=== PATIENT | male | born 1960 | race Caucasian/White ===

== ENCOUNTER 2016-11-15 21:52 | Outpatient (CLI) | payer SELFPAY | END 2016-11-15 21:53 | disposition critical access hospital (66) | LOC: EMS 21:52 | PROVIDERS: ATTEND Surgery | DX: R11.10 Vomiting, unspecified (principal); R23.9 Unspecified skin changes | CPT/HCPCS: A0425; A0429 ==

== ENCOUNTER 2016-11-15 22:16 | Emergency (ER) | payer SELFPAY ==
[2016-11-15] MEDS ORDERED: SODIUM CHLORIDE 0.9% 1,000 ML IV ONE (22:31)
[2016-11-15] MEDS ORDERED: ONDANSETRON 4 MG/2 ML VIAL IVP STA (22:31)
[2016-11-15] MEDS ORDERED: ONDANSETRON 4 MG/2 ML VIAL ONE (22:43)
[2016-11-15 22:52] LABS: BASOPHILS % (AUTO) 0.6 %; EOSINOPHILS % (AUTO) 0.5 %; HGB - HEMOGLOBIN 7.5 g/dL (14.0-18.0); INR 1.3 (0.8-1.2); LYMPHOCYTES % (AUTO) 52.7 %; MEAN CORPUSCULAR HEMOGLOBIN 33.4 pg (27.0-31.0); MEAN CORPUSCULAR VOLUME 98.2 fL (80.0-94.0); MEAN PLATELET VOLUME 7.1 fL (7.4-11.4); MONOCYTES % (AUTO) 26.6 %; NEUTROPHILS % (AUTO) 19.6 %; PT - PROTHROMBIN TIME 14.7 secs (9.9-12.6); RED BLOOD COUNT 2.24 10^6/uL (4.70-6.10); UNCORRECTED WHITE BLOOD COUNT 6.5 x10^3/uL; WHITE BLOOD COUNT 6.5 x10^3/uL (4.8-10.8)
[2016-11-15 22:59] LABS: BILIRUBIN,TOTAL 3.1 mg/dL (0.2-1.0); CALCIUM 8.9 mg/dL (8.5-10.3); CREATININE 0.9 mg/dL (0.6-1.2); PHOSPHORUS 3.6 mg/dL (2.5-4.6); POTASSIUM 3.7 mmol/L (3.5-5.0); TOTAL PROTEIN 6.3 g/dL (6.7-8.2)
[2016-11-15 23:00] LABS: PARTIAL THROMBOPLASTIN TIME 32.1 secs (24.9-33.3)
[2016-11-15 23:07] LABS: PLATELET ESTIMATE, MANUAL DECREASED (<130,000) (NORMAL); PLATELET MORPHOLOGY NORMAL APP (NORMAL)
[2016-11-15 23:15] LABS: BAND NEUTROPHILS % (MANUAL) 0 %
[2016-11-15 23:16] LABS: BASOPHILS % (MANUAL) 3 %; LYMPHOCYTES % (MANUAL) 71 %; NEUTROPHILS % (MANUAL) 15 %; NP AUTO DIFFERENTIAL? YES; NP MAN DIFFERENTIAL? NO; TOTAL CELLS COUNTED 100
[2016-11-16 00:55] VITALS: BP 134/75
--- NOTE | 2016-11-16 00:55 | ED Physician Documentation ---
PD HPI NVD - Stated complaint Stated Complaint: ABD PN/WD - Chief complaint Chief Complaint: General - History obtained from History obtained from: Patient - History of Present Illness Timing - onset: Chronic Timing - details: Gradual onset, Still present Associated symptoms: No: Chest pain, Hematemesis, Melena, Hematochezia, Near syncope / syncope, Loss of appetite, Weight loss Contributing factors: No: Sick contact, Bad food Similar symptoms before: Has not had sx before Recently seen: Not recently seen - Additonal information Additional information: Patient is a 56 year old male who is presenting to the emergency department for nausea and vomiting. Patient states that he quit drinking about three weeks ago. patient states that since that time he has not felt well. patient reports that over the last few days he has had diarrhea and vomiting. Patient states that he came in tonight since after he vomited he saw black nolan on his chest. Review of Systems Constitutional: denies: Fever, Chills Eyes: denies: Loss of vision, Photophobia Ears: denies: Ear pain, Drainage/discharge Nose: denies: Rhinorrhea / runny nose, Congestion Throat: denies: Sore throat Cardiac: denies: Chest pain / pressure, Palpitations Respiratory: denies: Cough, Wheezing GI: reports: Abdominal Pain, Nausea, Vomiting, Diarrhea. denies: Hematemesis, Bloody / black stool : denies: Dysuria, Frequency, Hematuria Skin: reports: Rash, Lesions Musculoskeletal: denies: Neck pain, Back pain, Extremity pain Neurologic: denies: Generalized weakness, Focal weakness, Numbness PD PAST MEDICAL HISTORY - Past Medical History Past Medical History: No - Past Surgical History Past Surgical History: No - Present Medications Home Medications: Ambulatory Orders Medication Instructions Recorded Confirmed Ondansetron Odt [Zofran] 4 mg TL Q6H PRN #14 tablet 11/16/16 - Allergies Allergies/Adverse Reactions: Allergies Allergy/AdvReac Type Severity Reaction Status Date / Time No Known Drug Allergies Allergy Verified 11/15/16 22:44 - Social History Does the pt smoke?: No Smoking Status: Never smoker Does the pt drink ETOH?: No Does the pt have substance abuse?: No - Immunizations Immunizations are current?: No - POLST Patient has POLST: No PD ED PE NORMAL - Vitals Vital signs reviewed: Yes - General General: Alert and oriented X 3 - HEENT HEENT: Atraumatic, PERRL, Ears normal - Neck Neck: Supple, no meningeal sign, No JVD - Cardiac Cardiac: RRR, No murmur - Respiratory Respiratory: No respiratory distress, Clear bilaterally - Abdomen Abdomen: Soft, Non distended - Extremities Extremities: No deformity, No tenderness to palpate, Normal ROM s pain, No edema , No calf tenderness / cord - Neuro Neuro: Alert and oriented X 3, No motor deficit, No sensory deficit, Normal speech - Psych Psych: Normal mood, Normal affect PD ED PE EXPANDED - General General: Alert - HEENT HEENT: Dry mucous membranes - Derm Derm: Purpura (purpura/ecchymosis on patient's chest) Results - Vitals Vitals: Vital Signs - 24 hr 11/15/16 11/15/16 11/16/16 22:15 22:54 00:50 Temperature 36.8 C 36.4 C L Heart Rate 93 80 75 Respiratory 17 18 16 Rate Blood Pressure 134/81 H 126/70 134/75 H O2 Saturation 97 95 96 Oxygen O2 Source Room air - Labs Labs: Laboratory Tests 11/15/16 11/15/16 11/15/16 22:40 22:40 22:40 WBC 6.5 RBC 2.24 L Hgb 7.5 L Hct 22.0 L MCV 98.2 H MCH 33.4 H MCHC 34.0 RDW 19.0 H Plt Count 31 L* MPV 7.1 L Neut # TIRE FABRICATOR Lymph # TIRE FABRICATOR [place] # TIRE FABRICATOR Eos # TIRE FABRICATOR Baso # TIRE FABRICATOR Absolute Nucleated RBC TIRE FABRICATOR Total Counted 100 Band Neuts % (Manual) 0 Myelocytes % 2 H Neutrophils # (Manual) 1.0 L Lymphocytes # (Manual) 4.6 H Monocytes # (Manual) 0.6 Basophils # (Manual) 0.2 H Nucleated RBCs TIRE FABRICATOR Differential Comment MANUAL DIFFERENTIAL Manual Slide Review Indicated Platelet Estimate DECREASED (<130,000) Platelet Morphology NORMAL BRINA RBC Morph Micro Appear 1+ POLYCHROMASIA ESR PT 14.7 H INR 1.3 H APTT 32.1 Sodium 138 Potassium 3.7 Chloride 107 Carbon Dioxide 22 Anion Gap 9.0 BUN 13 Creatinine 0.9 Estimated GFR (MDRD) 87 L Glucose 126 H Calcium 8.9 Phosphorus 3.6 Magnesium 2.0 Total Bilirubin 3.1 H AST 36 ALT 21 Alkaline Phosphatase 185 H C-Reactive Protein Total Protein 6.3 L Albumin 3.2 Globulin 3.1 Albumin/Globulin Ratio 1.0 Lipase 29 11/15/16 11/15/16 22:40 22:40 WBC RBC Hgb Hct MCV MCH MCHC RDW Plt Count MPV Neut # Lymph # [place] # Eos # Baso # Absolute Nucleated RBC Total Counted Band Neuts % (Manual) Myelocytes % Neutrophils # (Manual) Lymphocytes # (Manual) Monocytes # (Manual) Basophils # (Manual) Nucleated RBCs Differential Comment Manual Slide Review Platelet Estimate Platelet Morphology RBC Morph Micro Appear ESR 91 H PT INR APTT Sodium Potassium Chloride Carbon Dioxide Anion Gap BUN Creatinine Estimated GFR (MDRD) Glucose Calcium Phosphorus Magnesium Total Bilirubin AST ALT Alkaline Phosphatase C-Reactive Protein 1.7 H Total Protein Albumin Globulin Albumin/Globulin Ratio Lipase PD MEDICAL DECISION MAKING - ED course Complexity details: reviewed old records, reviewed results, re-evaluated patient , considered differential, d/w patient, d/w family, d/w programmer analyst consultant ED course: Patient was seen and examined at bedside. IV access was gained and labs were drawn. Patient was started on IV fluids and zofran. When patient's labs came back he was found to have a pancytopenia. A lengthy discussion was had with the patient, family and hospitalist. patient's symptoms were likely secondary to the chronic alcohol use which the patient had stopped. Patient did required further work up and care but all parties agreed it would be better in an outpatient setting. ample time was given to the patient and family to ask and answer questions. patient required no further work up and was stable for discharge with outpatient follow up. Departure - Departure Disposition: 01 Home, Self Care Clinical Impression: Pancytopenia Condition: Stable Instructions: ED Anemia Iron Deficiency, Supplements Folic Acid Folate Follow-Up: Vilma Ventura DO [Provider Admit Priv/Credential] - Within 1 week [facility] [Provider Group] Prescriptions: Ondansetron Odt [Zofran] 4 mg TL Q6H PRN #14 tablet PRN Reason: Nausea / Vomiting Comments: Your symptoms today are being caused by a pancytopenia. It is likely secondary to the chronic drinking. Now that you have stopped over time your symptoms should improve. You should start taking a pre-sana vitamin and increase the amount of green leafy vegetables and in the acute stage, red meat. You should return to the emergency department at any time for any type of active bleeding, syncope, dizziness, new worsening or uncontrollable symptoms. Discharge Date/Time: 11/16/16 01:18
== END 2016-11-16 01:18 | disposition home or self-care (01) ==
LOC: EDUNIT# → ED 22:16
DX: D61.818 Other pancytopenia (principal)
CPT/HCPCS: 36415; 80053; 83690; 83735; 84100; 85025; 85610; 85651; 85730; 86140; 96361; 96374; 99284

== ENCOUNTER 2016-11-25 17:08 | Outpatient (CLI) | payer MEDICAID | END 2016-11-25 17:09 | disposition critical access hospital (66) | LOC: EMS 17:08 | PROVIDERS: ATTEND Surgery | DX: R52 Pain, unspecified (principal); R53.1 Weakness | CPT/HCPCS: A0425; A0427 ==

== ENCOUNTER 2016-11-25 17:30 | Inpatient (IN) | payer MEDICAID ==
[2016-11-25] MEDS ORDERED: SODIUM CHLORIDE FLUSH 0.9% 10 ML SYRINGE IVP ONE (17:53)
[2016-11-25 18:13] LABS: BASOPHILS % (AUTO) 1.6 %; MEAN CORPUSCULAR HEMOGLOBIN 33.1 pg (27.0-31.0); MEAN CORPUSCULAR VOLUME 97.5 fL (80.0-94.0); MEAN PLATELET VOLUME 8.1 fL (7.4-11.4); MONOCYTES # (AUTO) 0.1 10^3/uL (0.0-1.0); MONOCYTES % (AUTO) 3.6 %; NEUTROPHILS % (AUTO) 34.8 %; NUCLEATED RED BLOOD CELLS AUTO 2.4 /100WBC; RED BLOOD COUNT 0.99 10^6/uL (4.70-6.10); RED CELL DISTRIBUTION WIDTH 19.1 % (12.0-15.0); UNCORRECTED WHITE BLOOD COUNT 1.8 x10^3/uL
[2016-11-25 18:18] LABS: HGB - HEMOGLOBIN 3.3 g/dL (14.0-18.0); WHITE BLOOD COUNT 1.8 x10^3/uL (4.8-10.8)
[2016-11-25 18:20] LABS: HCT - HEMATOCRIT 9.6 % (42.0-52.0); NEUTROPHILS # (AUTO) 0.6 10^3/uL (1.5-6.6)
[2016-11-25 18:33] LABS: ALBUMIN/GLOBULIN RATIO 0.9 (1.0-2.2); BILIRUBIN,TOTAL 9.5 mg/dL (0.2-1.0); CALCIUM 7.8 mg/dL (8.5-10.3); POTASSIUM 3.8 mmol/L (3.5-5.0); TOTAL PROTEIN 5.6 g/dL (6.7-8.2)
--- NOTE | 2016-11-25 18:34 | ED Physician Documentation ---
History of Present Illness - Stated complaint Stated Complaint: ABNORMAL LABS - Chief complaint Chief Complaint: General - History obtained from History obtained from: Patient, Family, EMS - History of Present Illness Pain level max: 7 Pain level now: 1 Improved by: nothing Worsened by: BM - Additonal information Additional information: 56 y/o M with a history of alcoholism, quit drinking about 5 weeks ago. Seen here 10 days ago for black nolan on his chest. Found to have pancytopenia. Followed up as outpatient. Sent in today for low H/H. Denies any dark or tarry stools. No emesis. B LQ abd pain. States has intermittent constipation. Feeling weak. Lost 50lbs over past few months. Review of Systems Ten Systems: 10 systems reviewed and negative Constitutional: denies: Fever, Chills Nose: denies: Rhinorrhea / runny nose, Congestion Cardiac: denies: Chest pain / pressure Respiratory: reports: Dyspnea (states extremely weak with any exertion). denies : Cough, Wheezing GI: reports: Abdominal Pain (crampy). denies: Constipation, Diarrhea, Hematemesis, Bloody / black stool Skin: denies: Rash Musculoskeletal: denies: Neck pain, Back pain Neurologic: denies: Focal weakness, Numbness, Headache PD PAST MEDICAL HISTORY - Past Medical History Past Medical History: No - Past Surgical History Past Surgical History: No - Present Medications Home Medications: Ambulatory Orders Medication Instructions Recorded Confirmed Ondansetron Odt [Zofran] 4 mg TL Q6H PRN #14 tablet 11/16/16 11/25/16 - Allergies Allergies/Adverse Reactions: Allergies Allergy/AdvReac Type Severity Reaction Status Date / Time No Known Drug Allergies Allergy Verified 11/25/16 18:00 - Living Situation Living Situation: reports: With family Living Arrangement: reports: At home - Social History Does the pt smoke?: No Smoking Status: Never smoker Does the pt drink ETOH?: No Does the pt have substance abuse?: No - Immunizations Immunizations are current?: No - POLST Patient has POLST: No PD ED PE NORMAL - Vitals Vital signs reviewed: Yes - General General: Alert and oriented X 3, No acute distress - HEENT HEENT: PERRL, Moist mucous membranes, Other (jaundiced) - Neck Neck: Supple, no meningeal sign - Cardiac Cardiac: RRR, No murmur - Respiratory Respiratory: No respiratory distress, Clear bilaterally - Abdomen Abdomen: Normal bowel sounds, Soft, Other (mild TTP LLQ. distention with ascites. Firm nodular liver palpable) - Rectal Rectal: Other (hemoccult weakly positive. QC passed. Normal rectal exam. ) - Back Back: No spinal TTP - Derm Derm: Warm and dry - Extremities Extremities: No calf tenderness / cord - Neuro Neuro: Alert and oriented X 3 - Psych Psych: Normal mood, Normal affect Results - Vitals Vitals: Vital Signs - 24 hr 11/25/16 11/25/16 11/25/16 17:30 18:42 19:37 Temperature 37.5 C Heart Rate 65 99 98 Respiratory 18 16 16 Rate Blood Pressure 113/50 L 115/63 105/45 L O2 Saturation 97 98 98 11/25/16 20:35 Temperature 36.8 C Heart Rate 93 Respiratory 15 Rate Blood Pressure 108/54 L O2 Saturation 98 Oxygen O2 Source Room air - Labs Labs: Laboratory Tests 11/25/16 11/25/16 11/25/16 17:55 17:55 18:00 WBC 1.8 L* RBC 0.99 L Hgb 3.3 L* Hct 9.6 L* MCV 97.5 H MCH 33.1 H MCHC 34.0 RDW 19.1 H Plt Count 33 L* MPV 8.1 Neut # 0.6 L Lymph # 1.0 L [place] # 0.1 Eos # 0.0 Baso # 0.0 Absolute Nucleated RBC 0.04 Nucleated RBCs 2.4 Manual Slide Review Indicated Platelet Estimate DECREASED (<130,000) RBC Morph Micro Appear 1+ MACROCYTOSIS PT INR APTT Sodium 136 Potassium 3.8 Chloride 107 Carbon Dioxide 21 Anion Gap 8.0 BUN 21 H Creatinine 1.0 Estimated GFR (MDRD) 77 L Glucose 137 H Calcium 7.8 L Total Bilirubin 9.5 H AST 32 ALT 23 Alkaline Phosphatase 176 H Lactate Dehydrogenase Total Protein 5.6 L Albumin 2.6 L Globulin 3.0 Albumin/Globulin Ratio 0.9 L Lipase 49 Ethyl Alcohol Blood Type Blood Type Recheck O POSITIVE Antibody Screen Crossmatch IS Only 11/25/16 11/25/16 11/25/16 18:00 18:00 18:00 WBC RBC Hgb Hct MCV MCH MCHC RDW Plt Count MPV Neut # Lymph # [place] # Eos # Baso # Absolute Nucleated RBC Nucleated RBCs Manual Slide Review Platelet Estimate RBC Morph Micro Appear PT 15.7 H INR 1.4 H APTT 28.2 Sodium Potassium Chloride Carbon Dioxide Anion Gap BUN Creatinine Estimated GFR (MDRD) Glucose Calcium Total Bilirubin AST ALT Alkaline Phosphatase Lactate Dehydrogenase 220 Total Protein Albumin Globulin Albumin/Globulin Ratio Lipase Ethyl Alcohol Blood Type O POSITIVE Blood Type Recheck Antibody Screen NEGATIVE Crossmatch IS Only 11/25/16 11/25/16 11/25/16 18:00 18:00 18:05 WBC RBC Hgb Hct MCV MCH MCHC RDW Plt Count MPV Neut # Lymph # [place] # Eos # Baso # Absolute Nucleated RBC Nucleated RBCs Manual Slide Review Platelet Estimate RBC Morph Micro Appear PT INR APTT Sodium Potassium Chloride Carbon Dioxide Anion Gap BUN Creatinine Estimated GFR (MDRD) Glucose Calcium Total Bilirubin AST ALT Alkaline Phosphatase Lactate Dehydrogenase Total Protein Albumin Globulin Albumin/Globulin Ratio Lipase Ethyl Alcohol < 5.0 Blood Type Cancelled Cancelled Blood Type Recheck Antibody Screen Cancelled Cancelled Crossmatch IS Only See Detail See Detail PD MEDICAL DECISION MAKING - ED course Complexity details: reviewed results, re-evaluated patient, considered differential, d/w patient, d/w family, d/w healthcare network pricing consultant ED course: 1924 - Dr. 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 Doesn't recommend transfer at this time. 1939 - Dr. Guzman hematology, states no special RBC prep needed. Patient is a 56-year-old male with pancytopenia. Possible alcoholic myelosuppression, possible hepatic cellular carcinoma, possible cirrhosis, possible other etiology of hematopoietic suppression. Discussed the case with Dr. Gallegos, hospitalist who accepts the patient. Will start with blood transfusion tonight and likely further testing tomorrow. Patient is jaundiced. Patient is also very anemic, has dropped from 7.5 down to 3.3 on his hemoglobin. This document was made in part using voice recognition software. While efforts are made to proofread this document, sound alike and grammatical errors may occur. Departure - Departure Disposition: 66 [facility] DC/Xfer Clinical Impression: Pancytopenia Anemia Qualifiers: Anemia type: unspecified type Qualified Code(s): D64.9 - Anemia, unspecified Condition: Stable Discharge Date/Time: 11/25/16 21:50
[2016-11-25 18:56] LABS: PLATELET ESTIMATE, MANUAL DECREASED (<130,000) (NORMAL)
[2016-11-25 19:18] LABS: INR 1.4 (0.8-1.2); PT - PROTHROMBIN TIME 15.7 secs (9.9-12.6)
[2016-11-25 19:25] LABS: PARTIAL THROMBOPLASTIN TIME 28.2 secs (24.9-33.3)
[2016-11-25] MEDS ORDERED: SODIUM CHLORIDE FLUSH 0.9% 10 ML SYRINGE IVP PRN ×2 (20:40→22:19)
[2016-11-25] MEDS ORDERED: oxyCODONE 5 MG TABLET PO PRN (20:40)
[2016-11-25] MEDS ORDERED: ACETAMINOPHEN 325 MG TABLET PO PRN ×2 (20:40→22:19)
[2016-11-25] MEDS ORDERED: SODIUM CHLORIDE FLUSH 0.9% 10 ML SYRINGE IVP SCH (22:00)
[2016-11-25] MEDS ORDERED: PHENAZOPYRIDINE 100 MG TABLET PO SCH (22:00)
[2016-11-25] MEDS ORDERED: ONDANSETRON 4 MG/2 ML VIAL IVP PRN (22:22)
[2016-11-25] MEDS ORDERED: ONDANSETRON ODT 4 MG TABLET TL PRN (22:22)
[2016-11-25] MEDS: SODIUM CHLORIDE FLUSH 0.9% 10 ML SYRINGE IVP SCH (23:10)
--- NOTE | 2016-11-25 23:14 | HISTORY & PHYSICAL EXAMINATION ---
DATE OF ADMISSION: 11/25/2016 PRIMARY CARE PROVIDER: David Rodriguez MD, and Vilma Ventura DO. ADMITTING PROVIDER: Any Gallegos MD. CHIEF COMPLAINT: Told to come to the emergency room by Dr. Rodriguez. HISTORY OF PRESENT ILLNESS: The patient is a 56-year-old male who has never seen a doctor, never had regular routine medical care. He drinks two 5 liter containers of wine a week. He drank very heavily in his 20s and stopped drinking after about 15 years when he got and had kids. He was sober for about 10 years and then went back to drinking when he . About 6 weeks ago, he was under heavy stress from job-related requirements. He goes into great detail and spends most of his history of present illness describing why his job is stressful, how hard he works at it, and that alcohol was a coping mechanism. When he realized how tired he felt and overwhelmed he felt and that the job stress was getting too much, he thought that turning over a new [place] with a better diet and stopped drinking cold turkey would help. He said that he had minimal shakes when he would hand-write something the first week he stopped drinking, but other than that, he has not had hallucinations or withdrawal. He has not had any melanotic stool. He has probably lost about 30- 37 pounds in the last month in relation to stopping drinking. Instead of feeling better as time went on, he says he just kept on feeling worse, more tired, more fatigued. He tried multiple vitamins, tried probiotics, tried anticonstipating agents, but he was not having bowel movements and he was afraid of eating. He also notes that when he drinks minimal amount of water, he would have an immediate urge to urinate, but there is nothing there. He tries to urinate and nothing comes out. He then has to drink a substantial amount of liquid before his bladder will finally fill up, and then he will start writhing with the discomfort of having to urinate and he finally can ago. There is no hematuria or flank pain with this. The suprapubic discomfort is almost constant. There is no rectal pain with this. No blood in his stool. There is no abdominal pain with this. He denies fevers or sweats. No nausea or vomiting. As time went on, he was also getting yellower and yellower, but nobody really said that he looked terrible with this jaundice. He finally came to our emergency room on November 15, 2016, with these complaints. What brought him to the emergency room was not so much his generalized decline, but the fact that he had coughed and he was having petechiae form on his chest wall. He was seen by Dr. Calhoun, and the pancytopenia was noted. At that time , hemoglobin was 7. He declined a rectal exam. If he had been having a GI bleed , we most likely would have admitted him and transfused him, but since he declined a rectal, did not describe any melena, was hemodynamically stable, it was felt that he was having side effects from liver disease and alcoholism, that he could be seen in the outpatient setting with a primary care provider and the workup started. The patient then was seen in followup. Blood work was done. It was acknowledged that he would need to be going to rehabilitation. The patient and his primary care provider (according to the patient's story) seemed to be focused on his need for alcohol rehabilitation and that once his blood work was done, treatment instituted for the abnormal blood work, then he could go into rehab. Blood work was done. The patient was called and told that he needed to call an ambulance and come to the emergency room because of the abnormal blood work. The patient said that he was definitely lightheaded today. Vision was blurred. He felt nauseated and dizzy as he got his blood work and then had to go back and sit in the car. In our emergency room, he was now evaluated by Dr. Delatorre. Dr. Delatorre found him to have a bilirubin that went from 3.1 to 9.5. Alkaline phosphatase was 185 and went to 176. White cell count was 6.5 and is now 1.8. Hemoglobin was 7.5 and is now 3.3. Hematocrit was 22 and now 9.6. Platelets are stable at 33,000. INR is 1.4. Ethyl alcohol is less than 5. I queried a little bit more carefully about any other toxins that could be doing this besides his alcohol but he does not do any other recreational substances. 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 He says he has not been on any hazardous waste sites. He does not do any HAZMAT work. No one else in the family has a history of leukemia or lymphoma. Dr. Delatorre spoke to Dr. Hammond, [facility] on-call, and he also spoke to Dr. Guzman who is on-call for [facility]. [facility] comes over to our [facility] clinic twice a week. Both of those specialties have reassured Dr. Delatorre that a critical access hospital is perfectly capable of taking care of this patient, but he did not need to be transferred to a higher level of care, that we can transfuse him, stabilize him, and then have him worked up in the outpatient setting. The [facility] group feels that it may be myelosuppression from alcohol, and Hematology is withholding their opinion but feels that he can be stabilized here and then worked up in the outpatient setting. As such, the patient is now admitted for further evaluation of his weight loss, pancytopenia, and transfusion. PAST MEDICAL HISTORY: None. He has never been hospitalized, never seen a doctor. To his knowledge, he does not have high blood pressure, diabetes, high cholesterol, etc. ALLERGIES: NO KNOWN DRUG ALLERGIES. MEDICATIONS: [id number] medications in the form of 1. Probiotics. 2. Multiple vitamins. 3. Laxatives. SOCIAL HISTORY: He smoked for 15 years, at most a pack per day, quit, and then started smoking again 10 or 11 years later after his first marriage ended in divorce and he was stressed out and hanging out at bars. He also went back to drinking. Right now, he has been drinking two 5 liter containers of wine a week until 6 weeks ago. Under much stress at work and working 12 hours a day. He has never gone through alcohol withdrawal. He says that he may have done a few recreational substances between the ages of 17 and 21 but never did IV drugs. He is living with his significant other/girlfriend. He has 2 children from his first marriage. He lives in his own home and has no disabilities. FAMILY HISTORY: Mom is 78 and had no medical issues. Dad at 75 of complications of atrial fibrillation and most likely amiodarone. He described a drug being given to him that affected his thyroid and his lungs. He has multiple half brothers and sisters. He says his father was an inveterate liar, and so he does not know half of the story. He was always finding out about new half siblings sporadically throughout his life. As far as he knows, his half siblings are okay. His 2 children are healthy. REVIEW OF SYSTEMS CONSTITUTIONAL: Denies constitutional sweats, fevers, cough, but does endorse a 30 to 37 pound weight loss in the last month. EARS, NOSE, AND THROAT: Blurred vision only today. Denies glaucoma, cataracts, deafness, problems swallowing. PULMONARY: Denies coughing, wheezing, shortness of breath, chest congestion, easy bronchitis. CARDIAC: Denies edema, orthopnea, valvular heart disease, angina. GASTROINTESTINAL: As above. GENITOURINARY: As above. JOINTS: Denies osteoarthritis, chronic pain. SKIN: New petechiae over the last 1 to 2 weeks. PSYCHIATRIC: No specific complaints. However, noted during the exam, the patient is a circumferential voluminous speaker, constantly angry. He constantly voices displeasure with "the system". Does not like the noise in this hospital. Does not like the fact that he had to go see an outpatient provider. Does not like the noise of the monitor. Does not like that his provider did "do anything" and just sent him here. Numerous, numerous statements of generalized unhappiness. A very loquacious speaker. He takes a very, very long time to answer a simple question. CENTRAL NERVOUS SYSTEM: Denies syncope, seizures, memory loss. PHYSICAL EXAMINATION GENERAL: On examination, he is seen in his room with the door closed, no lights on, and he is angry that the monitor sound keeps on going off. Initially, I think he is hallucinating because he keeps pointing at the computer monitor at the bedside that is at the foot of the bed and in the corner of the room. The computer monitor is not on, it is silent, but he insists that it is making noise and he wants me to turn it off immediately. We then figure out that it must be the monitor above and behind him in the bed that is echoing off the room , making him think it is at the foot at the bed. VITAL SIGNS: Temperature is 37.5, pulse 98, blood pressure 101/52, respirations 14, 97% on room air. He is a medium stature, middle-aged white male who is pale , alert, oriented, in no acute distress. HEAD AND NECK: Shows him to be disheveled, sweet and mustache, icteric. Very dry oral mucosa. Pale mucosa. Shotty adenopathy. LUNGS: Clear in a barrel chest. CARDIOVASCULAR: A regular rate and rhythm, no valvular heart disease. ABDOMEN: Belly is slightly distended but obese, soft, nontender. He has a enlarged, firm multinodular liver palpable 6 cm below the costal margin. I do not feel the spleen. Again, during his exam, even in the semi-darkness, his skin is remarkable for paleness. Suprapubic discomfort with palpation but no bladder mass. EXTREMITIES: Pale. He has ecchymosis in the web spaces of his toes, top of his feet, one on the right anterior maharaj, anterior chest wall. No true petechia. No clubbing, cyanosis. Mild edema. The edema appears to be generalized and almost like which you would see with hypothyroidism. NEUROLOGIC: Alert and oriented with no focal deficits. No tremors. No agitation. Emotion is mainly that of stated anger. DIAGNOSTIC DATA: Sodium 136, potassium 3.8, BUN 21, creatinine 1, glucose 137, calcium 7.8, total bilirubin 9.5, AST 32, ALT 23, alkaline phosphatase 176, LDH 220, protein 5.6. White cell count 1.8, hemoglobin 3.3, hematocrit 9.6, MCV 97, platelets 33. INR 1.4. Alcohol less than 5. ASSESSMENT/PLAN 1. Profound pancytopenia with painless obstructive jaundice. Differential diagnosis in this man that comes to mind is [facility]'s thought that he may have myelosuppression and cirrhosis from alcohol. Possible, but I think something else is going on. The next differential I want to consider is that of either a leukemic or lymphoid process or whitney neoplasm. I would like a peripheral blood smear review on a slide. I would also like a peripheral flow cytometry. Liver is enlarged and with nodules. Do CT abdomen and pelvis. He is complaining of difficulty urinating. Check PSA. Rectal is only trace positive. Could be colorectal neoplasm. Will check CEA. I have explained to the patient that my thought process is more in keeping with either the myelosuppression or a neoplasm. He keeps on returning to the fact that he needs to be going into rehab. I told him that while rehab is definitely going to be important in his life, right now , we need to find the disease that may be killing him. He cannot focus so much on the rehab, but focus on the next step with either [facility] or [facility]. The treatment for this pancytopenia during this stay is going to be transfusion of blood products to get him to a hemoglobin of 10. Consider transfusing platelets. 2. History of alcohol abuse. Give oral vitamin supplements. He is not in acute withdrawal and does not have to have acute hepatitis. Not in withdrawal so as such does not CIWA protocol. 3. Suprapubic pain. Flomax, Pyridium. Check urinalysis and again check PSA. 4. FULL CODE STATUS. 5. Deep venous thrombosis prophylaxis not to be done at this time because of the thrombocytopenia. At most will use MAYDA anthonye. 6. Possible personality disorder. JOB #: [id number] EXT JOB #:[id number] JERROD
[2016-11-26 00:21] LABS: BILIRUBIN,URINE MODERATE (NEGATIVE)
[2016-11-26 00:30] LABS: UR CULTURE IF IND INDICATED; WBC,URINE >25 /HPF (0-3)
[2016-11-26] MEDS: traMADol 50 MG TABLET PO PRN ×4 (00:40→20:25)
[2016-11-26] MEDS: PHENAZOPYRIDINE 100 MG TABLET PO SCH ×4 (00:40→21:38)
[2016-11-26] MEDS ORDERED: SODIUM CHLORIDE 0.9% 100ML 100 ML IV ONE ×2 (01:27→04:46)
[2016-11-26] MEDS ORDERED: SODIUM CHLORIDE 0.9% 0 ML IV ONE (04:43)
[2016-11-26] MEDS: SODIUM CHLORIDE FLUSH 0.9% 10 ML SYRINGE IVP SCH ×3 (06:15→21:38)
[2016-11-26] MEDS: PANTOPRAZOLE 40 MG TABLET PO SCH (06:41)
[2016-11-26] MEDS ORDERED: PANTOPRAZOLE 40 MG TABLET PO SCH (07:00)
[2016-11-26] MEDS ORDERED: CYANOCOBALAMIN 500 MCG TABLET PO SCH (09:00)
[2016-11-26] MEDS ORDERED: FOLIC ACID 1 MG TABLET PO SCH (09:00)
[2016-11-26] MEDS ORDERED: POLYETHYLENE GLYCOL 3350 17 GM PACKET PO SCH (09:00)
[2016-11-26] MEDS ORDERED: IOPAMIDOL-300 100 ML VIAL IVP ONE (09:19)
[2016-11-26] MEDS: FOLIC ACID 1 MG TABLET PO SCH (09:50)
[2016-11-26] MEDS: CYANOCOBALAMIN 500 MCG TABLET PO SCH (09:50)
[2016-11-26] MEDS: POLYETHYLENE GLYCOL 3350 17 GM PACKET PO SCH (09:51)
--- NOTE | 2016-11-26 10:04 | CT Preliminary Report ---
Exam: CT Abdomen/Pelvis W/ IMPRESSION: 1. There is hepatosplenomegaly. 2. There are peripheral areas of decreased attenuation in the spleen consistent with small splenic in farcts. 3. The gallbladder is distended and there is trace pericholecystic fluid which can be seen with baldo cystitis. The fluid could also be related to liver disease. 4. There is trace perisplenic ascites. 5. There are upper abdominal and paraesophageal varices. 6. There is periportal and retroperitoneal lymphadenopathy. 7. Tiny nonobstructing calculus in the lower pole of the left kidney. 8. Atherosclerotic vascular disease with ectasia of the distal abdominal aorta. [facility] SITE ID: [id number]
--- NOTE | 2016-11-26 10:07 | CT Report ---
EXAM: CT ABDOMEN AND PELVIS EXAM DATE: 11/26/2016 09:09 AM. CLINICAL HISTORY: 37 lb wt loss, nodular liver, hgb 7, plt 10. COMPARISONS: Ultrasound exam, same day (report not available). TECHNIQUE: Routine helical CT imaging was performed through the abdomen and pelvis. IV contrast: 100 mL Isovue-300. Enteric contrast: No. Reconstructions: Coronal and sagittal. In accordance with CT protocol optimization, one or more of the following dose reduction techniques w ere utilized for this exam: automated exposure control, adjustment of mA and/or KV based on patient s ize, or use of iterative reconstructive technique. FINDINGS: Lung Bases: Clear lung bases. Coronary artery calcifications are present. Liver: The liver is enlarged measuring up to approximately 27.6 cm greatest dimension. No focal abnor mality. Gallbladder/Bile Ducts: The gallbladder is distended and there is trace pericholecystic fluid. Spleen: The spleen is enlarged measuring up to approximately 20.3 cm. There is small peripheral areas of decreased attenuation for example series 3 image 42, likely representing small splenic infarcts. Pancreas: Normal. Adrenal Glands: Normal. Kidneys: There is a 0.2 cm nonobstructing calculus in the lower pole of the left kidney series 3 imag e 55. Negative for hydronephrosis. Peritoneal Cavity/Bowel: No free air. No bowel obstruction. There is trace perisplenic ascites. No ac kelly inflammatory changes. The appendix is well visualized and normal. Pelvic Organs: Normal. The bladder and visualized pelvic organs are within normal limits. Vasculature: There is atherosclerotic calcification in the aorta and iliac arteries. There is ectasia of the distal abdominal aorta measuring up to approximately 2.8 cm diameter. There are varices in th e upper abdomen and around the distal esophagus. Bones: No significant abnormality. Slight convex right lumbar scoliotic curvature. Other: There is periportal lymphadenopathy. For example, series 3 image 32 measuring 1.5 x 2.2 cm. Th ere is retroperitoneal lymphadenopathy. A retail service representative lymph node left of the aorta on series 3 cornelia ge 46 measures 1.1 x 1.5 cm. IMPRESSION: 1. There is hepatosplenomegaly. 2. There are peripheral areas of decreased attenuation in the spleen consistent with small splenic in farcts. 3. The gallbladder is distended and there is trace pericholecystic fluid which can be seen with baldo cystitis. The fluid could also be related to liver disease. 4. There is trace perisplenic ascites. 5. There are upper abdominal and paraesophageal varices. 6. There is periportal and retroperitoneal lymphadenopathy. 7. Tiny nonobstructing calculus in the lower pole of the left kidney. 8. Atherosclerotic vascular disease with ectasia of the distal abdominal aorta. [facility] Referring Provider Line: [phone] SITE ID: [id number]
[2016-11-26 10:08] LABS: BASOPHILS % (AUTO) 1.5 %; EOSINOPHILS % (AUTO) 0.9 %; LYMPHOCYTES # (AUTO) 0.8 10^3/uL (1.5-3.5); MEAN CORPUSCULAR HEMOGLOBIN 31.5 pg (27.0-31.0); MEAN CORPUSCULAR HGB CONC 34.9 g/dL (32.0-36.0); MEAN CORPUSCULAR VOLUME 90.2 fL (80.0-94.0); MONOCYTES # (AUTO) 0.1 10^3/uL (0.0-1.0); MONOCYTES % (AUTO) 4.1 %; NEUTROPHILS % (AUTO) 36.5 %; NUCLEATED RED BLOOD CELLS AUTO 9.1 /100WBC; RED BLOOD COUNT 1.89 10^6/uL (4.70-6.10); RED CELL DISTRIBUTION WIDTH 17.8 % (12.0-15.0); UNCORRECTED WHITE BLOOD COUNT 1.4 x10^3/uL
[2016-11-26 10:18] LABS: HCT - HEMATOCRIT 17.1 % (42.0-52.0); NEUTROPHILS # (AUTO) 0.5 10^3/uL (1.5-6.6); WHITE BLOOD COUNT 1.4 x10^3/uL (4.8-10.8)
[2016-11-26 10:30] LABS: PLATELET ESTIMATE, MANUAL DECREASED (<130,000) (NORMAL)
[2016-11-26 11:08] LABS: IRON 178 ug/dL (45-182); TOTAL IRON BINDING CAPACITY 207 ug/dL (250-450); TRANSFERRIN 148 mg/dL (180-329)
--- NOTE | 2016-11-26 11:22 | Ultrasound Preliminary Report ---
Exam: US Abdomen Complete IMPRESSION: 1. There is hepatosplenomegaly. Echogenic liver parenchyma. 2. The gallbladder wall is mildly thickened and there is trace pericholecystic fluid. No gallstones. This finding might be related to liver disease. [facility] SITE ID: [id number]
--- NOTE | 2016-11-26 11:25 | Ultrasound Report ---
EXAM: ABDOMEN ULTRASOUND EXAM DATE: 11/26/2016 09:51 AM. CLINICAL HISTORY: Pancytopenia, liver failure. COMPARISON: Abdomen/pelvis CT, same day. TECHNIQUE: Real-time scanning was performed with static images obtained. FINDINGS: Liver: Mildly echogenic liver. No focal masses are demonstrated. Overall size approximately 20.7 cm. Main portal vein flow: Hepatopetal. Gallbladder: No stones or sonographic Combs sign. Thickened gallbladder wall measuring 4 mm. Trace p ericholecystic fluid. Biliary System: Common bile duct measures 5 mm. No intrahepatic or extrahepatic ductal dilatation. Pancreas: Visualized portion is unremarkable. Kidneys: Right: 12.4 cm longitudinally. Normal. No contour-deforming mass, stones, or hydronephrosis. Left: 12.7 cm longitudinally. Normal. No contour-deforming mass, stones, or hydronephrosis. Spleen: Markedly enlarged with volume 901 mL. Aorta and Inferior Vena Cava: Limited evaluation, grossly normal. IMPRESSION: 1. There is hepatosplenomegaly. Echogenic liver parenchyma. 2. The gallbladder wall is mildly thickened and there is trace pericholecystic fluid. No gallstones. This finding might be related to liver disease. [facility] Referring Provider Line: [phone] SITE ID: [id number]
[2016-11-26 11:48] LABS: FOLATE 11.54 ng/mL (5.90 - >24.8)
--- NOTE | 2016-11-26 14:29 | PROVIDER PROGRESS NOTE ---
Assessment/Plan - Problem List (1) Anemia Qualifiers: Anemia type: unspecified type Qualified Code(s): D64.9 - Anemia, unspecified Assessment/Plan: The cause of the patients anemia is unclear at this point but the patient does have pancytopenia with hepatosplenomegaly which maybe secondary to bone marrow suppression from alcohol or virus such as [id number] vs myelodysplasia vs myelofibrosis vs lymphoma vs hemolysis Patient unlikely to have iron deficiency anemia, B12 def, folate def or a hemoglobinopathy such as sickle cell or thalasemia given that patient has pancytopenia Patient does not appear to have blood loss anemia even though he has a weakly positive stool guiaic and gastric and esophageal varices on CT scan he has not had any melena or blood in the stool. The patient has aplastic anemia which does not appear chemical or medication induced, it could be due to a virus such as [id number] or post hepatitis B or C, could be an immune disorder such as SLE although patient does not have any other symptoms or signs that would go with this, malignancy is very high on the differential given patients weight loss, hepatosplenomegaly and enlarged intraabdominal LNs on CT, this could also be alcohol induced bone marrow suppression as the patient does have an elevated MCV Currently this appears most likely to be alcohol induced BM suppression vs malignancy either way the patient will need a bone marrow biopsy to diagnose the cause We will get extensive tests to rule out as much of the above as we can Patients presenting Hb was 3.3 and that was a drop from 7.5 just 10 days earlier. The patient stopped drinking 6 weeks ago. The patient has had no melena or blood per rectum. Plan: Transfuse 6 units of PRBCs After 4 units patients hb has improved from 3.3 to 6.0 which is not as much of an improvement as we would expect We will check Hb after all 6 units are transfused and then monitor every 6 hours if patients hb continues to fall rapidly he will need transfer for further work up and further transfusion as we are a critical access hospital and do not have the resources to do mass transfusions of patients also at that point I believe the patient would need a more definitive diagnosis with a BM biopsy We will send off a peripheral smear folate, B12, iron and LDH are all normal We are awaiting the haptoglobin Patients Bili is elevated but this could be secondary to liver failure or hemolysis we need the haptoglobin to determine this We will order a Hepatitis panel, TSH, GENI, Anti Liver Kideny Microsome ab, anti smooth muscle ab Continue to monitor Hb (2) Pancytopenia Assessment/Plan: As above for anemia the pancytopenia is most likely secondary to BM suppression from alcohol vs BM malignancy vs lymphoma ANC is 500, Hb 3.3 and Plt count 27 Plan: Monitor CBC q 6 hours Transfuse PRBCs if hb less than 7 Transfuse Plts if Plt count less than 10 Neutropenic precautions as ANC is 500 Send peripheral blood smear Patient will need BM biopsy (3) Hepatosplenomegaly Assessment/Plan: Likely secondary to myeloproliferative neoplasm although could also be secondary to liver failure due to alcoholic liver failure or other form of liver failure. Will need to monitor for possible splenic rupture patient needs to avoid contact activities Could also be secondary to virus like viral hepatitis or [id number] which could cause bone marrow suppression and hepatosplenomegaly Patient needs biopsies to find a diagnosis Blood test have been ordered and will be followed up (4) Alcohol abuse Assessment/Plan: Patient quit drinking 6 weeks ago He has no interest in starting again He stopped drinking because he was feeling fatigued and weak He quit cold turkey and did not have any major withdrawal symptoms Possible cause of BM suppression and liver failure Patient drank 10 L of hard liquor a week (5) Hyperbilirubinemia Assessment/Plan: Most likely secondary to liver failure but could also be secondary to hemolysis especially in the setting of splenomegaly Other LFTs are normal and this does not appear to be secondary to biliary stone Although gallbladder is distended with pericholecystic fluid there is no gallstones and the changes appear to be secondary to liver disease rather than cholecystitis Plan: Monitor direct and indirect Bilirubin Check haptoglobin (6) UTI (urinary tract infection) Assessment/Plan: Patient not having urinary symptoms but has neutropenia and presented with pyuria and bacteruia in male which is very unusual will treat for UTI as PSA is normal will not treat for prostatitis Plan: Levaquin IV Urine cx pending (7) Liver failure Qualifiers: Liver failure chronicity: unspecified chronicity Assessment/Plan: MELD score is [address] shows hepatosplenomegaly with upper abdominal and paraesophageal varices but no focal abnormalities of the liver Likely alcohol related liver failure but the presentation is unusual with pancytopenia and splenomegaly this may be acute alcoholic hepatitis but then would expect it to be resolving 6 weeks after last drink rather patients pancytopenia is worsening and his bili is increasing Plan: Work up liver failure with work up for Wilsons disease, Viral Hepatitis, Autoimmune Hepatitis Monitor LFTs and Bili, CMP and CBC Patient will need EGD to access varices Start on propranolol for varices No ascites on exam or CT CT and US dont show hepatocellular cancer Monitor MELD score Patient will need hepatology follow up inpatient vs outpatient (8) Splenic infarction Assessment/Plan: The patient has small splenic infarctions seen on CT abd/pelvis in conjunction with the fact the patient has hepatosplenomegaly, pancytopenia and enlarged intra-abdominal lymph nodes the infarcts are most likely secondary to a myeloproliferative neoplasm or malignancy with hypercoagulation as a hemoglobinopathy like sickle cell is very unlikely and so is an embolic disease such as a fib or infective endocarditis Plan: Patient need a BM biopsy and likely a LN biopsy Hematology referral inpatient vs outpatient depending on patients stability - Current Meds Current Meds: Current Medications Generic Name Dose Route Start Last Admin Trade Name Freq PRN Reason Stop Dose Admin Cyanocobalamin 500 mcg 11/26/16 09:00 11/26/16 09:50 Vitamin B-12 PO 500 mcg DAILY HAYDEN Administration Folic Acid 1 mg 11/26/16 09:00 11/26/16 09:50 PO 1 mg DAILY HAYDEN Administration Levofloxacin 100 mls @ 100 mls/hr 11/26/16 08:00 11/26/16 07:57 Levaquin 500 Mg/100 Ml IV 100 mls/hr Q24H HAYDEN Administration Ondansetron HCl 4 mg 11/25/16 22:22 11/25/16 22:25 Zofran Odt TL 4 mg Q4HR PRN Administration Nausea / Vomiting Pantoprazole Sodium 40 mg 11/26/16 07:00 11/26/16 06:41 Protonix PO 40 mg QDAC HAYDEN Administration Phenazopyridine HCl 100 mg 11/25/16 22:00 11/26/16 06:41 Pyridium PO 100 mg TID HAYDEN Administration Polyethylene Glycol 17 gm 11/26/16 09:00 11/26/16 09:51 Miralax PO Not Given DAILY HAYDEN Sodium Chloride 10 ml 11/25/16 22:00 11/26/16 06:15 Normal Saline Flush 0.9% IVP Not Given Q8HR HAYDEN Tramadol HCl 50 mg 11/25/16 23:41 11/26/16 12:41 Ultram PO 50 mg Q4HR PRN Administration PAIN - Lab Result Lab results reviewed: Yes Fish Bone Diagrams: 11/26/16 09:58 11/25/16 18:00 - EKG Results EKG Interpreted Independently: Yes - Diagnostic Imaging Results Diagnostic Imaging Results: Final report reviewed - Additional Planning Condition/Complexity: Guarded My Orders: My Active Orders 11/26/16 08:00 levoFLOXacin 500 MG/100 ML [Levaquin 500 mg/100 ml] 100 ml IV Q24H 11/26/16 09:58 GENI SCREEN W REFLEX TITER [REFLAB] Routine CERULOPLASMIN [REFLAB] Routine LIVER KIDNEY MICROSOME AB [REFLAB] Routine PARVOVIRUS B19 IGG/IGM [REFLAB] Routine 11/26/16 16:30 BILIRUBIN, TOTAL AND DIRECT [CHEM] Timed CBC - COMP BLD CT W/AUTO DIFF [HEME] Timed CMP, RFLX TO IONIZED CA IF [CHEM] Routine 11/26/16 22:30 CBC - COMP BLD CT W/AUTO DIFF [HEME] Q6H 11/27/16 04:30 CBC - COMP BLD CT W/AUTO DIFF [HEME] Q6H 11/27/16 05:00 BILIRUBIN, TOTAL AND DIRECT [CHEM] DAILYLAB CBC - COMP BLD CT W/AUTO DIFF [HEME] DAILYLAB CMP, RFLX TO IONIZED CA IF [CHEM] DAILYLAB 11/27/16 10:30 CBC - COMP BLD CT W/AUTO DIFF [HEME] Q6H 11/27/16 16:30 CBC - COMP BLD CT W/AUTO DIFF [HEME] Q6H 11/28/16 05:00 BILIRUBIN, TOTAL AND DIRECT [CHEM] DAILYLAB CBC - COMP BLD CT W/AUTO DIFF [HEME] DAILYLAB CMP, RFLX TO IONIZED CA IF [CHEM] DAILYLAB 11/29/16 05:00 BILIRUBIN, TOTAL AND DIRECT [CHEM] DAILYLAB CBC - COMP BLD CT W/AUTO DIFF [HEME] DAILYLAB CMP, RFLX TO IONIZED CA IF [CHEM] DAILYLAB 11/30/16 05:00 CBC - COMP BLD CT W/AUTO DIFF [HEME] DAILYLAB CMP, RFLX TO IONIZED CA IF [CHEM] DAILYLAB Plan Discussed with:: Patient, Family Time Spent: 31-60 minutes Subjective - Subjective Patient Reports: Other (Patient states he still feels weak, fatigued and lightheaded. He denies any chest pain, abdominal pain, fevers or chills.) Nursing Reports: Other (Patient is difficult, gets easily annoyed) Objective Vital Signs: Vital Signs - 24 hr 11/25/16 11/25/16 11/25/16 21:00 21:36 22:00 Temperature 37.5 C Heart Rate 94 98 Heart Rate [ 96 Brachial] Respiratory 20 14 16 Rate Blood Pressure 101/58 L 101/52 L Blood Pressure [Left Brachial artery] Blood Pressure 120/56 L [Right Brachial artery] O2 Saturation 98 97 96 11/26/16 11/26/16 11/26/16 00:06 08:26 08:39 Temperature 37.7 C H 36.8 C Heart Rate Heart Rate [ 83 80 Brachial] Respiratory 18 22 Rate Blood Pressure Blood Pressure 104/61 [Left Brachial artery] Blood Pressure 110/56 L 108/60 [Right Brachial artery] O2 Saturation 98 98 11/26/16 11/26/16 11/26/16 10:00 10:15 12:30 Temperature 37.4 C 37 C 36.7 C Heart Rate Heart Rate [ 71 72 73 Brachial] Respiratory 16 18 16 Rate Blood Pressure Blood Pressure [Left Brachial artery] Blood Pressure 110/58 L 116/59 L 140/79 H [Right Brachial artery] O2 Saturation 96 97 97 11/26/16 11/26/16 12:45 14:00 Temperature 37 C Heart Rate Heart Rate [ 72 66 Brachial] Respiratory 20 16 Rate Blood Pressure Blood Pressure [Left Brachial artery] Blood Pressure 132/75 H [Right Brachial artery] O2 Saturation 96 Oxygen O2 Source Room air I&O (Last 24 Hrs): Intake and Output Totals x24h 11/24/16 11/25/16 11/26/16 23:59 23:59 23:59 Intake Total 1640 Output Total 1150 Balance 490 General: Alert, Oriented x3, Cooperative, Other (Jaundiced appearing) HEENT: Atraumatic, PERRLA, EOMI, Mucous membr. moist/pink, Other (Scleral icterus and conjuntival pallor) Neck: Supple, No JVD, No thyromegaly, +2 carotid pulse wo bruit, No LAD Lymphatic: other (No supraclavicular LNs, no cervical LNs) Neuro: Alert, Non Focal, CN 2-12 Grossly Intact, Oriented Times 3 Cardiovascular: Regular rate, Normal S1, Normal S2, No murmurs Respiratory: Chest non-tender, No respiratory distress, Breath sounds nml Abdomen: Normal bowel sounds, Soft, No tenderness, Other (Hepatosplenomegaly) Rectal: Stool - Heme POS Extremities: No clubbing, No cyanosis, No edema, Normal pulses, No tenderness/ swelling Comments/Notes: Bruises on shins and feet as well as one on the back - Results Results: Laboratory Results WBC 1.4 x10^3/uL (4.8-10.8) L* 11/26/16 09:58 RBC 1.89 10^6/uL (4.70-6.10) L 11/26/16 09:58 Hgb 6.0 g/dL (14.0-18.0) L* 11/26/16 09:58 Hct 17.1 % (42.0-52.0) L* 11/26/16 09:58 MCV 90.2 fL (80.0-94.0) 11/26/16 09:58 MCH 31.5 pg (27.0-31.0) H 11/26/16 09:58 MCHC 34.9 g/dL (32.0-36.0) 11/26/16 09:58 RDW 17.8 % (12.0-15.0) H 11/26/16 09:58 Plt Count 27 10^3/uL (130-450) L* 11/26/16 09:58 MPV 8.0 fL (7.4-11.4) 11/26/16 09:58 Neut # 0.5 10^3/uL (1.5-6.6) L* 11/26/16 09:58 Lymph # 0.8 10^3/uL (1.5-3.5) L 11/26/16 09:58 Mccreary # 0.1 10^3/uL (0.0-1.0) 11/26/16 09:58 Eos # 0.0 10^3/uL (0.0-0.7) 11/26/16 09:58 Baso # 0.0 10^3/uL (0.0-0.1) 11/26/16 09:58 Absolute Nucleated RBC 0.13 x10^3/uL 11/26/16 09:58 Nucleated RBCs 9.1 /100WBC 11/26/16 09:58 Manual Slide Review Indicated 11/26/16 09:58 Platelet Estimate DECREASED (<130,000) (NORMAL) 11/26/16 09:58 RBC Morph Micro Appear 2+ ANISOCYTOSIS (NORMAL) 1+ MACROCYTOSIS (NORMAL) 11/25/16 17:55 RBC Morph Micro Appear 2+ ANISOCYTOSIS (NORMAL) 11/26/16 09:58 PT 15.7 secs (9.9-12.6) H 11/25/16 18:00 INR 1.4 (0.8-1.2) H 11/25/16 18:00 APTT 28.2 secs (24.9-33.3) 11/25/16 18:00 Sodium 136 mmol/L (135-145) 11/25/16 18:00 Potassium 3.8 mmol/L (3.5-5.0) 11/25/16 18:00 Chloride 107 mmol/L (101-111) 11/25/16 18:00 Carbon Dioxide 21 mmol/L (21-32) 11/25/16 18:00 Anion Gap 8.0 (6-13) 11/25/16 18:00 BUN 21 mg/dL (6-20) H 11/25/16 18:00 Creatinine 1.0 mg/dL (0.6-1.2) 11/25/16 18:00 Estimated GFR (MDRD) 77 (>89) L 11/25/16 18:00 Glucose 137 mg/dL (70-100) H 11/25/16 18:00 Calcium 7.8 mg/dL (8.5-10.3) L 11/25/16 18:00 Iron 178 ug/dL (45-182) 11/26/16 09:58 TIBC 207 ug/dL (250-450) L 11/26/16 09:58 % Saturation 86 % (20-50) H 11/26/16 09:58 Transferrin 148 mg/dL (180-329) L 11/26/16 09:58 Total Bilirubin 9.5 mg/dL (0.2-1.0) H 11/25/16 18:00 AST 32 IU/L (10-42) 11/25/16 18:00 ALT 23 IU/L (10-60) 11/25/16 18:00 Alkaline Phosphatase 176 IU/L (42-121) H 11/25/16 18:00 Lactate Dehydrogenase 220 IU/L (91-225) 11/25/16 18:00 Total Protein 5.6 g/dL (6.7-8.2) L 11/25/16 18:00 Albumin 2.6 g/dL (3.2-5.5) L 11/25/16 18:00 Globulin 3.0 g/dL (2.1-4.2) 11/25/16 18:00 Albumin/Globulin Ratio 0.9 (1.0-2.2) L 11/25/16 18:00 Lipase 49 U/L (22-51) 11/25/16 18:00 PSA Screen 1.620 ng/mL (0.000-2.000) 11/26/16 09:58 Vitamin B12 1105 pg/mL (180-914) H 11/26/16 09:58 Folate 11.54 ng/mL (5.90 - >24.8) 11/26/16 09:58 Urine Color ORANGE 11/26/16 00:00 Urine Clarity HAZY (CLEAR) 11/26/16 00:00 Urine pH 6.0 PH (5.0-7.5) 11/26/16 00:00 Ur Specific [place] 1.020 (1.002-1.030) 11/26/16 00:00 Urine Protein TRACE mg/dL (NEGATIVE) 11/26/16 00:00 Urine Glucose (UA) NEGATIVE mg/dL (NEGATIVE) 11/26/16 00:00 Urine Ketones NEGATIVE mg/dL (NEGATIVE) 11/26/16 00:00 Urine Occult Blood SMALL (NEGATIVE) H 11/26/16 00:00 Urine Nitrite NEGATIVE (NEGATIVE) 11/26/16 00:00 Urine Bilirubin MODERATE (NEGATIVE) H 11/26/16 00:00 Urine Urobilinogen >=8.0 E.U./dL (NORMAL) H 11/26/16 00:00 Ur Leukocyte Esterase LARGE (NEGATIVE) H 11/26/16 00:00 Urine RBC 0-5 /HPF (0-5) 11/26/16 00:00 Urine WBC >25 /HPF (0-3) H 11/26/16 00:00 Urine WBC Clumps PRESENT 11/26/16 00:00 Ur Squamous Epith Cells NONE SEEN (<= Few) 11/26/16 00:00 Urine Bacteria Many /HPF (None Seen) H 11/26/16 00:00 Urine Culture Comments INDICATED 11/26/16 00:00 Ethyl Alcohol < 5.0 mg/dL 11/25/16 18:05 Blood Type O POSITIVE 11/25/16 18:00 Blood Type Recheck O POSITIVE 11/25/16 17:55 Antibody Screen NEGATIVE 11/25/16 18:00 Crossmatch IS Only See Detail 11/25/16 18:00
[2016-11-26 16:42] LABS: BASOPHILS % (AUTO) 1.4 %; EOSINOPHILS % (AUTO) 1.2 %; HCT - HEMATOCRIT 21.9 % (42.0-52.0); HGB - HEMOGLOBIN 7.6 g/dL (14.0-18.0); LYMPHOCYTES # (AUTO) 0.8 10^3/uL (1.5-3.5); MEAN CORPUSCULAR HEMOGLOBIN 30.8 pg (27.0-31.0); MEAN CORPUSCULAR HGB CONC 34.9 g/dL (32.0-36.0); MEAN CORPUSCULAR VOLUME 88.4 fL (80.0-94.0); MEAN PLATELET VOLUME 7.8 fL (7.4-11.4); MONOCYTES # (AUTO) 0.1 10^3/uL (0.0-1.0); MONOCYTES % (AUTO) 4.5 %; NEUTROPHILS % (AUTO) 37.9 %; NUCLEATED RED BLOOD CELLS AUTO 11.7 /100WBC; RED BLOOD COUNT 2.48 10^6/uL (4.70-6.10); RED CELL DISTRIBUTION WIDTH 18.1 % (12.0-15.0); UNCORRECTED WHITE BLOOD COUNT 1.4 x10^3/uL
[2016-11-26 16:52] LABS: WHITE BLOOD COUNT 1.4 x10^3/uL (4.8-10.8)
[2016-11-26 16:56] LABS: ALBUMIN/GLOBULIN RATIO 0.9 (1.0-2.2); BILIRUBIN,TOTAL 14.7 mg/dL (0.2-1.0); BUN - BLOOD UREA NITROGEN 19 mg/dL (6-20); CALCIUM 7.5 mg/dL (8.5-10.3); CARBON DIOXIDE - CO2 23 mmol/L (21-32); CHLORIDE 108 mmol/L (101-111); CREATININE 0.6 mg/dL (0.6-1.2); GFR - MDRD 139 (>89); GLUCOSE 137 mg/dL (70-100); POTASSIUM 3.8 mmol/L (3.5-5.0); SODIUM 135 mmol/L (135-145); TOTAL PROTEIN 5.3 g/dL (6.7-8.2)
[2016-11-26 16:57] LABS: BILIRUBIN,DIRECT 7.7 mg/dL (0.1-0.5); BILIRUBIN,INDIRECT 6.5 mg/dL; BILIRUBIN,TOTAL 14.2 mg/dL (0.2-1.0)
[2016-11-26 16:59] LABS: NEUTROPHILS # (AUTO) 0.5 10^3/uL (1.5-6.6)
[2016-11-26 17:03] LABS: PLATELET ESTIMATE, MANUAL DECREASED (<130,000) (NORMAL)
[2016-11-26 17:07] LABS: CALCIUM, IONIZED 1.05 mmol/L (1.15-1.33); VBG PH 7.364 (7.31-7.41)
[2016-11-26] MEDS ORDERED: CALCIUM GLUCONATE 1,000 MG in SODIUM CHLORIDE 0.9% 50 ML IV ONE (17:15)
[2016-11-26] MEDS: oxyCODONE 5 MG TABLET PO PRN (20:24)
[2016-11-26 22:58] LABS: BASOPHILS % (AUTO) 0.5 %; EOSINOPHILS % (AUTO) 1.1 %; HGB - HEMOGLOBIN 7.3 g/dL (14.0-18.0); LYMPHOCYTES # (AUTO) 0.8 10^3/uL (1.5-3.5); LYMPHOCYTES % (AUTO) 55.9 %; MEAN CORPUSCULAR HEMOGLOBIN 30.5 pg (27.0-31.0); MEAN CORPUSCULAR HGB CONC 34.8 g/dL (32.0-36.0); MEAN CORPUSCULAR VOLUME 87.5 fL (80.0-94.0); MEAN PLATELET VOLUME 9.3 fL (7.4-11.4); MONOCYTES # (AUTO) 0.1 10^3/uL (0.0-1.0); NEUTROPHILS % (AUTO) 36.5 %; UNCORRECTED WHITE BLOOD COUNT 1.3 x10^3/uL
[2016-11-26 23:13] LABS: NEUTROPHILS # (AUTO) 0.5 10^3/uL (1.5-6.6); WHITE BLOOD COUNT 1.3 x10^3/uL (4.8-10.8)
[2016-11-26 23:34] LABS: NP AUTO DIFFERENTIAL? NO; NP MAN DIFFERENTIAL? YES; PLATELET ESTIMATE, MANUAL DECREASED (<130,000) (NORMAL); PLATELET MORPHOLOGY NORMAL APPEARANCE (NORMAL)
[2016-11-27] MEDS: oxyCODONE 5 MG TABLET PO PRN ×2 (00:28→04:39)
[2016-11-27] MEDS: traMADol 50 MG TABLET PO PRN ×2 (00:28→04:39)
[2016-11-27] MEDS ORDERED: POTASSIUM CHLORIDE 10 MEQ CAPSULE PO SCH (01:53)
[2016-11-27 04:50] LABS: BASOPHILS % (AUTO) 0.9 %; EOSINOPHILS % (AUTO) 1.2 %; HCT - HEMATOCRIT 21.4 % (42.0-52.0); HGB - HEMOGLOBIN 7.4 g/dL (14.0-18.0); LYMPHOCYTES # (AUTO) 0.8 10^3/uL (1.5-3.5); LYMPHOCYTES % (AUTO) 61.5 %; MEAN CORPUSCULAR HEMOGLOBIN 30.2 pg (27.0-31.0); MEAN CORPUSCULAR HGB CONC 34.6 g/dL (32.0-36.0); MEAN CORPUSCULAR VOLUME 87.1 fL (80.0-94.0); MEAN PLATELET VOLUME 7.9 fL (7.4-11.4); MONOCYTES # (AUTO) 0.1 10^3/uL (0.0-1.0); MONOCYTES % (AUTO) 4.9 %; NEUTROPHILS % (AUTO) 31.5 %; NUCLEATED RED BLOOD CELLS AUTO 10.9 /100WBC; RED BLOOD COUNT 2.46 10^6/uL (4.70-6.10); RED CELL DISTRIBUTION WIDTH 18.1 % (12.0-15.0); UNCORRECTED WHITE BLOOD COUNT 1.2 x10^3/uL
[2016-11-27 04:58] LABS: INR 1.3 (0.8-1.2); PT - PROTHROMBIN TIME 14.8 secs (9.9-12.6)
[2016-11-27 05:08] LABS: ALBUMIN/GLOBULIN RATIO 0.8 (1.0-2.2); BILIRUBIN,DIRECT 6.6 mg/dL (0.1-0.5); BILIRUBIN,INDIRECT 5.4 mg/dL; BUN - BLOOD UREA NITROGEN 19 mg/dL (6-20); CARBON DIOXIDE - CO2 22 mmol/L (21-32); CHLORIDE 103 mmol/L (101-111); CREATININE 0.9 mg/dL (0.6-1.2); GFR - MDRD 87 (>89); GLUCOSE 140 mg/dL (70-100); SODIUM 133 mmol/L (135-145); TOTAL PROTEIN 5.5 g/dL (6.7-8.2)
[2016-11-27 05:22] LABS: VBG PH 7.451 (7.31-7.41)
[2016-11-27 05:23] LABS: CALCIUM, IONIZED 1.06 mmol/L (1.15-1.33)
[2016-11-27 05:32] LABS: NEUTROPHILS # (AUTO) 0.4 10^3/uL (1.5-6.6); WHITE BLOOD COUNT 1.2 x10^3/uL (4.8-10.8)
[2016-11-27 05:34] LABS: NP AUTO DIFFERENTIAL? NO; NP MAN DIFFERENTIAL? YES; PLATELET ESTIMATE, MANUAL DECREASED (<130,000) (NORMAL); PLATELET MORPHOLOGY NORMAL APPEARANCE (NORMAL)
[2016-11-27] MEDS: PHENAZOPYRIDINE 100 MG TABLET PO SCH ×2 (06:09→14:12)
[2016-11-27] MEDS: PANTOPRAZOLE 40 MG TABLET PO SCH (06:09)
[2016-11-27] MEDS: SODIUM CHLORIDE FLUSH 0.9% 10 ML SYRINGE IVP SCH ×2 (06:09→14:12)
[2016-11-27 08:26] VITALS: BP 128/75
[2016-11-27] MEDS: POLYETHYLENE GLYCOL 3350 17 GM PACKET PO SCH (08:35)
[2016-11-27] MEDS ORDERED: SODIUM CHLORIDE 0.9% 250 ML IV ONE (08:42)
[2016-11-27] MEDS: CYANOCOBALAMIN 500 MCG TABLET PO SCH (08:45)
[2016-11-27] MEDS: FOLIC ACID 1 MG TABLET PO SCH (08:45)
[2016-11-27 09:12] LABS: HGB - HEMOGLOBIN 7.6 g/dL (14.0-18.0); RED BLOOD COUNT 2.51 10^6/uL (4.70-6.10); UNCORRECTED WHITE BLOOD COUNT 1.1 x10^3/uL
[2016-11-27 09:21] LABS: BASOPHILS % (AUTO) 0.7 %; EOSINOPHILS % (AUTO) 1.8 %; HCT - HEMATOCRIT 21.8 % (42.0-52.0); LYMPHOCYTES % (AUTO) 63.7 %; MEAN CORPUSCULAR HEMOGLOBIN 30.4 pg (27.0-31.0); MEAN CORPUSCULAR VOLUME 86.8 fL (80.0-94.0); MEAN PLATELET VOLUME 7.7 fL (7.4-11.4); MONOCYTES % (AUTO) 4.1 %; NEUTROPHILS % (AUTO) 29.7 %; RED CELL DISTRIBUTION WIDTH 18.3 % (12.0-15.0)
[2016-11-27 10:10] LABS: WHITE BLOOD COUNT 1.1 x10^3/uL (4.8-10.8)
[2016-11-27 10:23] LABS: NEUTROPHILS % (MANUAL) 22 %; TOTAL CELLS COUNTED 50
[2016-11-27 10:24] LABS: BAND NEUTROPHILS % (MANUAL) 2 %; EOSINOPHILS % (MANUAL) 2 %; LYMPHOCYTES % (MANUAL) 64 %
[2016-11-27 10:29] LABS: PLATELET MORPHOLOGY 1+ LARGE PLATELETS (NORMAL)
[2016-11-27 10:30] LABS: NP AUTO DIFFERENTIAL? YES; NP MAN DIFFERENTIAL? NO; PLATELET ESTIMATE, MANUAL DECREASED (<130,000) (NORMAL)
[2016-11-27 10:32] LABS: PHOSPHORUS 4.1 mg/dL (2.5-4.6)
--- NOTE | 2016-11-27 13:26 | PROVIDER PROGRESS NOTE ---
Assessment/Plan - Problem List (1) Anemia Qualifiers: Anemia type: unspecified type Qualified Code(s): D64.9 - Anemia, unspecified Assessment/Plan: The cause of the patients anemia is unclear at this point but the patient does have pancytopenia with hepatosplenomegaly which maybe secondary to bone marrow suppression from alcohol or virus such as [id number] vs myelodysplasia vs myelofibrosis vs lymphoma vs hemolysis Patient unlikely to have iron deficiency anemia, B12 def, folate def or a hemoglobinopathy such as sickle cell or thalasemia given that patient has pancytopenia Patient does not appear to have blood loss anemia even though he has a weakly positive stool guiaic and gastric and esophageal varices on CT scan he has not had any melena or blood in the stool. The patient has aplastic anemia which does not appear chemical or medication induced, it could be due to a virus such as [id number] or post hepatitis B or C, could be an immune disorder such as SLE although patient does not have any other symptoms or signs that would go with this, malignancy is very high on the differential given patients weight loss, hepatosplenomegaly and enlarged intraabdominal LNs on CT, this could also be alcohol induced bone marrow suppression as the patient does have an elevated MCV Currently this appears most likely to be alcohol induced BM suppression vs malignancy either way the patient will need a bone marrow biopsy to diagnose the cause We will get extensive tests to rule out as much of the above as we can Patients presenting Hb was 3.3 and that was a drop from 7.5 just 10 days earlier. The patient stopped drinking 6 weeks ago. The patient has had no melena or blood per rectum. Plan: Transfused 6 units of PRBCs After 6 units patients Hb improved to 7.6 and has remained stable over the last 16 hours we are concerned given how quickly his hb dropped before that it may continue to drop over the next few days. If patients hb continues to fall rapidly he will need transfer for further work up and further transfusion as we are a critical access hospital and do not have the resources to do mass transfusions of patients also at that point I believe the patient would need a more definitive diagnosis with a BM biopsy. I spoke with Hematology at the [facility] today and they were very concerned given the severity of the patients pancytopenia with neutropenia. The truck rental service attendant was even worried about the possibility of HLH and felt the patient warranted an inpatient work up including a peripheral smear and a BM biopsy. She asked that we transfer the patient over to on the Medicine Service with a Hematology consult Spoke with Dr Garcia who accepted the patient in transfer we are just awaiting a bed and patient maybe transferred later today or tomorrow. folate, B12, iron and LDH are all normal TSH normal We are awaiting the haptoglobin Patients Bili is elevated but this could be secondary to liver failure or hemolysis we need the haptoglobin to determine this We have ordered a Hepatitis panel, TSH, GENI, Anti Liver Kideny Microsome ab, anti smooth muscle ab all are pending Continue to monitor Hb (2) Pancytopenia Assessment/Plan: As above for anemia the pancytopenia is most likely secondary to BM suppression from alcohol vs BM malignancy vs lymphoma ANC is 300, Hb 7.6 and Plt count 24 Plan: Monitor CBC q 6 hours Transfuse PRBCs if hb less than 7 Transfuse Plts if Plt count less than 10 Neutropenic precautions as ANC is 300 I spoke with Hematology at the [facility] today and they were very concerned given the severity of the patients pancytopenia with neutropenia. The truck rental service attendant was even worried about the possibility of HLH and felt the patient warranted an inpatient work up including a peripheral smear and a BM biopsy. She asked that we transfer the patient over to on the Medicine Service with a Hematology consult Spoke with Dr Garcia who accepted the patient in transfer we are just awaiting a bed and patient maybe transferred later today or tomorrow. (3) Hepatosplenomegaly Assessment/Plan: Likely secondary to myeloproliferative neoplasm although could also be secondary to liver failure due to alcoholic liver failure or other form of liver failure. Will need to monitor for possible splenic rupture patient needs to avoid contact activities Could also be secondary to virus like viral hepatitis or [id number] which could cause bone marrow suppression and hepatosplenomegaly I spoke with Hematology at the [facility] today and they were very concerned given the severity of the patients pancytopenia with neutropenia. The truck rental service attendant was even worried about the possibility of HLH and felt the patient warranted an inpatient work up including a peripheral smear and a BM biopsy. She asked that we transfer the patient over to on the Medicine Service with a Hematology consult Spoke with Dr Garcia who accepted the patient in transfer we are just awaiting a bed and patient maybe transferred later today or tomorrow. (4) Alcohol abuse Assessment/Plan: Patient quit drinking 6 weeks ago He has no interest in starting again He stopped drinking because he was feeling fatigued and weak He quit cold turkey and did not have any major withdrawal symptoms Possible cause of BM suppression and liver failure Patient drank 10 L of hard liquor a week (5) Hyperbilirubinemia Assessment/Plan: Most likely secondary to liver failure but could also be secondary to hemolysis especially in the setting of splenomegaly Other LFTs are normal and this does not appear to be secondary to biliary stone Although gallbladder is distended with pericholecystic fluid there is no gallstones and the changes appear to be secondary to liver disease rather than cholecystitis T Bili is 12.0 this morning down from 14.7, direct Bili is 6.6 with haptoglobin pedning (6) UTI (urinary tract infection) Assessment/Plan: Patient was having dysuria and placed on pyridium, also has neutropenia and had low grade fever of 37.7 with pyuria and bacteruia in male which is very unusual will treat for UTI as PSA is normal will not treat for prostatitis Plan: Levaquin IV Urine cx growing 2 organisms with identification pending (gram negative rods non lactose and lactose international nurse) (7) Liver failure Qualifiers: Liver failure chronicity: unspecified chronicity Assessment/Plan: MELD score is [address] shows hepatosplenomegaly with upper abdominal and paraesophageal varices but no focal abnormalities of the liver Likely alcohol related liver failure but the presentation is unusual with pancytopenia and splenomegaly this may be acute alcoholic hepatitis but then would expect it to be resolving 6 weeks after last drink rather patients pancytopenia is worsening and his bili is increasing Plan: Work up liver failure with work up for Wilsons disease, Viral Hepatitis, Autoimmune Hepatitis all still pending Monitor LFTs and Bili, CMP and CBC Patient will need EGD to access varices Start on propranolol for varices No ascites on exam or CT CT and US dont show hepatocellular cancer Monitor MELD score Patient will need hepatology follow up inpatient vs outpatient (8) Splenic infarction Assessment/Plan: The patient has small splenic infarctions seen on CT abd/pelvis in conjunction with the fact the patient has hepatosplenomegaly, pancytopenia and enlarged intra-abdominal lymph nodes the infarcts are most likely secondary to a myeloproliferative neoplasm or malignancy with hypercoagulation as a hemoglobinopathy like sickle cell is very unlikely and so is an embolic disease such as a fib or infective endocarditis Plan: Patient need a BM biopsy and likely a LN biopsy I spoke with Hematology at the [facility] today and they were very concerned given the severity of the patients pancytopenia with neutropenia. The truck rental service attendant was even worried about the possibility of HLH and felt the patient warranted an inpatient work up including a peripheral smear and a BM biopsy. She asked that we transfer the patient over to on the Medicine Service with a Hematology consult Spoke with Dr Garcia who accepted the patient in transfer we are just awaiting a bed and patient maybe transferred later today or tomorrow. - Current Meds Current Meds: Current Medications Generic Name Dose Route Start Last Admin Trade Name Freq PRN Reason Stop Dose Admin Cyanocobalamin 500 mcg 11/26/16 09:00 11/27/16 08:45 Vitamin B-12 PO 500 mcg DAILY HAYDEN Administration Folic Acid 1 mg 11/26/16 09:00 11/27/16 08:45 PO 1 mg DAILY HAYDEN Administration Levofloxacin 100 mls @ 100 mls/hr 11/26/16 08:00 11/27/16 08:44 Levaquin 500 Mg/100 Ml IV 100 mls/hr Q24H HAYDEN Administration Ondansetron HCl 4 mg 11/25/16 22:22 11/25/16 22:25 Zofran Odt TL 4 mg Q4HR PRN Administration Nausea / Vomiting Oxycodone HCl 5 mg 11/25/16 22:19 11/27/16 04:39 Roxicodone PO 5 mg Q4HR PRN Administration Pain 5 to 7 Pantoprazole Sodium 40 mg 11/26/16 07:00 11/27/16 06:09 Protonix PO 40 mg QDAC HAYDEN Administration Phenazopyridine HCl 100 mg 11/25/16 22:00 11/27/16 06:09 Pyridium PO 100 mg TID HAYDEN Administration Polyethylene Glycol 17 gm 11/26/16 09:00 11/27/16 08:35 Miralax PO Not Given DAILY HAYDEN Sodium Chloride 10 ml 11/25/16 22:19 11/27/16 08:45 Normal Saline Flush 0.9% IVP 10 ml PRN PRN Administration NEEDED PER PROVIDER ORDERS Sodium Chloride 10 ml 11/25/16 22:00 11/27/16 06:09 Normal Saline Flush 0.9% IVP 10 ml Q8HR HAYDEN Administration Tramadol HCl 50 mg 11/25/16 23:41 11/27/16 04:39 Ultram PO 50 mg Q4HR PRN Administration PAIN - Lab Result Lab results reviewed: Yes Fish Bone Diagrams: 11/27/16 08:52 11/27/16 04:40 - Diagnostic Imaging Results Diagnostic Imaging Results: Final report reviewed - Additional Planning Condition/Complexity: Guarded My Orders: My Active Orders 11/26/16 16:34 SMOOTH MUSCLE IGG AB [REFLAB] Routine 11/26/16 Dinner Regular Diet [DIET] 11/27/16 16:30 CBC - COMP BLD CT W/AUTO DIFF [HEME] Q6H 11/28/16 05:00 BILIRUBIN, TOTAL AND DIRECT [CHEM] DAILYLAB CBC - COMP BLD CT W/AUTO DIFF [HEME] DAILYLAB CMP, RFLX TO IONIZED CA IF [CHEM] DAILYLAB MAGNESIUM [CHEM] DAILYLAB PHOSPHORUS [CHEM] DAILYLAB PT WITH INR [COAG] DAILYLAB 11/29/16 05:00 BILIRUBIN, TOTAL AND DIRECT [CHEM] DAILYLAB CBC - COMP BLD CT W/AUTO DIFF [HEME] DAILYLAB CMP, RFLX TO IONIZED CA IF [CHEM] DAILYLAB MAGNESIUM [CHEM] DAILYLAB PHOSPHORUS [CHEM] DAILYLAB PT WITH INR [COAG] DAILYLAB 11/30/16 05:00 CBC - COMP BLD CT W/AUTO DIFF [HEME] DAILYLAB CMP, RFLX TO IONIZED CA IF [CHEM] DAILYLAB MAGNESIUM [CHEM] DAILYLAB PHOSPHORUS [CHEM] DAILYLAB 12/01/16 05:00 MAGNESIUM [CHEM] DAILYLAB PHOSPHORUS [CHEM] DAILYLAB Consult/Specialty: Hematology (@ ) Plan Discussed with:: Patient, Spouse Time Spent: Greater than 60 minutes Subjective - Subjective Patient Reports: Other (He states he feels worse than last night. He states that he feels badly overall cant describe more specifically. Does state that he feels very weak and fatigued. Was having some abdominal discomfort but took pain medication earlier in the morning for that. He denies any fevers. He denies any black or bloody stools.) Objective Vital Signs: Vital Signs - 24 hr 11/26/16 11/26/16 11/27/16 14:00 15:50 01:49 Temperature 36.6 C 37.2 C Heart Rate [ 66 70 75 Brachial] Respiratory 16 18 16 Rate Blood Pressure 143/56 H 115/62 [Right Brachial artery] O2 Saturation 98 97 11/27/16 08:22 Temperature 37.0 C Heart Rate [ 75 Brachial] Respiratory 18 Rate Blood Pressure 128/75 [Right Brachial artery] O2 Saturation 96 Oxygen O2 Source Room air I&O (Last 24 Hrs): Intake and Output Totals x24h 11/25/16 11/26/16 11/27/16 23:59 23:59 23:59 Intake Total 3120 1150 Output Total 1150 Balance 1970 1150 General: Alert, Oriented x3, Cooperative, No acute distress, Other (Jaundiced) HEENT: Atraumatic, PERRLA, EOMI, Mucous membr. moist/pink, Other (Scleral icterus, conjuntival pallor) Neck: Supple, No JVD, No thyromegaly, +2 carotid pulse wo bruit Lymphatic: no adenopathy Neuro: Alert, Non Focal, CN 2-12 Grossly Intact, Oriented Times 3 Cardiovascular: Regular rate, Normal S1, Normal S2, No murmurs Respiratory: Chest non-tender, No respiratory distress, Breath sounds nml Abdomen: Normal bowel sounds, Soft, Other (hepatosplenomegaly) Extremities: No clubbing, No cyanosis, No edema, Normal pulses Skin: No rashes, No breakdown Comments/Notes: Jaundice appearing skin with multiple bruises. - Results Results: Laboratory Results WBC 1.1 x10^3/uL (4.8-10.8) L* 11/27/16 08:52 RBC 2.51 10^6/uL (4.70-6.10) L 11/27/16 08:52 Hgb 7.6 g/dL (14.0-18.0) L 11/27/16 08:52 Hct 21.8 % (42.0-52.0) L 11/27/16 08:52 MCV 86.8 fL (80.0-94.0) 11/27/16 08:52 MCH 30.4 pg (27.0-31.0) 11/27/16 08:52 MCHC 35.0 g/dL (32.0-36.0) 11/27/16 08:52 RDW 18.3 % (12.0-15.0) H 11/27/16 08:52 Plt Count 24 10^3/uL (130-450) L* 11/27/16 08:52 MPV 7.7 fL (7.4-11.4) 11/27/16 08:52 Neut # Not Reportable 11/27/16 08:52 Lymph # Not Reportable 11/27/16 08:52 Mcpherson # Not Reportable 11/27/16 08:52 Eos # Not Reportable 11/27/16 08:52 Baso # Not Reportable 11/27/16 08:52 Absolute Nucleated RBC Not Reportable 11/27/16 08:52 Total Counted 50 11/27/16 08:52 Band Neuts % (Manual) 2 % (0-10) 11/27/16 08:52 Abnorm Lymph % (Manual) 4 % 11/27/16 08:52 Neutrophils # (Manual) 0.3 10^3/uL (1.5-6.6) L* 11/27/16 08:52 Lymphocytes # (Manual) 0.7 10^3/uL (1.5-3.5) L 11/27/16 08:52 Monocytes # (Manual) 0.1 10^3/uL (0.0-1.0) 11/27/16 08:52 Eosinophils # (Manual) 0.0 10^3/uL (0-0.7) 11/27/16 08:52 Nucleated RBCs 6 % 11/27/16 08:52 Differential Comment MANUAL DIFFERENTIAL 11/27/16 08:52 Manual Slide Review Indicated 11/26/16 16:34 Platelet Estimate DECREASED (<130,000) (NORMAL) 11/27/16 08:52 Platelet Morphology 1+ LARGE PLATELETS (NORMAL) 11/27/16 08:52 RBC Morph Micro Appear 1+ ANISOCYTOSIS (NORMAL) 11/26/16 22:35 RBC Morph Micro Appear 1+ ANISOCYTOSIS (NORMAL) 1+ POLYCHROMASIA (NORMAL) 1+ MACROCYTOSIS (NORMAL) 11/27/16 04:40 RBC Morph Micro Appear 1+ ANISOCYTOSIS (NORMAL) 1+ POLYCHROMASIA (NORMAL) 1+ MACROCYTOSIS (NORMAL) 11/27/16 04:40 RBC Morph Micro Appear 1+ ANISOCYTOSIS (NORMAL) 1+ POLYCHROMASIA (NORMAL) 1+ MACROCYTOSIS (NORMAL) 11/27/16 04:40 RBC Morph Micro Appear 2+ ANISOCYTOSIS (NORMAL) 2+ HYPOCHROMASIA (NORMAL) 2 + POLYCHROMASIA (NORMAL) 11/27/16 08:52 RBC Morph Micro Appear 2+ ANISOCYTOSIS (NORMAL) 2+ HYPOCHROMASIA (NORMAL) 2 + POLYCHROMASIA (NORMAL) 11/27/16 08:52 RBC Morph Micro Appear 2+ ANISOCYTOSIS (NORMAL) 2+ HYPOCHROMASIA (NORMAL) 2 + POLYCHROMASIA (NORMAL) 11/27/16 08:52 PT 14.8 secs (9.9-12.6) H 11/27/16 04:40 INR 1.3 (0.8-1.2) H 11/27/16 04:40 APTT 28.2 secs (24.9-33.3) 11/25/16 18:00 VBG pH 7.451 (7.31-7.41) H 11/27/16 04:40 Ionized Calcium 1.06 mmol/L (1.15-1.33) L 11/27/16 04:40 Sodium 133 mmol/L (135-145) L 11/27/16 04:40 Potassium 4.0 mmol/L (3.5-5.0) 11/27/16 04:40 Chloride 103 mmol/L (101-111) 11/27/16 04:40 Carbon Dioxide 22 mmol/L (21-32) 11/27/16 04:40 Anion Gap 8.0 (6-13) 11/27/16 04:40 BUN 19 mg/dL (6-20) 11/27/16 04:40 Creatinine 0.9 mg/dL (0.6-1.2) 11/27/16 04:40 Estimated GFR (MDRD) 87 (>89) L 11/27/16 04:40 Glucose 140 mg/dL (70-100) H 11/27/16 04:40 Calcium 8.0 mg/dL (8.5-10.3) L 11/27/16 04:40 Ionized Calcium YES 11/27/16 04:40 Phosphorus 4.1 mg/dL (2.5-4.6) 11/27/16 08:59 Magnesium 2.0 mg/dL (1.7-2.8) 11/27/16 08:59 Iron 178 ug/dL (45-182) 11/26/16 09:58 TIBC 207 ug/dL (250-450) L 11/26/16 09:58 % Saturation 86 % (20-50) H 11/26/16 09:58 Transferrin 148 mg/dL (180-329) L 11/26/16 09:58 Total Bilirubin 12.0 mg/dL (0.2-1.0) H 11/27/16 04:40 Direct Bilirubin 6.6 mg/dL (0.1-0.5) H 11/27/16 04:40 Indirect Bilirubin 5.4 mg/dL 11/27/16 04:40 AST 31 IU/L (10-42) 11/27/16 04:40 ALT 22 IU/L (10-60) 11/27/16 04:40 Alkaline Phosphatase 161 IU/L (42-121) H 11/27/16 04:40 Lactate Dehydrogenase 220 IU/L (91-225) 11/25/16 18:00 Total Protein 5.5 g/dL (6.7-8.2) L 11/27/16 04:40 Albumin 2.5 g/dL (3.2-5.5) L 11/27/16 04:40 Globulin 3.0 g/dL (2.1-4.2) 11/27/16 04:40 Albumin/Globulin Ratio 0.8 (1.0-2.2) L 11/27/16 04:40 Lipase 49 U/L (22-51) 11/25/16 18:00 Carcinoembryonic Ag 3.3 ng/mL 11/27/16 08:52 PSA Screen 1.620 ng/mL (0.000-2.000) 11/26/16 09:58 Vitamin B12 1105 pg/mL (180-914) H 11/26/16 09:58 Folate 11.54 ng/mL (5.90 - >24.8) 11/26/16 09:58 TSH 2.05 uIU/mL (0.34-5.60) 11/26/16 16:34 Urine Color ORANGE 11/26/16 00:00 Urine Clarity HAZY (CLEAR) 11/26/16 00:00 Urine pH 6.0 PH (5.0-7.5) 11/26/16 00:00 Ur Specific Pettigrew 1.020 (1.002-1.030) 11/26/16 00:00 Urine Protein TRACE mg/dL (NEGATIVE) 11/26/16 00:00 Urine Glucose (UA) NEGATIVE mg/dL (NEGATIVE) 11/26/16 00:00 Urine Ketones NEGATIVE mg/dL (NEGATIVE) 11/26/16 00:00 Urine Occult Blood SMALL (NEGATIVE) H 11/26/16 00:00 Urine Nitrite NEGATIVE (NEGATIVE) 11/26/16 00:00 Urine Bilirubin MODERATE (NEGATIVE) H 11/26/16 00:00 Urine Urobilinogen >=8.0 E.U./dL (NORMAL) H 11/26/16 00:00 Ur Leukocyte Esterase LARGE (NEGATIVE) H 11/26/16 00:00 Urine RBC 0-5 /HPF (0-5) 11/26/16 00:00 Urine WBC >25 /HPF (0-3) H 11/26/16 00:00 Urine WBC Clumps PRESENT 11/26/16 00:00 Ur Squamous Epith Cells NONE SEEN (<= Few) 11/26/16 00:00 Urine Bacteria Many /HPF (None Seen) H 11/26/16 00:00 Urine Culture Comments INDICATED 11/26/16 00:00 Ethyl Alcohol < 5.0 mg/dL 11/25/16 18:05 Blood Type O POSITIVE 11/25/16 18:00 Blood Type Recheck O POSITIVE 11/25/16 17:55 Antibody Screen NEGATIVE 11/25/16 18:00 Crossmatch IS Only See Detail 11/25/16 18:00
--- NOTE | 2016-11-27 16:18 | DISCHARGE SUMMARY ---
Discharge Summary Admit Date: 11/25/16 Discharge Date: 11/27/16 Discharging Provider: Osbaldo Rosales MD Primary Care Provider: David Rodriguez MD Code Status: Attempt Resuscitation Condition at Discharge: Fair Discharge Disposition: 02 Transfer Acute Care Hosp Discharge Facility Name: [facility] - DIAGNOSES Admission Diagnoses: 1. Profound pancytopenia 2. History of alcohol abuse 3. Suprapubic pain 4. DVT prophylaxis 5. Personality disorder Discharge Diagnoses with Status of Each Condition: 1. Anemia - Improved 2. Pancytopenia - Guarded 3. Hepatosplenomegaly - Guarded 4. Alcohol abuse -Stable 5. Hyperbilirubinemia - Guarded 6. Urinary tract infection - Improved 7. Liver failure - Stable 8. Splenic infarction - Guarded - HPI History of Present Illness: Patient is a 56-year-old gentleman with no significant past medical history except for alcohol abuse who presented to the emergency department with a chief complaint of profound weakness. The patient states that for the last several months he had been experiencing increasing weakness and fatigue. He states it had been affecting him at his job. About 6 weeks ago he states he decided to stop all things that could be causing his fatigue including drinking. He states that after stopping drinking he did not have any significant withdrawal symptoms. He states previously he was drinking about 10 L of hard liquor per week. The patient states that he had a very stressful job and this was his coping mechanism. The patient states that since he stopped drinking things have gone downhill fast. He states that he began feeling worse immediately after stopping he states that he began having increasing fatigue, generalized weakness and overall just not feeling well. The patient presented to the emergency room on 11/16/2016 complaining of profound generalized weakness and at that time the patient was found to have anemia and thrombocytopenia. The patient was discharged home from the emergency room as his hemoglobin was 7.5 and his platelet count was 31 however he was not having any bleeding. It was thought that this was likely bone marrow suppression secondary to his chronic alcoholism. He also had a total bilirubin of 3.1 and an alkaline phosphatase of 185 at that time. The patient was told to followup with his primary care physician and get an appointment for hepatology. The patient did followup with his primary care physician who recommended that the patient go to alcohol detox. The PCP also yuly labs on the patient and after receiving the lab results he immediately called patient and told him to go to the emergency department. On presentation to the emergency department on 11/25/2016 the patient had had a significant change in his lab work. The patient again continued to have profound weakness and stated it was worse since his last presentation to the emergency department. This time on presentation the patient had a profound pancytopenia with a WBC of 1.8, hemoglobin of 3.3, neutrophil count of 600 and a platelet count of 33,000. The patient also had a significant increase in his total bilirubin which was up to 9.5 with a slightly elevated alkaline phosphatase of 176. The remainder of the patient's electrolytes were within normal limits. Given these findings the patient was admitted to [facility] a critical access hospital on [facility] without any specialty services and little procedural capabilities. - HOSPITAL COURSE Hospital Course: During the hospital course the patient was transfused 6 units of packed RBCs with which the patient's hemoglobin did improve to 7.6. The patient's hemoglobin remained stable during the next 16 hours. The patient underwent a myriad of lab tests and had a CT of his abdomen and pelvis along with an ultrasound of his abdomen. The patient's CT scan showed that the patient had hepatosplenomegaly with for full areas of decreased attenuation in the spleen consistent with small splenic infarcts. He was found to have trace perisplenic ascites. Also there was findings of upper abdominal and paraesophageal varices. As well as periportal and retroperitoneal lymphadenopathy. Much of the patient' s lab work was still pending including a haptoglobin, acute hepatitis panel and autoimmune workup. The patient did have a low-grade fever of 37.6, with a peripelvic pain, dysuria and a urinalysis that had pyuria as well as bacteria therefore he was started on IV Levaquin. The patient did not have a significant improvement in his overall generalized weakness or fatigue. Given his severe pancytopenia with neutropenia and hepatosplenomegaly with lymphadenopathy we were very concerned for possibility of malignancy. Therefore I spoke with hematology [facility] and they were also very concerned given the severity of his pancytopenia and recommended that the patient be transferred to the [facility] under the medicine service with a hematology consult. They felt that this patient urgently needed a bone marrow biopsy and peripheral smear which could not be performed here at [facility]. We are very appreciative of the [facility] for taking this patient as we feel that it is the best for this patient. (1) Anemia Qualifiers: Anemia type: unspecified type Qualified Code(s): D64.9 - Anemia, unspecified Assessment/Plan: The cause of the patients anemia is unclear at this point but the patient does have pancytopenia with hepatosplenomegaly which maybe secondary to bone marrow suppression from alcohol or virus such as [id number] vs myelodysplasia vs myelofibrosis vs lymphoma vs hemolysis Patient unlikely to have iron deficiency anemia, B12 def, folate def or a hemoglobinopathy such as sickle cell or thalasemia given that patient has pancytopenia Patient does not appear to have blood loss anemia even though he has a weakly positive stool guiaic and gastric and esophageal varices on CT scan he has not had any melena or blood in the stool. The patient has aplastic anemia which does not appear chemical or medication induced, it could be due to a virus such as [id number] or post hepatitis B or C, could be an immune disorder such as SLE although patient does not have any other symptoms or signs that would go with this, malignancy is very high on the differential given patients weight loss, hepatosplenomegaly and enlarged intraabdominal LNs on CT, this could also be alcohol induced bone marrow suppression as the patient does have an elevated MCV Currently this appears most likely to be alcohol induced BM suppression vs malignancy either way the patient will need a bone marrow biopsy to diagnose the cause We will get extensive tests to rule out as much of the above as we can Patients presenting Hb was 3.3 and that was a drop from 7.5 just 10 days earlier. The patient stopped drinking 6 weeks ago. The patient has had no melena or blood per rectum. Plan: Transfused 6 units of PRBCs After 6 units patients Hb improved to 7.6 and has remained stable over the last 16 hours we are concerned given how quickly his hb dropped before that it may continue to drop over the next few days. If patients hb continues to fall rapidly he will need transfer for further work up and further transfusion as we are a critical access hospital and do not have the resources to do mass transfusions of patients also at that point I believe the patient would need a more definitive diagnosis with a BM biopsy. I spoke with Hematology at the [facility] today and they were very concerned given the severity of the patients pancytopenia with neutropenia. The street openings inspector was even worried about the possibility of HLH and felt the patient warranted an inpatient work up including a peripheral smear and a BM biopsy. She asked that we transfer the patient over to on the Medicine Service with a Hematology consult Spoke with Dr Garcia who accepted the patient in transfer we are just awaiting a bed and patient maybe transferred later today or tomorrow. folate, B12, iron and LDH are all normal TSH normal We are awaiting the haptoglobin Patients Bili is elevated but this could be secondary to liver failure or hemolysis we need the haptoglobin to determine this We have ordered a Hepatitis panel, TSH, GENI, Anti Liver Kideny Microsome ab, anti smooth muscle ab all are pending Continue to monitor Hb (2) Pancytopenia Assessment/Plan: As above for anemia the pancytopenia is most likely secondary to BM suppression from alcohol vs BM malignancy vs lymphoma ANC is 300, Hb 7.6 and Plt count 24 Plan: Monitor CBC q 6 hours Transfuse PRBCs if hb less than 7 Transfuse Plts if Plt count less than 10 Neutropenic precautions as ANC is 300 I spoke with Hematology at the [facility] today and they were very concerned given the severity of the patients pancytopenia with neutropenia. The street openings inspector was even worried about the possibility of HLH and felt the patient warranted an inpatient work up including a peripheral smear and a BM biopsy. She asked that we transfer the patient over to on the Medicine Service with a Hematology consult Spoke with Dr Garcia who accepted the patient in transfer (3) Hepatosplenomegaly Assessment/Plan: Likely secondary to myeloproliferative neoplasm although could also be secondary to liver failure due to alcoholic liver failure or other form of liver failure. Will need to monitor for possible splenic rupture patient needs to avoid contact activities Could also be secondary to virus like viral hepatitis or [id number] which could cause bone marrow suppression and hepatosplenomegaly I spoke with Hematology at the [facility] today and they were very concerned given the severity of the patients pancytopenia with neutropenia. The street openings inspector was even worried about the possibility of HLH and felt the patient warranted an inpatient work up including a peripheral smear and a BM biopsy. She asked that we transfer the patient over to on the Medicine Service with a Hematology consult Spoke with Dr Garcia who accepted the patient in transfer (4) Alcohol abuse Assessment/Plan: Patient quit drinking 6 weeks ago He has no interest in starting again He stopped drinking because he was feeling fatigued and weak He quit cold turkey and did not have any major withdrawal symptoms Possible cause of BM suppression and liver failure Patient drank 10 L of hard liquor a week (5) Hyperbilirubinemia Assessment/Plan: Most likely secondary to liver failure but could also be secondary to hemolysis especially in the setting of splenomegaly Other LFTs are normal and this does not appear to be secondary to biliary stone Although gallbladder is distended with pericholecystic fluid there is no gallstones and the changes appear to be secondary to liver disease rather than cholecystitis T Bili is 12.0 this morning down from 14.7, direct Bili is 6.6 with haptoglobin pedning (6) UTI (urinary tract infection) Assessment/Plan: Patient was having dysuria and placed on pyridium, also has neutropenia and had low grade fever of 37.7 with pyuria and bacteruia in male which is very unusual will treat for UTI as PSA is normal will not treat for prostatitis Plan: Levaquin IV Urine cx growing 2 organisms with identification pending (gram negative rods non lactose and lactose contour sander) (7) Liver failure Qualifiers: Liver failure chronicity: unspecified chronicity Assessment/Plan: MELD score is [address] shows hepatosplenomegaly with upper abdominal and paraesophageal varices but no focal abnormalities of the liver Likely alcohol related liver failure but the presentation is unusual with pancytopenia and splenomegaly this may be acute alcoholic hepatitis but then would expect it to be resolving 6 weeks after last drink rather patients pancytopenia is worsening and his bili is increasing Plan: Work up liver failure with work up for Wilsons disease, Viral Hepatitis, Autoimmune Hepatitis all still pending Monitor LFTs and Bili, CMP and CBC Patient will need EGD to access varices Start on propranolol for varices No ascites on exam or CT CT and US dont show hepatocellular cancer Monitor MELD score Patient will need hepatology follow up inpatient vs outpatient (8) Splenic infarction Assessment/Plan: The patient has small splenic infarctions seen on CT abd/pelvis in conjunction with the fact the patient has hepatosplenomegaly, pancytopenia and enlarged intra-abdominal lymph nodes the infarcts are most likely secondary to a myeloproliferative neoplasm or malignancy with hypercoagulation as a hemoglobinopathy like sickle cell is very unlikely and so is an embolic disease such as a fib or infective endocarditis Plan: Patient need a BM biopsy and likely a LN biopsy I spoke with Hematology at the [facility] today and they were very concerned given the severity of the patients pancytopenia with neutropenia. The street openings inspector was even worried about the possibility of HLH and felt the patient warranted an inpatient work up including a peripheral smear and a BM biopsy. She asked that we transfer the patient over to on the Medicine Service with a Hematology consult Spoke with Dr Garcia who accepted the patient in transfer - ALLERGIES Allergies/Adverse Reactions: Allergies Allergy/AdvReac Type Severity Reaction Status Date / Time No Known Drug Allergies Allergy Verified 11/25/16 18:00 - MEDICATIONS Home Medications: Ambulatory Orders Medication Instructions Recorded Confirmed Ondansetron Odt [Zofran] 4 mg TL Q6H PRN #14 tablet 11/16/16 11/25/16 - PHYSICAL EXAM AT DISCHARGE General Appearance: positive: Alert, Mild distress (Very weak and fatigued), Other (Jaundices, anxious) Eyes Bilateral: positive: Normal inspection, PERRL, EOMI, No lid inflammation, Other (Scleral icterus and conjunctival pallor) ENT: positive: ENT inspection nml, Pharynx nml, Dry mucous membranes. negative : Purulent nasal drainage, Pharyngeal erythema, Oral lesions Neck: positive: Nml inspection, Thyroid nml, No JVD, Trachea midline. negative : Thyromegaly, Carotid bruit, Tracheal deviation Respiratory: positive: Chest non-tender, No respiratory distress, Breath sounds nml. negative: Wheezes, Rales, Rhonchi Cardiovascular: positive: Regular rate & rhythm, No murmur, No gallop Peripheral Pulses: positive: 2+ Abdomen: positive: Nml bowel sounds, Tenderness (Mild lower abd), Hepatomegaly, Splenomegaly. negative: Guarding, Rebound Rectal: positive: Stool - heme POS Back: positive: Nml inspection. negative: CVA tenderness (R), CVA tenderness (L ) Skin: positive: No rash, Warm, Pallor, Other (Jaundiced) Extremities: positive: Non-tender, Full ROM, Nml appearance, No pedal edema Neurologic/Psychiatric: positive: Oriented x3, CN's nml (2-12), Motor nml, Sensation nml - LABS Result Diagrams: 11/27/16 08:52 11/27/16 04:40 Other Lab Results: Laboratory Tests 11/25/16 11/25/16 11/25/16 17:55 17:55 18:00 WBC 1.8 L* RBC 0.99 L Hgb 3.3 L* Hct 9.6 L* MCV 97.5 H MCH 33.1 H MCHC 34.0 RDW 19.1 H Plt Count 33 L* MPV 8.1 Neut # 0.6 L Lymph # 1.0 L [place] # 0.1 Eos # 0.0 Baso # 0.0 Absolute Nucleated RBC 0.04 Total Counted Band Neuts % (Manual) Abnorm Lymph % (Manual) Neutrophils # (Manual) Lymphocytes # (Manual) Monocytes # (Manual) Eosinophils # (Manual) Nucleated RBCs 2.4 Differential Comment Manual Slide Review Indicated Platelet Estimate DECREASED (<130,000) Platelet Morphology RBC Morph Micro Appear 1+ MACROCYTOSIS PT INR APTT VBG pH Ionized Calcium Sodium 136 Potassium 3.8 Chloride 107 Carbon Dioxide 21 Anion Gap 8.0 BUN 21 H Creatinine 1.0 Estimated GFR (MDRD) 77 L Glucose 137 H Calcium 7.8 L Phosphorus Magnesium Iron TIBC % Saturation Transferrin Total Bilirubin 9.5 H Direct Bilirubin Indirect Bilirubin AST 32 ALT 23 Alkaline Phosphatase 176 H Lactate Dehydrogenase Total Protein 5.6 L Albumin 2.6 L Globulin 3.0 Albumin/Globulin Ratio 0.9 L Lipase 49 Carcinoembryonic Ag PSA Screen Vitamin B12 Folate TSH Urine Color Urine Clarity Urine pH Ur Specific [place] Urine Protein Urine Glucose (UA) Urine Ketones Urine Occult Blood Urine Nitrite Urine Bilirubin Urine Urobilinogen Ur Leukocyte Esterase Urine RBC Urine WBC Urine WBC Clumps Ur Squamous Epith Cells Urine Bacteria Urine Culture Comments Ethyl Alcohol Blood Type Blood Type Recheck O POSITIVE Antibody Screen Crossmatch IS Only 11/25/16 11/25/16 11/25/16 18:00 18:00 18:00 WBC RBC Hgb Hct MCV MCH MCHC RDW Plt Count MPV Neut # Lymph # [place] # Eos # Baso # Absolute Nucleated RBC Total Counted Band Neuts % (Manual) Abnorm Lymph % (Manual) Neutrophils # (Manual) Lymphocytes # (Manual) Monocytes # (Manual) Eosinophils # (Manual) Nucleated RBCs Differential Comment Manual Slide Review Platelet Estimate Platelet Morphology RBC Morph Micro Appear PT 15.7 H INR 1.4 H APTT 28.2 VBG pH Ionized Calcium Sodium Potassium Chloride Carbon Dioxide Anion Gap BUN Creatinine Estimated GFR (MDRD) Glucose Calcium Phosphorus Magnesium Iron TIBC % Saturation Transferrin Total Bilirubin Direct Bilirubin Indirect Bilirubin AST ALT Alkaline Phosphatase Lactate Dehydrogenase 220 Total Protein Albumin Globulin Albumin/Globulin Ratio Lipase Carcinoembryonic Ag PSA Screen Vitamin B12 Folate TSH Urine Color Urine Clarity Urine pH Ur Specific [place] Urine Protein Urine Glucose (UA) Urine Ketones Urine Occult Blood Urine Nitrite Urine Bilirubin Urine Urobilinogen Ur Leukocyte Esterase Urine RBC Urine WBC Urine WBC Clumps Ur Squamous Epith Cells Urine Bacteria Urine Culture Comments Ethyl Alcohol Blood Type O POSITIVE Blood Type Recheck Antibody Screen NEGATIVE Crossmatch IS Only 11/25/16 11/25/16 11/25/16 18:00 18:00 18:05 WBC RBC Hgb Hct MCV MCH MCHC RDW Plt Count MPV Neut # Lymph # [place] # Eos # Baso # Absolute Nucleated RBC Total Counted Band Neuts % (Manual) Abnorm Lymph % (Manual) Neutrophils # (Manual) Lymphocytes # (Manual) Monocytes # (Manual) Eosinophils # (Manual) Nucleated RBCs Differential Comment Manual Slide Review Platelet Estimate Platelet Morphology RBC Morph Micro Appear PT INR APTT VBG pH Ionized Calcium Sodium Potassium Chloride Carbon Dioxide Anion Gap BUN Creatinine Estimated GFR (MDRD) Glucose Calcium Phosphorus Magnesium Iron TIBC % Saturation Transferrin Total Bilirubin Direct Bilirubin Indirect Bilirubin AST ALT Alkaline Phosphatase Lactate Dehydrogenase Total Protein Albumin Globulin Albumin/Globulin Ratio Lipase Carcinoembryonic Ag PSA Screen Vitamin B12 Folate TSH Urine Color Urine Clarity Urine pH Ur Specific [place] Urine Protein Urine Glucose (UA) Urine Ketones Urine Occult Blood Urine Nitrite Urine Bilirubin Urine Urobilinogen Ur Leukocyte Esterase Urine RBC Urine WBC Urine WBC Clumps Ur Squamous Epith Cells Urine Bacteria Urine Culture Comments Ethyl Alcohol < 5.0 Blood Type Cancelled Cancelled Blood Type Recheck Antibody Screen Cancelled Cancelled Crossmatch IS Only See Detail See Detail 11/26/16 11/26/16 11/26/16 00:00 09:58 09:58 WBC 1.4 L* RBC 1.89 L Hgb 6.0 L* Hct 17.1 L* MCV 90.2 MCH 31.5 H MCHC 34.9 RDW 17.8 H Plt Count 27 L* MPV 8.0 Neut # 0.5 L* Lymph # 0.8 L [place] # 0.1 Eos # 0.0 Baso # 0.0 Absolute Nucleated RBC 0.13 Total Counted Band Neuts % (Manual) Abnorm Lymph % (Manual) Neutrophils # (Manual) Lymphocytes # (Manual) Monocytes # (Manual) Eosinophils # (Manual) Nucleated RBCs 9.1 Differential Comment Manual Slide Review Indicated Platelet Estimate DECREASED (<130,000) Platelet Morphology RBC Morph Micro Appear 2+ ANISOCYTOSIS PT INR APTT VBG pH Ionized Calcium Sodium Potassium Chloride Carbon Dioxide Anion Gap BUN Creatinine Estimated GFR (MDRD) Glucose Calcium Phosphorus Magnesium Iron TIBC % Saturation Transferrin Total Bilirubin Direct Bilirubin Indirect Bilirubin AST ALT Alkaline Phosphatase Lactate Dehydrogenase Total Protein Albumin Globulin Albumin/Globulin Ratio Lipase Carcinoembryonic Ag PSA Screen 1.620 Vitamin B12 Folate TSH Urine Color ORANGE Urine Clarity HAZY Urine pH 6.0 Ur Specific [place] 1.020 Urine Protein TRACE Urine Glucose (UA) NEGATIVE Urine Ketones NEGATIVE Urine Occult Blood SMALL H Urine Nitrite NEGATIVE Urine Bilirubin MODERATE H Urine Urobilinogen >=8.0 H Ur Leukocyte Esterase LARGE H Urine RBC 0-5 Urine WBC >25 H Urine WBC Clumps PRESENT Ur Squamous Epith Cells NONE SEEN Urine Bacteria Many H Urine Culture Comments INDICATED Ethyl Alcohol Blood Type Blood Type Recheck Antibody Screen Crossmatch IS Only 11/26/16 11/26/16 11/26/16 09:58 09:58 16:34 WBC 1.4 L* RBC 2.48 L Hgb 7.6 L Hct 21.9 L MCV 88.4 MCH 30.8 MCHC 34.9 RDW 18.1 H Plt Count 26 L* MPV 7.8 Neut # 0.5 L* Lymph # 0.8 L [place] # 0.1 Eos # 0.0 Baso # 0.0 Absolute Nucleated RBC 0.16 Total Counted Band Neuts % (Manual) Abnorm Lymph % (Manual) Neutrophils # (Manual) Lymphocytes # (Manual) Monocytes # (Manual) Eosinophils # (Manual) Nucleated RBCs 11.7 Differential Comment Manual Slide Review Indicated Platelet Estimate DECREASED (<130,000) Platelet Morphology RBC Morph Micro Appear 2+ POLYCHROMASIA PT INR APTT VBG pH Ionized Calcium Sodium Potassium Chloride Carbon Dioxide Anion Gap BUN Creatinine Estimated GFR (MDRD) Glucose Calcium Phosphorus Magnesium Iron 178 TIBC 207 L % Saturation 86 H Transferrin 148 L Total Bilirubin Direct Bilirubin Indirect Bilirubin AST ALT Alkaline Phosphatase Lactate Dehydrogenase Total Protein Albumin Globulin Albumin/Globulin Ratio Lipase Carcinoembryonic Ag PSA Screen Vitamin B12 1105 H Folate 11.54 TSH Urine Color Urine Clarity Urine pH Ur Specific [place] Urine Protein Urine Glucose (UA) Urine Ketones Urine Occult Blood Urine Nitrite Urine Bilirubin Urine Urobilinogen Ur Leukocyte Esterase Urine RBC Urine WBC Urine WBC Clumps Ur Squamous Epith Cells Urine Bacteria Urine Culture Comments Ethyl Alcohol Blood Type Blood Type Recheck Antibody Screen Crossmatch IS Only 11/26/16 11/26/16 11/26/16 16:34 16:34 16:34 WBC RBC Hgb Hct MCV MCH MCHC RDW Plt Count MPV Neut # Lymph # [place] # Eos # Baso # Absolute Nucleated RBC Total Counted Band Neuts % (Manual) Abnorm Lymph % (Manual) Neutrophils # (Manual) Lymphocytes # (Manual) Monocytes # (Manual) Eosinophils # (Manual) Nucleated RBCs Differential Comment Manual Slide Review Platelet Estimate Platelet Morphology RBC Morph Micro Appear PT INR APTT VBG pH Ionized Calcium YES Sodium 135 Potassium 3.8 Chloride 108 Carbon Dioxide 23 Anion Gap 4.0 L BUN 19 Creatinine 0.6 Estimated GFR (MDRD) 139 Glucose 137 H Calcium 7.5 L Phosphorus Magnesium Iron TIBC % Saturation Transferrin Total Bilirubin 14.7 H 14.2 H Direct Bilirubin 7.7 H Indirect Bilirubin 6.5 AST 28 ALT 20 Alkaline Phosphatase 153 H Lactate Dehydrogenase Total Protein 5.3 L Albumin 2.5 L Globulin 2.8 Albumin/Globulin Ratio 0.9 L Lipase Carcinoembryonic Ag PSA Screen Vitamin B12 Folate TSH 2.05 Urine Color Urine Clarity Urine pH Ur Specific [place] Urine Protein Urine Glucose (UA) Urine Ketones Urine Occult Blood Urine Nitrite Urine Bilirubin Urine Urobilinogen Ur Leukocyte Esterase Urine RBC Urine WBC Urine WBC Clumps Ur Squamous Epith Cells Urine Bacteria Urine Culture Comments Ethyl Alcohol Blood Type Blood Type Recheck Antibody Screen Crossmatch IS Only 11/26/16 11/26/16 11/27/16 16:34 22:35 04:40 WBC 1.3 L* 1.2 L* RBC 2.40 L 2.46 L Hgb 7.3 L 7.4 L Hct 21.0 L 21.4 L MCV 87.5 87.1 MCH 30.5 30.2 MCHC 34.8 34.6 RDW 18.0 H 18.1 H Plt Count 25 L* 24 L* MPV 9.3 7.9 Neut # 0.5 L* 0.4 L* Lymph # 0.8 L 0.8 L [place] # 0.1 0.1 Eos # 0.0 0.0 Baso # 0.0 0.0 Absolute Nucleated RBC 0.17 0.13 Total Counted [employer] INS[employer] CLAIM ADJUSTER Band Neuts % (Manual) Not Reportable Not Reportable Abnorm Lymph % (Manual) Neutrophils # (Manual) [employer] INSURANCE CLAIM ADJUSTER [employer]UALTY INSURANCE CLAIM ADJUSTER Lymphocytes # (Manual) Monocytes # (Manual) Eosinophils # (Manual) Nucleated RBCs 13.0 10.9 Differential Comment MANUAL=AUTO DIFF MANUAL=AUTO DIFF Manual Slide Review Platelet Estimate DECREASED (<130,000) DECREASED (<130,000) Platelet Morphology NORMAL APPEARANCE NORMAL APPEARANCE RBC Morph Micro Appear 1+ ANISOCYTOSIS 1+ MACROCYTOSIS PT INR APTT VBG pH 7.364 Ionized Calcium 1.05 L Sodium Potassium Chloride Carbon Dioxide Anion Gap BUN Creatinine Estimated GFR (MDRD) Glucose Calcium Phosphorus Magnesium Iron TIBC % Saturation Transferrin Total Bilirubin Direct Bilirubin Indirect Bilirubin AST ALT Alkaline Phosphatase Lactate Dehydrogenase Total Protein Albumin Globulin Albumin/Globulin Ratio Lipase Carcinoembryonic Ag PSA Screen Vitamin B12 Folate TSH Urine Color Urine Clarity Urine pH Ur Specific [place] Urine Protein Urine Glucose (UA) Urine Ketones Urine Occult Blood Urine Nitrite Urine Bilirubin Urine Urobilinogen Ur Leukocyte Esterase Urine RBC Urine WBC Urine WBC Clumps Ur Squamous Epith Cells Urine Bacteria Urine Culture Comments Ethyl Alcohol Blood Type Blood Type Recheck Antibody Screen Crossmatch IS Only 11/27/16 11/27/16 11/27/16 04:40 04:40 04:40 WBC RBC Hgb Hct MCV MCH MCHC RDW Plt Count MPV Neut # Lymph # [place] # Eos # Baso # Absolute Nucleated RBC Total Counted Band Neuts % (Manual) Abnorm Lymph % (Manual) Neutrophils # (Manual) Lymphocytes # (Manual) Monocytes # (Manual) Eosinophils # (Manual) Nucleated RBCs Differential Comment Manual Slide Review Platelet Estimate Platelet Morphology RBC Morph Micro Appear PT 14.8 H INR 1.3 H APTT VBG pH 7.451 H Ionized Calcium YES 1.06 L Sodium 133 L Potassium 4.0 Chloride 103 Carbon Dioxide 22 Anion Gap 8.0 BUN 19 Creatinine 0.9 Estimated GFR (MDRD) 87 L Glucose 140 H Calcium 8.0 L Phosphorus Magnesium Iron TIBC % Saturation Transferrin Total Bilirubin 12.0 H Direct Bilirubin 6.6 H Indirect Bilirubin 5.4 AST 31 ALT 22 Alkaline Phosphatase 161 H Lactate Dehydrogenase Total Protein 5.5 L Albumin 2.5 L Globulin 3.0 Albumin/Globulin Ratio 0.8 L Lipase Carcinoembryonic Ag PSA Screen Vitamin B12 Folate TSH Urine Color Urine Clarity Urine pH Ur Specific [place] Urine Protein Urine Glucose (UA) Urine Ketones Urine Occult Blood Urine Nitrite Urine Bilirubin Urine Urobilinogen Ur Leukocyte Esterase Urine RBC Urine WBC Urine WBC Clumps Ur Squamous Epith Cells Urine Bacteria Urine Culture Comments Ethyl Alcohol Blood Type Blood Type Recheck Antibody Screen Crossmatch IS Only 11/27/16 11/27/16 11/27/16 08:52 08:52 08:59 WBC 1.1 L* RBC 2.51 L Hgb 7.6 L Hct 21.8 L MCV 86.8 MCH 30.4 MCHC 35.0 RDW 18.3 H Plt Count 24 L* MPV 7.7 Neut # Not Reportable Lymph # Not Reportable [place] # Not Reportable Eos # Not Reportable Baso # Not Reportable Absolute Nucleated RBC Not Reportable Total Counted 50 Band Neuts % (Manual) 2 Abnorm Lymph % (Manual) 4 Neutrophils # (Manual) 0.3 L* Lymphocytes # (Manual) 0.7 L Monocytes # (Manual) 0.1 Eosinophils # (Manual) 0.0 Nucleated RBCs 6 Differential Comment MANUAL DIFFERENTIAL Manual Slide Review Platelet Estimate DECREASED (<130,000) Platelet Morphology 1+ LARGE PLATELETS RBC Morph Micro Appear 2+ POLYCHROMASIA PT INR APTT VBG pH Ionized Calcium Sodium Potassium Chloride Carbon Dioxide Anion Gap BUN Creatinine Estimated GFR (MDRD) Glucose Calcium Phosphorus 4.1 Magnesium 2.0 Iron TIBC % Saturation Transferrin Total Bilirubin Direct Bilirubin Indirect Bilirubin AST ALT Alkaline Phosphatase Lactate Dehydrogenase Total Protein Albumin Globulin Albumin/Globulin Ratio Lipase Carcinoembryonic Ag 3.3 PSA Screen Vitamin B12 Folate TSH Urine Color Urine Clarity Urine pH Ur Specific [place] Urine Protein Urine Glucose (UA) Urine Ketones Urine Occult Blood Urine Nitrite Urine Bilirubin Urine Urobilinogen Ur Leukocyte Esterase Urine RBC Urine WBC Urine WBC Clumps Ur Squamous Epith Cells Urine Bacteria Urine Culture Comments Ethyl Alcohol Blood Type Blood Type Recheck Antibody Screen Crossmatch IS Only - DIAGNOSTIC IMAGING Diagnostic Imaging Results: Final report reviewed Diagnostic Imaging Results Comments: CT abdomen/pelvis: 1. There is hepatosplenomegaly. 2. There are peripheral areas of decreased attenuation in the spleen consistent with small splenic infarcts. 3. The gallbladder is distended and there is trace pericholecystic fluid which can be seen with cholecystitis. The fluid could also be related to liver disease. 4. There is trace perisplenic ascites. 5. There are upper abdominal and paraesophageal varices. 6. There is periportal and retroperitoneal lymphadenopathy. 7. Tiny nonobstructing calculus in the lower pole of the left kidney. 8. Atherosclerotic vascular disease with ectasia of the distal abdominal aorta. Normal ultrasound: 1 there is hepatosplenomegaly. Echogenic liver parenchyma. 2. The gallbladder wall is mildly thickened and there is trace pericholecystic fluid. No gallstones. This finding may be related to liver disease. - FOLLOW UP Follow Up: Patient has been transferred to [facility] where he will be admitted on the medicine service and hematology consult will be performed. Patient will likely need peripheral smear and bone marrow biopsy to further diagnose his condition. - TIME SPENT Time Spent in Discharge (Minutes): 65
[2016-11-27] MEDS ORDERED: HYDROmorphone 1 MG/ML SYRINGE ONE (17:40)
[2016-11-27] MEDS ORDERED: MAG HYDROX/AL HYDROX/SIMETH 30 ML UDC ONE (17:40)
[2016-11-27] MEDS ORDERED: PROPRANOLOL 10 MG TABLET PO SCH (21:00)
[2016-11-29 14:24] LABS: ANA SCREEN NEGATIVE (NEGATIVE)
[2016-11-29 18:06] LABS: PARVOVIRUS B19 ANTIBODY IGG 0.5 (()); PARVOVIRUS B19 ANTIBODY IGM 0.1 (())
== END 2016-11-27 15:40 | disposition short-term general hospital (02) | DRG 809 ==
LOC: EDUNIT# → ED 17:30 → MS2 20:40 → ED 21:50
PROVIDERS: ADMIT Specialist; ATTEND Internal Medicine
PROC: 30233N1 Transfusion of Nonautologous Red Blood Cells into Peripheral Vein, Percutaneous Approach (ICD-10-PCS; principal; 2016-11-25)
DX: D61.818 Other pancytopenia (principal); N39.0 Urinary tract infection, site not specified; I85.00 Esophageal varices without bleeding; R18.8 Other ascites; R16.2 Hepatomegaly with splenomegaly, not elsewhere classified; F10.10 Alcohol abuse, uncomplicated; E80.6 Other disorders of bilirubin metabolism; K72.90 Hepatic failure, unspecified without coma; D73.5 Infarction of spleen; F60.9 Personality disorder, unspecified; R59.0 Localized enlarged lymph nodes; I86.4 Gastric varices; R63.4 Abnormal weight loss; E66.9 Obesity, unspecified; Y90.0 Blood alcohol level of less than 20 mg/100 ml; Z56.3 Stressful work schedule; Z87.891 Personal history of nicotine dependence; Z68.32 Body mass index [BMI] 32.0-32.9, adult
CPT/HCPCS: 36415; 36430; 74177; 76700; 80053; 80074; 80320; 81001; 82105; 82247; 82248; 82330; 82378; 82390; 82607; 82746; 83010; 83516; 83540; 83615; 83690; 83735; 84100; 84153; 84443; 84466; 85025; 85610; 85730; 86038; 86376; 86747; 86850; 86900; 86901; 86920; 87077; 87086; 99284; 99285

== ENCOUNTER 2017-07-05 08:00 | Outpatient (CLI) | payer MEDICAID ==
[2017-07-05 19:01] LABS: BASOPHILS % (AUTO) 0.5 %; EOSINOPHILS % (AUTO) 0.7 %; HGB - HEMOGLOBIN 9.8 g/dL (14.0-18.0); LYMPHOCYTES # (AUTO) 0.3 10^3/uL (1.5-3.5); LYMPHOCYTES % (AUTO) 11.2 %; MEAN CORPUSCULAR HEMOGLOBIN 32.1 pg (27.0-31.0); MEAN CORPUSCULAR HGB CONC 33.6 g/dL (32.0-36.0); MEAN CORPUSCULAR VOLUME 95.5 fL (80.0-94.0); MEAN PLATELET VOLUME 8.2 fL (7.4-11.4); MONOCYTES # (AUTO) 0.6 10^3/uL (0.0-1.0); MONOCYTES % (AUTO) 20.2 %; NEUTROPHILS % (AUTO) 67.4 %; PLT - PLATELET COUNT 43 10^3/uL (130-450); RED BLOOD COUNT 3.04 10^6/uL (4.70-6.10)
[2017-07-05 19:19] LABS: PLATELET ESTIMATE, MANUAL DECREASED (<130,000) (NORMAL); PLATELET MORPHOLOGY NORMAL APPEARANCE (NORMAL)
== END 2017-07-05 08:01 | disposition home or self-care (01) ==
LOC: LAB.N 08:00
PROVIDERS: ATTEND Physician Assistant Medical
DX: C86.4 Blastic NK-cell lymphoma (principal)
CPT/HCPCS: 36415; 85025

== ENCOUNTER 2017-07-09 10:00 | Outpatient (CLI) | payer MEDICAID ==
[2017-07-09 12:45] LABS: BASOPHILS % (AUTO) 0.9 %; HGB - HEMOGLOBIN 9.1 g/dL (14.0-18.0); LYMPHOCYTES # (AUTO) 0.3 10^3/uL (1.5-3.5); LYMPHOCYTES % (AUTO) 16.6 %; MEAN CORPUSCULAR HEMOGLOBIN 33.1 pg (27.0-31.0); MEAN CORPUSCULAR HGB CONC 34.4 g/dL (32.0-36.0); MEAN CORPUSCULAR VOLUME 96.1 fL (80.0-94.0); MEAN PLATELET VOLUME 8.4 fL (7.4-11.4); MONOCYTES # (AUTO) 0.5 10^3/uL (0.0-1.0); MONOCYTES % (AUTO) 29.3 %; NEUTROPHILS # (AUTO) 0.9 10^3/uL (1.5-6.6); NEUTROPHILS % (AUTO) 52.2 %; PLT - PLATELET COUNT 37 10^3/uL (130-450); RED BLOOD COUNT 2.75 10^6/uL (4.70-6.10); RED CELL DISTRIBUTION WIDTH 26.4 % (12.0-15.0)
[2017-07-09 13:07] LABS: WHITE BLOOD COUNT 1.7 x10^3/uL (4.8-10.8)
[2017-07-09 13:08] LABS: RBC MORPHOLOGY (MULTIPLE) 3+ ANISOCYTOSIS (NORMAL)
== END 2017-07-09 10:01 | disposition home or self-care (01) ==
LOC: LAB.N 10:00
PROVIDERS: ATTEND Internal Medicine Hematology
DX: C86.4 Blastic NK-cell lymphoma (principal)
CPT/HCPCS: 36415; 85025

== ENCOUNTER 2017-07-12 08:00 | Outpatient (CLI) | payer MEDICAID ==
[2017-07-12 12:44] LABS: BASOPHILS % (AUTO) 0.7 %; EOSINOPHILS % (AUTO) 1.1 %; HGB - HEMOGLOBIN 8.9 g/dL (14.0-18.0); LYMPHOCYTES # (AUTO) 0.2 10^3/uL (1.5-3.5); MEAN CORPUSCULAR HEMOGLOBIN 33.4 pg (27.0-31.0); MEAN CORPUSCULAR HGB CONC 34.5 g/dL (32.0-36.0); MEAN CORPUSCULAR VOLUME 96.8 fL (80.0-94.0); MONOCYTES # (AUTO) 0.4 10^3/uL (0.0-1.0); MONOCYTES % (AUTO) 27.9 %; NEUTROPHILS # (AUTO) 0.8 10^3/uL (1.5-6.6); NEUTROPHILS % (AUTO) 54.3 %; RED BLOOD COUNT 2.67 10^6/uL (4.70-6.10); RED CELL DISTRIBUTION WIDTH 26.1 % (12.0-15.0)
[2017-07-12 12:54] LABS: PLT - PLATELET COUNT 29 10^3/uL (130-450); WHITE BLOOD COUNT 1.4 x10^3/uL (4.8-10.8)
[2017-07-12 12:58] LABS: RBC MORPHOLOGY (MULTIPLE) 3+ ANISOCYTOSIS (NORMAL)
== END 2017-07-12 08:01 | disposition home or self-care (01) ==
LOC: LAB.N 08:00
PROVIDERS: ATTEND Internal Medicine Hematology
DX: C86.4 Blastic NK-cell lymphoma (principal)
CPT/HCPCS: 36415; 85025

== ENCOUNTER 2017-07-16 23:18 | Outpatient (CLI) | payer MEDICAID ==
[2017-07-16 12:35] LABS: BASOPHILS % (AUTO) 0.6 %; EOSINOPHILS % (AUTO) 1.6 %; HGB - HEMOGLOBIN 9.5 g/dL (14.0-18.0); LYMPHOCYTES % (AUTO) 31.7 %; MEAN CORPUSCULAR HEMOGLOBIN 33.8 pg (27.0-31.0); MEAN CORPUSCULAR HGB CONC 34.6 g/dL (32.0-36.0); MEAN CORPUSCULAR VOLUME 97.6 fL (80.0-94.0); MEAN PLATELET VOLUME 7.9 fL (7.4-11.4); MONOCYTES % (AUTO) 17.9 %; NEUTROPHILS % (AUTO) 48.2 %; RED CELL DISTRIBUTION WIDTH 26.6 % (12.0-15.0); WHITE BLOOD COUNT 2.1 x10^3/uL (4.8-10.8)
[2017-07-16 13:47] LABS: PLT - PLATELET COUNT 32 10^3/uL (130-450)
[2017-07-16 13:50] LABS: ABNORMAL LYMPHS % (MANUAL) 3 %; BAND NEUTROPHILS % (MANUAL) 4 %; BASOPHILS % (MANUAL) 1 %; LYMPHOCYTES # (MANUAL) 0.6 10^3/uL (1.5-3.5); LYMPHOCYTES % (MANUAL) 26 %; METAMYELOCYTES % (MANUAL) 2 %; MONOCYTES # (MANUAL) 0.4 10^3/uL (0.0-1.0); NEUTROPHILS % (MANUAL) 42 %
[2017-07-16 13:51] LABS: DIFFERENTIAL COMMENT MANUAL DIFFERENTIAL
== END 2017-07-16 23:19 | disposition home or self-care (01) ==
LOC: LAB.N 23:18
PROVIDERS: ATTEND Internal Medicine Hematology
DX: C86.4 Blastic NK-cell lymphoma (principal)
CPT/HCPCS: 36415; 85025

== ENCOUNTER 2017-07-23 10:19 | Outpatient (CLI) | payer MEDICAID ==
[2017-07-23 13:20] LABS: BASOPHILS % (AUTO) 0.3 %; HGB - HEMOGLOBIN 9.2 g/dL (14.0-18.0); LYMPHOCYTES # (AUTO) 0.3 10^3/uL (1.5-3.5); LYMPHOCYTES % (AUTO) 7.9 %; MEAN CORPUSCULAR HEMOGLOBIN 34.5 pg (27.0-31.0); MEAN CORPUSCULAR HGB CONC 35.1 g/dL (32.0-36.0); MEAN CORPUSCULAR VOLUME 98.4 fL (80.0-94.0); MEAN PLATELET VOLUME 8.7 fL (7.4-11.4); MONOCYTES # (AUTO) 0.4 10^3/uL (0.0-1.0); MONOCYTES % (AUTO) 13.8 %; NEUTROPHILS # (AUTO) 2.5 10^3/uL (1.5-6.6); PLT - PLATELET COUNT 36 10^3/uL (130-450); RED BLOOD COUNT 2.66 10^6/uL (4.70-6.10); RED CELL DISTRIBUTION WIDTH 25.8 % (12.0-15.0); WHITE BLOOD COUNT 3.2 x10^3/uL (4.8-10.8)
== END 2017-07-23 10:20 | disposition home or self-care (01) ==
LOC: LAB.N 10:19
PROVIDERS: ATTEND Internal Medicine Hematology
DX: C86.4 Blastic NK-cell lymphoma (principal)
CPT/HCPCS: 36415; 85025

== ENCOUNTER 2017-07-26 09:13 | Outpatient (CLI) | payer MEDICAID ==
[2017-07-26 12:53] LABS: BASOPHILS % (AUTO) 0.3 %; EOSINOPHILS % (AUTO) 0.2 %; HGB - HEMOGLOBIN 9.3 g/dL (14.0-18.0); LYMPHOCYTES % (AUTO) 8.6 %; MEAN CORPUSCULAR HEMOGLOBIN 34.7 pg (27.0-31.0); MEAN CORPUSCULAR HGB CONC 35.6 g/dL (32.0-36.0); MEAN CORPUSCULAR VOLUME 97.6 fL (80.0-94.0); MEAN PLATELET VOLUME 8.7 fL (7.4-11.4); MONOCYTES % (AUTO) 13.8 %; NEUTROPHILS % (AUTO) 77.1 %; PLT - PLATELET COUNT 44 10^3/uL (130-450); RED BLOOD COUNT 2.67 10^6/uL (4.70-6.10); RED CELL DISTRIBUTION WIDTH 24.7 % (12.0-15.0); WHITE BLOOD COUNT 5.6 x10^3/uL (4.8-10.8)
[2017-07-26 13:26] LABS: ABNORMAL LYMPHS % (MANUAL) 0 %
[2017-07-26 13:31] LABS: BAND NEUTROPHILS % (MANUAL) 14 %; DIFFERENTIAL COMMENT MANUAL DIFFERENTIAL; LYMPHOCYTES # (MANUAL) 1.1 10^3/uL (1.5-3.5); LYMPHOCYTES % (MANUAL) 9 %; METAMYELOCYTES % (MANUAL) 1 %; MONOCYTES # (MANUAL) 0.4 10^3/uL (0.0-1.0); MYELOCYTES % (MANUAL) 4 %; NEUTROPHILS # (MANUAL) 3.8 10^3/uL (1.5-6.6); NEUTROPHILS % (MANUAL) 53 %; RBC MORPHOLOGY (MULTIPLE) 3+ ANISOCYTOSIS (NORMAL)
== END 2017-07-26 09:14 | disposition home or self-care (01) ==
LOC: LAB.N 09:13
PROVIDERS: ATTEND Internal Medicine Hematology
DX: C86.4 Blastic NK-cell lymphoma (principal)
CPT/HCPCS: 36415; 85025

== ENCOUNTER 2017-07-30 13:05 | Outpatient (CLI) | payer MEDICAID ==
[2017-07-30 13:48] LABS: BASOPHILS % (AUTO) 0.2 %; EOSINOPHILS % (AUTO) 0.6 %; HGB - HEMOGLOBIN 9.4 g/dL (14.0-18.0); LYMPHOCYTES % (AUTO) 9.7 %; MEAN CORPUSCULAR HEMOGLOBIN 34.2 pg (27.0-31.0); MEAN CORPUSCULAR HGB CONC 34.1 g/dL (32.0-36.0); MEAN CORPUSCULAR VOLUME 100.4 fL (80.0-94.0); MEAN PLATELET VOLUME 8.6 fL (7.4-11.4); MONOCYTES % (AUTO) 13.8 %; NEUTROPHILS % (AUTO) 75.7 %; PLT - PLATELET COUNT 36 10^3/uL (130-450); RED BLOOD COUNT 2.76 10^6/uL (4.70-6.10); RED CELL DISTRIBUTION WIDTH 25.8 % (12.0-15.0); WHITE BLOOD COUNT 4.8 x10^3/uL (4.8-10.8)
[2017-07-30 14:24] LABS: ABNORMAL LYMPHS % (MANUAL) 0 %
[2017-07-30 14:25] LABS: BAND NEUTROPHILS % (MANUAL) 5 %; LYMPHOCYTES # (MANUAL) 0.5 10^3/uL (1.5-3.5); LYMPHOCYTES % (MANUAL) 11 %; METAMYELOCYTES % (MANUAL) 3 %; MONOCYTES # (MANUAL) 0.5 10^3/uL (0.0-1.0); MYELOCYTES % (MANUAL) 2 %; NEUTROPHILS # (MANUAL) 3.5 10^3/uL (1.5-6.6); NEUTROPHILS % (MANUAL) 67 %
[2017-07-30 14:27] LABS: DIFFERENTIAL COMMENT MANUAL DIFFERENTIAL; PLATELET ESTIMATE, MANUAL DECREASED (<130,000) (NORMAL); PLATELET MORPHOLOGY NORMAL APPEARANCE (NORMAL)
== END 2017-07-30 13:06 | disposition home or self-care (01) ==
LOC: LAB 13:05
PROVIDERS: ATTEND Internal Medicine Hematology
DX: C86.4 Blastic NK-cell lymphoma (principal)
CPT/HCPCS: 36415; 85025

== ENCOUNTER 2017-08-03 08:00 | Outpatient (CLI) | payer MEDICAID ==
[2017-08-03 13:04] LABS: BASOPHILS % (AUTO) 0.8 %; EOSINOPHILS % (AUTO) 0.5 %; HGB - HEMOGLOBIN 8.3 g/dL (14.0-18.0); LYMPHOCYTES % (AUTO) 9.1 %; MEAN CORPUSCULAR HEMOGLOBIN 34.2 pg (27.0-31.0); MEAN CORPUSCULAR HGB CONC 33.8 g/dL (32.0-36.0); MEAN PLATELET VOLUME 8.3 fL (7.4-11.4); MONOCYTES % (AUTO) 19.6 %; RED BLOOD COUNT 2.43 10^6/uL (4.70-6.10); RED CELL DISTRIBUTION WIDTH 25.2 % (12.0-15.0)
[2017-08-03 14:04] LABS: PLATELET ESTIMATE, MANUAL DECREASED (<130,000) (NORMAL); PLATELET MORPHOLOGY NORMAL APPEARANCE (NORMAL)
[2017-08-03 14:47] LABS: PLT - PLATELET COUNT 35 10^3/uL (130-450); WHITE BLOOD COUNT 1.9 x10^3/uL (4.8-10.8)
[2017-08-03 14:48] LABS: ABNORMAL LYMPHS % (MANUAL) 0 %
[2017-08-03 14:49] LABS: BAND NEUTROPHILS % (MANUAL) 3 %; BASOPHILS % (MANUAL) 1 %; LYMPHOCYTES # (MANUAL) 0.2 10^3/uL (1.5-3.5); LYMPHOCYTES % (MANUAL) 11 %; MONOCYTES # (MANUAL) 0.4 10^3/uL (0.0-1.0); NEUTROPHILS # (MANUAL) 1.3 10^3/uL (1.5-6.6); NEUTROPHILS % (MANUAL) 66 %
[2017-08-03 14:50] LABS: DIFFERENTIAL COMMENT MANUAL DIFFERENTIAL
== END 2017-08-03 08:01 | disposition home or self-care (01) ==
LOC: LAB.N 08:00
PROVIDERS: ATTEND Internal Medicine Hematology
DX: C86.4 Blastic NK-cell lymphoma (principal)
CPT/HCPCS: 36415; 85025

== ENCOUNTER 2017-08-09 12:44 | Outpatient (CLI) | payer MEDICAID ==
[2017-08-09 13:05] LABS: BASOPHILS % (AUTO) 0.4 %; EOSINOPHILS % (AUTO) 0.4 %; HGB - HEMOGLOBIN 7.3 g/dL (14.0-18.0); LYMPHOCYTES % (AUTO) 13.7 %; MEAN CORPUSCULAR HEMOGLOBIN 35.1 pg (27.0-31.0); MEAN CORPUSCULAR HGB CONC 33.9 g/dL (32.0-36.0); MEAN CORPUSCULAR VOLUME 103.3 fL (80.0-94.0); MEAN PLATELET VOLUME 7.6 fL (7.4-11.4); MONOCYTES % (AUTO) 18.9 %; NEUTROPHILS % (AUTO) 66.6 %; RED BLOOD COUNT 2.07 10^6/uL (4.70-6.10); RED CELL DISTRIBUTION WIDTH 25.6 % (12.0-15.0); WHITE BLOOD COUNT 2.3 x10^3/uL (4.8-10.8)
[2017-08-09 13:38] LABS: ABNORMAL LYMPHS % (MANUAL) 0 %
[2017-08-09 13:47] LABS: BAND NEUTROPHILS % (MANUAL) 5 %; LYMPHOCYTES # (MANUAL) 0.3 10^3/uL (1.5-3.5); LYMPHOCYTES % (MANUAL) 4 %; METAMYELOCYTES % (MANUAL) 2 %; MONOCYTES # (MANUAL) 0.5 10^3/uL (0.0-1.0); MYELOCYTES % (MANUAL) 3 %; NEUTROPHILS # (MANUAL) 1.4 10^3/uL (1.5-6.6); NEUTROPHILS % (MANUAL) 57 %
[2017-08-09 13:48] LABS: DIFFERENTIAL COMMENT MANUAL DIFFERENTIAL
[2017-08-09 15:40] LABS: PLT - PLATELET COUNT 28 10^3/uL (130-450)
== END 2017-08-09 12:45 | disposition home or self-care (01) ==
LOC: LAB 12:44
PROVIDERS: ATTEND Internal Medicine Hematology
DX: C86.4 Blastic NK-cell lymphoma (principal)
CPT/HCPCS: 36415; 85025

== ENCOUNTER 2017-08-14 14:52 | Outpatient (CLI) | payer MEDICAID ==
[2017-08-14 19:36] LABS: BASOPHILS % (AUTO) 0.4 %; EOSINOPHILS % (AUTO) 0.1 %; LYMPHOCYTES % (AUTO) 8.7 %; MEAN CORPUSCULAR HEMOGLOBIN 33.9 pg (27.0-31.0); MEAN CORPUSCULAR HGB CONC 33.6 g/dL (32.0-36.0); MEAN CORPUSCULAR VOLUME 100.9 fL (80.0-94.0); MEAN PLATELET VOLUME 8.4 fL (7.4-11.4); MONOCYTES % (AUTO) 5.7 %; NEUTROPHILS % (AUTO) 85.1 %; RED BLOOD COUNT 2.36 10^6/uL (4.70-6.10); RED CELL DISTRIBUTION WIDTH 23.3 % (12.0-15.0)
[2017-08-14 19:50] LABS: PLT - PLATELET COUNT 28 10^3/uL (130-450)
[2017-08-14 19:51] LABS: ABNORMAL LYMPHS % (MANUAL) 0 %
[2017-08-14 20:07] LABS: BAND NEUTROPHILS % (MANUAL) 5 %; LYMPHOCYTES # (MANUAL) 0.1 10^3/uL (1.5-3.5); LYMPHOCYTES % (MANUAL) 5 %; MONOCYTES # (MANUAL) 0.1 10^3/uL (0.0-1.0); MYELOCYTES % (MANUAL) 2 %; NEUTROPHILS # (MANUAL) 1.8 10^3/uL (1.5-6.6); NEUTROPHILS % (MANUAL) 83 %; PROMYELOCYTES % (MANUAL) 1 %
[2017-08-14 20:09] LABS: PLATELET ESTIMATE, MANUAL DECREASED (<130,000) (NORMAL); PLATELET MORPHOLOGY 1+ LARGE PLATELETS (NORMAL)
== END 2017-08-14 14:53 | disposition home or self-care (01) ==
LOC: LAB.N 14:52
PROVIDERS: ATTEND Internal Medicine Hematology
DX: C86.4 Blastic NK-cell lymphoma (principal)
CPT/HCPCS: 36415; 85025

== ENCOUNTER 2017-09-01 19:30 | Outpatient (CLI) | payer MEDICAID ==
[2017-09-01 19:46] LABS: BASOPHILS % (AUTO) 0.6 %; EOSINOPHILS % (AUTO) 0.4 %; HGB - HEMOGLOBIN 9.1 g/dL (14.0-18.0); MEAN CORPUSCULAR HEMOGLOBIN 34.3 pg (27.0-31.0); MEAN CORPUSCULAR HGB CONC 32.9 g/dL (32.0-36.0); MEAN CORPUSCULAR VOLUME 104.5 fL (80.0-94.0); MONOCYTES % (AUTO) 17.8 %; NEUTROPHILS % (AUTO) 69.2 %; RED BLOOD COUNT 2.65 10^6/uL (4.70-6.10); RED CELL DISTRIBUTION WIDTH 24.2 % (12.0-15.0)
[2017-09-01 21:52] LABS: ABNORMAL LYMPHS % (MANUAL) 0 %; BAND NEUTROPHILS % (MANUAL) 0 %
[2017-09-01 21:53] LABS: LYMPHOCYTES # (MANUAL) 0.3 10^3/uL (1.5-3.5); LYMPHOCYTES % (MANUAL) 13 %; MONOCYTES # (MANUAL) 0.3 10^3/uL (0.0-1.0); NEUTROPHILS # (MANUAL) 1.5 10^3/uL (1.5-6.6); NEUTROPHILS % (MANUAL) 73 %
[2017-09-01 21:55] LABS: DIFFERENTIAL COMMENT MANUAL DIFFERENTIAL; PLATELET ESTIMATE, MANUAL DECREASED (<130,000) (NORMAL); PLATELET MORPHOLOGY NORMAL APP (NORMAL)
[2017-09-03 09:54] LABS: PLT - PLATELET COUNT 28 10^3/uL (130-450)
== END 2017-09-01 19:31 | disposition home or self-care (01) ==
LOC: LAB 19:30
PROVIDERS: ATTEND Internal Medicine Hematology
DX: C86.4 Blastic NK-cell lymphoma (principal)
CPT/HCPCS: 85025

== ENCOUNTER 2017-09-13 13:44 | Outpatient (CLI) | payer MEDICAID ==
[2017-09-13 19:21] LABS: BASOPHILS % (AUTO) 0.8 %; EOSINOPHILS % (AUTO) 0.2 %; HGB - HEMOGLOBIN 7.8 g/dL (14.0-18.0); LYMPHOCYTES % (AUTO) 2.7 %; MEAN CORPUSCULAR HEMOGLOBIN 33.9 pg (27.0-31.0); MEAN CORPUSCULAR HGB CONC 33.1 g/dL (32.0-36.0); MEAN CORPUSCULAR VOLUME 102.4 fL (80.0-94.0); MEAN PLATELET VOLUME 8.9 fL (7.4-11.4); MONOCYTES % (AUTO) 10.4 %; NEUTROPHILS % (AUTO) 85.9 %; RED BLOOD COUNT 2.31 10^6/uL (4.70-6.10); RED CELL DISTRIBUTION WIDTH 21.6 % (12.0-15.0); WHITE BLOOD COUNT 6.9 x10^3/uL (4.8-10.8)
[2017-09-13 20:16] LABS: ABNORMAL LYMPHS % (MANUAL) 0 %
[2017-09-13 20:43] LABS: BAND NEUTROPHILS % (MANUAL) 15 %; LYMPHOCYTES # (MANUAL) 0.1 10^3/uL (1.5-3.5); LYMPHOCYTES % (MANUAL) 2 %; METAMYELOCYTES % (MANUAL) 3 %; MONOCYTES # (MANUAL) 0.8 10^3/uL (0.0-1.0); NEUTROPHILS # (MANUAL) 5.8 10^3/uL (1.5-6.6); NEUTROPHILS % (MANUAL) 69 %
[2017-09-13 20:47] LABS: DIFFERENTIAL COMMENT MANUAL DIFFERENTIAL; PLATELET ESTIMATE, MANUAL DECREASED (<130,000) (NORMAL); PLATELET MORPHOLOGY RARE GIANT PLATELETS (NORMAL)
[2017-09-13 20:52] LABS: PLT - PLATELET COUNT 27 10^3/uL (130-450)
== END 2017-09-13 13:45 ==
LOC: LAB.N 13:44
PROVIDERS: ATTEND Internal Medicine Hematology
DX: C86.4 Blastic NK-cell lymphoma (principal)
CPT/HCPCS: 36415; 85025

== ENCOUNTER 2017-09-23 18:09 | Outpatient (CLI) | payer MEDICAID ==
[2017-09-23 19:14] LABS: BASOPHILS % (AUTO) 1.5 %; EOSINOPHILS % (AUTO) 0.1 %; HGB - HEMOGLOBIN 7.7 g/dL (14.0-18.0); LYMPHOCYTES # (AUTO) 0.2 10^3/uL (1.5-3.5); LYMPHOCYTES % (AUTO) 9.9 %; MEAN CORPUSCULAR HEMOGLOBIN 32.8 pg (27.0-31.0); MEAN CORPUSCULAR HGB CONC 32.8 g/dL (32.0-36.0); MEAN PLATELET VOLUME 7.8 fL (7.4-11.4); MONOCYTES # (AUTO) 0.3 10^3/uL (0.0-1.0); MONOCYTES % (AUTO) 14.1 %; NEUTROPHILS # (AUTO) 1.8 10^3/uL (1.5-6.6); NEUTROPHILS % (AUTO) 74.4 %; RED BLOOD COUNT 2.36 10^6/uL (4.70-6.10); RED CELL DISTRIBUTION WIDTH 20.2 % (12.0-15.0); WHITE BLOOD COUNT 2.4 x10^3/uL (4.8-10.8)
[2017-09-23 19:17] LABS: PLATELET ESTIMATE, MANUAL DECREASED (<130,000) (NORMAL); PLATELET MORPHOLOGY NORMAL APPEARANCE (NORMAL)
[2017-09-24 08:19] LABS: PLT - PLATELET COUNT 28 10^3/uL (130-450)
== END 2017-09-23 18:10 | disposition home or self-care (01) ==
LOC: LAB 18:09
PROVIDERS: ATTEND Internal Medicine Hematology
DX: C86.4 Blastic NK-cell lymphoma (principal)
CPT/HCPCS: 36415; 85025

== ENCOUNTER 2017-09-27 08:00 | Outpatient (CLI) | payer MEDICAID ==
[2017-09-27 16:15] LABS: BASOPHILS % (AUTO) 0.8 %; EOSINOPHILS % (AUTO) 0.1 %; HGB - HEMOGLOBIN 9.4 g/dL (14.0-18.0); LYMPHOCYTES # (AUTO) 0.2 10^3/uL (1.5-3.5); LYMPHOCYTES % (AUTO) 9.7 %; MEAN CORPUSCULAR HEMOGLOBIN 31.8 pg (27.0-31.0); MEAN CORPUSCULAR HGB CONC 33.3 g/dL (32.0-36.0); MEAN CORPUSCULAR VOLUME 95.5 fL (80.0-94.0); MEAN PLATELET VOLUME 8.8 fL (7.4-11.4); MONOCYTES # (AUTO) 0.4 10^3/uL (0.0-1.0); MONOCYTES % (AUTO) 17.7 %; NEUTROPHILS # (AUTO) 1.7 10^3/uL (1.5-6.6); NEUTROPHILS % (AUTO) 71.7 %; RED BLOOD COUNT 2.97 10^6/uL (4.70-6.10); RED CELL DISTRIBUTION WIDTH 18.7 % (12.0-15.0); WHITE BLOOD COUNT 2.4 x10^3/uL (4.8-10.8)
[2017-09-27 16:48] LABS: PLATELET ESTIMATE, MANUAL DECREASED (<130,000) (NORMAL); PLATELET MORPHOLOGY NORMAL APPEARANCE (NORMAL); RBC MORPHOLOGY (MULTIPLE) 1+ ANISOCYTOSIS (NORMAL)
[2017-09-28 08:12] LABS: PLT - PLATELET COUNT 24 10^3/uL (130-450)
== END 2017-09-27 23:59 | disposition home or self-care (01) ==
LOC: LAB.R 08:00
PROVIDERS: ATTEND Internal Medicine Hematology
DX: C86.4 Blastic NK-cell lymphoma (principal)
CPT/HCPCS: 85025

== ENCOUNTER 2017-10-11 08:00 | Outpatient (CLI) | payer MEDICAID ==
[2017-10-11 16:52] LABS: BASOPHILS % (AUTO) 0.3 %; EOSINOPHILS % (AUTO) 0.2 %; HGB - HEMOGLOBIN 8.2 g/dL (14.0-18.0); LYMPHOCYTES # (AUTO) 0.4 10^3/uL (1.5-3.5); LYMPHOCYTES % (AUTO) 9.8 %; MEAN CORPUSCULAR HEMOGLOBIN 30.5 pg (27.0-31.0); MEAN CORPUSCULAR HGB CONC 32.2 g/dL (32.0-36.0); MEAN CORPUSCULAR VOLUME 94.8 fL (80.0-94.0); MEAN PLATELET VOLUME 8.8 fL (7.4-11.4); MONOCYTES # (AUTO) 0.2 10^3/uL (0.0-1.0); MONOCYTES % (AUTO) 4.5 %; NEUTROPHILS # (AUTO) 3.1 10^3/uL (1.5-6.6); NEUTROPHILS % (AUTO) 85.2 %; RED BLOOD COUNT 2.68 10^6/uL (4.70-6.10); WHITE BLOOD COUNT 3.7 x10^3/uL (4.8-10.8)
[2017-10-11 17:10] LABS: PLATELET ESTIMATE, MANUAL DECREASED (<130,000) (NORMAL); PLATELET MORPHOLOGY NORMAL APPEARANCE (NORMAL)
[2017-10-12 09:29] LABS: PLT - PLATELET COUNT 31 10^3/uL (130-450)
== END 2017-10-11 08:01 | disposition home or self-care (01) ==
LOC: LAB.R 08:00
PROVIDERS: ATTEND Internal Medicine Hematology
DX: C86.4 Blastic NK-cell lymphoma (principal)
CPT/HCPCS: 85025

== ENCOUNTER 2017-10-18 22:17 | Outpatient (CLI) | payer OTHER | END 2017-10-18 22:18 | disposition critical access hospital (66) | LOC: EMS 22:17 | PROVIDERS: ATTEND Surgery | DX: R10.9 Unspecified abdominal pain (principal); R50.9 Fever, unspecified; R25.2 Cramp and spasm | CPT/HCPCS: A0425; A0427 ==

== ENCOUNTER 2017-10-18 22:38 | Emergency (ER) | payer OTHER ==
[2017-10-18] MEDS ORDERED: fentaNYL 100 MCG/2 ML VIAL IVP STA ×2 (22:47→23:12)
[2017-10-18 23:11] LABS: BASOPHILS % (AUTO) 0.5 %; LYMPHOCYTES # (AUTO) 0.2 10^3/uL (1.5-3.5); LYMPHOCYTES % (AUTO) 3.9 %; MEAN CORPUSCULAR HGB CONC 33.1 g/dL (32.0-36.0); MEAN CORPUSCULAR VOLUME 90.7 fL (80.0-94.0); MEAN PLATELET VOLUME 8.1 fL (7.4-11.4); MONOCYTES # (AUTO) 0.5 10^3/uL (0.0-1.0); NEUTROPHILS % (AUTO) 87.6 %; RED BLOOD COUNT 2.98 10^6/uL (4.70-6.10); RED CELL DISTRIBUTION WIDTH 19.2 % (12.0-15.0); WHITE BLOOD COUNT 5.7 x10^3/uL (4.8-10.8)
[2017-10-18] MEDS ORDERED: SODIUM CHLORIDE 0.9% 500 ML IV STA ×2 (23:12→23:47)
[2017-10-18 23:13] LABS: INR 1.7 (0.8-1.2); PLT - PLATELET COUNT 23 10^3/uL (130-450); PT - PROTHROMBIN TIME 18.6 secs (9.9-12.6)
--- NOTE | 2017-10-18 23:16 | ED Physician Documentation ---
PD HPI ABD PAIN - Stated complaint Stated Complaint: ABD PAIN - Chief complaint Chief Complaint: Abd Pain - History obtained from History obtained from: Patient, Family, EMS - History of Present Illness Timing - onset: How many weeks ago (2-3 weeks ago) Timing - duration: Weeks Timing - details: Gradual onset, Constant, Waxing and waning, Still present in ED Pain level max: 10 Pain level now: 10 Quality: Pain Location: All over / everywhere Radiation: Other (does not radiate) Improved by: Other (no ameliorating factors) Worsened by: Moving, Position, Palpation Associated symptoms: Fever (febrile in ED, although patient was not aware of fever at home), Nausea. 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 He presents via ambulance due to gradual onset and progressive, generalized abdominal pain over past 2-3 weeks. Tonight the pain became unbearable and not controlled by his usual prescribed pain medication. Review of Systems Constitutional: reports: Fever, Sweats (periodic diaphoresis, which patient says is not a new symptom). denies: Chills Eyes: reports: Reviewed and negative Ears: reports: Reviewed and negative Nose: reports: Reviewed and negative Throat: reports: Reviewed and negative Cardiac: reports: Reviewed and negative Respiratory: reports: Reviewed and negative GI: reports: Abdominal Pain, Nausea. denies: Abdominal Swelling, Vomiting, Constipation, Diarrhea, Hematemesis, Bloody / black stool : denies: Dysuria, Frequency Skin: reports: Rash (spouse noted LUE rash earlier today) Musculoskeletal: reports: Reviewed and negative Neurologic: reports: Generalized weakness. denies: Focal weakness, Numbness, Confused, Altered mental status, Headache Immunocompromised: reports: Chemotherapy (vincristine) PD PAST MEDICAL HISTORY - Past Medical History Past Medical History: Yes Endocrine/Autoimmune: Other - Past Surgical History Past Surgical History: No - Present Medications Home Medications: Ambulatory Orders Medication Instructions Recorded Confirmed Ondansetron Odt [Zofran] 4 mg TL Q6H PRN #14 tablet 11/16/16 07/12/17 Acyclovir 800 mg PO BID 10/18/17 10/18/17 Eltrombopag Olamine [Promacta] 50 mg PO DAILY 10/18/17 10/18/17 Folic Acid 0.8 mg PO DAILY 10/18/17 10/18/17 Magnesium 250 mg PO DAILY 10/18/17 10/18/17 Morphine ER [Ms Contin] 15 mg PO Q12H 10/18/17 10/18/17 Prednisone 5 mg PO DAILY 10/18/17 10/18/17 Senna [Senokot] 8.6 mg PO DAILY 10/18/17 10/18/17 Ursodiol [Juju 250] 250 mg PO TID 10/18/17 10/18/17 oxyCODONE [Roxicodone] 5 mg PO PRN PRN 10/18/17 10/18/17 - Allergies Allergies/Adverse Reactions: Allergies Allergy/AdvReac Type Severity Reaction Status Date / Time No Known Drug Allergies Allergy Verified 10/18/17 22:47 - Social History Does the pt smoke?: No Smoking Status: Never smoker Does the pt drink ETOH?: No Does the pt have substance abuse?: No - Immunizations Immunizations are current?: No - POLST Patient has POLST: No PD ED PE NORMAL - Vitals Vital signs reviewed: Yes - General General: Alert and oriented X 3, Well developed/nourished, Other (appears to be in severe painful distress) - HEENT HEENT: PERRL, EOMI, Other (mild bilateral icterus) - Neck Neck: Supple, no meningeal sign - Cardiac Cardiac: RRR, No murmur, No gallop, No rub - Respiratory Respiratory: No respiratory distress, Clear bilaterally - Abdomen Abdomen: Soft, Non distended, Other (diffuse tenderness without rebound) - Back Back: No CVA TTP - Derm Derm: Normal color, Warm and dry - Extremities Extremities: No edema - Neuro Neuro: Alert and oriented X 3 Eye Opening: Spontaneous Motor: Obeys Commands Verbal: Oriented GCS Score: 15 Results - Vitals Vitals: Vital Signs - 24 hr 10/18/17 10/18/17 10/19/17 22:40 23:54 00:30 Temperature 37.9 C H 39.6 C H Heart Rate 105 H 115 H 115 H Respiratory 109 H 18 20 Rate Blood Pressure 100/59 L 96/64 81/54 L O2 Saturation 95 92 92 10/19/17 10/19/17 10/19/17 00:53 01:30 02:00 Temperature 38.8 C H Heart Rate 114 H 110 H 104 H Respiratory 18 20 16 Rate Blood Pressure 78/53 L 85/51 L 83/56 L O2 Saturation 93 92 98 10/19/17 10/19/17 10/19/17 02:30 03:01 03:30 Temperature 38.8 C H Heart Rate 104 H 106 H 108 H Respiratory 16 24 26 H Rate Blood Pressure 83/56 L 94/60 98/69 O2 Saturation 98 92 92 10/19/17 04:00 Temperature Heart Rate 111 H Respiratory 23 Rate Blood Pressure 96/59 L O2 Saturation 90 L Oxygen O2 Source Room air - Labs Labs: Laboratory Tests 10/18/17 10/18/17 10/18/17 22:56 22:56 22:56 WBC 5.7 RBC 2.98 L Hgb 9.0 L Hct 27.1 L MCV 90.7 MCH 30.0 MCHC 33.1 RDW 19.2 H Plt Count 23 L* MPV 8.1 Neut # (Auto) 5.0 Lymph # (Auto) 0.2 L [place] # (Auto) 0.5 Eos # (Auto) 0.0 Baso # (Auto) 0.0 Absolute Nucleated RBC 0.01 Nucleated RBC % 0.2 PT 18.6 H INR 1.7 H APTT 27.8 Sodium 129 L Potassium 3.9 Chloride 97 L Carbon Dioxide 23 Anion Gap 9.0 BUN 17 Creatinine 1.3 H Estimated GFR (MDRD) 57 L Glucose 211 H Lactic Acid Calcium 8.2 L Magnesium 1.1 L Total Bilirubin 3.6 H AST 25 ALT 23 Alkaline Phosphatase 112 Ammonia Total Protein 6.0 L Albumin 2.7 L Globulin 3.3 Albumin/Globulin Ratio 0.8 L Lipase 23 Urine Color Urine Clarity Urine pH Ur Specific [place] Urine Protein Urine Glucose (UA) Urine Ketones Urine Occult Blood Urine Nitrite Urine Bilirubin Urine Urobilinogen Ur Leukocyte Esterase Urine RBC Urine WBC Ur Squamous Epith Cells Urine Bacteria Ur Microscopic Review Urine Culture Comments Ethyl Alcohol < 5.0 10/18/17 10/18/17 10/19/17 22:56 23:19 02:44 WBC RBC Hgb Hct MCV MCH MCHC RDW Plt Count MPV Neut # (Auto) Lymph # (Auto) [place] # (Auto) Eos # (Auto) Baso # (Auto) Absolute Nucleated RBC Nucleated RBC % PT INR APTT Sodium Potassium Chloride Carbon Dioxide Anion Gap BUN Creatinine Estimated GFR (MDRD) Glucose Lactic Acid 1.9 Calcium Magnesium Total Bilirubin AST ALT Alkaline Phosphatase Ammonia 15.6 Total Protein Albumin Globulin Albumin/Globulin Ratio Lipase Urine Color DARK YELLOW Urine Clarity CLEAR Urine pH 5.5 Ur Specific [place] <=1.005 Urine Protein TRACE Urine Glucose (UA) 100 H Urine Ketones NEGATIVE Urine Occult Blood TRACE-INTA Urine Nitrite POSITIVE H Urine Bilirubin MODERATE H Urine Urobilinogen 1 (NORMAL) Ur Leukocyte Esterase NEGATIVE Urine RBC 0-5 Urine WBC 6-10 H Ur Squamous Epith Cells NONE SEEN Urine Bacteria Moderate H Ur Microscopic Review INDICATED Urine Culture Comments INDICATED Ethyl Alcohol - Rads (name of study) CT A/P Radiology: Prelim report reviewed, See rad report PD MEDICAL DECISION MAKING - ED course Complexity details: reviewed old records, reviewed results, re-evaluated patient , considered differential, d/w patient, d/w family ED course: patient reported minimal relief with 50 micrograms IV Fentanyl, given repeat dose and patient reported modest, transient relief. Dilaudid 1mg IV given and patient reported significant relief. His SBP was 90s on arrival, and no significant change with fentanyl. Unfortunately, he had hypotension subsequent to the dilaudid (which also appeared to correlate with the relief of his pain) to 70s SBP and this gradually improved with IV fluids to 80s (this was achieved only after over 3 liters NS). As his pain gradually returned, the SBP was noted to further increase to 90s and lower 100s, but he was then again reporting 10/ 10 pain and appeared to be in significant pain. Given 0.5mg IV dilaudid with repeat dose. No findings on blood tests, UA, and CT that would strongly suggest etiology of his signs and symptoms (UA suggests UTI, although only 6-10 WBC/hpf). Case D/W Dr. Luna (leukemia specialist at [facility]), who recommends that I discuss case with . commercial pest control representative. I then d/w Dr. Pearson ([facility] commercial pest control representative) , who accepts patient for transfer, recommends Vancomycin and Zosyn IV. - Sepsis Event Vital Signs: Vital Signs - 24 hr 10/18/17 10/18/17 10/19/17 22:40 23:54 00:30 Temperature 37.9 C H 39.6 C H Heart Rate 105 H 115 H 115 H Respiratory 109 H 18 20 Rate Blood Pressure 100/59 L 96/64 81/54 L O2 Saturation 95 92 92 10/19/17 10/19/17 10/19/17 00:53 01:30 02:00 Temperature 38.8 C H Heart Rate 114 H 110 H 104 H Respiratory 18 20 16 Rate Blood Pressure 78/53 L 85/51 L 83/56 L O2 Saturation 93 92 98 10/19/17 10/19/17 10/19/17 02:30 03:01 03:30 Temperature 38.8 C H Heart Rate 104 H 106 H 108 H Respiratory 16 24 26 H Rate Blood Pressure 83/56 L 94/60 98/69 O2 Saturation 98 92 92 10/19/17 04:00 Temperature Heart Rate 111 H Respiratory 23 Rate Blood Pressure 96/59 L O2 Saturation 90 L Oxygen O2 Source Room air Departure - Departure Disposition: 02 Transfer Acute Care Hosp Clinical Impression: Hypotension Qualifiers: Hypotension type: unspecified hypotension type Qualified Code(s): I95.9 - Hypotension, unspecified Fever Qualifiers: Fever type: unspecified Qualified Code(s): R50.9 - Fever, unspecified Abdominal pain Qualifiers: Abdominal location: generalized Qualified Code(s): R10.84 - Generalized abdominal pain Condition: Fair Discharge Date/Time: 10/19/17 04:22
[2017-10-18 23:17] LABS: ALBUMIN 2.7 g/dL (3.2-5.5); ALBUMIN/GLOBULIN RATIO 0.8 (1.0-2.2); ALKALINE PHOSPHATASE 112 IU/L (42-121); ALT ALANINE AMINOTRANSFERASE 23 IU/L (10-60); AST ASPARTATE AMINOTRANSFERASE 25 IU/L (10-42); BILIRUBIN,TOTAL 3.6 mg/dL (0.2-1.0); BUN - BLOOD UREA NITROGEN 17 mg/dL (6-20); CALCIUM 8.2 mg/dL (8.5-10.3); CARBON DIOXIDE - CO2 23 mmol/L (21-32); CHLORIDE 97 mmol/L (101-111); CREATININE 1.3 mg/dL (0.6-1.2); GFR - MDRD 57 (>89); GLUCOSE 211 mg/dL (70-100); LIPASE 23 U/L (22-51); MAGNESIUM 1.1 mg/dL (1.7-2.8); SODIUM 129 mmol/L (135-145)
[2017-10-18] MEDS ORDERED: HYDROmorphone 1 MG/ML CARPUJECT IVP STA (23:40)
[2017-10-18] MEDS ORDERED: ACETAMINOPHEN 1,000 MG/100 ML 100 ML IV STA (23:59)
[2017-10-19] MEDS ORDERED: HYDROmorphone 1 MG/ML CARPUJECT IVP STA ×3 (00:09→04:00)
[2017-10-19] MEDS ORDERED: IOPAMIDOL-300 100 ML VIAL ONE (00:33)
[2017-10-19] MEDS ORDERED: IOPAMIDOL-300 100 ML VIAL IVP ONE (00:48)
[2017-10-19] MEDS ORDERED: SODIUM CHLORIDE 0.9% 1,000 ML IV STA (00:58)
--- NOTE | 2017-10-19 01:33 | CT Report ---
Procedure Date: 10/19/2017 Accession Number: [id number] / [id number] Procedure: CT - Abdomen/Pelvis W/ CPT Code: FULL RESULT: EXAM: CT ABDOMEN AND PELVIS EXAM DATE: 10/19/2017 12:49 AM. CLINICAL HISTORY: Abd. pain, fever, diffuse abd. tenderness. COMPARISONS: ABDOMEN/PELVIS W/ 11/26/2016. TECHNIQUE: Routine helical CT imaging was performed through the abdomen and pelvis. IV contrast: ISOVUE 300 100mL. Enteric contrast: No. Reconstructions: Coronal and sagittal. In accordance with CT protocol optimization, one or more of the following dose reduction techniques were utilized for this exam: automated exposure control, adjustment of mA and/or KV based on patient size, or use of iterative reconstructive technique. FINDINGS: ABDOMEN: Lung Bases: Incompletely included lower lungs are grossly clear. Heart size is within normal limits. Coronary artery and aortic valvular calcifications are present. No basilar effusions. Liver: Lobular contour is present. Spleen: Stable splenomegaly. Pancreas: Unremarkable. Gallbladder/Bile Ducts: Gallbladder is unremarkable. Biliary tree is normal caliber. Adrenal Glands: Unremarkable. Kidneys: 3 mm left inferior renal calculus. No hydronephrosis. Right kidney is unremarkable. Peritoneum/Mesentery/Bowel: No free fluid, free air, or collection. No intestinal obstruction or inflammation. The appendix is within normal limits. Lymph nodes: No mesenteric, periportal, or retroperitoneal lymphadenopathy. Resolution of previously seen periportal and retroperitoneal lymphadenopathy. Vasculature: Small upper abdominal varices are present. Abdominal aorta is nonaneurysmal. Portal vein is patent. Hepatic veins are patent. PELVIS: Mildly thick-walled bladder. Bladder is underdistended. Prostate is present. No pelvic lymphadenopathy. Bones: L1 hemangioma is present. IMPRESSION: Cirrhosis and portal hypertension with small upper abdominal varices and splenomegaly. Mildly thick-walled bladder, correlate as to the presence of cystitis. RADIA
[2017-10-19 03:06] LABS: GLUCOSE, URINE (UA) 100 mg/dL (NEGATIVE); KETONES,URINE (UA) NEGATIVE (NEGATIVE); LEUKOCYTE ESTERASE, URINE NEGATIVE (NEGATIVE); NITRITE,URINE POSITIVE (NEGATIVE); OCCULT BLOOD,URINE TRACE-INTA (NEGATIVE); PH,URINE 5.5 PH (5.0-7.5); PROTEIN,URINE TRACE mg/dL (NEGATIVE); UROBILINOGEN,URINE 1 (NORMAL) E.U./dL (NORMAL)
[2017-10-19 03:11] LABS: BILIRUBIN,URINE MODERATE (NEGATIVE); CLARITY,URINE CLEAR (CLEAR); ICTOTEST,URINE POSITIVE; RBC,URINE 0-5 /HPF (0-5)
[2017-10-19 03:12] LABS: BACTERIA,URINE Moderate /HPF (None Seen); SQUAMOUS EPITHELIAL CELL,UR NONE SEEN (<= Few)
[2017-10-19] MEDS ORDERED: PIPERACILLIN/TAZOBACTAM 3.375 GM in SODIUM CHLORIDE 0.9% MINIBAG 100 ML IV STA (03:35)
[2017-10-19] MEDS ORDERED: VANCOMYCIN INJ 1 GM in SODIUM CHLORIDE 0.9% 500 ML IV STA (03:35)
[2017-10-19 04:22] VITALS: BP 96/59
== END 2017-10-19 04:22 | disposition short-term general hospital (02) ==
LOC: EDUNIT# → ED 22:38
DX: I95.9 Hypotension, unspecified (principal); R10.9 Unspecified abdominal pain; C95.90 Leukemia, unspecified not having achieved remission; K74.60 Unspecified cirrhosis of liver; K76.6 Portal hypertension
CPT/HCPCS: 36415; 74177; 80053; 80320; 81001; 82140; 83605; 83690; 83735; 85025; 85610; 85730; 87040; 87086; 87181; 96374; 96375; 96376; 99284; J0131; J1170; J3370; Q9967; 81003; 81599; 99285

== ENCOUNTER 2017-12-04 20:02 | Inpatient (IN) | payer OTHER ==
[2017-12-04] MEDS ORDERED: SODIUM CHLORIDE 0.9% 1,000 ML IV ONE (20:28)
[2017-12-04 20:38] LABS: GLUCOSE, URINE (UA) NEGATIVE (NEGATIVE); KETONES,URINE (UA) NEGATIVE (NEGATIVE); LEUKOCYTE ESTERASE, URINE NEGATIVE (NEGATIVE); NITRITE,URINE NEGATIVE (NEGATIVE); OCCULT BLOOD,URINE TRACE-LYSE (NEGATIVE); PROTEIN,URINE 30 mg/dL (NEGATIVE); UROBILINOGEN,URINE 0.2 (NORMAL) E.U./dL (NORMAL)
[2017-12-04 20:43] LABS: BASOPHILS % (AUTO) 0.2 %; EOSINOPHILS % (AUTO) 0.1 %; HGB - HEMOGLOBIN 9.2 g/dL (14.0-18.0); LYMPHOCYTES # (AUTO) 0.4 10^3/uL (1.5-3.5); LYMPHOCYTES % (AUTO) 6.7 %; MEAN CORPUSCULAR HEMOGLOBIN 32.3 pg (27.0-31.0); MEAN CORPUSCULAR VOLUME 94.9 fL (80.0-94.0); MEAN PLATELET VOLUME 8.1 fL (7.4-11.4); MONOCYTES # (AUTO) 0.7 10^3/uL (0.0-1.0); MONOCYTES % (AUTO) 12.6 %; NEUTROPHILS # (AUTO) 4.5 10^3/uL (1.5-6.6); NEUTROPHILS % (AUTO) 80.4 %; PLT - PLATELET COUNT 43 10^3/uL (130-450); RED BLOOD COUNT 2.86 10^6/uL (4.70-6.10); RED CELL DISTRIBUTION WIDTH 24.5 % (12.0-15.0); WHITE BLOOD COUNT 5.6 x10^3/uL (4.8-10.8)
[2017-12-04 20:43] LABS: BILIRUBIN,URINE MODERATE (NEGATIVE); CLARITY,URINE HAZY (CLEAR); ICTOTEST,URINE POSITIVE
[2017-12-04] MEDS ORDERED: PIPERACILLIN/TAZOBACTAM 4.5 GM in SODIUM CHLORIDE 0.9% MINIBAG 100 ML IV STA (20:43)
[2017-12-04] MEDS ORDERED: VANCOMYCIN INJ 1.5 GM in SODIUM CHLORIDE 0.9% 500 ML IV STA (20:44)
--- NOTE | 2017-12-04 20:45 | ED Physician Documentation ---
History of Present Illness - Stated complaint Stated Complaint: FEVER - Chief complaint Chief Complaint: Fever - History obtained from History obtained from: Patient, Family - History of Present Illness Timing: Today - Additonal information Additional information: Patient is a 57 year old male with a history of and blastic dendritic cell neoplasm and recent sepsis with indwelling picc line in his left arm. Patient was at his oncologist's office today and was found to have a fever and an elevated white count. Patient was told to keep an eye on it and follow up if symptoms worsened. Patient came back because symptoms persisted and was told before that he needed antibiotics if he had a fever again. Patient is worried because he lost vision in his eye secondary to an infection. Aside from the fever patient denies any other complaints. Review of Systems Constitutional: reports: Fever, Chills Eyes: reports: Reviewed and negative Ears: denies: Ear pain, Drainage/discharge Nose: denies: Congestion Cardiac: denies: Chest pain / pressure, Palpitations Respiratory: denies: Dyspnea, Cough, Wheezing GI: reports: Abdominal Pain. denies: Nausea, Vomiting, Constipation, Diarrhea : denies: Dysuria, Frequency Musculoskeletal: reports: Back pain. denies: Neck pain, Extremity pain Neurologic: reports: Generalized weakness. denies: Focal weakness, Numbness, Headache, Head injury Psychiatric: denies: Depressed Immunocompromised: denies: Immunocompromised PD PAST MEDICAL HISTORY - Past Medical History Past Medical History: Yes Endocrine/Autoimmune: Other Other Past Medical History: leukemia - Past Surgical History Past Surgical History: No - Present Medications Home Medications: Ambulatory Orders Medication Instructions Recorded Confirmed Ondansetron Odt [Zofran] 4 mg TL Q6H PRN #14 tablet 11/16/16 12/04/17 Acyclovir 800 mg PO BID 10/18/17 12/04/17 Eltrombopag Olamine [Promacta] 50 mg PO DAILY 10/18/17 12/04/17 Folic Acid 0.8 mg PO DAILY 10/18/17 12/04/17 Magnesium 250 mg PO DAILY 10/18/17 12/04/17 Morphine ER [Ms Contin] 15 mg PO Q12H 10/18/17 12/04/17 Prednisone 10 mg PO DAILY 10/18/17 12/04/17 Senna [Senokot] 8.6 mg PO DAILY 10/18/17 12/04/17 Ursodiol [Juju 250] 500 mg PO TID 10/18/17 12/04/17 oxyCODONE [Roxicodone] 5 mg PO PRN PRN 10/18/17 12/04/17 - Allergies Allergies/Adverse Reactions: Allergies Allergy/AdvReac Type Severity Reaction Status Date / Time No Known Drug Allergies Allergy Verified 12/04/17 20:09 - Social History Does the pt smoke?: No Smoking Status: Never smoker Does the pt drink ETOH?: No Does the pt have substance abuse?: No - Immunizations Immunizations are current?: No - POLST Patient has POLST: No PD ED PE NORMAL - Vitals Vital signs reviewed: Yes - General General: Alert and oriented X 3 - HEENT HEENT: Atraumatic - Respiratory Respiratory: No respiratory distress, Clear bilaterally - Abdomen Abdomen: Soft, Non distended - Neuro Neuro: Alert and oriented X 3, No motor deficit, Normal speech Eye Opening: Spontaneous PD ED PE EXPANDED - HEENT HEENT: Dry mucous membranes - Eyes Eyes: Scleral icterus - Cardiac Cardiac: Tachy - Extremities Extremities: Pedal edema bilateral Results - Vitals Vitals: Vital Signs - 24 hr 12/04/17 20:08 Temperature 38.9 C H Heart Rate 110 H Respiratory 20 Rate Blood Pressure 149/78 H O2 Saturation 98 Oxygen O2 Source Room air - Labs Labs: Laboratory Tests 12/04/17 12/04/17 12/04/17 20:33 20:33 20:33 WBC 5.6 RBC 2.86 L Hgb 9.2 L Hct 27.1 L MCV 94.9 H MCH 32.3 H MCHC 34.0 RDW 24.5 H Plt Count 43 L MPV 8.1 Neut # (Auto) 4.5 Lymph # (Auto) 0.4 L [place] # (Auto) 0.7 Eos # (Auto) 0.0 Baso # (Auto) 0.0 Absolute Nucleated RBC 0.00 Nucleated RBC % 0.0 Manual Slide Review Indicated Platelet Estimate DECREASED (<130,000) Platelet Morphology NORMAL APPEARANCE RBC Morph Micro Appear 1+ POLYCHROMASIA Sodium 130 L Potassium 4.2 Chloride 97 L Carbon Dioxide 25 Anion Gap 8.0 BUN 12 Creatinine 0.9 Estimated GFR (MDRD) 87 L Glucose 134 H Calcium 9.1 Total Bilirubin 3.3 H AST 23 ALT 23 Alkaline Phosphatase 96 Troponin I < 0.04 Total Protein 7.3 Albumin 3.5 Globulin 3.8 Albumin/Globulin Ratio 0.9 L Lipase 22 Urine Color Urine Clarity Urine pH Ur Specific [place] Urine Protein Urine Glucose (UA) Urine Ketones Urine Occult Blood Urine Nitrite Urine Bilirubin Urine Urobilinogen Ur Leukocyte Esterase Urine RBC Urine WBC Ur Squamous Epith Cells Urine Bacteria Ur Microscopic Review Urine Culture Comments 12/04/17 20:35 WBC RBC Hgb Hct MCV MCH MCHC RDW Plt Count MPV Neut # (Auto) Lymph # (Auto) [place] # (Auto) Eos # (Auto) Baso # (Auto) Absolute Nucleated RBC Nucleated RBC % Manual Slide Review Platelet Estimate Platelet Morphology RBC Morph Micro Appear Sodium Potassium Chloride Carbon Dioxide Anion Gap BUN Creatinine Estimated GFR (MDRD) Glucose Calcium Total Bilirubin AST ALT Alkaline Phosphatase Troponin I Total Protein Albumin Globulin Albumin/Globulin Ratio Lipase Urine Color ORANGE Urine Clarity HAZY Urine pH 6.0 Ur Specific [place] 1.015 Urine Protein 30 H Urine Glucose (UA) NEGATIVE Urine Ketones NEGATIVE Urine Occult Blood TRACE-LYSE Urine Nitrite NEGATIVE Urine Bilirubin MODERATE H Urine Urobilinogen 0.2 (NORMAL) Ur Leukocyte Esterase NEGATIVE Urine RBC 0-5 Urine WBC 0-3 Ur Squamous Epith Cells NONE SEEN Urine Bacteria None Seen Ur Microscopic Review INDICATED Urine Culture Comments NOT INDICATED - Rads (name of study) chest x-ray Radiology: Final report received (negative) PD MEDICAL DECISION MAKING - ED course Complexity details: reviewed old records, reviewed results, re-evaluated patient , considered differential, d/w patient, d/w family, d/w medical economics consultant ED course: Patient was seen and examined at bedside. IV access was gained, labs were drawn including cultures. patient was started on a fluid bolus and treated with tylenol. chest x-ray was ordered and showed no acute abnormalities. Patient urine was collected and broad spectrum antibiotics were ordered. patient's oncologist was paged but no return call was received. Case was discussed with the hospitalist and patient was admitted for further evaluation and care. - Sepsis Event Vital Signs: Vital Signs - 24 hr 12/04/17 20:08 Temperature 38.9 C H Heart Rate 110 H Respiratory 20 Rate Blood Pressure 149/78 H O2 Saturation 98 Oxygen O2 Source Room air Departure - Departure Disposition: [facility] DC/Xfer Clinical Impression: Fever Condition: Stable
[2017-12-04 20:52] LABS: BACTERIA,URINE None Seen /HPF (None Seen); RBC,URINE 0-5 /HPF (0-5); SQUAMOUS EPITHELIAL CELL,UR NONE SEEN (<= Few)
[2017-12-04 20:52] LABS: ALBUMIN 3.5 g/dL (3.2-5.5); ALBUMIN/GLOBULIN RATIO 0.9 (1.0-2.2); BILIRUBIN,TOTAL 3.3 mg/dL (0.2-1.0); CALCIUM 9.1 mg/dL (8.5-10.3); CREATININE 0.9 mg/dL (0.6-1.2); TOTAL PROTEIN 7.3 g/dL (6.7-8.2)
[2017-12-04] MEDS ORDERED: ACETAMINOPHEN 500 MG TABLET PO STA (20:54)
[2017-12-04 21:00] LABS: PLATELET ESTIMATE, MANUAL DECREASED (<130,000) (NORMAL); PLATELET MORPHOLOGY NORMAL APPEARANCE (NORMAL)
--- NOTE | 2017-12-04 21:05 | XRAY Report ---
Procedure Date: 12/04/2017 Accession Number: [id number] / [id number] Procedure: XR - Chest 1 View X-Ray CPT Code: 73590 FULL RESULT: EXAM: CHEST RADIOGRAPHY EXAM DATE: 12/04/2017 08:34 PM. CLINICAL HISTORY: Fever, history of cancer. Sepsis. COMPARISON: None. TECHNIQUE: 1 view. FINDINGS: Lungs/Pleura: No focal opacities evident. No pleural effusion. No pneumothorax. Mediastinum: Within exam limitations, the cardiomediastinal contour is normal. Other: Left PICC line in place with the tip mid third SVC. IMPRESSION: Normal single view chest. RADIA
[2017-12-04] MEDS ORDERED: SODIUM CHLORIDE FLUSH 0.9% 10 ML SYRINGE IVP PRN (21:11)
[2017-12-04] MEDS ORDERED: ACETAMINOPHEN 325 MG TABLET PO PRN (21:11)
[2017-12-04] MEDS ORDERED: CEFEPIME 2 GM in SODIUM CHLORIDE 0.9% MINIBAG 100 ML IV STA (21:13)
[2017-12-04] MEDS ORDERED: oxyCODONE 5 MG TABLET PO PRN (21:17)
[2017-12-04] MEDS ORDERED: MORPHINE ER 15 MG TABLET PO SCH (22:00)
[2017-12-04] MEDS: URSODIOL 250 MG TABLET PO SCH (22:44)
[2017-12-04] MEDS ORDERED: CEFEPIME 1 GM in SODIUM CHLORIDE 0.9% MINIBAG 100 ML IV SCH (23:00)
[2017-12-05] MEDS: SODIUM CHLORIDE FLUSH 0.9% 10 ML SYRINGE IVP SCH ×2 (00:25→08:21)
--- NOTE | 2017-12-05 01:01 | HISTORY & PHYSICAL EXAMINATION ---
DATE OF SERVICE: 12/04/2017 Physician: Any Gallegos MD PRIMARY CARE PROVIDER: LUISA Aguilera ONCOLOGIST: Bettye Huffman MD [facility] ADMITTING PROVIDER: Any Gallegos MD CHIEF COMPLAINT: Fever. 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 He was followed by [facility] starting in November of 2016 until this summer. [facility] treatment is well delineated by Dr. Huffman on her note. Because he is now on disability, he has had to change his insurance. With that, there was a resultant change in providers, and he has now been seen by [facility], Oncology, because he is now [employer]. His last treatment for his neoplasm was 06/2017 with Vincristine. Records reviewed were from [facility] and from [facility] notes per Dr. Huffman. The patient, his and Dr. Calhoun also provided the current history. On 10/18/2017, he presented to our hospital with generalized abdominal pain. He was transferred to [facility] for further management. I have requested that those records be sent, and I have not been able to receive them to then review them. CAT scan in our emergency room on October 18 showed cirrhosis and gallbladder hydrops and a foci of gas in the aortic wall and bilateral iliac arteries. He was found to have Clostridium septicum on blood culture. Diagnosed with septic shock and endocarditis. 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 He was discharged from [facility] approximately November 10 with a PICC line in place to continue his penicillin. Penicillin was recently completed November 30. He has seen Dr. Huffman now November 13, November 20, and today. His last treatment was with vincristine and dexamethasone of a DOMP maintenance program in June 2017. Again, he has received therapy with [facility] in 2016 which is well delineated by Dr. Huffman. He received G-CLAM, mitoxantrone, intrathecal methotrexate, hyper- CVAD. Most recently, vincristine and dexamethasone as of June 2017. With Dr. Huffman's note from November 20 reviewed, today's note is not available yet, she was going to hold further chemotherapy. "We will watch him for disease recurrence, mostly by clinical exam and CBC to watch for worsening pancytopenia. " The patient states he has been doing well. He went crabbing last week. Really enjoyed that. The only new thing that he notes is new lumbosacral back pain. There is no leg weakness, foot drop with the back pain. He denies sore throat, ear pain. Denies runny nose, chest congestion, coughing, chest pain. There is no shortness of breath. He denies abdominal pain, change in bowel habits. No blood in his stool, no blood in his urine. Denied urgency, frequency, dysuria, flank pain. He has no new skin lesions or rashes. He was seen today by the oncologist. A temperature was noted per his recollection. Dr. Huffman said to just monitor it at home. As they were monitoring it at home, it continued to stay elevated. When it stayed at 102 would not go down, his decided to bring him to the emergency room because they could not get ahold of the on-call oncologist for Dr. Huffman. In our emergency room, his temperature was 38 and peaked at 38.9. Pulse was tachycardic at 110. Blood pressure of 117/70. Respirations 20. 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 He does have his PICC line. He has been treated empirically as infection in the ER. Since the only source of infection at this preliminary point is a PICC line, we were considering MRSA. PAST MEDICAL HISTORY 1. Alcoholic liver disease with cirrhosis and esophageal varices. He was drinking quite a bit of wine with his first admission in November 2016 when he was first diagnosed with the leukemia and anemia. A liver biopsy 01/25/2017 shows the cirrhosis, and he is not felt to be an allo stem cell transplant candidate because of that. While he has had profound pancytopenia requiring multiple blood transfusions in the past, he is not felt to have esophageal variceal bleeding. 2. Chronic undifferentiated joint pain since March 2017. 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 He is on morphine extended release because of it. 3. 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 4. Gallbladder necrosis with above infection noted. ALLERGIES: NO KNOWN DRUG ALLERGIES. MEDICATIONS 1. Acyclovir 800 mg p.o. b.i.d. 2. Promacta 50 mg daily. 3. Folic acid 0.8 mg daily. 4. Magnesium 250 mg daily. 5. MS Contin 15 mg p.o. b.i.d. 6. Oxycodone 5 mg p.o. q.6 hours p.r.n. pain. 7. Prednisone 10 mg daily. 8. Senna 8.6 mg daily. 9. Ursodiol 500 mg t.i.d. SOCIAL HISTORY: He was drinking two 5 L containers of wine a week until October 2016. He smoked for 15 years, 1 pack per day, quit. Then started smoking again 10 or 11 years after his first marriage ended in divorce. He may have done a few recreational substances between the ages of 17 to 21 but never did IV drugs. He was once before and had 2 children with that . He has gradually come in contact with them as his diagnosis has been quite grim. He had his girlfriend that he has been living with for 14 years, and they got last fall once his diagnosis was confirmed. FAMILY HISTORY: Mom is 78 and has no medical issues. Dad at 75 of complications of atrial fibrillation and a drug that affected his thyroid and his lungs. He has multiple half brothers and sisters. He says his father was an inveterate liar, and he does not know half of the story. He was always finding out about new half siblings sporadically throughout his life. As far as he knows, his half siblings are healthy. His 2 children are healthy. REVIEW OF SYSTEMS CONSTITUTIONAL: He denies sweats, unexpected weight changes in the last year. Last year, he has lost anywhere from 30 to 35 pounds. This is prior to his diagnosis of leukemia in November 2016. 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 Has occasional headaches that are not severe. Denies any ear pain, sore throat, thrush. Occasional dysgeusia. PULMONARY: Denies coughing, wheezing, chest congestion, chest pain, chest tightness. CARDIAC: Denies chest pain, palpitations, has chronic mild leg edema, anginal symptoms. He says that he had "a growth on his valve" identified at [facility] with his recent episode and hospitalization. He is supposed to get a new echo in the next couple of weeks. I asked if he was to get an echo that is transthoracic or transesophageal. They have opted to do only transthoracic because of his "platelets being too low, causing increased risk of bleeding for the transesophageal." ABDOMEN: Distended constantly. Problems with constipation but no new distention, no new abdominal pain. JOINTS: New back pain, but he has the same chronic joint pain in his wrist that he has always had. SKIN: No new rashes, no new bruising. When he first presented with his leukemia in 2017, he had severe petechial changes that are not present now. PSYCHIATRIC: More than anything he is just angry. He is quite forthright in stating his displeasure with the medical system, insurance industry, etc. He denies suicidal ideation. He denies severe depression. His states that he is a very particular gentleman. Almost obsessive-compulsive in that things must be done a certain way in a stepwise manner. She has never shared this with him, but she sometimes wonders if he is autistic because his thought process is always a little bit different than everybody else's. NEUROLOGIC: Other than the back pain, there is no new associated neurologic complaint. There is no foot drop, no leg weakness. No headaches, syncope, seizures. Visual changes in the blind eye. PHYSICAL EXAMINATION VITAL SIGNS: Temperature is 38.9 when I see him in the emergency room. Pulse is 110, blood pressure 149/78, respirations 20, 98% on room air. GENERAL: He is an alert, oriented, middle-aged white male who is jaundiced, pale and alert, in no acute distress. ENT: Deviated left eye, pupil not reactive. Sclera is jaundiced, both eyes. No facial asymmetry. Oral mucosa slightly pale, but there is no thrush. No evidence of pharyngitis on exam. TMs are normal. NECK: Supple with shotty adenopathy. No goiter or bruit. LUNGS: Diminished breath sounds at the bases, but there are no crackles, rhonchi, or wheezing, and he does not have any increased respiratory effort. There is no coughing, no congestion during his exam. CARDIOVASCULAR: PMI normally placed with a tachycardic, regular rate and rhythm. I do not hear a murmur, rub or gallop. ABDOMEN: Diffusely softly distended. No fluid wave. Liver edge is palpable. So is spleen edge. No bruising or petechiae on exam. EXTREMITIES: Mild, diffuse nonpitting edema of his legs. No clubbing, no cyanosis. No petechiae, no rashes on arms or legs other than bruising from his blood draws. PICC line appears to be in place without any fluctuance at the insertion site or redness or heat. NEUROLOGIC: He is alert and oriented to person, place and time. Blind in that one eye. He is not deaf. Speech is normal, and speech patterns are intact. He appears to be a lucid historian. The only time I am concerned is when he talks about being admitted 3 times last summer and thus took 3 admissions to finally get the diagnosis. I think what he is saying is, he was seen in the emergency room twice and admitted once, and only with the final admission did he get transferred to . No focal deficits. No tremors. LABORATORY DATA: White cell count is 5.6, hemoglobin 9.2, hematocrit 27.1, platelets 43,000. On December 04, he was 4.9, 9.0, and 26.2, respectively, with platelets 37,000. Sodium is 130. He was 129 on October 18. Potassium 4.2. BUN 12, creatinine 0.9, random glucose 134. Total bilirubin is 3.3. The rest of his liver enzymes are normal. Troponin less than 0.04. Lactic acid was not done in the emergency room. Chest x-ray shows a left PICC line in place with the tip mid third SVC, but otherwise no focal opacities in the lungs, no pleural effusions, no pneumothorax. Urinalysis tonight has some proteinuria and moderate bilirubin but negative leukocyte esterase, 0-5 red cells, 0-3 white cells, no bacteria seen. ASSESSMENT/PLAN: 1. Fever in an immunocompromised gentleman who is immunocompromised from alcoholic liver disease, myelodysplastic syndrome, and his blastic plasmacytoid dendritic cell neoplasm. No recent chemotherapy, from what I can gather in the chart, since June 2017. Nevertheless, this gentleman presented with a hydrops gallbladder and probable clostridial infection in October of this year. He has no abdominal pain at this time, a negative chest x-ray, and a negative UA. I explained to him that I am still thinking that he possibly has a new focus of infection. Without any review of systems that are positive, I must consider his peripherally inserted central catheter line as a source of infection or that his endocarditis has not completely resolved. Plan: a. Acute inpatient status. I anticipate the patient being here greater than 2 midnights. b. Attestation: The patient will be reassessed at 96 hours for him not to remain greater than 96 hours. c. Empiric antibiotic therapy with cefepime and vancomycin. d. Adjust antibiotics on the basis of blood cultures. Again, if his blood cultures grow out staphylococcus or a skin contaminant, must suspect the peripherally inserted central catheter line as source of infection. e. He shares with me that he had vegetations on one of his valves and seems to be describing endocarditis. Check Echocardiogram here. f. I will get records from [facility] and see what that echocardiogram report said or what their discharge summary said. g. Check lactic acid at midnight. Sepsis protocol was not done in the emergency room, but will do 6-hour protocol when on the floor. 2. Blastic plasmacytoid dendritic cell neoplasm and myelodysplastic syndrome with subsequent anemia/pancytopenia. He is currently stable with his cell counts in reviewing his record. No current chemotherapy regimen. He is being monitored and will be treated again if his CBC changes. Advance care plan discussion documented under separate note. 3. Alcoholic liver disease with cirrhosis and esophageal varices by history. At this time, no signs of gastrointestinal bleeding. There is no melanotic stool. He does not appear to be encephalopathic on physical exam. He does have jaundice. Continue ursodiol. 4. Low back pain. He insists it is from his crabbing this week. He went out on a boat, and the boat was a little bit rough. He does not feel that his back pain is from anything else other than the boat ride. Nevertheless, with his current history of fever, new back pain, and previous possible endocarditis, I will check lumbosacral spine films. He has no focal neurological deficits at this time. 5. Deep venous thrombosis prophylaxis is none at this time. With his thrombocytopenia, he would be a bleeding risk. 6. FULL CODE STATUS. TD: 12/04/2017 23:00 [facility] SYSTEM[facility]
--- NOTE | 2017-12-05 01:07 | ADVANCE CARE PLANNING NOTE ---
Advance Care Planning - Date/Time Date: 12/04/17 Time: 22:00 - Purpose of encounter Text: given his poor prognosis, to establish his goals for end of life care - Parties in attendance Parties in attendance: , patient, Hospitalist - Decisional capacity Decisional capacity of: patient is normal. Alert, oriented. 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 - Subjective/Patient's story Subjective/Patient's story: The patient states that he felt like he was a "healthy chato" up until 2017. He never saw any physicians, and did not have a regular PCP. He was drinking liters of wine because of job stress. Was feeling horrible with weight loss, severe fatigue. So he decided to stop drinking in an effort to get healthy. In spite of that he lost over 30-37 pounds, and presented to our emergency room over the course of a couple of weeks for 2 visits in October 2016 he was found to be profoundly anemic but hemodynamically stable. He was to be worked up in the outpatient setting but presented a third time with severe fatigue, severe pancytopenia. The differential diagnosis was that of either alcoholic myelosuppression or a new leukemia. He is very angry about the 2 visits in the emergency room. He feels that time to treatment was delayed. It was only with the third visit that he finally got a preliminary diagnosis and transfer to [facility]. He his girlfriend of 12-14 years. her in the fall 2016. They have spent most of 2017 into 2018 (10 months overall) living in [place] because he needed care at [facility]. She describes it as a difficult time, not only because of his illness and his poor prognosis, but because his personality can be difficult. She sometimes wonders if he has some form of autism. 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 He did receive chemotherapy at [facility]. But he became disabled, and with disability came a new insurance. He had to leave [facility] and is now followed by [facility]. He is very angry about that as well. He says that it is incredibly unfair that because of lack of money he cannot see the cancer doctor he wants to see. He was initially told that he had 2 months to live. It is now a year later. He does not trust the opinion of anyone at this point in time. He also feels that this conversation is not appropriate. He does not want to discuss end-of- life care because, as far as he is concerned, everyone got it wrong and he is still alive. Why should he discuss this now? He describes a good quality of life. Mentally he is still sharp enough to work at the computer. 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 Physically he is tired, and has poor endurance. But is still able to do his activities of daily living, and take care of himself with the help of his . He also describes still having Kaya and his activities. For instance he went crabbing this last week and it was wonderful. - Objective/Medical story Objective/Medical Story: Middle-aged white male with severe alcohol abuse issues as well as possible depressive disorder or adjustment disorder in 2017, that was diagnosed with blastic plasmacytoid leukemia as well as myelodysplastic syndrome in 2016. He has received chemotherapy, and is not felt to be a stem cell transplant candidate because of his alcoholic liver disease confirmed on liver biopsy. His past workup does show esophageal varices but he has not had progression of his disease with ascites or GI bleed. He is not encephalopathic. His disease has responded to the chemotherapy and his most recent chemotherapy was June 2017. While he still has pancytopenia, his cell counts are being monitored. His last visit with today with his oncologist. He was febrile with his visit. In addition, he was hospitalized from October 18 - November 10, 2017 with endocarditis, endophthalmitis, and sepsis. He just finished penicillin treatment on November 30 via a PICC line. He has been told that his disease is "terminal". But he has managed to survive 10 months beyond the expected . He feels that he could keep ongoing. He feels he has a good quality of life with regard to his marriage, activities such as bloating and crabbing, and working on the computer. - Goals of Care Goals of care determinations: He is not ready to discuss end-of-life care. He states that he does not want to discuss any scenarios that would allow me to explore what he is feeling or thinking. He feels that this conversation is inappropriate because he wants all treatment to continue no matter what. He does state that he does not want his to take care of him if he becomes bedbound. At that point in time he would like us to transfer him to a custodial facility. As his disease progresses and he becomes more disabled, more confused, or just sicker, he may be willing to describe or discuss his wishes. He just does not want to discuss it now. - Plan Plan: Continue all and any treatment that would keep him alive. He specifically says he wants to consider surgery, blood transfusions, tube feeds, antibiotics, custodial facility placement, more chemotherapy, etc. as long as it could buy him more hours, days, or months. Although he has been told that he has a terminal illness he refuses to accept that, does not trust that opinion since he is alive 10 months beyond the 2 month expected . - Code Status Code Status: Attempt Resuscitation - Time Spent on Advance Care Planning Time spent on advance care plannin minutes
[2017-12-05] MEDS: SODIUM CHLORIDE 0.9% 1,000 ML IV SCH ×2 (03:37→14:38)
[2017-12-05] MEDS: URSODIOL 250 MG TABLET PO SCH ×2 (05:34→13:49)
[2017-12-05 05:44] LABS: BASOPHILS % (AUTO) 0.2 %; EOSINOPHILS % (AUTO) 0.4 %; LYMPHOCYTES % (AUTO) 9.9 %; MEAN CORPUSCULAR HEMOGLOBIN 32.2 pg (27.0-31.0); MEAN CORPUSCULAR HGB CONC 33.5 g/dL (32.0-36.0); MEAN CORPUSCULAR VOLUME 95.9 fL (80.0-94.0); MONOCYTES % (AUTO) 16.5 %; RED CELL DISTRIBUTION WIDTH 24.2 % (12.0-15.0); WHITE BLOOD COUNT 2.7 x10^3/uL (4.8-10.8)
[2017-12-05 05:49] LABS: HGB - HEMOGLOBIN 6.8 g/dL (14.0-18.0)
[2017-12-05 05:50] LABS: PLT - PLATELET COUNT 28 10^3/uL (130-450)
[2017-12-05 05:51] LABS: ABNORMAL LYMPHS % (MANUAL) 0 %
[2017-12-05 05:57] LABS: ALBUMIN 2.6 g/dL (3.2-5.5); ALBUMIN/GLOBULIN RATIO 0.8 (1.0-2.2); BILIRUBIN,TOTAL 1.5 mg/dL (0.2-1.0); CALCIUM 8.5 mg/dL (8.5-10.3); CREATININE 0.8 mg/dL (0.6-1.2); TOTAL PROTEIN 5.7 g/dL (6.7-8.2)
[2017-12-05 06:11] LABS: BAND NEUTROPHILS % (MANUAL) 5 %; LYMPHOCYTES # (MANUAL) 0.5 10^3/uL (1.5-3.5); LYMPHOCYTES % (MANUAL) 17 %; METAMYELOCYTES % (MANUAL) 1 %; MYELOCYTES % (MANUAL) 1 %; NEUTROPHILS # (MANUAL) 2.2 10^3/uL (1.5-6.6); NEUTROPHILS % (MANUAL) 75 %
[2017-12-05 06:13] LABS: DIFFERENTIAL COMMENT MANUAL DIFFERENTIAL; PLATELET ESTIMATE, MANUAL DECREASED (<130,000) (NORMAL)
[2017-12-05] MEDS ORDERED: MORPHINE ER 15 MG TABLET PO SCH (07:46)
[2017-12-05] MEDS: oxyCODONE 5 MG TABLET PO PRN ×2 (08:18→13:00)
[2017-12-05] MEDS ORDERED: SENNA 8.6 MG TABLET PO SCH (09:00)
[2017-12-05] MEDS ORDERED: POLYETHYLENE GLYCOL 3350 17 GM PACKET PO SCH (09:00)
[2017-12-05] MEDS ORDERED: ACYCLOVIR 800 MG PO SCH (09:00)
[2017-12-05] MEDS ORDERED: predniSONE 5 MG TABLET PO SCH (09:00)
[2017-12-05] MEDS ORDERED: ACYCLOVIR 200 MG CAPSULE PO SCH (09:00)
[2017-12-05] MEDS ORDERED: Eltrombopag Olamine [Promacta] 50 MG PO SCH ×2 (09:00→12:45)
--- NOTE | 2017-12-05 09:07 | XRAY Report ---
Procedure Date: 12/05/2017 Accession Number: [id number] / [id number] Procedure: XR - Lumbar Spine Complete CPT Code: FULL RESULT: EXAM: LUMBOSACRAL SPINE RADIOGRAPHY 5 VIEWS EXAM DATE: 12/05/2017. CLINICAL HISTORY: New onset of back pain. History of endocarditis. COMPARISONS: Abdomen and pelvis CT done 10/19/2017. TECHNIQUE: AP, both oblique, lateral and coned lateral of the lumbosacral junction views. FINDINGS: Alignment: Normal. No spondylolisthesis or scoliosis. Bones: Five [id number] lumbar vertebral bodies are present. No fracture or other acute abnormality. Benign hemangioma of the L1 vertebral body, unchanged. Disks: Moderate disk narrowing and small osteophytes at L5-S1. Mild disk narrowing and small osteophytes at L4-L5, and small osteophytes at L3-L4. Facets: No degenerative changes visible. Sacroiliac Joints: Normal. Soft Tissues: Atherosclerosis of the aorta and the iliac arteries, no aneurysm. IMPRESSION: Multilevel degenerative disk disease and spondylosis, most pronounced at L5-S1. Benign hemangioma of the L1 vertebral body. Atherosclerosis of the aorta and iliac arteries. No acute abnormality. No change from 10/19/2017. RAD[facility]
[2017-12-05] MEDS ORDERED: VANCOMYCIN INJ 1.5 GM in SODIUM CHLORIDE 0.9% 500 ML IV SCH ×4 (11:00)
[2017-12-05] MEDS ORDERED: CEFEPIME 2 GM in SODIUM CHLORIDE 0.9% MINIBAG 100 ML IV SCH (11:00)
[2017-12-05] MEDS ORDERED: MULTIVITAMIN W/MINERALS TABLET PO SCH (13:00)
--- NOTE | 2017-12-05 13:08 | Discharge Plan ---
Discharge Plan Disposition: 02 Transfer Acute Care Hosp Condition: Poor Diet: Regular Activity Restrictions: Activity as Tolerated Shower Restrictions: No Driving Restrictions: No Additional Instructions or Follow Up instructions: Transfer to [facility] for further care. No Smoking: If you smoke, Please STOP! Call for help. Follow-up with: Bettye Huffman MD [Primary Care Provider] -
--- NOTE | 2017-12-05 13:10 | DISCHARGE SUMMARY ---
Discharge Summary Admit Date: 12/04/17 Discharge Date: 12/05/17 Discharging Provider: Osbaldo Rosales MD Primary Care Provider: David Rodriguez MD Code Status: Attempt Resuscitation Condition at Discharge: Poor Discharge Disposition: 02 Transfer Acute Care Hosp Discharge Facility Name: [facility] - Accepting Provider : Ale Skinner - DIAGNOSES Admission Diagnoses: 1. Fever 2. Blastic plasmacytoid dendritic cell neoplasm 3. Myelodysplastic syndrome 4. Alcoholic liver disease with cirrhosis and esophageal varices 5. Low back pain 6. DVT prophylaxis Discharge Diagnoses with Status of Each Condition: 1. Sepsis: Guarded 2. Pancytopenia: Guarded 3. Blastic plasmacytoid dendritic cell neoplasm: Stable 4. Myelodysplastic syndrome: Stable 5. Alcoholic liver disease with cirrhosis: Stable 6. Chronic low back pain: Stable 7. DVT prophylaxis: Stable - HPI History of Present Illness: Patient is a 57-year-old gentleman with a past medical history significant for blastic plasmacytoid dendritic cell neoplasm and myelodysplastic syndrome. He presented in November 2016 with fatigue, possible skin lesions, pancytopenia. He was transferred to [facility] from [facility]. He was also noted to have hyperbilirubinemia. His white blood cell count was 1.1, hemoglobin 7.6, hematocrit 21.8, platelets were 24,000. He had a neutrophil count of 0.3, lymphocyte count of 0.7. CT scan of the abdomen showed hepatosplenomegaly with splenic infarcts. There was retroperitoneal lymphadenopathy. He was diagnosed with blastic plasmacytoid dendritic cell neoplasm at the [facility]. He started with GCLAM chemotherapy on 12/01/2016. Mitoxantrone dose was 9 mg/m due to his hyperbilirubinemia. He received IT methotrexate on 12/14/2016. His CSF was negative. On 01/05/2017, recovery bone marrow showed MRD negative CR. Liver biopsy on 01/25/2017 showed cirrhosis, so he was felt not to be an aloe stem cell transplant candidate. He started hyper CVAD on , is consolidation cycle #1. He received intrathecal methotrexate on . Bone marrow biopsy performed on 03/02/2017 was negative for residual disease. He received consolidation cycle #2 with G-CLAM on 03/05/2017 and the consolidation cycle #3 with hyper CVAD A cycle on 05/10/2017. On 06/08/2017 his bone marrow showed pancytopenia with evidence of leukemia. 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 According to the clinic note dated 06/22/2017, he was only getting vincristine and dexamethasone of the DMOT maintenance program because of his persistent cytopenia. They would consider adding 6MP, methotrexate for future cycles depending on his blood counts recovery. Chromosome of 14 abnormality was possibly suggesting underlying MDS. This might explain his delayed blood count recovery. It was felt that his transfusion needs were decreasing at that time. He was continued on ursodiol for his liver cirrhosis. The patient received all his treatment at [facility] however he is now on disability and had to change his insurance to [employer] and since 11/13/2017 he has been seeing Dr. Paulina Huffman oncology at [facility] for his cancer care. On 10/18/2017 the patient presented to [facility] with generalized abdominal pain. He was transferred to [facility] for further evaluation. On presentation to the [facility] the patient was found to be in septic shock. For septic shock he was admitted to the ICU and treated with vancomycin and Zosyn and placed on norepinephrine. A full infectious workup was initiated and pre-admit cultures from [facility] were monitored and ultimately found positive for clostridium septicum. Following consultation with infectious disease team an echocardiogram was obtained which showed vegetation. The patient was found to have a very small mobile echogenic structure seen on the atrial side of the anterior mitral valve leaflet representing a vegetation. This finding was discussed with cardiology who felt that endocarditis was present. No abscess was noted. He was not deemed to be a surgical candidate and a JUMA was not recommended. He was transitioned off Zosyn on 10/30/1999 18 and started on Unasyn and then ultimately put on penicillin G on 11/02/2017 with a plan for a total of 6 weeks of antibiotics till 11/30/2017. The patient was also found to have loss of vision in his left eye during the admission. He was seen by ophthalmology who performed a vitreous tap with culture which was positive for turicella otitidis. The patient received intraocular antibiotic therapy with vancomycin, ceftazidime, voriconazole and foscarnet as well as high-dose systemic Valacyclovir. Valacyclovir was ultimately discontinued at infectious disease recommendation and no evidence of viral infection was found. Patient was to follow-up with ophthalmology as an outpatient. Patient was counseled that loss of vision in the left eye may be permanent at this time. He was continued on ocular lubricant, atropine drip and prednisolone drip for the time being with titration and management by outpatient ophthalmology. For his pain management the patient was placed on a variety of narcotics including a CATHODE MAKER while he was hospitalized. Ultimately he was discharged home on morphine extended release 45 mg twice daily and oxycodone 10 mg every 4 hours which seemed to control his pain. In response to the patient's abdominal pain as well as the blood culture positive for clostridium species a right upper quadrant ultrasound and a CT colonography was performed which showed a suspicious 2-3 cm sigmoid lesion. 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 A complete resection was not performed. He was started on ursodiol as an inpatient. The patient does have pancytopenia secondary to myelodysplastic syndrome and required platelet transfusion at [facility] and they suspected that the patient had sequestering of his platelets due to splenomegaly. The patient also received blood transfusion for anemia and was discharged on Eltrombopag. The patient was also found to have steroid insufficiency and received stress dose of steroids in the intensive care unit and was discharged home on oral prednisone 10 mg daily. Patient was found to have atrial flutter which occurred spontaneously on 2017. No anticoagulation or rhythm control was initiated. The patient's chads 2-vasc is 0. The patient was stable when discharged from [facility]. The patient saw his oncologist on 12/04/2017 and during the visit was found to have a fever. The patient was told to monitor the fever at home as his counts were improving. As they were monitoring it at home and continue to stay elevated. The patient checked his temperature and it was up to 102 and at that point they decided to come to the emergency department after they tried calling their oncologist and were unable to get a hold of him. In the emergency room the patient was found to have a temperature of 38.9, was tachycardic with a heart rate of 110 and blood pressure was normal. The patient was found to have a WBC of 5.6. Patient underwent chest x-ray and x-ray of the lumbar spine which were negative for any signs of acute infection. The patient also had a urinalysis which was negative. The patient does have a PICC line in place and blood cultures were obtained in the emergency department. The patient was admitted for fever of unknown etiology and started on vancomycin and cefepime IV and admitted to the [facility]. - HOSPITAL COURSE Hospital Course: After admission to the [facility] the patient's repeat CBC showed a WBC of 2.7 , hemoglobin had dropped to 6.8 and platelet count was down to 28. Overnight the patient continued to have low-grade fever of 37.8, was tachycardic and blood pressure dropped down to 94/68. Patient's lactic acid was 0.8. The patient appeared to be getting septic and was given bolus of IV fluid with which his blood pressure did improve and heart rate also improved. The patient' s fever resolved. Given the complexity of the patient in addition to him being septic it was felt that the patient was too complicated for a [facility] as he did need further consultation from infectious disease as well as oncology. The patient did undergo an echocardiogram while hospitalized here which did not show any vegetation. The patient's blood cultures are still pending. We called over to [place] and the patient was transferred to [facility] for higher level of care. The accepting physician was Dr. Ale Skinner hospitalist at [facility]. The patient was in guarded condition at the time of discharge. The patient was not transfused here at [facility] because we did not have irradiated blood and it would not be available till the evening. Given that the patient's hemoglobin is below 7 it would be recommended that he does get transfusion once he arrives at [facility]. The patient was continued on IV vancomycin and cefepime. - ALLERGIES Allergies/Adverse Reactions: Allergies Allergy/AdvReac Type Severity Reaction Status Date / Time No Known Drug Allergies Allergy Verified 12/04/17 20:09 - MEDICATIONS Home Medications: Ambulatory Orders Medication Instructions Recorded Confirmed Ondansetron Odt [Zofran Odt] 4 mg TL Q6H PRN #14 tablet 11/16/16 12/04/17 Acyclovir 800 mg PO BID 10/18/17 12/04/17 Eltrombopag Olamine [Promacta] 50 mg PO DAILY 10/18/17 12/04/17 Folic Acid 0.8 mg PO DAILY 10/18/17 12/04/17 Magnesium 250 mg PO DAILY 10/18/17 12/04/17 Morphine ER 15 mg PO Q12H 10/18/17 12/04/17 Prednisone 10 mg PO DAILY 10/18/17 12/04/17 Senna [Senokot] 8.6 mg PO DAILY 10/18/17 12/04/17 Ursodiol [Juju 250] 500 mg PO TID 10/18/17 12/04/17 oxyCODONE [Roxicodone] 5 mg PO PRN PRN 10/18/17 12/04/17 - PHYSICAL EXAM AT DISCHARGE General Appearance: positive: No acute distress, Alert Eyes Bilateral: positive: Normal inspection, PERRL, EOMI, No lid inflammation, Conjunctivae nml, No scleral icterus ENT: positive: ENT inspection nml, Pharynx nml, Dry mucous membranes. negative : Purulent nasal drainage, Pharyngeal erythema, Oral lesions Neck: positive: Nml inspection, Thyroid nml, No JVD, Trachea midline. negative : Thyromegaly, Lymphadenopathy (R), Lymphadenopathy (L), Stiff neck, Carotid bruit, Tracheal deviation Respiratory: positive: Chest non-tender, No respiratory distress, Breath sounds nml. negative: Wheezes, Rales, Rhonchi Cardiovascular: positive: Regular rate & rhythm, No murmur, No gallop Peripheral Pulses: positive: 2+ Abdomen: positive: Non-tender, No organomegaly, Nml bowel sounds, No distention. negative: Guarding, Rebound, Hepatomegaly Back: positive: Nml inspection. negative: CVA tenderness (R), CVA tenderness (L ) Skin: positive: Warm, Dry, Other (Jaundiced). negative: Diaphoresis, Pallor Extremities: positive: Non-tender, Full ROM, Nml appearance, No pedal edema Neurologic/Psychiatric: positive: Oriented x3, CN's nml (2-12), Motor nml, Sensation nml - LABS Result Diagrams: 12/05/17 05:32 12/05/17 05:32 Other Lab Results: Laboratory Results WBC 2.7 x10^3/uL (4.8-10.8) L 12/05/17 05:32 RBC 2.10 10^6/uL (4.70-6.10) L 12/05/17 05:32 Hgb 6.8 g/dL (14.0-18.0) L* 12/05/17 05:32 Hct 20.1 % (42.0-52.0) L 12/05/17 05:32 MCV 95.9 fL (80.0-94.0) H 12/05/17 05:32 MCH 32.2 pg (27.0-31.0) H 12/05/17 05:32 MCHC 33.5 g/dL (32.0-36.0) 12/05/17 05:32 RDW 24.2 % (12.0-15.0) H 12/05/17 05:32 Plt Count 28 10^3/uL (130-450) L* 12/05/17 05:32 MPV 8.0 fL (7.4-11.4) 12/05/17 05:32 Neut # (Auto) Not Reportable 12/05/17 05:32 Lymph # (Auto) Not Reportable 12/05/17 05:32 Whiteside # (Auto) Not Reportable 12/05/17 05:32 Eos # (Auto) Not Reportable 12/05/17 05:32 Baso # (Auto) Not Reportable 12/05/17 05:32 Absolute Nucleated RBC Not Reportable 12/05/17 05:32 Total Counted 100 12/05/17 05:32 Band Neuts % (Manual) 5 % (0-10) 12/05/17 05:32 Abnorm Lymph % (Manual) 0 % 12/05/17 05:32 Metamyelocytes % 1 % (-0) H 12/05/17 05:32 Myelocytes % 1 % (-0) H 12/05/17 05:32 Nucleated RBC % Not Reportable 12/05/17 05:32 Neutrophils # (Manual) 2.2 10^3/uL (1.5-6.6) 12/05/17 05:32 Lymphocytes # (Manual) 0.5 10^3/uL (1.5-3.5) L 12/05/17 05:32 Monocytes # (Manual) 0.0 10^3/uL (0.0-1.0) 12/05/17 05:32 Eosinophils # (Manual) 0.0 10^3/uL (0-0.7) 12/05/17 05:32 Basophils # (Manual) 0.0 10^3/uL (0-0.1) 12/05/17 05:32 Differential Comment MANUAL DIFFERENTIAL 12/05/17 05:32 Manual Slide Review Indicated 12/04/17 20:33 Platelet Estimate DECREASED (<130,000) (NORMAL) 12/05/17 05:32 Platelet Morphology NORMAL APPEARANCE (NORMAL) 12/04/17 20:33 RBC Morph Micro Appear 2+ ANISOCYTOSIS (NORMAL) 2+ HYPOCHROMASIA (NORMAL) 2 + POIKILOCYTOSIS (NORMAL) 1+ POLYCHROMASIA (NORMAL) 12/04/17 20:33 RBC Morph Micro Appear 2+ ANISOCYTOSIS (NORMAL) 2+ HYPOCHROMASIA (NORMAL) 2 + POIKILOCYTOSIS (NORMAL) 1+ POLYCHROMASIA (NORMAL) 12/04/17 20:33 RBC Morph Micro Appear 2+ ANISOCYTOSIS (NORMAL) 2+ HYPOCHROMASIA (NORMAL) 2 + POIKILOCYTOSIS (NORMAL) 1+ POLYCHROMASIA (NORMAL) 12/04/17 20:33 RBC Morph Micro Appear 2+ ANISOCYTOSIS (NORMAL) 2+ HYPOCHROMASIA (NORMAL) 1 + OVALOCYTES (NORMAL) 1+ POLYCHROMASIA (NORMAL) 12/05/17 05:32 RBC Morph Micro Appear 2+ ANISOCYTOSIS (NORMAL) 2+ HYPOCHROMASIA (NORMAL) 1 + OVALOCYTES (NORMAL) 1+ POLYCHROMASIA (NORMAL) 12/05/17 05:32 RBC Morph Micro Appear 2+ ANISOCYTOSIS (NORMAL) 2+ HYPOCHROMASIA (NORMAL) 1 + OVALOCYTES (NORMAL) 1+ POLYCHROMASIA (NORMAL) 12/05/17 05:32 RBC Morph Micro Appear 2+ ANISOCYTOSIS (NORMAL) 2+ HYPOCHROMASIA (NORMAL) 1 + OVALOCYTES (NORMAL) 1+ POLYCHROMASIA (NORMAL) 12/05/17 05:32 Sodium 136 mmol/L (135-145) 12/05/17 05:32 Potassium 3.6 mmol/L (3.5-5.0) 12/05/17 05:32 Chloride 103 mmol/L (101-111) 12/05/17 05:32 Carbon Dioxide 26 mmol/L (21-32) 12/05/17 05:32 Anion Gap 7.0 (6-13) 12/05/17 05:32 BUN 13 mg/dL (6-20) 12/05/17 05:32 Creatinine 0.8 mg/dL (0.6-1.2) 12/05/17 05:32 Estimated GFR (MDRD) 99 (>89) 12/05/17 05:32 Glucose 143 mg/dL (70-100) H 12/05/17 05:32 Lactic Acid 0.9 mmol/L (0.5-2.2) 12/05/17 11:50 Calcium 8.5 mg/dL (8.5-10.3) 12/05/17 05:32 Total Bilirubin 1.5 mg/dL (0.2-1.0) H 12/05/17 05:32 AST 22 IU/L (10-42) 12/05/17 05:32 ALT 20 IU/L (10-60) 12/05/17 05:32 Alkaline Phosphatase 72 IU/L (42-121) 12/05/17 05:32 Troponin I < 0.04 ng/mL (<0.49) 12/04/17 20:33 Total Protein 5.7 g/dL (6.7-8.2) L 12/05/17 05:32 Albumin 2.6 g/dL (3.2-5.5) L 12/05/17 05:32 Globulin 3.1 g/dL (2.1-4.2) 12/05/17 05:32 Albumin/Globulin Ratio 0.8 (1.0-2.2) L 12/05/17 05:32 Lipase 22 U/L (22-51) 12/04/17 20:33 Urine Color ORANGE 12/04/17 20:35 Urine Clarity HAZY (CLEAR) 12/04/17 20:35 Urine pH 6.0 PH (5.0-7.5) 12/04/17 20:35 Ur Specific [place] 1.015 (1.002-1.030) 12/04/17 20:35 Urine Protein 30 mg/dL (NEGATIVE) H 12/04/17 20:35 Urine Glucose (UA) NEGATIVE mg/dL (NEGATIVE) 12/04/17 20:35 Urine Ketones NEGATIVE mg/dL (NEGATIVE) 12/04/17 20:35 Urine Occult Blood TRACE-LYSE (NEGATIVE) 12/04/17 20:35 Urine Nitrite NEGATIVE (NEGATIVE) 12/04/17 20:35 Urine Bilirubin MODERATE (NEGATIVE) H 12/04/17 20:35 Urine Urobilinogen 0.2 (NORMAL) E.U./dL (NORMAL) 12/04/17 20:35 Ur Leukocyte Esterase NEGATIVE (NEGATIVE) 12/04/17 20:35 Urine RBC 0-5 /HPF (0-5) 12/04/17 20:35 Urine WBC 0-3 /HPF (0-3) 12/04/17 20:35 Ur Squamous Epith Cells NONE SEEN (<= Few) 12/04/17 20:35 Urine Bacteria None Seen /HPF (None Seen) 12/04/17 20:35 Ur Microscopic Review INDICATED 12/04/17 20:35 Urine Culture Comments NOT INDICATED 12/04/17 20:35 Blood Type O POSITIVE 12/05/17 11:50 Antibody Screen NEGATIVE 12/05/17 11:50 - DIAGNOSTIC IMAGING Diagnostic Imaging Results: Final report reviewed Diagnostic Imaging Results Comments: EXAM: [id number] XR/CXR1VW ([id number]) Procedure Date: 12/04/2017 Accession Number: [id number] / [id number] Procedure: XR - Chest 1 View X-Ray CPT Code: 43036 FULL RESULT: EXAM: CHEST RADIOGRAPHY EXAM DATE: 12/04/2017 08:34 PM. CLINICAL HISTORY: Fever, history of cancer. Sepsis. COMPARISON: None. TECHNIQUE: 1 view. FINDINGS: Lungs/Pleura: No focal opacities evident. No pleural effusion. No pneumothorax. Mediastinum: Within exam limitations, the cardiomediastinal contour is normal. Other: Left PICC line in place with the tip mid third SVC. IMPRESSION: Normal single view chest. EXAM: [id number] XR/LSP ([id number]) Procedure Date: 12/05/2017 Accession Number: [id number] / [id number] Procedure: XR - Lumbar Spine Complete CPT Code: FULL RESULT: EXAM: LUMBOSACRAL SPINE RADIOGRAPHY 5 VIEWS EXAM DATE: 12/05/2017. CLINICAL HISTORY: New onset of back pain. History of endocarditis. COMPARISONS: Abdomen and pelvis CT done 10/19/2017. TECHNIQUE: AP, both oblique, lateral and coned lateral of the lumbosacral junction views. FINDINGS: Alignment: Normal. No spondylolisthesis or scoliosis. Bones: Five [id number] lumbar vertebral bodies are present. No fracture or other acute abnormality. Benign hemangioma of the L1 vertebral body, unchanged. Disks: Moderate disk narrowing and small osteophytes at L5-S1. Mild disk narrowing and small osteophytes at L4-L5, and small osteophytes at L3-L4. Facets: No degenerative changes visible. Sacroiliac Joints: Normal. Soft Tissues: Atherosclerosis of the aorta and the iliac arteries, no aneurysm. IMPRESSION: Multilevel degenerative disk disease and spondylosis, most pronounced at L5-S1. Benign hemangioma of the L1 vertebral body. Atherosclerosis of the aorta and iliac arteries. No acute abnormality. No change from 10/19/2017. - FOLLOW UP Follow Up: Patient being transferred to [facility] in the care of Dr. Ale Skinner hospitalist for higher level of care. Patient was admitted with sepsis after recent hospitalization with bacteremia and endocarditis. He just stopped antibiotics 3 days ago and now has fever and sepsis. - TIME SPENT Time Spent in Discharge (Minutes): 65
[2017-12-05 14:41] VITALS: BP 102/60
[2017-12-05] MEDS ORDERED: VANCOMYCIN PER PHARMACY 0.001 GM in SODIUM CHLORIDE 0.9% 250 ML IV PRN (20:00)
== END 2017-12-05 15:00 | disposition short-term general hospital (02) | DRG 871 ==
LOC: ED 20:02 → MS2 21:11
PROVIDERS: ADMIT Specialist; ATTEND Internal Medicine
DX: A41.9 Sepsis, unspecified organism (principal); D61.810 Antineoplastic chemotherapy induced pancytopenia; C86.4 Blastic NK-cell lymphoma; I85.10 Secondary esophageal varices without bleeding; D61.818 Other pancytopenia; D46.9 Myelodysplastic syndrome, unspecified; Z87.891 Personal history of nicotine dependence; K70.30 Alcoholic cirrhosis of liver without ascites; M54.5 Low back pain; G89.29 Other chronic pain; Z79.891 Long term (current) use of opiate analgesic; Z79.899 Other long term (current) drug therapy; Z45.2 Encounter for adjustment and management of vascular access device; T45.1X5D Adverse effect of antineoplastic and immunosuppressive drugs, subsequent encounter
CPT/HCPCS: 36415; 36592; 71045; 72110; 80053; 81001; 81003; 83605; 83690; 84484; 85025; 86850; 86900; 86901; 86920; 87040; 87086; 93306; 99215; 99283; 99284

== ENCOUNTER 2018-10-02 15:29 | Outpatient (CLI) | payer OTHER ==
[2018-10-02] MEDS ORDERED: IOVERSOL 320 100 ML VIAL IVP ONE ×2 (15:40→18:49)
--- NOTE | 2018-10-03 10:34 | CT Report ---
Reason: INFECTIVE AORTITIS Procedure Date: 10/02/2018 Accession Number: [id number] / [id number] Procedure: CT - ANGIO ABDOMEN/PELVIS W CPT Code: FULL RESULT: EXAM: CT ANGIOGRAM ABDOMEN AND PELVIS WITH CONTRAST EXAM DATE: 10/02/2018 04:22 PM. CLINICAL HISTORY: Infective aortitis. The patient is reportedly status post palliative endovascular stent grafting of the aorta. COMPARISONS: ABDOMEN/PELVIS W/ 10/19/2017 12:35 AM. TECHNIQUE: Routine helical CT angiogram imaging was performed through the abdomen and pelvis in the arterial phase. IV contrast: 100 mL of Optiray 320. Enteric contrast: No. Reconstructions: Coronal, sagittal, and 3D MIP reconstructions. In accordance with CT protocol optimization, one or more of the following dose reduction techniques were utilized for this exam: automated exposure control, adjustment of mA and/or KV based on patient size, or use of iterative reconstructive technique. FINDINGS: Vasculature: Interval placement of aortobiiliac stent graft with previously seen gas in the aortic wall resolved. No enhancement of the excluded aortic lumen is seen to suggest endoleak. The endovascular graft is patent. There has been change in size and shape of the excluded portion of the aorta. The largest section axially and measures 3.8 x 3.4 cm where the posterior portion of the aorta demonstrates increasing draping against the vertebral body at site of prior posterior wall soft tissue gas of the aorta, L3-L4 vertebral body, previous dimensions are maximally 3.2 cm. (Compare current study image 106 series 10 image 129 series 6 to previous study image 55 series 3 and image 37 series 6 for an impression). The celiac axis and its branch vessels are patent with conventional anatomy. The SMA is patent. A single right renal artery is patent. A left renal artery with atherosclerotic disease at its origin is patent but with delayed enhancement of the left kidney which demonstrates interval atrophy. The inferior mesenteric artery is perfused. Visualized common, internal, external celiac arteries are patent bilaterally with patency of the visualized common femoral, deep femoral and proximal SFA on both sides. Lung Bases: Dependent changes. Abdominal Solid Organs: Stable hepatosplenomegaly. Normal right kidney with atrophic left kidney. The bilateral adrenal glands and pancreas as well as gallbladder are unremarkable. Peritoneal Cavity: No free fluid, free air or bowel obstruction. No overt lymphadenopathy. Pelvic Organs: Apparent bladder thickening in the setting of underdistended bladder. No overt pelvic mass. Bones: Stable heterogeneous appearance of the L1 vertebral body, presumed hemangioma. Other: None. IMPRESSION: Interval evolution of previously gas-containing segment of the excluded aorta without evidence of perfusion of the excluded aorta as described in detail above. Note is made of opacification of the inferior mesenteric artery without contrast extending into the excluded aorta. Interval atrophy of the left kidney with evidence of malperfusion in the form of asymmetric nephrogram with note of ostial atherosclerosis at the origin of the left renal artery which remains opacified by contrast. RADIA
== END 2018-10-02 15:30 | disposition home or self-care (01) ==
LOC: DI 15:29
DX: I77.6 Arteritis, unspecified (principal); N26.1 Atrophy of kidney (terminal)
CPT/HCPCS: 74174; Q9967

== ENCOUNTER 2018-10-07 08:00 | Outpatient (CLI) | payer OTHER ==
[2018-10-07 14:01] LABS: LYMPHOCYTES % (AUTO) 15.5 %; MEAN CORPUSCULAR HEMOGLOBIN 32.6 pg (27.0-31.0); MEAN CORPUSCULAR HGB CONC 30.8 g/dL (32.0-36.0); MEAN CORPUSCULAR VOLUME 105.9 fL (80.0-94.0); MEAN PLATELET VOLUME 11.4 fL (7.4-11.4); MONOCYTES % (AUTO) 14.7 %; NEUTROPHILS % (AUTO) 64.1 %; PLT - PLATELET COUNT 53 10^3/uL (130-450); RED BLOOD COUNT 3.37 10^6/uL (4.70-6.10); RED CELL DISTRIBUTION WIDTH 15.9 % (12.0-15.0); WHITE BLOOD COUNT 2.7 x10^3/uL (4.8-10.8)
[2018-10-07 14:06] LABS: ABNORMAL LYMPHS % (MANUAL) 0 %; CALCIUM 9.1 mg/dL (8.5-10.3); CREATININE 1.4 mg/dL (0.6-1.2)
[2018-10-07 14:39] LABS: BAND NEUTROPHILS % (MANUAL) 2 %; LYMPHOCYTES # (MANUAL) 0.6 10^3/uL (1.5-3.5); LYMPHOCYTES % (MANUAL) 22 %; METAMYELOCYTES % (MANUAL) 1 %; MONOCYTES # (MANUAL) 0.2 10^3/uL (0.0-1.0); NEUTROPHILS # (MANUAL) 1.9 10^3/uL (1.5-6.6); NEUTROPHILS % (MANUAL) 69 %
[2018-10-07 14:40] LABS: PLATELET ESTIMATE, MANUAL DECREASED (<130,000) (NORMAL); PLATELET MORPHOLOGY NORMAL APPEARANCE (NORMAL)
[2018-10-07 14:47] LABS: DIFFERENTIAL COMMENT MANUAL DIFFERENTIAL
== END 2018-10-07 23:59 | disposition home or self-care (01) ==
LOC: LAB 08:00
PROVIDERS: ATTEND Internal Medicine Nephrology
DX: N05.9 Unspecified nephritic syndrome with unspecified morphologic changes (principal); D70.9 Neutropenia, unspecified
CPT/HCPCS: 36415; 80048; 85025

== ENCOUNTER 2019-03-09 17:11 | Outpatient (CLI) | payer OTHER | END 2019-03-09 17:12 | disposition short-term general hospital (02) | LOC: EMS 17:11 | PROVIDERS: ATTEND Surgery | DX: R56.9 Unspecified convulsions (principal) | CPT/HCPCS: A0425; A0427 ==

== ENCOUNTER 2019-04-11 13:21 | Outpatient (CLI) | payer OTHER ==
[2019-04-11] MEDS ORDERED: IOVERSOL 320 50 ML VIAL ONE (13:26)
[2019-04-11] MEDS ORDERED: IOVERSOL 320 100 ML VIAL IVP ONE ×2 (13:26→14:35)
[2019-04-11] MEDS ORDERED: IOVERSOL 320 50 ML VIAL PO ONE (14:35)
--- NOTE | 2019-04-11 15:50 | CT Report ---
Reason: LEUKEMIA Procedure Date: 04/11/2019 Accession Number: [id number] / [id number] Procedure: CT - Abdomen/Pelvis W CPT Code: Final Report FULL RESULT: EXAM: CT ABDOMEN AND PELVIS EXAM DATE: 04/11/2019 02:34 PM. CLINICAL HISTORY: LEUKEMIA. COMPARISONS: ABDOMEN/PELVIS W/ 10/19/2017 12:35 AM. TECHNIQUE: Routine helical CT imaging was performed through the abdomen and pelvis. IV contrast: OPTI 320 90ML. Enteric contrast: No. Reconstructions: Coronal and sagittal. In accordance with CT protocol optimization, one or more of the following dose reduction techniques were utilized for this exam: automated exposure control, adjustment of mA and/or KV based on patient size, or use of iterative reconstructive technique. FINDINGS: Lung Bases: Likely dependent atelectasis of the pulmonary bases. No nodules are evident. No other consolidation. No pleural effusions. Liver: No focal liver lesion is seen. Hepatic contour nodularity could reflect underlying early cirrhosis. Gallbladder/Bile Ducts: Unremarkable. Spleen: Mildly decreased splenomegaly, the spleen now measuring up to 17 cm in maximum dimension, compared to 18 cm on prior study. No new focal splenic lesions. Pancreas: Normal. Adrenal Glands: Normal. Kidneys: Neocortical atrophy of the left kidney is noted. No solid renal masses or hydronephrosis bilaterally. Unremarkable appearance of the right kidney. Peritoneal Cavity/Bowel: Unremarkable stomach. Normal caliber small bowel loops without signs of wall thickening or hyperemia. Normal appendix. No enlarged intraperitoneal or retroperitoneal lymph nodes. No intra-abdominal fluid collections or masses. Few scattered colonic diverticula without evidence of inflammation. Pelvic Organs: Unremarkable urinary bladder for degree of distention. Prostate and seminal vesicles are normal. No enlarged pelvic or inguinal lymph nodes. Vasculature: Interval placement of endograft within the abdominal aorta and bilateral common iliac arteries in expected position. Stable caliber of the abdominal aorta to a maximum of 3 cm. No evidence for rupture. Unremarkable IVC. Bones: Stable likely vertebral hemangiomas in T8, L1, and L3. Other: None. IMPRESSION: 1. Mildly decreased splenomegaly compared to prior. No splenic masses. 2. No intra-abdominal or pelvic lymphadenopathy. 3. No acute abnormality is seen. 4. Interval moderate left renal atrophy compared to prior. 5. Hepatic contour nodularity is again noted suggesting probable underlying cirrhosis. RADIA
== END 2019-04-11 13:22 | disposition home or self-care (01) ==
LOC: DI 13:21
PROVIDERS: ATTEND Internal Medicine Hematology & Oncology
DX: C86.4 Blastic NK-cell lymphoma (principal); R16.1 Splenomegaly, not elsewhere classified; N26.1 Atrophy of kidney (terminal)
CPT/HCPCS: 74177; Q9967

== ENCOUNTER 2019-07-31 20:24 | Outpatient (CLI) | payer MEDICARE | END 2019-07-31 23:59 | disposition critical access hospital (66) | LOC: EMS 20:24 | PROVIDERS: ATTEND Surgery | DX: R56.9 Unspecified convulsions (principal) | CPT/HCPCS: A0425; A0429 ==

== ENCOUNTER 2019-07-31 20:50 | Emergency (ER) | payer MEDICARE ==
[2019-07-31] MEDS ORDERED: ONDANSETRON 4 MG/2 ML VIAL IVP STA (20:57)
[2019-07-31] MEDS ORDERED: LORazepam 2 MG/ML VIAL IVP STA (21:01)
[2019-07-31] MEDS ORDERED: LORazepam 2 MG/ML VIAL ONE (21:05)
--- NOTE | 2019-07-31 21:07 | ED Physician Documentation ---
History of Present Illness - Stated complaint Stated Complaint: SEIZURE X2 - History obtained from History obtained from: Patient, EMS - Additonal information Additional information: Patient is brought to the emergency department by EMS after experiencing 2 seizures today. Patient has a history of leukemia and has chronic seizure disorder for which she takes Lamictal. He generally has 1 seizure most days, but since he had 2 today, his primary care physician advised that he come to the emergency department. The patient complains of nausea. He also states that he feels as though he needs to urinate. Medics report that he is still postictal from his most recent seizure, and that the was the 1 who had a conversation with her care physician. Patient states he has a headache. He denies head injury. No recent illnesses. No fevers. Patient has a PICC line and is currently receiving chemotherapy. He has recently had his Lamictal dose increased. Patient denies chest pain or shortness of breath. He states he has mild abdominal discomfort, but is mainly concerned about the nausea. No other complaints at this time. Review of Systems Ten Systems: 10 systems reviewed and negative Constitutional: reports: Reviewed and negative Eyes: reports: Reviewed and negative Ears: reports: Reviewed and negative Nose: reports: Reviewed and negative Throat: reports: Reviewed and negative Cardiac: reports: Reviewed and negative Respiratory: reports: Reviewed and negative GI: reports: Reviewed and negative : reports: Reviewed and negative Skin: reports: Reviewed and negative Musculoskeletal: reports: Reviewed and negative Neurologic: reports: Seizure Psychiatric: reports: Reviewed and negative Endocrine: reports: Reviewed and negative Immunocompromised: reports: Reviewed and negative PD PAST MEDICAL HISTORY - Past Medical History Neuro: Other Endocrine/Autoimmune: Other - Past Surgical History Past Surgical History: No - Present Medications Home Medications: Ambulatory Orders Medication Instructions Recorded Confirmed Ondansetron Odt [Zofran Odt] 4 mg TL Q6H PRN #14 tablet 11/16/16 07/31/19 Acyclovir 800 mg PO BID 10/18/17 07/31/19 Eltrombopag Olamine [Promacta] 50 mg PO DAILY 10/18/17 07/31/19 Morphine ER 15 mg PO Q12H 10/18/17 07/31/19 oxyCODONE [Roxicodone] 5 mg PO PRN PRN 10/18/17 07/31/19 ursodioL [Juju 250] 500 mg PO TID 10/18/17 07/31/19 Carvedilol [Coreg] 6.25 mg PO BID 06/18/18 07/31/19 Eltrombopag Olamine [Promacta] 50 mg PO DAILY 11/06/18 07/31/19 Ertapenem [INVanz] 1 gm IV Q24H 02/25/19 07/31/19 Prednisone 10 mg PO DAILY 04/29/19 07/31/19 Prochlorperazine [Compazine] 10 mg PO RTQ6H PRN 07/31/19 07/31/19 amLODIPine [Norvasc] 10 mg PO DAILY 07/31/19 07/31/19 - Allergies Allergies/Adverse Reactions: Allergies Allergy/AdvReac Type Severity Reaction Status Date / Time No Known Drug Allergies Allergy Verified 07/31/19 21:16 - Social History Does the pt smoke?: No Smoking Status: Former smoker Does the pt drink ETOH?: No Does the pt have substance abuse?: No - Immunizations Immunizations are current?: No - POLST Patient has POLST: No PD ED PE NORMAL - Vitals Vital signs reviewed: Yes - General General: Well developed/nourished, Other (Patient is alert and conversant. He is moderately anxious and agitated, but otherwise in no apparent distress.) - HEENT HEENT: Atraumatic, PERRL, EOMI, Moist mucous membranes - Neck Neck: Supple, no meningeal sign - Cardiac Cardiac: RRR, No murmur, Strong equal pulses - Respiratory Respiratory: No respiratory distress, Clear bilaterally - Abdomen Abdomen: Soft, Non tender, Non distended - Derm Derm: Normal color, Warm and dry, No rash - Extremities Extremities: No deformity - Neuro Neuro: Alert and oriented X 3 - Psych Psych: Normal mood, Normal affect Results - Vitals Vitals: Vital Signs - 24 hr 07/31/19 07/31/19 07/31/19 21:00 21:33 21:36 Temperature 37.6 C H Heart Rate 78 88 87 Respiratory 13 15 20 Rate Blood Pressure 170/114 H 177/125 H O2 Saturation 96 97 07/31/19 07/31/19 07/31/19 22:06 22:58 23:00 Temperature Heart Rate 78 76 73 Respiratory 17 16 17 Rate Blood Pressure 203/94 H 193/85 H 181/83 H O2 Saturation 92 93 94 07/31/19 07/31/19 07/31/19 23:33 23:48 23:53 Temperature 37.9 C H Heart Rate 94 83 Respiratory 18 18 Rate Blood Pressure 127/101 H 158/89 H O2 Saturation 95 96 08/01/19 08/01/19 08/01/19 00:00 00:30 01:00 Temperature Heart Rate 80 77 76 Respiratory 16 17 16 Rate Blood Pressure 158/89 H 172/99 H 183/103 H O2 Saturation 96 96 97 08/01/19 08/01/19 08/01/19 01:30 01:59 02:06 Temperature 37.5 C Heart Rate 77 78 Respiratory 17 16 14 Rate Blood Pressure 174/93 H 188/98 H O2 Saturation 97 98 08/01/19 08/01/19 08/01/19 02:30 03:00 04:00 Temperature Heart Rate 73 82 76 Respiratory 17 17 17 Rate Blood Pressure 192/86 H 164/88 H 187/86 H O2 Saturation 97 94 96 08/01/19 05:00 Temperature Heart Rate 74 Respiratory 20 Rate Blood Pressure 171/85 H O2 Saturation 94 Oxygen O2 Source Nasal cannula - Labs Labs: Laboratory Tests 07/31/19 07/31/19 08/01/19 21:08 21:08 03:15 WBC 4.2 L 4.1 L RBC 4.47 L 4.24 L Hgb 14.3 13.9 L Hct 43.1 40.6 L MCV 96.4 H 95.8 H MCH 32.0 H 32.8 H MCHC 33.2 34.2 RDW 14.6 14.7 Plt Count 57 L 48 L MPV 12.0 H 10.0 Neut # (Auto) 2.2 2.2 Lymph # (Auto) 0.6 L 0.5 L [place] # (Auto) 1.1 H 1.3 H Eos # (Auto) 0.1 0.1 Baso # (Auto) 0.0 0.0 Absolute Nucleated RBC 0.00 0.00 Nucleated RBC % 0.0 0.0 Sodium 134 L Potassium 3.2 L Chloride 97 L Carbon Dioxide 27 Anion Gap 10.0 BUN 14 Creatinine 1.1 Estimated GFR (MDRD) 68 L Glucose 105 H Calcium 8.2 L Total Bilirubin 1.3 H AST 39 ALT 30 Alkaline Phosphatase 103 Total Protein 7.2 Albumin 4.5 Globulin 2.7 Albumin/Globulin Ratio 1.7 Lipase 42 - Rads (name of study) CT head Radiology: Final report received, EMP read indepedently, See rad report (Final radiologist impression: No acute intracranial abnormality.) PD MEDICAL DECISION MAKING - ED course Complexity details: reviewed old records, reviewed results, re-evaluated patient, considered differential, d/w patient ED course: Patient was worked up with labs and CT scan of the head. He was given Zofran and Ativan to help with his symptoms. The patient did ultimately vomit in the emergency department and then fell asleep. He slept through most of the night in the emergency department, as Although the patient's work-up was unremarkable, including normal white blood cell count and unremarkable CT of the head, the patient's stated she did not yet feel comfortable taking him home because he normally does not vomit and she was concerned about the seizure. Patient had a very slightly elevated temperature which was not in fever range. The patient was observed in the emergency department for several more hours. A repeat CBC showed no change in the patient's white blood cell count. The patient awakened around 5:30 in the morning and stated he did not remember anything from the previous evening and did not realize he had been brought to the emergency department. He reported feeling well and having no nausea. He did complain of some of his chronic body pain and was given a dose of oxycodone for this. Patient's was able to be reached again and she stated she would come and get the patient. Departure - Departure Disposition: 01 Home, Self Care Clinical Impression: Seizure, Post-ictal confusion Altered mental status Qualifiers: Altered mental status type: somnolence Qualified Code(s): R40.0 - Somnolence Condition: Stable Instructions: ED Seizure Recurrent Comments: You have been worked up today in the emergency department with labs, including a repeat complete blood count, and CT scan of the head. There is no evidence of a tumor, stroke or other new brain lesion at this time. White blood cell count has remained normal and no significant abnormalities have been found on the labs. Please get plenty of rest and if you continue to have an increased frequency of seizures, you will need to follow-up with your doctor to determine whether your current antiepileptic regimen is in need of adjustment.
[2019-07-31 21:19] LABS: BASOPHILS % (AUTO) 0.2 %; EOSINOPHILS # (AUTO) 0.1 10^3/uL (0.0-0.7); EOSINOPHILS % (AUTO) 2.6 %; HGB - HEMOGLOBIN 14.3 g/dL (14.0-18.0); LYMPHOCYTES # (AUTO) 0.6 10^3/uL (1.5-3.5); LYMPHOCYTES % (AUTO) 13.4 %; MEAN CORPUSCULAR HGB CONC 33.2 g/dL (32.0-36.0); MEAN CORPUSCULAR VOLUME 96.4 fL (80.0-94.0); MONOCYTES # (AUTO) 1.1 10^3/uL (0.0-1.0); MONOCYTES % (AUTO) 26.3 %; NEUTROPHILS # (AUTO) 2.2 10^3/uL (1.5-6.6); PLT - PLATELET COUNT 57 10^3/uL (130-450); RED BLOOD COUNT 4.47 10^6/uL (4.70-6.10); RED CELL DISTRIBUTION WIDTH 14.6 % (12.0-15.0); WHITE BLOOD COUNT 4.2 x10^3/uL (4.8-10.8)
[2019-07-31 21:29] LABS: ALBUMIN 4.5 g/dL (3.2-5.5); ALBUMIN/GLOBULIN RATIO 1.7 (1.0-2.2); BILIRUBIN,TOTAL 1.3 mg/dL (0.2-1.0); CALCIUM 8.2 mg/dL (8.5-10.3); CREATININE 1.1 mg/dL (0.6-1.2); TOTAL PROTEIN 7.2 g/dL (6.7-8.2)
--- NOTE | 2019-07-31 21:34 | CT Report ---
Reason: cancer, increased seizure frequency Procedure Date: 07/31/2019 Accession Number: [id number] / [id number] Procedure: CT - HEAD WO CPT Code: Final Report FULL RESULT: EXAM: CT HEAD EXAM DATE: 07/31/2019 09:25 PM. CLINICAL HISTORY: Cancer, increased seizure frequency. COMPARISON: None. TECHNIQUE: Multiaxial CT images were obtained from the foramen magnum to the vertex. Reformats: Sagittal and coronal. IV contrast: None. In accordance with CT protocol optimization, one or more of the following dose reduction techniques were utilized for this exam: automated exposure control, adjustment of mA and/or KV based on patient size, or use of iterative reconstructive technique. FINDINGS: Parenchyma: No intraparenchymal hemorrhage. No evidence of mass, midline shift, or CT findings of infarction. Erickson-white differentiation is distinct. Extraaxial Spaces: Normal for age. No subdural or epidural collections identified. Ventricles: Normal in size and position. Sinuses and Orbits: Imaged paranasal sinuses, orbits, and mastoids show no significant abnormality. Bones: No evidence of fracture or calvarial defect. Other: None. IMPRESSION: No acute intracranial abnormality. RADIA
[2019-07-31] MEDS ORDERED: KETOROLAC 30 MG/ML VIAL IVP STA (23:24)
[2019-07-31] MEDS ORDERED: PROCHLORPERAZINE 10 MG/2 ML VIAL IVP STA (23:26)
[2019-07-31] MEDS ORDERED: MORPHINE 10 MG/ML VIAL IVP STA (23:26)
[2019-08-01 03:26] LABS: BASOPHILS % (AUTO) 0.2 %; EOSINOPHILS # (AUTO) 0.1 10^3/uL (0.0-0.7); EOSINOPHILS % (AUTO) 1.7 %; HGB - HEMOGLOBIN 13.9 g/dL (14.0-18.0); LYMPHOCYTES # (AUTO) 0.5 10^3/uL (1.5-3.5); LYMPHOCYTES % (AUTO) 12.6 %; MEAN CORPUSCULAR HEMOGLOBIN 32.8 pg (27.0-31.0); MEAN CORPUSCULAR HGB CONC 34.2 g/dL (32.0-36.0); MEAN CORPUSCULAR VOLUME 95.8 fL (80.0-94.0); MONOCYTES # (AUTO) 1.3 10^3/uL (0.0-1.0); MONOCYTES % (AUTO) 30.2 %; NEUTROPHILS # (AUTO) 2.2 10^3/uL (1.5-6.6); NEUTROPHILS % (AUTO) 51.9 %; PLT - PLATELET COUNT 48 10^3/uL (130-450); RED BLOOD COUNT 4.24 10^6/uL (4.70-6.10); RED CELL DISTRIBUTION WIDTH 14.7 % (12.0-15.0); WHITE BLOOD COUNT 4.1 x10^3/uL (4.8-10.8)
[2019-08-01] MEDS ORDERED: oxyCODONE 5 MG TABLET PO STA (05:42)
[2019-08-01 06:02] VITALS: BP 149/90
== END 2019-08-01 07:05 | disposition home or self-care (01) ==
LOC: EDUNIT# → ED 20:50
DX: G40.909 Epilepsy, unspecified, not intractable, without status epilepticus (principal); R40.0 Somnolence; F05 Delirium due to known physiological condition; G89.29 Other chronic pain; C95.90 Leukemia, unspecified not having achieved remission; Z79.891 Long term (current) use of opiate analgesic; Z87.891 Personal history of nicotine dependence
CPT/HCPCS: 36415; 70450; 80053; 83690; 85025; 96374; 96375; 99285; A9270; J2060

== ENCOUNTER 2019-11-18 15:28 | Outpatient (CLI) | payer MEDICARE ==
[2019-11-18] MEDS ORDERED: IOVERSOL 320 50 ML VIAL ONE (15:41)
[2019-11-18] MEDS ORDERED: IOVERSOL 320 100 ML VIAL IVP ONE ×2 (15:41→16:54)
[2019-11-18] MEDS ORDERED: IOVERSOL 320 50 ML VIAL PO ONE (16:55)
--- NOTE | 2019-11-18 17:56 | CT Report ---
PROCEDURE: Abdomen/Pelvis W INDICATIONS: BLASTIC NK - CELL LYMPHOMA CONTRAST: IV CONTRAST: Optiray 320 ml: 100 PO CONTRAST: Optiray 320 ml50 TECHNIQUE: After the administration of oral and intravenous contrast, 5 mm thick sections acquired from the diap hragms to the symphysis. 5 mm thick coronal and sagittal reformats were acquired. For radiation dos e reduction, the following was used: automated exposure control, adjustment of mA and/or kV accordin g to patient size. COMPARISON: CT 04/11/2019. FINDINGS: Image quality: Excellent. ABDOMEN: Lung bases: Lung bases are clear. Heart size is normal. Solid organs: Liver and spleen are unchanged in size and enhancement from the comparison abdomen/pel vis CT in March of last year. Note is made of splenomegaly that has not improved or worsened but n o varices or ascites has developed.. Gallbladder appears normal Biliary system is non dilated. Webb creas enhances normally. No adrenal nodules. Kidneys demonstrate again asymmetric size, now small o n the left, and mildly asymmetric renal cortical enhancement, without hydronephrosis. This likely is secondary to some degree of arterial insufficiency on the left Peritoneum and bowel: Bowel loops demonstrate normal wall thickness and caliber. No free fluid or a ir. Nodes and vessels: No retroperitoneal or mesenteric adenopathy by size criteria. Aorta and inferior vena cava are normal in size. 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 Miscellaneous: No ventral hernias. PELVIS: Genitourinary: Bladder wall thickness is normal. Miscellaneous: No inguinal hernias or adenopathy. Bones: No suspicious bony lesions. No vertebral body compression fractures. IMPRESSION: Persistent splenomegaly, liver size is at the upper limits of normal. No evidence of por francine hypertension at this time. 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 No adenopathy is found, no sign of marrow space or solid organ tumor infiltration by current CT crite christal. Reviewed by: Giorgio Russ MD on 11/18/2019 5:55 PM PDT Approved by: Giorgio Russ MD on 11/18/2019 5:55 PM PDT Station ID: [id number]
--- NOTE | 2019-11-18 19:05 | CT Report ---
PROCEDURE: CHEST W INDICATIONS: BLASTIC NK - CELL LYMPHOMA CONTRAST: IV CONTRAST: Optiray 320 ml: 100 PO CONTRAST: Optiray 320 ml50 TECHNIQUE: After the administration of intravenous contrast, 5 mm thick sections acquired from the pulmonary api jesu to the posterior costophrenic angles. 7 mm thick coronal MIP reformats were acquired. For radia tion dose reduction, the following was used: automated exposure control, adjustment of mA and/or kV according to patient size. COMPARISON: None. FINDINGS: Image quality: Excellent. Lungs and pleura: Minor linear wispy fibrotic changes posterior medially in the right lower lobe in a subpleural location. No dense consolidations. No suspicious nodules or masses No acute air space op acities. No pleural effusions or pneumothorax. Central and peripheral airways are patent and normal in caliber. Mediastinum: Heart size is normal. Aortic valvular calcification. Moderate patchy coronary artery di sease. No pericardial effusion. No mediastinal or hilar adenopathy by size criteria. Thoracic aort a and central pulmonary arteries are normal in size. Esophagus is normal in caliber. No hiatal lisandro ia. Bones and chest wall: No suspicious bony lesions. Bridging osteophytosis in the mid to lower thoraci c spine and probable bone hemangioma in the upper lumbar vertebral body. No vertebral body compressio n fractures. No axillary or supraclavicular adenopathy by size criteria. Thyroid gland contains coa rse calcification in the right lobe and is otherwise normal in size. Abdomen: Visualized upper abdomen demonstrates left renal atrophy and mild hepatosplenomegaly, parti ally imaged. There is a partially imaged abdominal aortic stent grafts. IMPRESSION: 1. No suspicious adenopathy in the chest. 2. Partially imaged hepatosplenomegaly. 3. Abdominal aortic stent graft. 4. Minor fibrotic change in the subpleural right posterior medial lower lobe may be related to radiat ion. Correlate clinically. Reviewed by: Tamiko Perea MD on 11/18/2019 6:03 PM MARYANN Approved by: Tamiko Perea MD on 11/18/2019 6:03 PM [facility] Station ID: [id number]
== END 2019-11-18 15:29 | disposition home or self-care (01) ==
LOC: DI 15:28
PROVIDERS: ATTEND Internal Medicine Hematology & Oncology
DX: C86.4 Blastic NK-cell lymphoma (principal); R93.422 Abnormal radiologic findings on diagnostic imaging of left kidney; R16.2 Hepatomegaly with splenomegaly, not elsewhere classified; R91.8 Other nonspecific abnormal finding of lung field; Z95.828 Presence of other vascular implants and grafts
CPT/HCPCS: 71260; 74177; Q9967

== ENCOUNTER 2020-02-10 13:29 | Day surgery (SDC) | payer MEDICARE ==
[2020-02-10 14:16] VITALS: BP 161/95
--- NOTE | 2020-02-10 15:00 | CONSULTATION NOTE ---
Consultation Report: Consulted to replace PICC line. Patient states he has had PICC in place for 2.5 years. PICC attempted to be removed from left arm, met significant resistance without catheter being removed. Contacted Dr. Huffman and Dr. Power(office) about need to have consult to have PICC removed, possible vascular surgery. I did not feel comfortable pulling any harder and did not want to place a new one in right arm until left sided PICC removed. Pt agreeable.
[2020-02-10] MEDS ORDERED: SODIUM CHLORIDE FLUSH 0.9% 10 ML SYRINGE ONE (15:13)
== END 2020-02-10 13:30 | disposition home or self-care (01) ==
LOC: SDS 13:29
PROVIDERS: ATTEND Registered Nurse
DX: Z45.2 Encounter for adjustment and management of vascular access device (principal); I77.6 Arteritis, unspecified

== ENCOUNTER 2020-04-24 16:53 | Outpatient (CLI) | payer MEDICARE ==
--- NOTE | 2020-04-24 20:00 | Ultrasound Report ---
PROCEDURE: Ext Limited Non Vascular INDICATIONS: LEUKEMIA TECHNIQUE: Real-time scanning was performed of the right anterior medial thigh and right posterior t high and left leg anteromedial and posteromedial thigh, with image documentation. COMPARISON: None. FINDINGS: Targeted ultrasound of the area of clinical concern. Anterior lateral right calf subcutaneous tissue has a cobblestone appearance. Deep to the subcutaneou s tissues is a hypoechoic area of measuring approximately 7.5 x 1.8 x 0.9 cm. Posterior right thigh superficial cobblestoned appearance with deeper edema. This spans a large area of approximately 22.5 cm. Cobblestone appearance of the subcutaneous tissues in the left anterior medial thigh and left posteri or thigh is less on and compared to the right. IMPRESSION: 1. Suspect small deep hematoma in the right calf anterior lateral. If the abnormality increases in size consider cross-sectional imaging (preferably MRI with IV contras t) for further evaluation. 2. Cobblestone appearance of the subcutaneous tissues in the right thigh which is more prominent comp ared to the left. Edema is suspected. Cellulitis could have a similar appearance. Recommend continued clinical surveillance. Reviewed by: Armando Schwartz MD on 04/24/2020 6:58 PM NEAL Approved by: Armando Schwartz MD on 04/24/2020 6:58 PM [facility] Station ID: [id number]
--- OUTSIDE RECORDS SUMMARY | 2020-04-28 01:53 | EXTERNAL MEDICAL SUMMARY RPT | Continuity of Care Document ---
: Demographics Phone Unavailable Preferred Language Bengali Marital Status Unknown Adventist Affiliation Unknown Race Unknown Ethnic Group Unknown Author Organization [place] Address [address] [phone] Phone Care Team Providers Name Role Phone Adair ESPARZA, Pauline Unavailable Adair Glover Unavailable Unavailable Problems date description facility 2019-11-18 15:28 BLASTIC NK-CELL LYMPHOMA Located within [facility] 2019-11-18 15:28 HEPATOMEGALY WITH SPLENOMEGALY, [facility] NOT ELSEWHERE CLASSIFIED 2019-11-18 15:28 OTHER NONSPECIFIC ABNORMAL FINDING [facility] 2019-11-18 15:28 ABNORMAL RADIOLOGIC FINDINGS ON DX Located within [facility] IMAGING OF LEFT KIDNEY 2019-11-18 15:28 PRESENCE OF OTHER VASCULAR [facility] IMPLANTS AND GRAFTS 2020-01-06 15:30 BLASTIC NK-CELL LYMPHOMA Located within [facility] 2020-01-06 15:30 ANTINEOPLASTIC CHEMOTHERAPY [facility] INDUCED PANCYTOPENIA 2020-01-06 15:30 OTHER PANCYTOPENIA [facility] Medic [facility] 2020-01-06 15:30 OTHER CHRONIC PAIN [facility] 2020-01-06 15:30 [facility], [facility]IED [facility] [place] 2020-01-06 15:30 UNSPECIFIED CIRRHOSIS OF LIVER [facility] 2020-01-06 15:30 CHRONIC KIDNEY DISEASE, STAGE 3 [facility] (MODERATE) 2020-01-06 15:30 CHRONIC KIDNEY DISEASE, Located within [facility] UNSPECIFIED 2020-01-06 15:30 ATROPHY OF KIDNEY (TERMINAL) [facility] 2020-01-06 15:30 HEPATOMEGALY WITH SPLENOMEGALY, [facility] NOT ELSEWHERE CLASSIFIED 2020-01-06 15:30 UNSPECIFIED CONVULSIONS Located within [facility] 2020-01-06 15:30 OTHER NONSPECIFIC ABNORMAL FINDING [facility] 2020-01-06 15:30 ABNORMAL RADIOLOGIC FINDINGS ON DX Located within [facility] IMAGING OF LEFT KIDNEY 2020-01-06 15:30 ADVERSE EFFECT OF ANTINEOPL AND [facility] IMMUNOSUP DRUGS, SEQUELA 2020-01-06 15:30 [facility]/IMPLNT/GRFT, INIT 2020-01-06 15:30 [facility] (CURRENT) USE OF [facility] ANTIBIOTICS 2020-01-06 15:30 [facility] (CURRENT) USE OF [facility] SYSTEMIC STEROIDS 2020-01-06 15:30 STEEL FIXER (CURRENT) USE OF OPIATE Merged with [facility] ANALGESIC 2020-01-06 15:30 OTHER [facility] (CURRENT) DRUG [facility] THERAPY 2020-01-06 15:30 PERSONAL HISTORY OF DIS OF THE [facility] NERVOUS SYS AND SENSE ORGANS 2020-01-06 15:30 PERSONAL HISTORY OF OTHER DISEASES Located within [facility] OF THE CIRCULATORY SYSTEM 2020-01-06 15:30 PERSONAL HISTORY OF OTHER DISEASES Located within [facility] OF THE DIGESTIVE SYSTEM 2020-01-06 15:30 PRESENCE OF OTHER VASCULAR [facility] IMPLANTS AND GRAFTS 2020-01-27 15:30 BLASTIC NK-CELL LYMPHOMA Located within [facility] 2020-01-27 15:30 OTHER PANCYTOPENIA [facility] Medic [facility] 2020-01-27 15:30 OTHER CHRONIC PAIN [facility] 2020-01-27 15:30 ARTERITIS, UNSPECIFIED [facility] M edical Center 2020-01-27 15:30 UNSPECIFIED CIRRHOSIS OF LIVER [facility] 2020-01-27 15:30 CHRONIC KIDNEY DISEASE, STAGE 3 [facility] UNSPECIFIED 2020-01-27 15:30 ATROPHY OF KIDNEY (TERMINAL) [facility] 2020-01-27 15:30 UNSPECIFIED CONVULSIONS Located within [facility] 2020-01-27 15:30 [facility]VASC DEV/IMPLNT/GRFT, INIT 2020-01-27 15:30 STEEL FIXER (CURRENT) USE OF [facility] ANTIBIOTICS 2020-01-27 15:30 [facility] (CURRENT) USE OF [facility] SYSTEMIC STEROIDS 2020-01-27 15:30 STEEL FIXER (CURRENT) USE OF OPIATE Merged with [facility] ANALGESIC 2020-01-27 15:30 OTHER STEEL FIXER (CURRENT) DRUG [facility] THERAPY 2020-01-27 15:30 PERSONAL HISTORY OF OTHER DISEASES Located within [facility] OF THE CIRCULATORY SYSTEM 2020-01-27 15:30 PERSONAL HISTORY OF OTHER DISEASES Located within [facility] OF THE DIGESTIVE SYSTEM 2020-01-27 15:30 PRESENCE OF OTHER VASCULAR [facility] IMPLANTS AND GRAFTS 2020-02-03 15:15 BLASTIC NK-CELL LYMPHOMA Located within [facility] 2020-02-03 15:15 OTHER PANCYTOPENIA [facility] 2020-02-03 15:15 OTHER CHRONIC PAIN [facility] 2020-02-03 15:15 ARTERITIS, UNSPECIFIED [facility] edical [place] 2020-02-03 15:15 UNSPECIFIED CIRRHOSIS OF LIVER [facility] 2020-02-03 15:15 CHRONIC KIDNEY DISEASE, STAGE 3 [facility] UNSPECIFIED 2020-02-03 15:15 ATROPHY OF KIDNEY (TERMINAL) [facility] 2020-02-03 15:15 UNSPECIFIED CONVULSIONS Located within [facility] 2020-02-03 15:15 INFECT/INFLM REACT D/T OTH [facility] CARDI/VASC DEV/IMPLNT/GRFT, INIT 2020-02-03 15:15 [facility] (CURRENT) USE OF [facility] ANTIBIOTICS 2020-02-03 15:15 STEEL FIXER (CURRENT) USE OF [facility] SYSTEMIC STEROIDS 2020-02-03 15:15 STEEL FIXER (CURRENT) USE OF OPIATE [facility]erged with [facility] ANALGESIC 2020-02-03 15:15 OTHER STEEL FIXER (CURRENT) DRUG [facility] THERAPY 2020-02-03 15:15 PERSONAL HISTORY OF OTHER DISEASES Located within [facility] OF THE CIRCULATORY SYSTEM 2020-02-03 15:15 PERSONAL HISTORY OF OTHER DISEASES Located within [facility] OF THE DIGESTIVE SYSTEM 2020-02-03 15:15 PRESENCE OF OTHER VASCULAR [facility] IMPLANTS AND GRAFTS 2020-02-10 15:30 BLASTIC NK-CELL LYMPHOMA Located within [facility] 2020-02-10 15:30 OTHER PANCYTOPENIA [facility] 2020-02-10 15:30 OTHER CHRONIC PAIN [facility] 2020-02-10 15:30 ARTERITIS, UNSPECIFIED [facility] 2020-02-10 15:30 UNSPECIFIED CIRRHOSIS OF LIVER [facility] 2020-02-10 15:30 CHRONIC KIDNEY DISEASE, STAGE 3 [facility] UNSPECIFIED 2020-02-10 15:30 ATROPHY OF KIDNEY (TERMINAL) [facility] 2020-02-10 15:30 UNSPECIFIED CONVULSIONS Located within [facility] 2020-02-10 15:30 INFECT/INFLM REACT D/T OTH [facility] CARDI/VASC DEV/IMPLNT/GRFT, INIT 2020-02-10 15:30 STEEL FIXER (CURRENT) USE OF [facility] ANTIBIOTICS 2020-02-10 15:30 STEEL FIXER (CURRENT) USE OF [facility] SYSTEMIC STEROIDS 2020-02-10 15:30 STEEL FIXER (CURRENT) USE OF OPIATE Merged with [facility] ANALGESIC 2020-02-10 15:30 OTHER STEEL FIXER (CURRENT) DRUG [facility] THERAPY 2020-02-10 15:30 PERSONAL HISTORY OF OTHER DISEASES Located within [facility] OF THE CIRCULATORY SYSTEM 2020-02-10 15:30 PERSONAL HISTORY OF OTHER DISEASES Located within [facility] OF THE DIGESTIVE SYSTEM 2020-02-10 15:30 PERSONAL HISTORY OF OTHER [facility] SPECIFIED CONDITIONS 2020-02-10 15:30 PRESENCE OF OTHER VASCULAR [facility] IMPLANTS AND GRAFTS 2020-02-17 15:30 BLASTIC NK-CELL LYMPHOMA Located within [facility] 2020-02-17 15:30 OTHER PANCYTOPENIA [facility] 2020-02-17 15:30 OTHER CHRONIC PAIN [facility] 2020-02-17 15:30 ARTERITIS, UNSPECIFIED [facility] 2020-02-17 15:30 UNSPECIFIED CIRRHOSIS OF LIVER [facility] 2020-02-17 15:30 CHRONIC KIDNEY DISEASE, STAGE 3 [facility] UNSPECIFIED 2020-02-17 15:30 ATROPHY OF KIDNEY (TERMINAL) [facility] 2020-02-17 15:30 UNSPECIFIED CONVULSIONS Located within [facility] 2020-02-17 15:30 INFECT/INFLM REACT D/T OTH [facility] CARDI/VASC DEV/IMPLNT/GRFT, INIT 2020-02-17 15:30 STEEL FIXER (CURRENT) USE OF [facility] ANTIBIOTICS 2020-02-17 15:30 [facility] (CURRENT) USE OF [facility] SYSTEMIC STEROIDS 2020-02-17 15:30 STEEL FIXER (CURRENT) USE OF OPIATE Merged with [facility] ANALGESIC 2020-02-17 15:30 OTHER [facility] (CURRENT) DRUG [facility] THERAPY 2020-02-17 15:30 PERSONAL HISTORY OF OTHER DISEASES Located within [facility] OF THE CIRCULATORY SYSTEM 2020-02-17 15:30 PERSONAL HISTORY OF OTHER DISEASES Located within [facility] OF THE DIGESTIVE SYSTEM 2020-02-17 15:30 PERSONAL HISTORY OF OTHER [facility] SPECIFIED CONDITIONS 2020-02-17 15:30 PRESENCE OF OTHER VASCULAR [facility] IMPLANTS AND GRAFTS 2020-02-24 15:30 BLASTIC NK-CELL LYMPHOMA Located within [facility] 2020-02-24 15:30 OTHER PANCYTOPENIA [facility] [place] 2020-02-24 15:30 OTHER CHRONIC PAIN [facility] [place] 2020-02-24 15:30 ARTERITIS, UNSPECIFIED [facility] edical [place] 2020-02-24 15:30 UNSPECIFIED CIRRHOSIS OF LIVER [facility] 2020-02-24 15:30 CHRONIC KIDNEY DISEASE, STAGE 3 [facility] UNSPECIFIED 2020-02-24 15:30 ATROPHY OF KIDNEY (TERMINAL) [facility] 2020-02-24 15:30 UNSPECIFIED CONVULSIONS Located within [facility] 2020-02-24 15:30 INFECT[facility] CARDI/VASC DEV/IMPLNT/GRFT, INIT 2020-02-24 15:30 [facility] (CURRENT) USE OF [facility] ANTIBIOTICS 2020-02-24 15:30 STEEL FIXER (CURRENT) USE OF [facility] SYSTEMIC STEROIDS 2020-02-24 15:30 [facility] (CURRENT) USE OF OPIATE [facility]erged with [facility] ANALGESIC 2020-02-24 15:30 OTHER [facility] (CURRENT) DRUG [facility] THERAPY 2020-02-24 15:30 PERSONAL HISTORY OF OTHER DISEASES Located within [facility] OF THE CIRCULATORY SYSTEM 2020-02-24 15:30 PERSONAL HISTORY OF OTHER DISEASES Located within [facility] OF THE DIGESTIVE SYSTEM 2020-02-24 15:30 PERSONAL HISTORY OF OTHER [facility] SPECIFIED CONDITIONS 2020-02-24 15:30 PRESENCE OF OTHER VASCULAR [facility] IMPLANTS AND GRAFTS 2020-03-02 15:30 BLASTIC NK-CELL LYMPHOMA Located within [facility] 2020-03-02 15:30 OTHER PANCYTOPENIA [facility] 2020-03-02 15:30 OTHER CHRONIC PAIN [facility] 2020-03-02 15:30 ARTERITIS, UNSPECIFIED [facility] edical [place] 2020-03-02 15:30 UNSPECIFIED CIRRHOSIS OF LIVER [facility] 2020-03-02 15:30 CHRONIC KIDNEY DISEASE, STAGE 3 [facility] UNSPECIFIED 2020-03-02 15:30 ATROPHY OF KIDNEY (TERMINAL) [facility] 2020-03-02 15:30 UNSPECIFIED CONVULSIONS Located within [facility] 2020-03-02 15:30 INFECT/INFLM REACT D/T OTH [facility] CARDI/VASC DEV/IMPLNT/GRFT, INIT 2020-03-02 15:30 STEEL FIXER (CURRENT) USE OF [facility] ANTIBIOTICS 2020-03-02 15:30 [facility] (CURRENT) USE OF [facility] SYSTEMIC STEROIDS 2020-03-02 15:30 [facility] (CURRENT) USE OF O[facility]ATE [facility]erged [facility] ANALGESIC 2020-03-02 15:30 OTHER STEEL FIXER (CURRENT) DRUG [facility] THERAPY 2020-03-02 15:30 PERSONAL HISTORY OF OTHER DISEASES Located within [facility] OF THE CIRCULATORY SYSTEM 2020-03-02 15:30 PERSONAL HISTORY OF OTHER DISEASES Located within [facility] OF THE DIGESTIVE SYSTEM 2020-03-02 15:30 PERSONAL HISTORY OF OTHER [facility] SPECIFIED CONDITIONS 2020-03-02 15:30 PRESENCE OF OTHER VASCULAR [facility] IMPLANTS AND GRAFTS 2020-03-09 15:30 BLASTIC NK-CELL LYMPHOMA Located within [facility] 2020-03-09 15:30 OTHER PANCYTOPENIA [facility] 2020-03-09 15:30 OTHER CHRONIC PAIN [facility] 2020-03-09 15:30 ARTERITIS, UNSPECIFIED [facility] edical [place] 2020-03-09 15:30 UNSPECIFIED CIRRHOSIS OF LIVER [facility] 2020-03-09 15:30 CHRONIC KIDNEY DISEASE, STAGE 3 [facility] UNSPECIFIED 2020-03-09 15:30 ATROPHY OF KIDNEY (TERMINAL) [facility] 2020-03-09 15:30 UNSPECIFIED CONVULSIONS Located within [facility] 2020-03-09 15:30 INFECT/INFLM REACT D/T OTH [facility] CARDI/VASC DEV/IMPLNT/GRFT, INIT 2020-03-09 15:30 STEEL FIXER (CURRENT) USE OF [facility] ANTIBIOTICS 2020-03-09 15:30 [facility] (CURRENT) USE OF [facility] SYSTEMIC STEROIDS 2020-03-09 15:30 [facility] (CURRENT) USE OF OPIATE [facility]erged with [facility] ANALGESIC 2020-03-09 15:30 OTHER STEEL FIXER (CURRENT) DRUG [facility] THERAPY 2020-03-09 15:30 PERSONAL HISTORY OF OTHER DISEASES Located within [facility] OF THE CIRCULATORY SYSTEM 2020-03-09 15:30 PERSONAL HISTORY OF OTHER DISEASES Located within [facility] OF THE DIGESTIVE SYSTEM 2020-03-09 15:30 PERSONAL HISTORY OF OTHER [facility] SPECIFIED CONDITIONS 2020-03-09 15:30 PRESENCE OF OTHER VASCULAR [facility] IMPLANTS AND GRAFTS 2020-03-16 15:30 BLASTIC NK-CELL LYMPHOMA Located within [facility] 2020-03-16 15:30 OTHER PANCYTOPENIA [facility] 2020-03-16 15:30 OTHER CHRONIC PAIN [facility] 2020-03-16 15:30 ARTERITIS, UNSPECIFIED [facility]-16 15:30 UNSPECIFIED CIRRHOSIS OF LIVER [facility] 2020-03-16 15:30 CHRONIC KIDNEY DISEASE, STAGE 3 [facility] UNSPECIFIED 2020-03-16 15:30 ATROPHY OF KIDNEY (TERMINAL) [facility] 2020-03-16 15:30 UNSPECIFIED CONVULSIONS Located within [facility] 2020-03-16 15:30 INFECT/INFLM REACT D/T OTH [facility] CARDI/VASC DEV/IMPLNT/GRFT, INIT 2020-03-16 15:30 M[facility] (CURRENT) USE OF [facility] ANTIBIOTICS 2020-03-16 15:30 M[facility] (CURRENT) USE OF [facility] SYSTEMIC STEROIDS 2020-03-16 15:30 [facility] (CURRENT) USE OF OPIATE [facility]erged with [facility] ANALGESIC 2020-03-16 15:30 OTHER STEEL FIXER (CURRENT) DRUG [facility] THERAPY 2020-03-16 15:30 PERSONAL HISTORY OF OTHER DISEASES Located within [facility] OF THE CIRCULATORY SYSTEM 2020-03-16 15:30 PERSONAL HISTORY OF OTHER DISEASES Located within [facility] OF THE DIGESTIVE SYSTEM 2020-03-16 15:30 PERSONAL HISTORY OF OTHER [facility] SPECIFIED CONDITIONS 2020-03-16 15:30 PRESENCE OF OTHER VASCULAR [facility] IMPLANTS AND GRAFTS 2020-03-23 15:30 BLASTIC NK-CELL LYMPHOMA Located within [facility] 2020-03-23 15:30 OTHER PANCYTOPENIA [facility] 2020-03-23 15:30 OTHER CHRONIC PAIN [facility] 2020-03-23 15:30 ARTERITIS, UNSPECIFIED [facility] 2020-03-23 15:30 UNSPECIFIED CIRRHOSIS OF LIVER [facility] 2020-03-23 15:30 CHRONIC KIDNEY DISEASE, STAGE 3 [facility] UNSPECIFIED 2020-03-23 15:30 ATROPHY OF KIDNEY (TERMINAL) [facility] 2020-03-23 15:30 UNSPECIFIED CONVULSIONS Located within [facility] 2020-03-23 15:30 [facility] CARDI/VASC DEV/IMPLNT/GRFT, INIT 2020-03-23 15:30 STEEL FIXER (CURRENT) USE OF [facility] ANTIBIOTICS 2020-03-23 15:30 STEEL FIXER (CURRENT) USE OF [facility] SYSTEMIC STEROIDS 2020-03-23 15:30 [facility] (CURRENT) USE OF OPIATE [facility]erged with [facility] ANALGESIC 2020-03-23 15:30 OTHER STEEL FIXER (CURRENT) DRUG [facility] THERAPY 2020-03-23 15:30 PERSONAL HISTORY OF OTHER DISEASES Located within [facility] OF THE CIRCULATORY SYSTEM 2020-03-23 15:30 PERSONAL HISTORY OF OTHER DISEASES Located within [facility] OF THE DIGESTIVE SYSTEM 2020-03-23 15:30 PERSONAL HISTORY OF OTHER [facility] SPECIFIED CONDITIONS 2020-03-23 15:30 PRESENCE OF OTHER VASCULAR [facility] IMPLANTS AND GRAFTS 2020-03-30 15:30 BLASTIC NK-CELL LYMPHOMA Located within [facility] 2020-03-30 15:30 OTHER PANCYTOPENIA [facility] 2020-03-30 15:30 OTHER CHRONIC PAIN [facility] 2020-03-30 15:30 ARTERITIS, UNSPECIFIED [facility] [place] 2020-03-30 15:30 UNSPECIFIED CIRRHOSIS OF LIVER [facility] 2020-03-30 15:30 CHRONIC KIDNEY DISEASE, STAGE 3 [facility] UNSPECIFIED 2020-03-30 15:30 ATROPHY OF KIDNEY (TERMINAL) [facility] 2020-03-30 15:30 UNSPECIFIED CONVULSIONS Located within [facility] 2020-03-30 15:30 INF[facility] CARDI/VASC DEV/IMPLNT/GRFT, INIT 2020-03-30 15:30 M[facility] (CURRENT) USE OF [facility] ANTIBIOTICS 2020-03-30 15:30 M[facility] (CURRENT) USE OF [facility] SYSTEMIC STEROIDS 2020-03-30 15:30 STEEL FIXER (CURRENT) USE OF OPIATE Merged with [facility] ANALGESIC 2020-03-30 15:30 OTHER STEEL FIXER (CURRENT) DRUG [facility] THERAPY 2020-03-30 15:30 PERSONAL HISTORY OF OTHER DISEASES Located within [facility] OF THE CIRCULATORY SYSTEM 2020-03-30 15:30 PERSONAL HISTORY OF OTHER DISEASES Located within [facility] OF THE DIGESTIVE SYSTEM 2020-03-30 15:30 PERSONAL HISTORY OF OTHER [facility] SPECIFIED CONDITIONS 2020-03-30 15:30 PRESENCE OF OTHER VASCULAR [facility] IMPLANTS AND GRAFTS 2020-04-06 14:15 BLASTIC NK-CELL LYMPHOMA Located within [facility] 2020-04-06 14:15 OTHER PANCYTOPENIA [facility] [place] 2020-04-06 14:15 OTHER CHRONIC PAIN [facility] 2020-04-06 14:15 ARTERITIS, UNSPECIFIED [facility] edical [place] 2020-04-06 14:15 UNSPECIFIED CIRRHOSIS OF LIVER [facility] 2020-04-06 14:15 CHRONIC KIDNEY DISEASE, STAGE 3 [facility] UNSPECIFIED 2020-04-06 14:15 ATROPHY OF KIDNEY (TERMINAL) [facility] 2020-04-06 14:15 UNSPECIFIED CONVULSIONS Located within [facility] 2020-04-06 14:15 INFECT/INFLM REACT D/T OTH [facility] CARDI/VASC DEV/IMPLNT/GRFT, INIT 2020-04-06 14:15 STEEL FIXER (CURRENT) USE OF [facility] ANTIBIOTICS 2020-04-06 14:15 [facility] (CURRENT) USE OF [facility] SYSTEMIC STEROIDS 2020-04-06 14:15 [facility] (CURRENT) USE OF OPIATE [facility]erged with [facility] ANALGESIC 2020-04-06 14:15 OTHER STEEL FIXER (CURRENT) DRUG [facility] THERAPY 2020-04-06 14:15 PERSONAL HISTORY OF OTHER DISEASES Located within [facility] OF THE CIRCULATORY SYSTEM 2020-04-06 14:15 PERSONAL HISTORY OF OTHER DISEASES Located within [facility] OF THE DIGESTIVE SYSTEM 2020-04-06 14:15 PERSONAL HISTORY OF OTHER [facility] SPECIFIED CONDITIONS 2020-04-06 14:15 PRESENCE OF OTHER VASCULAR [facility] IMPLANTS AND GRAFTS 2020-04-13 16:00 BLASTIC NK-CELL LYMPHOMA Located within [facility] 2020-04-13 16:00 OTHER SPECIFIED LEUKEMIAS, IN [facility] REMISSION 2020-04-13 16:00 ANTINEOPLASTIC CHEMOTHERAPY [facility] INDUCED PANCYTOPENIA 2020-04-13 16:00 OTHER PANCYTOPENIA [facility] Medic [facility] Center 2020-04-13 16:00 OTHER CHRONIC PAIN [facility] 2020-04-13 16:00 ARTERITIS, UNSPECIFIED [facility] edical [place] 2020-04-13 16:00 UNSPECIFIED CIRRHOSIS OF LIVER [facility] 2020-04-13 16:00 CHRONIC KIDNEY DISEASE, STAGE 3 [facility] UNSPECIFIED 2020-04-13 16:00 ATROPHY OF KIDNEY (TERMINAL) [facility] 2020-04-13 16:00 UNSPECIFIED CONVULSIONS Located within [facility] 2020-04-13 16:00 ADVERSE EFFECT OF ANTINEOPL AND [facility] IMMUNOSUP DRUGS, SEQUELA 2020-04-13 16:00 INFECT/INFLM REACT D/T OTH [facility] CARDI/VASC DEV/IMPLNT/GRFT, INIT 2020-04-13 16:00 [facility] (CURRENT) USE OF [facility] ANTIBIOTICS 2020-04-13 16:00 [facility] (CURRENT) USE OF [facility] SYSTEMIC STEROIDS 2020-04-13 16:00 STEEL FIXER (CURRENT) USE OF OPIATE Merged with [facility] ANALGESIC 2020-04-13 16:00 OTHER STEEL FIXER (CURRENT) DRUG [facility] THERAPY 2020-04-13 16:00 PERSONAL HISTORY OF OTHER DISEASES Located within [facility] OF THE CIRCULATORY SYSTEM 2020-04-13 16:00 PERSONAL HISTORY OF OTHER DISEASES Located within [facility] OF THE DIGESTIVE SYSTEM 2020-04-13 16:00 PERSONAL HISTORY OF OTHER [facility] SPECIFIED CONDITIONS 2020-04-13 16:00 PRESENCE OF OTHER VASCULAR [facility] IMPLANTS AND GRAFTS 2020-04-15 11:15 BLASTIC NK-CELL LYMPHOMA Located within [facility] 2020-04-15 11:15 OTHER SPECIFIED LEUKEMIAS, IN [facility] REMISSION 2020-04-15 11:15 ANTINEOPLASTIC CHEMOTHERAPY [facility] INDUCED PANCYTOPENIA 2020-04-15 11:15 OTHER PANCYTOPENIA [facility] 2020-04-15 11:15 OTHER CHRONIC PAIN [facility] 2020-04-15 11:15 ARTERITIS, UNSPECIFIED [facility] edical [place] 2020-04-15 11:15 UNSPECIFIED CIRRHOSIS OF LIVER [facility] 2020-04-15 11:15 CHRONIC KIDNEY DISEASE, STAGE 3 [facility] UNSPECIFIED 2020-04-15 11:15 ATROPHY OF KIDNEY (TERMINAL) [facility] 2020-04-15 11:15 UNSPECIFIED CONVULSIONS Located within [facility] 2020-04-15 11:15 ADVERSE EFFECT OF ANTINEOPL AND [facility] IMMUNOSUP DRUGS, SEQUELA 2020-04-15 11:15 INFECT/INFLM REACT D/T OTH [facility] CARDI/VASC DEV/IMPLNT/GRFT, INIT 2020-04-15 11:15 [facility] (CURRENT) USE OF [facility] ANTIBIOTICS 2020-04-15 11:15 [facility] (CURRENT) USE OF [facility] SYSTEMIC STEROIDS 2020-04-15 11:15 [facility] (CURRENT) USE OF OPIATE Merged with [facility] ANALGESIC 2020-04-15 11:15 OTHER STEEL FIXER (CURRENT) DRUG [facility] THERAPY 2020-04-15 11:15 PERSONAL HISTORY OF OTHER DISEASES Located within [facility] OF THE CIRCULATORY SYSTEM 2020-04-15 11:15 PERSONAL HISTORY OF OTHER DISEASES Located within [facility] OF THE DIGESTIVE SYSTEM 2020-04-15 11:15 PERSONAL HISTORY OF OTHER [facility] SPECIFIED CONDITIONS 2020-04-15 11:15 PRESENCE OF OTHER VASCULAR [facility] IMPLANTS AND GRAFTS 2020-04-19 10:58 BLASTIC NK-CELL LYMPHOMA Located within [facility] 2020-04-19 10:58 OTHER SPECIFIED LEUKEMIAS, IN [facility] REMISSION 2020-04-19 10:58 ANTINEOPLASTIC CHEMOTHERAPY [facility] INDUCED PANCYTOPENIA 2020-04-19 10:58 OTHER PANCYTOPENIA [facility] [place] 2020-04-19 10:58 OTHER CHRONIC PAIN [facility] [place] 2020-04-19 10:58 ARTERITIS, UNSPECIFIED [facility] edical [place] 2020-04-19 10:58 UNSPECIFIED CIRRHOSIS OF LIVER [facility] 2020-04-19 10:58 CHRONIC KIDNEY DISEASE, STAGE 3 [facility] UNSPECIFIED 2020-04-19 10:58 ATROPHY OF KIDNEY (TERMINAL) [facility] 2020-04-19 10:58 UNSPECIFIED CONVULSIONS Located within [facility] 2020-04-19 10:58 ADVERSE EFFECT OF ANTINEOPL AND [facility] IMMUNOSUP DRUGS, SEQUELA 2020-04-19 10:58 INFECT/INFLM REACT D/T OTH [facility] CARDI/VASC DEV/IMPLNT/GRFT, INIT 2020-04-19 10:58 [facility] (CURRENT) USE OF [facility] ANTIBIOTICS 2020-04-19 10:58 STEEL FIXER (CURRENT) USE OF [facility] SYSTEMIC STEROIDS 2020-04-19 10:58 MCC (CURRENT) USE OF OPIATE Merged with [facility] ANALGESIC 2020-04-19 10:58 OTHER STEEL FIXER (CURRENT) DRUG [facility] THERAPY 2020-04-19 10:58 PERSONAL HISTORY OF OTHER DISEASES Located within [facility] OF THE CIRCULATORY SYSTEM 2020-04-19 10:58 PERSONAL HISTORY OF OTHER DISEASES Located within [facility] OF THE DIGESTIVE SYSTEM 2020-04-19 10:58 PERSONAL HISTORY OF OTHER [facility] SPECIFIED CONDITIONS 2020-04-19 10:58 PRESENCE OF OTHER VASCULAR [facility] IMPLANTS AND GRAFTS 2020-04-20 08:00 BLASTIC NK-CELL LYMPHOMA Located within [facility] 2020-04-20 08:00 OTHER SPECIFIED LEUKEMIAS, IN [facility] REMISSION 2020-04-20 08:00 ANTINEOPLASTIC CHEMOTHERAPY [facility] INDUCED PANCYTOPENIA 2020-04-20 08:00 OTHER PANCYTOPENIA [facility] [place] 2020-04-20 08:00 OTHER CHRONIC PAIN [facility] [place] 2020-04-20 08:00 ARTERITIS, UNSPECIFIED [facility] edical Center 2020-04-20 08:00 UNSPECIFIED CIRRHOSIS OF LIVER [facility] 2020-04-20 08:00 CHRONIC KIDNEY DISEASE, STAGE 3 [facility] UNSPECIFIED 2020-04-20 08:00 ATROPHY OF KIDNEY (TERMINAL) [facility] 2020-04-20 08:00 UNSPECIFIED CONVULSIONS Located within [facility] 2020-04-20 08:00 ADVERSE EFFECT OF ANTINEOPL AND [facility] IMMUNOSUP DRUGS, SEQUELA 2020-04-20 08:00 INFECT/INFLM REACT D/T OTH [facility] CARDI/VASC DEV/IMPLNT/GRFT, INIT 2020-04-20 08:00 MCC (CURRENT) USE OF [facility] ANTIBIOTICS 2020-04-20 08:00 STEEL FIXER (CURRENT) USE OF [facility] SYSTEMIC STEROIDS 2020-04-20 08:00 STEEL FIXER (CURRENT) USE OF OPIATE Merged with [facility] ANALGESIC 2020-04-20 08:00 OTHER STEEL FIXER (CURRENT) DRUG [facility] THERAPY 2020-04-20 08:00 PERSONAL HISTORY OF OTHER DISEASES Located within [facility] OF THE CIRCULATORY SYSTEM 2020-04-20 08:00 PERSONAL HISTORY OF OTHER DISEASES Located within [facility] OF THE DIGESTIVE SYSTEM 2020-04-20 08:00 PERSONAL HISTORY OF OTHER [facility] SPECIFIED CONDITIONS 2020-04-20 08:00 PRESENCE OF OTHER VASCULAR [facility] IMPLANTS AND GRAFTS 2020-04-20 14:40 BLASTIC NK-CELL LYMPHOMA Located within [facility] 2020-04-20 14:40 OTHER SPECIFIED LEUKEMIAS, IN [facility] REMISSION 2020-04-20 14:40 ANTINEOPLASTIC CHEMOTHERAPY [facility] INDUCED PANCYTOPENIA 2020-04-20 14:40 OTHER PANCYTOPENIA [facility] Medic [facility] Center 2020-04-20 14:40 OTHER CHRONIC PAIN [facility] Medic [facility] 2020-04-20 14:40 ARTERITIS, UNSPECIFIED [facility] edical Center 2020-04-20 14:40 UNSPECIFIED CIRRHOSIS OF LIVER [facility] 2020-04-20 14:40 CHRONIC KIDNEY DISEASE, STAGE 3 [facility] UNSPECIFIED 2020-04-20 14:40 ATROPHY OF KIDNEY (TERMINAL) [facility] 2020-04-20 14:40 UNSPECIFIED CONVULSIONS Located within [facility] 2020-04-20 14:40 ADVERSE EFFECT OF ANTINEOPL AND [facility] IMMUNOSUP DRUGS, SEQUELA 2020-04-20 14:40 INFECT/INFLM REACT D/T OTH [facility] CARDI/VASC DEV/IMPLNT/GRFT, INIT 2020-04-20 14:40 STEEL FIXER (CURRENT) USE OF [facility] ANTIBIOTICS 2020-04-20 14:40 MCC (CURRENT) USE OF [facility] SYSTEMIC STEROIDS 2020-04-20 14:40 MCC (CURRENT) USE OF OPIATE Merged with [facility] ANALGESIC 2020-04-20 14:40 OTHER STEEL FIXER (CURRENT) DRUG [facility] THERAPY 2020-04-20 14:40 PERSONAL HISTORY OF OTHER DISEASES Located within [facility] OF THE CIRCULATORY SYSTEM 2020-04-20 14:40 PERSONAL HISTORY OF OTHER DISEASES Located within [facility] OF THE DIGESTIVE SYSTEM 2020-04-20 14:40 PERSONAL HISTORY OF OTHER [facility] SPECIFIED CONDITIONS 2020-04-20 14:40 PRESENCE OF OTHER VASCULAR [facility] IMPLANTS AND GRAFTS 2020-04-21 09:00 BLASTIC NK-CELL LYMPHOMA Located within [facility] 2020-04-21 09:00 OTHER SPECIFIED LEUKEMIAS, IN [facility] REMISSION 2020-04-21 09:00 ANTINEOPLASTIC CHEMOTHERAPY [facility] INDUCED PANCYTOPENIA 2020-04-21 09:00 OTHER PANCYTOPENIA [facility] 2020-04-21 09:00 OTHER CHRONIC PAIN [facility] 2020-04-21 09:00 ARTERITIS, UNSPECIFIED [facility] edical Center 2020-04-21 09:00 UNSPECIFIED CIRRHOSIS OF LIVER [facility] 2020-04-21 09:00 CHRONIC KIDNEY DISEASE, STAGE 3 [facility] UNSPECIFIED 2020-04-21 09:00 ATROPHY OF KIDNEY (TERMINAL) [facility] 2020-04-21 09:00 UNSPECIFIED CONVULSIONS Located within [facility] 2020-04-21 09:00 ADVERSE EFFECT OF ANTINEOPL AND [facility] IMMUNOSUP DRUGS, SEQUELA 2020-04-21 09:00 INFECT/INFLM REACT D/T OTH [facility] CARDI/VASC DEV/IMPLNT/GRFT, INIT 2020-04-21 09:00 MCC (CURRENT) USE OF [facility] ANTIBIOTICS 2020-04-21 09:00 MCC (CURRENT) USE OF 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 IMPLANTS AND GRAFTS 2020-04-23 08:45 BLASTIC NK-CELL LYMPHOMA Located within [facility] 2020-04-23 08:45 ANTINEOPLASTIC CHEMOTHERAPY [facility] INDUCED PANCYTOPENIA 2020-04-23 08:45 OTHER CHRONIC PAIN [facility] 2020-04-23 08:45 ARTERITIS, UNSPECIFIED [facility] 2020-04-23 08:45 CHRONIC KIDNEY DISEASE, STAGE 3 [facility] UNSPECIFIED 2020-04-23 08:45 ATROPHY OF KIDNEY (TERMINAL) [facility] 2020-04-23 08:45 ADVERSE EFFECT OF ANTINEOPL AND [facility] IMMUNOSUP DRUGS, SEQUELA 2020-04-23 08:45 INFECT/INFLM REACT D/T OTH [facility] CARDI/VASC DEV/IMPLNT/GRFT, INIT 2020-04-23 08:45 MCC (CURRENT) USE OF [facility] ANTIBIOTICS 2020-04-23 08:45 STEEL FIXER (CURRENT) USE OF 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 IMPLANTS AND GRAFTS 2020-04-27 15:30 BLASTIC NK-CELL LYMPHOMA Located within [facility] 2020-04-27 15:30 ANTINEOPLASTIC CHEMOTHERAPY [facility] INDUCED PANCYTOPENIA 2020-04-27 15:30 OTHER CHRONIC PAIN [facility] 2020-04-27 15:30 ARTERITIS, UNSPECIFIED [facility] 2020-04-27 15:30 CHRONIC KIDNEY DISEASE, STAGE 3 [facility] UNSPECIFIED 2020-04-27 15:30 ATROPHY OF KIDNEY (TERMINAL) [facility] 2020-04-27 15:30 ADVERSE EFFECT OF ANTINEOPL AND [facility] IMMUNOSUP DRUGS, SEQUELA 2020-04-27 15:30 INFECT/INFLM REACT D/T OTH [facility] CARDI/VASC DEV/IMPLNT/GRFT, INIT 2020-04-27 15:30 M[facility] (CURRENT) USE OF [facility] ANTIBIOTICS 2020-04-27 15:30 STEEL FIXER (CURRENT) USE OF 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 IMPLANTS AND GRAFTS Allergies date description facility NO [facility]ERG[facility] AC[facility]AMINOPHEN [facility] ADHESIVE \T\ TAPE [facility] AMOXICILLIN [facility] ASPIRIN [facility] CETIRIZINE [facility]CL [facility] CODEINE [facility]OS[facility] CODEINE [facility] ENOXAPARIN [facility] ETODOLAC [facility] FLUOROURACIL [facility] HYDROCODONE [facility] IBUPROFEN [facility] LAMOTRIGINE [facility] MORPHINE [facility] OXYCODONE [facility] PAROXETINE [facility] PEGFILGRASTIM [facility] PROCHLORPERAZINE [facility] PSEUDOEPHEDRINE [facility] RIVAROXABAN [facility] TOLTEROD[facility] WASP VENOM PROTE[facility] PSEUDOEPHEDRINE HCL ER [facility] M edical Center PSEUDOEPHEDRINE-CODEINE Located within [facility] T[facility]AMYCIN [facility] ZOSTER VAC RECOMB ADJUVANTED [facility] BELLADONNA ALKALOIDS [facility] [place] MORPHINE AND RELATED [facility] NO KNOWN ENVIRONMENTAL ALLERGIES [facility] PENICILLINS [facility] Center SULFA ANTIBIOTICS [facility] OTHER [facility] ALBUTEROL [facility] AMITRIPTYLINE [facility] BEE VENOM PROTEIN (HONEY BEE) [facility] LATEX [facility] OXYCODONE [facility] Center SULFA (SULFONAMIDE ANTIBIOTICS) [facility] NO KNOWN ALLERGIES [facility] MILK [facility] PORK/PORCINE CONTAINING PRODUCTS [facility] NO ALLERGY INFORMATION AVAILABLE [facility] ALLOPURINOL ANALOGUES [facility] NSAIDS (NON-STEROIDAL ANTI-INFLAMMATORY DRUG) Located within [facility] PENICILLINS [facility] Center SULFA (SULFONAMIDE ANTIBIOTICS) [facility] NO KNOWN ALLERGIES [facility] PORK/PORCINE CONTAINING PRODUCTS [facility] CASHEW [facility] LACTOSE [facility] LATEX [facility] PEANUTS [facility] WHEAT [facility] ALLOPURINOL [facility] MORPHINE [facility] CODEINE [facility] DULAGLUTIDE [facility] MOLD [facility] IBUPROFEN [facility] CEPHALEXIN [facility] CLONIDINE [facility] METFORMIN [facility] HYDROXYCHLOROQUINE [facility] Center LISINOPRIL [facility] Center SODIUM CHLORIDE [facility] Center LEVETIRACETAM [facility] LATEX [facility] ERYTHROMYCIN [facility] Penicillins [facility] No Known Drug Allergies Located within [facility] Results Social History date description facility [id number]
== END 2020-04-24 16:54 | disposition home or self-care (01) ==
LOC: DI 16:53
PROVIDERS: ATTEND Internal Medicine
DX: C94.81 Other specified leukemias, in remission (principal); I77.6 Arteritis, unspecified; N18.30 Chronic kidney disease, stage 3 unspecified

== ENCOUNTER 2020-06-12 21:36 | Outpatient (CLI) | payer MEDICARE | END 2020-06-12 21:37 | disposition critical access hospital (66) | LOC: EMS 21:36 | PROVIDERS: ATTEND Emergency Medicine | DX: H05.211 Displacement (lateral) of globe, right eye (principal); R11.10 Vomiting, unspecified | CPT/HCPCS: A0425; A0427 ==

== ENCOUNTER 2020-06-12 22:02 | Emergency (ER) | payer MEDICARE ==
--- NOTE | 2020-06-12 22:10 | ED Physician Documentation ---
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 After approximately 30 minutes of episodic vomiting, he developed sudden onset right eye pain that has progressively worsened and became severe. His noticed his right eye appeared to be "bulging" (per medic report), which is a new finding for this patient. Patient has leukemia and thrombocytopenia. 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 Patient given fentanyl and zofran en route by medics Review of Systems Constitutional: reports: Reviewed and negative Eyes: reports: Decreased vision (blurry vision right eye), Photophobia. denies: Loss of vision Ears: reports: Reviewed and negative Nose: reports: Reviewed and negative Throat: reports: Reviewed and negative Cardiac: reports: Reviewed and negative Respiratory: reports: Reviewed and negative GI: reports: Nausea, Vomiting. denies: Abdominal Pain, Abdominal Swelling : reports: Reviewed and negative Skin: reports: Reviewed and negative Musculoskeletal: reports: Reviewed and negative Neurologic: reports: Headache (right retro-orbital THOMPSON). 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, h/o alcoholic liver cirrhosis with hyperbilirubinemia, aortic aneurysm with stent infection, CKD stage III, h/o seizure (this PMHx is from Hem/Onc note dated 05/25/20) - Past Surgical History Past Surgical History: No - Present Medications Home Medications: Ambulatory Orders Medication Instructions Recorded Confirmed oxyCODONE [Roxicodone] 5 mg PO PRN PRN 10/18/17 05/25/20 ursodioL [Juju 250] 500 mg PO TID 10/18/17 05/25/20 Carvedilol [Coreg] 6.25 mg PO BID 06/18/18 05/25/20 Ertapenem [INVanz] 1 gm IV Q24H 02/25/19 05/25/20 amLODIPine [Norvasc] 10 mg PO DAILY 07/31/19 05/25/20 Cholecalciferol (Vitamin D3) 25 mcg PO 06/12/20 [Vitamin D] Magnesium Oxide [Magnesium] 400 mg PO 06/12/20 Morphine Sulfate ER [Ms Contin] 30 mg PO BID 06/12/20 06/12/20 Omeprazole Magnesium 20 mg PO 06/12/20 Ondansetron Odt [Zofran Odt] 4 - 8 mg TL Q6H PRN 06/12/20 Phytonadione (Vit K1) [Vitamin K] 120 mcg PO DAILY 06/12/20 06/12/20 lamoTRIgine [Subvenite] 100 mg PO BID 06/12/20 06/12/20 methocarbamoL [Methocarbamol] 500 mg PO TID PRN 06/12/20 06/12/20 - Allergies Allergies/Adverse Reactions: Allergies Allergy/AdvReac Type Severity Reaction Status Date / Time No Known Drug Allergies Allergy Verified 06/12/20 22:15 - Social History Does the pt smoke?: No Smoking Status: Former smoker Does the pt drink ETOH?: No Does the pt have substance abuse?: No - Immunizations Immunizations are current?: No - POLST Patient has POLST: No PD ED PE NORMAL - Vitals Vital signs reviewed: Yes - General General: Alert and oriented X 3, Well developed/nourished, Other (obvious painful distress; keeps eyes closed and covering left eye with his hand) - HEENT HEENT: Other (left pupil nonreactive. right eye 4mm, constricts with light to 3mm) - Neck Neck: Supple, no meningeal sign - Cardiac Cardiac: RRR, No murmur - Respiratory Respiratory: No respiratory distress, Clear bilaterally - Abdomen Abdomen: Soft, Non tender - Derm Derm: Normal color, Warm and dry - Extremities Extremities: No edema - Neuro Neuro: Alert and oriented X 3, Normal speech PD ED PE EXPANDED - Eyes Eyes: Other (right eye is proptotic) Results - Vitals Vitals: Vital Signs - 24 hr 06/12/20 06/12/20 06/12/20 22:02 22:53 23:00 Temperature 36.7 C Heart Rate 58 L 62 68 Respiratory 10 L 12 24 Rate Blood Pressure 185/86 H 171/99 H 198/92 H O2 Saturation 98 98 98 06/12/20 06/13/20 23:30 00:00 Temperature 36.4 C L Heart Rate 61 61 Respiratory 10 L 10 L Rate Blood Pressure 158/91 H 200/64 H O2 Saturation 95 95 Oxygen O2 Source Nasal cannula Oxygen Flow Rate 2 - Labs Labs: Laboratory Tests 06/12/20 06/12/20 06/12/20 22:15 22:15 22:56 WBC 1.9 L* RBC 4.70 Hgb 13.7 L Hct 42.1 MCV 89.6 MCH 29.1 MCHC 32.5 RDW 12.8 Plt Count 54 L MPV 11.4 Neut # (Auto) 0.5 L* Lymph # (Auto) 0.5 L [place] # (Auto) 0.8 Eos # (Auto) 0.0 Baso # (Auto) 0.0 Absolute Nucleated RBC 0.00 Nucleated RBC % 0.0 Manual Slide Review Indicated WBC Morphology 2+ REACTIVE LYMPHS Platelet Estimate DECREASED (<130,000) Platelet Morphology NORMAL APPEARANCE RBC Morph Micro Appear NORMAL APPEARANCE PT 12.6 INR 1.1 APTT 35.9 H Sodium 139 Potassium 3.8 Chloride 100 L Carbon Dioxide 27 Anion Gap 12.0 BUN 15 Creatinine 1.0 Estimated GFR (MDRD) 76 L Glucose 122 H Calcium 9.0 Total Bilirubin 1.1 H AST 20 ALT 18 Alkaline Phosphatase 96 Total Protein 6.3 L Albumin 4.2 Globulin 2.1 Albumin/Globulin Ratio 2.0 Lipase 36 Nasal Adenovirus (PCR) Nasal B. parapertussis DNA (PCR) Nasal Coronavir 229E PCR Nasal Coronavir HKU1 PCR Nasal Coronavir NL63 PCR Nasal Coronavir OC43 PCR Nasal Enterovir/Rhinovir PCR Nasal Influenza B PCR Nasal Influenza A PCR Nasal Parainfluen 1 PCR Nasal Parainfluen 2 PCR Nasal Parainfluen 3 PCR Nasal Parainfluen 4 PCR Nasal RSV (PCR) Nasal B.pertussis DNA PCR Nasal C.pneumoniae (PCR) Juan Jose Human Metapneumo PCR Nasal M.pneumoniae (PCR) Nasal SARS-CoV-2 (PCR) 06/12/20 23:33 WBC RBC Hgb Hct MCV MCH MCHC RDW Plt Count MPV Neut # (Auto) Lymph # (Auto) Bosque # (Auto) Eos # (Auto) Baso # (Auto) Absolute Nucleated RBC Nucleated RBC % Manual Slide Review WBC Morphology Platelet Estimate Platelet Morphology RBC Morph Micro Appear PT INR APTT Sodium Potassium Chloride Carbon Dioxide Anion Gap BUN Creatinine Estimated GFR (MDRD) Glucose Calcium Total Bilirubin AST ALT Alkaline Phosphatase Total Protein Albumin Globulin Albumin/Globulin Ratio Lipase Nasal Adenovirus (PCR) NOT DETECTED Nasal B. parapertussis DNA (PCR) NOT DETECTED Nasal Coronavir 229E PCR NOT DETECTED Nasal Coronavir HKU1 PCR NOT DETECTED Nasal Coronavir NL63 PCR NOT DETECTED Nasal Coronavir OC43 PCR NOT DETECTED Nasal Enterovir/Rhinovir PCR NOT DETECTED Nasal Influenza B PCR NOT DETECTED Nasal Influenza A PCR NOT DETECTED Nasal Parainfluen 1 PCR NOT DETECTED Nasal Parainfluen 2 PCR NOT DETECTED Nasal Parainfluen 3 PCR NOT DETECTED Nasal Parainfluen 4 PCR NOT DETECTED Nasal RSV (PCR) NOT DETECTED Nasal B.pertussis DNA PCR NOT DETECTED Nasal C.pneumoniae (PCR) NOT DETECTED Juan [place] Human Metapneumo PCR NOT DETECTED Nasal M.pneumoniae (PCR) NOT DETECTED Nasal SARS-CoV-2 (PCR) NOT DETECTED - Rads (name of study) CT orbits with IV contrast Radiology: Prelim report reviewed, See rad report PD MEDICAL DECISION MAKING - ED course Complexity details: reviewed old records, reviewed results, re-evaluated patient, considered differential, d/w patient ED course: IOP on average of 6 readings = 23. D/W Dr. Mclain at [facility]; he will contact ophthalmology at [facility]. I had already paged to [facility] and Dr. Mclain agrees we can both continue to work on transfer to either facility based on which facility is comfortable with accepting patient and whichever is fastest to get patient transferred to, as this is a potentially vision-threatening problem. I subsequently heard from Dr. Whiteside (ophthalmology at [facility]), accepts patient for transfer. We discussed TXA, she does not recommend TXA at this time. I subsequently heard back from Dr. Mclain, who had spoken with opthalmology boner meat at [facility], and it is agreed that patient will be transferred to [facility]. Prior to transfer, IOP remeasured, average 6 readings = 29 Departure - Departure Disposition: 02 Transfer Acute Care Hosp Clinical Impression: Retrobulbar hematoma Condition: Stable Discharge Date/Time: 06/13/20 00:20
[2020-06-12] MEDS ORDERED: HYDROmorphone 1 MG/ML CARPUJECT IVP STA ×3 (22:11→23:06)
[2020-06-12] MEDS ORDERED: ONDANSETRON 4 MG/2 ML VIAL IVP STA (22:11)
[2020-06-12 22:26] LABS: HCT - HEMATOCRIT 42.1 % (42.0-52.0); HGB - HEMOGLOBIN 13.7 g/dL (14.0-18.0); LYMPHOCYTES # (AUTO) 0.5 10^3/uL (1.5-3.5); LYMPHOCYTES % (AUTO) 28.1 %; MEAN CORPUSCULAR HEMOGLOBIN 29.1 pg (27.0-31.0); MEAN CORPUSCULAR HGB CONC 32.5 g/dL (32.0-36.0); MEAN CORPUSCULAR VOLUME 89.6 fL (80.0-94.0); MEAN PLATELET VOLUME 11.4 fL (7.4-11.4); MONOCYTES # (AUTO) 0.8 10^3/uL (0.0-1.0); MONOCYTES % (AUTO) 43.2 %; NEUTROPHILS % (AUTO) 26.7 %; PLT - PLATELET COUNT 54 10^3/uL (130-450); RED CELL DISTRIBUTION WIDTH 12.8 % (12.0-15.0)
[2020-06-12 22:31] LABS: NEUTROPHILS # (AUTO) 0.5 10^3/uL (1.5-6.6); SLIDE REVIEW? Indicated; WHITE BLOOD COUNT 1.9 x10^3/uL (4.8-10.8)
[2020-06-12] MEDS ORDERED: IOVERSOL 320 100 ML VIAL IVP ONE ×2 (22:31→22:48)
[2020-06-12 22:41] LABS: ALBUMIN 4.2 g/dL (3.2-5.5); BILIRUBIN,TOTAL 1.1 mg/dL (0.2-1.0); POTASSIUM 3.8 mmol/L (3.5-5.0); TOTAL PROTEIN 6.3 g/dL (6.7-8.2)
[2020-06-12 22:56] LABS: PLATELET MORPHOLOGY NORMAL APPEARANCE (NORMAL); RBC MORPHOLOGY (MULTIPLE) NORMAL APPEARANCE (NORMAL)
[2020-06-12 22:57] LABS: PLATELET ESTIMATE, MANUAL DECREASED (<130,000) (NORMAL); WBC MORPHOLOGY (MULTIPLE) 2+ REACTIVE LYMPHS (NORMAL)
[2020-06-12 23:06] LABS: INR 1.1 (0.8-1.2); PT - PROTHROMBIN TIME 12.6 secs (9.9-12.6)
[2020-06-12 23:13] LABS: PARTIAL THROMBOPLASTIN TIME 35.9 secs (24.9-33.3)
[2020-06-13] MEDS ORDERED: HYDROmorphone 1 MG/ML CARPUJECT IVP STA (00:10)
[2020-06-13] MEDS ORDERED: ONDANSETRON 4 MG/2 ML VIAL IVP STA (00:10)
[2020-06-13 00:28] LABS: B. PARAPERTUSSIS- RESP PCR PAN NOT DETECTED; B. PERTUSSIS- RESP PCR PANEL NOT DETECTED; C. PNEUMONIAE- RESP PCR PANEL NOT DETECTED; CORONAVIRUS 229E-RESP PCR NOT DETECTED; CORONAVIRUS HKU1-RESP PCR NOT DETECTED; CORONAVIRUS NL63-RESP PCR NOT DETECTED; CORONAVIRUS OC43-RESP PCR NOT DETECTED; HUMAN METAPNEUMOVIRUS NOT DETECTED; INFLUENZA A- RESP PCR PANEL NOT DETECTED; INFLUENZA B - RESP PCR PANEL NOT DETECTED; M. PNEUMONIAE- RESP PCR PANEL NOT DETECTED; PARAINFLUENZA VIRUS 1 NOT DETECTED; PARAINFLUENZA VIRUS 2 NOT DETECTED; PARAINFLUENZA VIRUS 3 NOT DETECTED; PARAINFLUENZA VIRUS 4 NOT DETECTED; RHINOVIRUS/ENTEROVIRUS NOT DETECTED; RSV- RESP PCR PANEL NOT DETECTED; SARS-CoV-2 -RESP PCR PANEL NOT DETECTED
[2020-06-13 00:39] VITALS: BP 200/64
--- NOTE | 2020-06-13 08:24 | CT Report ---
PROCEDURE: ORBITS W INDICATIONS: right eye pain, swelling CONTRAST: IV CONTRAST: Optiray 320 ml: 100 PO CONTRAST: *NO PO CONTRAST TECHNIQUE: After the administration of intravenous contrast, 3.0 mm axial images acquired through the orbits, wi th coronal reformatting. COMPARISON: 07/31/[address] FINDINGS: Image quality: Excellent. Orbits: Prosthetic left globe is present, as before. There is a new extraconal mass within the supero medial aspect of the right orbit, measuring roughly 33 mm anteroposterior by 20 mm transverse by 11 m m craniocaudal, which causes inferolateral displacement of the right superior rectus muscle. There ar e a few small foci of enhancement within the mass. Optic chiasm is normal. Periorbital soft tissues are normal. Intracranial: The pituitary gland is normal, without sellar or suprasellar masses. Visualized cereb ral hemispheres, brainstem, and spinal cord appear normal. Bones and sinuses: Visualized calvarium and facial bones appear intact. Visualized sinuses and mast oids are clear. IMPRESSION: 1. Right extraconal mass, as described above, demonstrating mass effect upon the right superior rectu s muscle.. Differential considerations include hematoma, lacrimal gland tumor, lymphoma, lymphatic ma lformation, and vascular malformation.Concordant with preliminary interpretation. Reviewed by: Roge Monteiro MD on 06/13/2020 7:23 AM [facility] Approved by: Roge Monteiro MD on 06/13/2020 7:23 AM [facility] Station ID: [id number]
== END 2020-06-13 00:20 | disposition short-term general hospital (02) ==
LOC: EDUNIT# → ED 22:02 → SUPCPDRO 22:02 → ED 06-13 00:20
DX: H05.239 Hemorrhage of unspecified orbit (principal); Z20.822 Contact with and (suspected) exposure to COVID-19
CPT/HCPCS: 36415; 70481; 80053; 83690; 85025; 85610; 85730; 87631; 96374; 96375; 96376; 99284; 99285; J1170; Q9967; 0202U

== ENCOUNTER 2020-07-05 15:20 | Outpatient (CLI) | payer MEDICARE | END 2020-07-05 15:21 | disposition home or self-care (01) | LOC: LAB 15:20 | PROVIDERS: ATTEND Family Medicine | DX: I77.6 Arteritis, unspecified (principal); I79.1 Aortitis in diseases classified elsewhere | CPT/HCPCS: 36415; 85651; 86140 ==

== ENCOUNTER 2020-07-12 15:16 | Outpatient (CLI) | payer MEDICARE | END 2020-07-12 15:17 | disposition home or self-care (01) | LOC: LAB 15:16 | PROVIDERS: ATTEND Internal Medicine | DX: I77.6 Arteritis, unspecified (principal) | CPT/HCPCS: 36415; 86140 ==

== ENCOUNTER 2020-07-19 10:21 | Outpatient (CLI) | payer MEDICARE | END 2020-07-19 10:22 | disposition home or self-care (01) | LOC: LAB 10:21 | PROVIDERS: ATTEND Internal Medicine | DX: I77.6 Arteritis, unspecified (principal) | CPT/HCPCS: 36415; 86140 ==

== ENCOUNTER 2020-08-02 15:19 | Outpatient (CLI) | payer MEDICARE | END 2020-08-02 15:20 | disposition home or self-care (01) | LOC: LAB 15:19 | PROVIDERS: ATTEND Internal Medicine | DX: I77.6 Arteritis, unspecified (principal) | CPT/HCPCS: 36415; 86140 ==

== ENCOUNTER 2020-11-10 11:22 | Outpatient (CLI) | payer MEDICARE | END 2020-11-10 11:23 | disposition home or self-care (01) | LOC: LAB 11:22 | PROVIDERS: ATTEND Internal Medicine | DX: I77.6 Arteritis, unspecified (principal) | CPT/HCPCS: 36415; 86140 ==

== ENCOUNTER 2021-01-22 14:12 | Outpatient (CLI) | payer MEDICARE | END 2021-01-22 14:13 | disposition home or self-care (01) | LOC: LAB 14:12 | PROVIDERS: ATTEND Internal Medicine | DX: I77.6 Arteritis, unspecified (principal) | CPT/HCPCS: 36415; 86140 ==

== ENCOUNTER 2021-08-30 09:10 | Outpatient (CLI) | payer MEDICARE | END 2021-08-30 09:11 | disposition home or self-care (01) | LOC: LAB 09:10 | PROVIDERS: ATTEND Internal Medicine | DX: I77.6 Arteritis, unspecified (principal) | CPT/HCPCS: 36415; 86140 ==

== ENCOUNTER 2022-01-12 12:06 | Outpatient (CLI) | payer MEDICARE ==
[2022-01-12 12:21] LABS: BASOPHILS % (AUTO) 0.5 %; EOSINOPHILS % (AUTO) 1.1 %; HCT - HEMATOCRIT 46.8 % (42.0-52.0); LYMPHOCYTES # (AUTO) 0.6 10^3/uL (1.5-3.5); LYMPHOCYTES % (AUTO) 17.3 %; MEAN CORPUSCULAR HEMOGLOBIN 31.3 pg (27.0-31.0); MEAN CORPUSCULAR HGB CONC 34.2 g/dL (32.0-36.0); MEAN CORPUSCULAR VOLUME 91.4 fL (80.0-94.0); MEAN PLATELET VOLUME 12.2 fL (7.4-11.4); MONOCYTES # (AUTO) 1.1 10^3/uL (0.0-1.0); MONOCYTES % (AUTO) 28.8 %; NEUTROPHILS # (AUTO) 1.9 10^3/uL (1.5-6.6); NEUTROPHILS % (AUTO) 51.8 %; PLT - PLATELET COUNT 41 10^3/uL (130-450); RED BLOOD COUNT 5.12 10^6/uL (4.70-6.10); WHITE BLOOD COUNT 3.6 x10^3/uL (4.8-10.8)
[2022-01-12 12:47] LABS: ALBUMIN 4.8 g/dL (3.2-5.5); ALBUMIN/GLOBULIN RATIO 2.3 (1.0-2.2); BILIRUBIN,TOTAL 0.7 mg/dL (0.2-1.0); CALCIUM 9.3 mg/dL (8.5-10.3); CREATININE 1.1 mg/dL (0.6-1.2); POTASSIUM 4.2 mmol/L (3.5-5.0); TOTAL PROTEIN 6.9 g/dL (6.7-8.2)
== END 2022-01-12 12:07 | disposition home or self-care (01) ==
LOC: LAB 12:06
PROVIDERS: ATTEND Nurse Practitioner Family
DX: I10 Essential (primary) hypertension (principal); R42 Dizziness and giddiness; R56.9 Unspecified convulsions
CPT/HCPCS: 36415; 80053; 80175; 84443; 85025

== ENCOUNTER 2022-01-25 12:57 | Outpatient (CLI) | payer MEDICARE ==
--- NOTE | 2022-01-25 17:28 | CT Report ---
PROCEDURE: CT brain without contrast INDICATIONS: DIZZINESS TECHNIQUE: Noncontrast 4.5 mm thick angled axial sections acquired from the foramen magnum to the vertex. For r adiation dose reduction, the following was used: automated exposure control, adjustment of mA and/or kV according to patient size. COMPARISON: 07/31/2019 FINDINGS: Image quality: Excellent. CSF spaces: Basal cisterns are patent. No extra-axial fluid collections. Ventricles are normal in size and shape. Brain: No midline shift. No intracranial masses or hemorrhage. Erickson-white matter interface is norm al. Mild atrophy and multifocal white matter chronic ischemic change noted. Atherosclerotic vascular calcification noted in the cavernous segments of both internal carotid arteries as well as the intrad ural vertebral arteries. Skull and face: Calvarium and visualized facial bones are intact, without suspicious lesions. Sinuses: Visualized sinuses and mastoids are clear. IMPRESSION: Atrophy and chronic ischemic change without intracranial hemorrhage or mass effect Reviewed by: Jose Armando Seo MD on 01/25/2022 4:27 PM AKDT Approved by: Jose Armando Seo MD on 01/25/2022 4:27 PM AKDT Station ID: [id number]
--- NOTE | 2022-01-25 17:46 | Ultrasound Report ---
PROCEDURE: Carotid Doppler Complete INDICATIONS: DIZZINESS TECHNIQUE: Color and pulse Doppler interrogation was performed of both carotid systems, with image documentation and velocity measurements. COMPARISON: None. FINDINGS: Right side: Brachial blood pressure: 155 mm Hg. Common carotid artery peak systolic velocity: 61 cm/sec. Internal carotid artery peak systolic velocity: 73 cm/sec. Internal carotid artery end diastolic velocity: 22 cm/sec. External carotid artery peak systolic velocity: 78 cm/sec. ICA/CCA peak systolic ratio: 1.3 . Erickson scale imaging description: Plaque in the bulb Percent internal carotid artery stenosis: Less than 50% . Vertebral artery: Flow direction is antegrade. Left side: Brachial blood pressure: 159 mm Hg. Common carotid artery peak systolic velocity: 72 cm/sec. Internal carotid artery peak systolic velocity: 92 cm/sec. Internal carotid artery end diastolic velocity: 30 cm/sec. External carotid artery peak systolic velocity: 78 cm/sec. ICA/CCA peak systolic ratio: 1.3 . Erickson scale imaging description: Mild plaque in the bulb Percent internal carotid artery stenosis: Less than 50% . Vertebral artery: Flow direction is antegrade. IMPRESSION: Mild plaque in the bulb. No significant stenosis. The estimate of stenosis included in the report of the imaging study was calculated using the NASCET method Reviewed by: Eric Camarena on 01/25/2022 5:45 PM PDT Approved by: Eric Camarena on 01/25/2022 5:45 PM PDT Station ID: [id number]
== END 2022-01-25 12:58 | disposition home or self-care (01) ==
LOC: DI 12:57
PROVIDERS: ATTEND Nurse Practitioner Family
DX: I65.23 Occlusion and stenosis of bilateral carotid arteries (principal); I67.82 Cerebral ischemia; G31.9 Degenerative disease of nervous system, unspecified; R41.0 Disorientation, unspecified; I10 Essential (primary) hypertension; C86.4 Blastic NK-cell lymphoma; R42 Dizziness and giddiness
CPT/HCPCS: 93880

== ENCOUNTER 2022-05-22 16:09 | Outpatient (CLI) | payer MEDICARE ==
[2022-05-22 16:28] LABS: BASOPHILS % (AUTO) 0.4 %; EOSINOPHILS % (AUTO) 1.2 %; HCT - HEMATOCRIT 44.2 % (42.0-52.0); HGB - HEMOGLOBIN 14.5 g/dL (14.0-18.0); LYMPHOCYTES # (AUTO) 0.6 10^3/uL (1.5-3.5); LYMPHOCYTES % (AUTO) 22.5 %; MEAN CORPUSCULAR HEMOGLOBIN 30.1 pg (27.0-31.0); MEAN CORPUSCULAR HGB CONC 32.8 g/dL (32.0-36.0); MEAN CORPUSCULAR VOLUME 91.7 fL (80.0-94.0); MEAN PLATELET VOLUME 11.6 fL (7.4-11.4); MONOCYTES # (AUTO) 0.6 10^3/uL (0.0-1.0); MONOCYTES % (AUTO) 22.1 %; NEUTROPHILS # (AUTO) 1.3 10^3/uL (1.5-6.6); NEUTROPHILS % (AUTO) 52.6 %; PLT - PLATELET COUNT 57 10^3/uL (130-450); RED BLOOD COUNT 4.82 10^6/uL (4.70-6.10); RED CELL DISTRIBUTION WIDTH 12.8 % (12.0-15.0); WHITE BLOOD COUNT 2.5 x10^3/uL (4.8-10.8)
[2022-05-22 16:33] LABS: SLIDE REVIEW? Indicated
[2022-05-22 17:22] LABS: DIFFERENTIAL COMMENT MANUAL=AUTO DIFF; PLATELET ESTIMATE, MANUAL NORMAL (130-450,000) (NORMAL); PLATELET MORPHOLOGY NORMAL APPEARANCE (NORMAL); RBC MORPHOLOGY (MULTIPLE) NORMAL APPEARANCE (NORMAL)
[2022-05-23 17:43] LABS: CALCIUM 9.3 mg/dL (8.5-10.3); CREATININE 1.2 mg/dL (0.6-1.2); POTASSIUM 3.9 mmol/L (3.5-5.0)
== END 2022-05-22 16:10 | disposition home or self-care (01) ==
LOC: LAB 16:09
PROVIDERS: ATTEND Internal Medicine
DX: I77.6 Arteritis, unspecified (principal)
CPT/HCPCS: 36415; 80048; 85025

== ENCOUNTER 2022-07-14 19:41 | Outpatient (CLI) | payer MEDICARE | END 2022-07-14 23:59 | disposition critical access hospital (66) | LOC: EMS 19:41 | DX: R50.9 Fever, unspecified (principal); R53.81 Other malaise | CPT/HCPCS: A0425; A0429 ==

== ENCOUNTER 2022-07-14 20:13 | Inpatient (IN) | payer MEDICARE ==
--- NOTE | 2022-07-14 20:36 | ED Physician Documentation ---
History of Present Illness - Stated complaint Stated Complaint: WEAKNESS,FEVER - Additonal information Additional information: Patient is brought in by ambulance. HPI from patient. Patient says he has been having fevers for the past 4 to 5 days, only intermittently checking his temperature at home. He says his highest measured fever over the past 4 to 5 days was earlier today when it was 104.6. He says he has had malaise and generalized weakness over the past several days. He notes urinary frequency, but he says he has kidney problems and that frequent urination is not unusual for him. He denies shortness of breath, denies cough. Patient says he has required transfusions for low platelets many times in the past and he feels that his symptoms are similar to when he has had low platelets. Patient has history of leukemia, although he is in remission for approximately 5 years now. He says it has been a few years since last chemotherapy. Review of Systems Constitutional: reports: Fever Throat: denies: Sore throat Cardiac: denies: Chest pain / pressure, Palpitations Respiratory: denies: Dyspnea, Cough GI: reports: Abdominal Pain. denies: Nausea, Vomiting, Hematemesis, Bloody / black stool : reports: Frequency Endocrine: reports: Easy bruising / bleeding PD PAST MEDICAL HISTORY - Past Medical History Past Medical History: Yes Neuro: Other Endocrine/Autoimmune: Other HEENT: Chronic vision loss Other Past Medical History: blastic plasmacytoid dendritic cell leukemia, diagnosed November 2016 - Past Surgical History Past Surgical History: No - Present Medications Home Medications: Ambulatory Orders Medication Instructions Recorded Confirmed oxyCODONE [Roxicodone] 5 mg PO PRN PRN 10/18/17 07/20/20 ursodioL [Juju 250] 500 mg PO TID 10/18/17 07/20/20 Carvedilol [Coreg] 6.25 mg PO BID 06/18/18 03/07/22 amLODIPine [Norvasc] 10 mg PO DAILY 07/31/19 03/07/22 Cholecalciferol (Vitamin D3) 25 mcg PO 06/12/20 [Vitamin D] Magnesium Oxide [Magnesium] 400 mg PO 06/12/20 Morphine Sulfate ER [Ms Contin] 30 mg PO BID 06/12/20 03/07/22 Omeprazole Magnesium 20 mg PO DAILY 06/12/20 03/07/22 Ondansetron Odt [Zofran Odt] 4 - 8 mg TL Q6H PRN 06/12/20 03/07/22 Phytonadione (Vit K1) [Vitamin K] 120 mcg PO DAILY 06/12/20 03/07/22 lamoTRIgine [Subvenite] 100 mg PO BID 06/12/20 07/20/20 methocarbamoL [Methocarbamol] 500 mg PO TID PRN 06/12/20 07/20/20 - Allergies Allergies/Adverse Reactions: Allergies Allergy/AdvReac Type Severity Reaction Status Date / Time No Known Drug Allergies Allergy Verified 03/07/22 13:13 - Social History Does the pt smoke?: No Smoking Status: Former smoker Does the pt drink ETOH?: No Does the pt have substance abuse?: No - Immunizations Immunizations are current?: No - POLST Patient has POLST: No PD ED PE NORMAL - Vitals Vital signs reviewed: Yes - General General: Alert and oriented X 3, No acute distress - HEENT HEENT: Moist mucous membranes - Neck Neck: Supple, no meningeal sign - Cardiac Cardiac: RRR - Respiratory Respiratory: No respiratory distress, Clear bilaterally - Abdomen Abdomen: Soft, Non distended, Other (mild, diffuse TTP without rebound or guarding. there are two abdominal wall ecchymoses which appear subacute (green/brown/blue discoloration) and nontender) - Derm Derm: Warm and dry, No rash - Extremities Extremities: No edema - Neuro Neuro: Alert and oriented X 3, No motor deficit, No sensory deficit, Normal speech Eye Opening: Spontaneous Motor: Obeys Commands Verbal: Oriented GCS Score: 15 PD ED PE EXPANDED - Cardiac Cardiac: Murmur Present (2/6 HORACIO across precordium) Results - Vitals Vitals: Vital Signs - 24 hr 07/14/22 07/14/22 20:29 20:55 Temperature 38.0 C H Heart Rate 92 87 Respiratory 12 16 Rate Blood Pressure 123/75 120/69 O2 Saturation 98 99 Oxygen O2 Source Room air - Labs Labs: Laboratory Tests 07/14/22 07/14/22 07/14/22 20:45 20:45 21:00 WBC 0.7 L* RBC 3.40 L Hgb 10.5 L Hct 31.9 L MCV 93.8 MCH 30.9 MCHC 32.9 RDW 15.1 H Plt Count 11 L* MPV 12.8 H Neut # (Auto) Not Reportable Lymph # (Auto) Not Reportable Ogle # (Auto) Not Reportable Eos # (Auto) Not Reportable Baso # (Auto) Not Reportable Absolute Nucleated RBC Not Reportable Total Counted 100 Band Neuts % (Manual) 3 Reactive Lymphs % (Man) 30 Abnorm Lymph % (Manual) 0 Metamyelocytes % 1 H Nucleated RBC % Not Reportable Neutrophils # (Manual) 0.1 L* Lymphocytes # (Manual) 0.3 L Monocytes # (Manual) 0.3 Eosinophils # (Manual) 0.0 Basophils # (Manual) 0.0 Nucleated RBCs 2 Differential Comment MANUAL DIFFERENTIAL Platelet Estimate DECREASED (<130,000) Platelet Morphology NORMAL APPEARANCE RBC Morph Micro Appear 1+ POLYCHROMASIA Sodium Potassium Chloride Carbon Dioxide Anion Gap BUN Creatinine Estimated GFR (MDRD) Glucose Lactic Acid Calcium Total Bilirubin AST ALT Alkaline Phosphatase Total Protein Albumin Globulin Albumin/Globulin Ratio Lipase Urine Color YELLOW Urine Clarity HAZY Urine pH 6.0 Ur Specific [place] 1.015 Urine Protein 30 H Urine Glucose (UA) NEGATIVE Urine Ketones NEGATIVE Urine Occult Blood TRACE-INTA Urine Nitrite NEGATIVE Urine Bilirubin NEGATIVE Urine Urobilinogen 0.2 (NORMAL) Ur Leukocyte Esterase NEGATIVE Urine RBC 0-5 Urine WBC 0-3 Ur Squamous Epith Cells NONE SEEN Amorphous Sediment Few Urine Bacteria Rare Ur Microscopic Review INDICATED Urine Culture Comments NOT INDICATED Nasal Adenovirus (PCR) NOT DETECTED Nasal B. parapertussis DNA (PCR) NOT DETECTED Nasal Coronavir 229E PCR NOT DETECTED Nasal Coronavir HKU1 PCR NOT DETECTED Nasal Coronavir NL63 PCR NOT DETECTED Nasal Coronavir OC43 PCR NOT DETECTED Nasal Enterovir/Rhinovir PCR NOT DETECTED Nasal Influenza B PCR NOT DETECTED Nasal Influenza A PCR NOT DETECTED Nasal Parainfluen 1 PCR NOT DETECTED Nasal Parainfluen 2 PCR NOT DETECTED Nasal Parainfluen 3 PCR NOT DETECTED Nasal Parainfluen 4 PCR NOT DETECTED Nasal RSV (PCR) NOT DETECTED Nasal B.pertussis DNA PCR NOT DETECTED Nasal C.pneumoniae (PCR) NOT DETECTED Juan Jose Human Metapneumo PCR NOT DETECTED Nasal M.pneumoniae (PCR) NOT DETECTED Nasal SARS-CoV-2 (PCR) NOT DETECTED Blood Type 07/14/22 07/14/22 07/14/22 21:00 21:00 22:30 WBC RBC Hgb Hct MCV MCH MCHC RDW Plt Count MPV Neut # (Auto) Lymph # (Auto) Ogle # (Auto) Eos # (Auto) Baso # (Auto) Absolute Nucleated RBC Total Counted Band Neuts % (Manual) Reactive Lymphs % (Man) Abnorm Lymph % (Manual) Metamyelocytes % Nucleated RBC % Neutrophils # (Manual) Lymphocytes # (Manual) Monocytes # (Manual) Eosinophils # (Manual) Basophils # (Manual) Nucleated RBCs Differential Comment Platelet Estimate Platelet Morphology RBC Morph Micro Appear Sodium 130 L Potassium 4.2 Chloride 97 L Carbon Dioxide 23 Anion Gap 10.0 BUN 24 H Creatinine 1.5 H Estimated GFR (MDRD) 47 L Glucose 171 H Lactic Acid 1.4 Calcium 8.3 L Total Bilirubin 1.3 H AST 34 ALT 37 Alkaline Phosphatase 125 H Total Protein 5.6 L Albumin 3.4 Globulin 2.2 Albumin/Globulin Ratio 1.5 Lipase 27 Urine Color Urine Clarity Urine pH Ur Specific [place] Urine Protein Urine Glucose (UA) Urine Ketones Urine Occult Blood Urine Nitrite Urine Bilirubin Urine Urobilinogen Ur Leukocyte Esterase Urine RBC Urine WBC Ur Squamous Epith Cells Amorphous Sediment Urine Bacteria Ur Microscopic Review Urine Culture Comments Nasal Adenovirus (PCR) Nasal B. parapertussis DNA (PCR) Nasal Coronavir 229E PCR Nasal Coronavir HKU1 PCR Nasal Coronavir NL63 PCR Nasal Coronavir OC43 PCR Nasal Enterovir/Rhinovir PCR Nasal Influenza B PCR Nasal Influenza A PCR Nasal Parainfluen 1 PCR Nasal Parainfluen 2 PCR Nasal Parainfluen 3 PCR Nasal Parainfluen 4 PCR Nasal RSV (PCR) Nasal B.pertussis DNA PCR Nasal C.pneumoniae (PCR) Juan Jose Human Metapneumo PCR Nasal M.pneumoniae (PCR) Nasal SARS-CoV-2 (PCR) Blood Type O POSITIVE - Rads (name of study) CT A/P Relevant Findings:: Prelim report reviewed, See rad report PD Medical Decision Making - ED course Complexity details: reviewed old records (hem/onc note dated 04/18/22 (Dr. 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 He is found to be pancytopenic with WBC 0.7, ANC 0.1, and platelets 11k. Patient is well-appearing despite these results and he maintains normal blood pressure, heart rate, and room-air pulse ox during ED stay. I discussed this case with Dr. Waldron (hem/onc textile conservator for patient's group (Dr. Huffman)), he recommends admit for IV abx after blood cultures obtained (treat as neutropenic fever unless a source of infection is evident), transfuse for below 10K platelets, but reasonable to transfuse now if patient has had different threshold at other treating facility. Patient says [facility], where he has had much of his treatment, had been using 15k or lower platelets as threshold for transfusion and thus I did order platelets for transfusion. DR. WALDRON SAYS PLATELET TRANSFUSIONS MUST BE LEUKOREDUCED AND IRRADIATED. Departure - Departure Disposition: 66 [facility] DC/Xfer Clinical Impression: Neutropenic fever, Pancytopenia Condition: Stable
[2022-07-14 21:05] LABS: HCT - HEMATOCRIT 31.9 % (42.0-52.0); HGB - HEMOGLOBIN 10.5 g/dL (14.0-18.0); LYMPHOCYTES % (AUTO) 43.1 %; MEAN CORPUSCULAR HEMOGLOBIN 30.9 pg (27.0-31.0); MEAN CORPUSCULAR HGB CONC 32.9 g/dL (32.0-36.0); MEAN CORPUSCULAR VOLUME 93.8 fL (80.0-94.0); MEAN PLATELET VOLUME 12.8 fL (7.4-11.4); MONOCYTES % (AUTO) 29.2 %; NEUTROPHILS % (AUTO) 22.1 %; RED CELL DISTRIBUTION WIDTH 15.1 % (12.0-15.0)
[2022-07-14 21:05] LABS: BILIRUBIN,URINE NEGATIVE (NEGATIVE); GLUCOSE, URINE (UA) NEGATIVE (NEGATIVE); KETONES,URINE (UA) NEGATIVE (NEGATIVE); LEUKOCYTE ESTERASE, URINE NEGATIVE (NEGATIVE); NITRITE,URINE NEGATIVE (NEGATIVE); OCCULT BLOOD,URINE TRACE-INTA (NEGATIVE); PROTEIN,URINE 30 mg/dL (NEGATIVE); UROBILINOGEN,URINE 0.2 (NORMAL) E.U./dL (NORMAL)
[2022-07-14 21:08] LABS: PLT - PLATELET COUNT 11 10^3/uL (130-450); WHITE BLOOD COUNT 0.7 x10^3/uL (4.8-10.8)
[2022-07-14 21:09] LABS: ABNORMAL LYMPHS % (MANUAL) 0 %
[2022-07-14 21:10] LABS: CLARITY,URINE HAZY (CLEAR)
[2022-07-14 21:19] LABS: AMORPHOUS SEDIMENT,UR Few /LPF; BACTERIA,URINE Rare /HPF (None Seen); RBC,URINE 0-5 /HPF (0-5); SQUAMOUS EPITHELIAL CELL,UR NONE SEEN (<= Few); WBC,URINE 0-3 /HPF (0-3)
[2022-07-14 21:24] LABS: ALBUMIN 3.4 g/dL (3.2-5.5); ALBUMIN/GLOBULIN RATIO 1.5 (1.0-2.2); BILIRUBIN,TOTAL 1.3 mg/dL (0.2-1.0); CALCIUM 8.3 mg/dL (8.5-10.3); CREATININE 1.5 mg/dL (0.6-1.2); POTASSIUM 4.2 mmol/L (3.5-5.0); TOTAL PROTEIN 5.6 g/dL (6.7-8.2)
[2022-07-14 21:50] LABS: BAND NEUTROPHILS % (MANUAL) 3 %; LYMPHOCYTES # (MANUAL) 0.3 10^3/uL (1.5-3.5); LYMPHOCYTES % (MANUAL) 12 %; METAMYELOCYTES % (MANUAL) 1 %; MONOCYTES # (MANUAL) 0.3 10^3/uL (0.0-1.0); NEUTROPHILS # (MANUAL) 0.1 10^3/uL (1.5-6.6); REACTIVE LYMPHS % (MANUAL) 30 %
[2022-07-14 21:51] LABS: DIFFERENTIAL COMMENT MANUAL DIFFERENTIAL; PLATELET ESTIMATE, MANUAL DECREASED (<130,000) (NORMAL); PLATELET MORPHOLOGY NORMAL APPEARANCE (NORMAL)
[2022-07-14 21:55] LABS: NUCLEATED RBC (MANUAL) 2 %
[2022-07-14 22:03] LABS: B. PARAPERTUSSIS- RESP PCR PAN NOT DETECTED; B. PERTUSSIS- RESP PCR PANEL NOT DETECTED; C. PNEUMONIAE- RESP PCR PANEL NOT DETECTED; CORONAVIRUS 229E-RESP PCR NOT DETECTED; CORONAVIRUS HKU1-RESP PCR NOT DETECTED; CORONAVIRUS NL63-RESP PCR NOT DETECTED; CORONAVIRUS OC43-RESP PCR NOT DETECTED; HUMAN METAPNEUMOVIRUS NOT DETECTED; INFLUENZA A- RESP PCR PANEL NOT DETECTED; INFLUENZA B - RESP PCR PANEL NOT DETECTED; M. PNEUMONIAE- RESP PCR PANEL NOT DETECTED; PARAINFLUENZA VIRUS 1 NOT DETECTED; PARAINFLUENZA VIRUS 2 NOT DETECTED; PARAINFLUENZA VIRUS 3 NOT DETECTED; PARAINFLUENZA VIRUS 4 NOT DETECTED; RHINOVIRUS/ENTEROVIRUS NOT DETECTED; RSV- RESP PCR PANEL NOT DETECTED; SARS-CoV-2 -RESP PCR PANEL NOT DETECTED
[2022-07-14] MEDS ORDERED: SODIUM CHLORIDE 0.9% 1,000 ML IV STA (22:05)
[2022-07-14] MEDS ORDERED: PIPERACILLIN/TAZOBACTAM 4.5 GM in SODIUM CHLORIDE 0.9% MINIBAG 100 ML IV STA (22:09)
--- NOTE | 2022-07-14 22:25 | HISTORY & PHYSICAL EXAMINATION ---
Chief Complaint - Chief Complaint Chief Complaint: Fever History of Present Illness - Admitted From Admitted From:: ER - History Obtained From Records Reviewed: Yes History obtained from: Patient, chart, staff Exam Limitations: H&P was conducted via video remotely, using Access Cart. - History of Present Illness HPI Comment/Other: 62 yo M with PMH of blastic plasmacytoid dendritic cell leukemia, diagnosed in November 2016 in remission x 5 years, Pancytopenia, alcoholic liver cirrhosis with hyperbilirubinemia, Chronic arthralgia of undifferentiated pain, Aortic aneurysm s/p repair with stent infection, CKD stage III, Seizure D/O, BPH, HTN, and GERD presented to the ER via EMS for c/o 5 day h/o Fever. Pt has been working on his boat. He bruises easily, but has noticed increased bruising. He has been picking up heavy items on his boat and has had subsequent abdo muscle pain, no N/V/BM change. He started to have fevers about 5 days ago, with Tm 104.6F. He also c/o weakness, malaise. Pt has BPH and has frequent urination, including nocturia q 45 min. He has tried several meds for this and has a long-awaited Urology appt on 07/18/22. No SOB/CP/Cough. Pt has required platelet transfusions for low platelets many times in the past and he feels that his symptoms are similar to when he has had low platelets. Pt is Disabled. Pt says that he no longer drinks ETOH. EMS reported T 103.1F. In the ER, WBC 0.7, ANC 0.1, Plt 11, Hgb 10.5, CR 1.5, Glc 171, BC pending. CT Abdo: ordered/pending. ER Provider D/W pt's Physics Teacher who recommends admit, A/Bs, irradiated leukoreduced platelet transfusion. Pt was given IVF, Zosyn in the ER. Irradiated leukoreduced platelet transfusion ordered; pending. History - Past Medical History Neuro: reports: Other Endocrine/Autoimmune: reports: Other : reports: Renal insuffiency, Frequency HEENT: reports: Chronic vision loss MRSA Hx?: No Other Past Medical History: blastic plasmacytoid dendritic cell leukemia, diagnosed November 2016 - POLST Patient has POLST: No Meds/Allgy - Home Medications Home Medications: Ambulatory Orders Medication Instructions Recorded Confirmed oxyCODONE [Roxicodone] 5 mg PO PRN PRN 10/18/17 07/20/20 ursodioL [Juju 250] 500 mg PO TID 10/18/17 07/20/20 Carvedilol [Coreg] 6.25 mg PO BID 06/18/18 03/07/22 amLODIPine [Norvasc] 10 mg PO DAILY 07/31/19 03/07/22 Cholecalciferol (Vitamin D3) 25 mcg PO 06/12/20 [Vitamin D] Magnesium Oxide [Magnesium] 400 mg PO 06/12/20 Morphine Sulfate ER [Ms Contin] 30 mg PO BID 06/12/20 03/07/22 Omeprazole Magnesium 20 mg PO DAILY 06/12/20 03/07/22 Ondansetron Odt [Zofran Odt] 4 - 8 mg TL Q6H PRN 06/12/20 03/07/22 Phytonadione (Vit K1) [Vitamin K] 120 mcg PO DAILY 06/12/20 03/07/22 lamoTRIgine [Subvenite] 100 mg PO BID 06/12/20 07/20/20 methocarbamoL [Methocarbamol] 500 mg PO TID PRN 06/12/20 07/20/20 - Allergies Allergies/Adverse Reactions: Allergies Allergy/AdvReac Type Severity Reaction Status Date / Time No Known Drug Allergies Allergy Verified 03/07/22 13:13 Review of Systems - All Other Systems All Other Systems: reports: Reviewed and negative Exam - Vital Signs Reviewed Vital Signs: Yes Vital Signs: Vital Signs x48h Temp Pulse Resp BP Pulse Ox 07/14/22 20:55 87 16 120/69 99 07/14/22 20:29 38.0 C H 92 12 123/75 98 - Physical Exam General Appearance: positive: No acute distress, Alert Eyes Bilateral: positive: Normal inspection, EOMI Respiratory: positive: Other (Access cart stethoscope not working; per ER Prov ider: CTA B/L) Cardiovascular: positive: Other (Access cart stethoscope not working; per ER Provider: RRR, 2/6 HORACIO) Abdomen: positive: Other (per ER Provider: Soft, Non distended, mild, diffuse TTP without rebound or guarding; two abdominal wall ecchymoses which appear subacute (green/brown/blue discoloration) and nontender) Extremities: positive: Full ROM Neurologic/Psychiatric: positive: Oriented x3, CN's nml (2-12), Mood/affect nml Conclusion/Plan - Problem List (1) Neutropenic fever Conclusion/Plan: Neutropenic Fever H/o Blastic plasmacytoid dendritic cell leukemia, diagnosed in November 2016 in remission x 5 years Weakness -home Tm 104.6F. -EMS reported T 103.1F. -WBC 0.7, ANC 0.1, BC pending. -CT Abdo: ordered/pending. -ER Provider D/W pt's Physics Teacher who recommends admit, A/Bs. -Pt was given IVF, Zosyn in the ER. 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 -Irradiated leukoreduced platelet transfusion ordered; pending. -Per Physics Teacher outpt notes from 04/2022: "Consider a bone marrow biopsy if counts are progressively getting worse to rule out MDS progression" -Physics Teacher consulted -mgmt per Physics Teacher Hyperglycemia -Glc 171 -check Hgba1c Alcoholic liver cirrhosis with hyperbilirubinemia -continue home medications: Ursodiol -pt denies current ETOH use Chronic arthralgia of undifferentiated pain -continue home medications: Oxycodone, MS Contin Aortic aneurysm s/p repair with stent infection -previously on amoxicillin oral prophylaxis indefinitely, but not in chart now. CKD stage III -CR 1.5; baseline 1.2 -continue IVF -avoid nephrotoxins Seizure D/O -continue home medications: Lamictal BPH -He has tried several meds for this and has a long-awaited Urology appt on 07/18/22 HTN -continue home medications:Amlodipine, Coreg GERD -continue home medications: PPI VTE Prophylaxis: SCDs only d/t Thrombocytopenia Code Status: Full Code ~Makenna Hannah MD Hospitalist - Lab Results Fish Bones: 07/14/22 21:00 07/14/22 21:00
[2022-07-14] MEDS ORDERED: ONDANSETRON ODT 4 MG TABLET TL PRN (22:42)
[2022-07-14] MEDS ORDERED: SODIUM CHLORIDE FLUSH 0.9% 10 ML SYRINGE IVP PRN (22:48)
[2022-07-14] MEDS ORDERED: ONDANSETRON 4 MG/2 ML VIAL IVP PRN (22:48)
[2022-07-15] MEDS: ACETAMINOPHEN 325 MG TABLET PO PRN ×6 (00:09→23:22)
[2022-07-15] MEDS: oxyCODONE 5 MG TABLET PO PRN ×4 (00:12→20:35)
--- NOTE | 2022-07-15 00:16 | CT Report ---
PROCEDURE: ABDOMEN/PELVIS WO INDICATIONS: abdominal tenderness, low platelets, fever TECHNIQUE: Noncontrast 5 mm thick sections acquired from the diaphragms to the symphysis. 5 mm coronal and sagi ttal reformats were then performed. For radiation dose reduction, the following was used: automated exposure control, adjustment of mA and/or kV according to patient size. COMPARISON: CT abdomen pelvis 11/18/2019, 04/11/2019. FINDINGS: Image quality: Excellent. Lung bases:There is minimal dependent atelectasis. Heart: Heart is normal in size. ABDOMEN: Liver:Noncontrast evaluation of the liver demonstrates no discrete mass. Gallbladder: Within normal limits without calcified gallstones. Biliary ducts: No biliary ductal dilatation. Pancreas: Unremarkable. Spleen:There is marked splenomegaly with the spleen measuring up to 21.1 cm which is increased from 15.7 cm the prior study. Adrenal Glands: No adrenal nodules. Kidneys and Ureters: No hydronephrosis. An atrophic left kidney is redemonstrated. There are 2 punct ate nonspecific and stone within the left kidney. Stomach and Bowel: Stomach, small bowel loops, and colon are normal in caliber and wall thickness. T he appendix is normal. There is colonic diverticulosis without acute diverticulitis. Peritoneum: No abnormal intraperitoneal fluid. No free air. Ventral Wall: No hernia. Abdominal Nodes: No retroperitoneal or mesenteric adenopathy by size criteria. Vessels:An aortobiiliac endovascular stent graft is redemonstrated. The aorta measures up to 3.5 cm in anteroposterior dimension, stable in size compared to the prior study. PELVIS: Pelvic Organs: Unremarkable. Bladder: Unremarkable. Pelvic Nodes: No enlarged lymph nodes. Miscellaneous: No inguinal hernias. Bones: Visualized osseous structures demonstrate no suspicious lesions. IMPRESSION: 1. Markedly increased splenomegaly. Reviewed by: Garrick Stanley MD on 07/15/2022 12:15 AM PDT Approved by: Garrick Stanley MD on 07/15/2022 12:15 AM PDT Station ID: [id number]
--- NOTE | 2022-07-15 00:34 | XRAY Report ---
PROCEDURE: Chest 1 View X-Ray INDICATIONS: Neutropenic Fever TECHNIQUE: One view of the chest was acquired. COMPARISON: None. FINDINGS: Surgical changes and devices: None. Lungs and pleura: No pleural effusions or pneumothorax. Lungs are clear. Mediastinum: Mediastinal contours appear normal. Heart size is normal. Bones and chest wall: No suspicious bony lesions. Overlying soft tissues appear unremarkable. IMPRESSION: 1. No acute cardiopulmonary disease. Reviewed by: Garrick Stanley MD on 07/15/2022 12:33 AM PDT Approved by: Garrick Stanley MD on 07/15/2022 12:33 AM PDT Station ID: [id number]
[2022-07-15] MEDS: SODIUM CHLORIDE 0.9% 1,000 ML IV SCH ×2 (00:36→14:40)
[2022-07-15] MEDS ORDERED: MORPHINE SULFATE ER 30 MG TABLET ONE (00:47)
[2022-07-15] MEDS: SODIUM CHLORIDE FLUSH 0.9% 10 ML SYRINGE IVP SCH ×3 (01:50→16:02)
[2022-07-15] MEDS ORDERED: PIPERACILLIN/TAZOBACTAM 4.5 GM in SODIUM CHLORIDE 0.9% MINIBAG 100 ML IV SCH (02:00)
[2022-07-15 06:09] LABS: HCT - HEMATOCRIT 31.6 % (42.0-52.0); HGB - HEMOGLOBIN 9.9 g/dL (14.0-18.0); LYMPHOCYTES % (AUTO) 45.9 %; MEAN CORPUSCULAR HEMOGLOBIN 30.2 pg (27.0-31.0); MEAN CORPUSCULAR HGB CONC 31.3 g/dL (32.0-36.0); MEAN CORPUSCULAR VOLUME 96.3 fL (80.0-94.0); MEAN PLATELET VOLUME 11.5 fL (7.4-11.4); MONOCYTES % (AUTO) 31.1 %; NEUTROPHILS % (AUTO) 17.6 %; RED BLOOD COUNT 3.28 10^6/uL (4.70-6.10); RED CELL DISTRIBUTION WIDTH 15.4 % (12.0-15.0)
[2022-07-15 06:20] LABS: PLT - PLATELET COUNT 17 10^3/uL (130-450); WHITE BLOOD COUNT 0.7 x10^3/uL (4.8-10.8)
[2022-07-15 06:21] LABS: ABNORMAL LYMPHS % (MANUAL) 0 %; BAND NEUTROPHILS % (MANUAL) 0 %
[2022-07-15 06:33] LABS: CALCIUM 8.2 mg/dL (8.5-10.3); CREATININE 1.4 mg/dL (0.6-1.2)
[2022-07-15 06:44] LABS: LYMPHOCYTES # (MANUAL) 0.2 10^3/uL (1.5-3.5); LYMPHOCYTES % (MANUAL) 34 %; MONOCYTES # (MANUAL) 0.3 10^3/uL (0.0-1.0); NEUTROPHILS # (MANUAL) 0.2 10^3/uL (1.5-6.6)
[2022-07-15 06:45] LABS: DIFFERENTIAL COMMENT MANUAL DIFFERENTIAL; PLATELET ESTIMATE, MANUAL DECREASED (<130,000) (NORMAL); RBC MORPHOLOGY (MULTIPLE) NORMAL APPEARANCE (NORMAL)
[2022-07-15] MEDS: methocarbamoL 500 MG TABLET PO PRN ×2 (08:19→16:01)
[2022-07-15] MEDS: CHOLECALCIFEROL 25 MCG TABLET PO SCH (08:46)
[2022-07-15] MEDS: PANTOPRAZOLE 40 MG TABLET PO SCH (08:47)
[2022-07-15] MEDS: carvediloL 3.125 MG TABLET PO SCH ×2 (08:47→20:38)
[2022-07-15] MEDS: lamoTRIgine 100 MG TABLET PO SCH ×2 (08:47→20:38)
[2022-07-15] MEDS: MAGNESIUM OXIDE 400 MG TABLET PO SCH (08:48)
[2022-07-15] MEDS ORDERED: amLODIPine 5 MG TABLET PO SCH (09:00)
[2022-07-15] MEDS ORDERED: PHYTONADIONE 100 MCG PO SCH (09:00)
[2022-07-15] MEDS ORDERED: MORPHINE SULFATE ER 30 MG TABLET PO SCH (09:00)
[2022-07-15] MEDS: MORPHINE SULFATE ER 30 MG TABLET PO SCH ×2 (10:02→20:35)
--- NOTE | 2022-07-15 11:09 | PHARMACY PROGRESS NOTE ---
- Best Possible Medication History Admit Date and Time: 07/14/22 2247 Processed by: Pharmacy Medication History completed: Yes Patient Interview: Completed Secondary Source(s): Written medication list, Spouse/Significant other, Physician records, Pharmacy records, Insurance records As the person ultimately responsible for medication therapy, providers are able to order a medication from an existing home medication list in [facility] via the "Reconcile Routine" prior to Confirmation of that medication by technical support analyst. Such practice is discouraged except when the physician, in their clinical judgment, deems that a medical need exists for a medication without regard to previous use.
[2022-07-15 11:43] LABS: ESTIMATED AVERAGE GLUCOSE 85 mg/dL (70-100); HEMOGLOBIN A1c% 4.6 % (4.27-6.07)
[2022-07-15] MEDS: PIPERACILLIN/TAZOBACTAM 4.5 GM in SODIUM CHLORIDE 0.9% MINIBAG 100 ML IV SCH ×2 (13:02→21:40)
[2022-07-15 17:19] LABS: HCT - HEMATOCRIT 26.4 % (42.0-52.0); HGB - HEMOGLOBIN 8.4 g/dL (14.0-18.0); LYMPHOCYTES # (AUTO) 0.2 10^3/uL (1.5-3.5); LYMPHOCYTES % (AUTO) 38.2 %; MEAN CORPUSCULAR HEMOGLOBIN 30.5 pg (27.0-31.0); MEAN CORPUSCULAR HGB CONC 31.8 g/dL (32.0-36.0); MEAN PLATELET VOLUME 12.4 fL (7.4-11.4); MONOCYTES # (AUTO) 0.2 10^3/uL (0.0-1.0); MONOCYTES % (AUTO) 36.4 %; NEUTROPHILS % (AUTO) 18.1 %; NRBC ABSOLUTE COUNT (AUTO) 0.02 x10^3/uL; NUCLEATED RED BLOOD CELLS AUTO 3.6 /100WBC; RED BLOOD COUNT 2.75 10^6/uL (4.70-6.10); RED CELL DISTRIBUTION WIDTH 15.5 % (12.0-15.0)
[2022-07-15 17:27] LABS: WHITE BLOOD COUNT 0.6 x10^3/uL (4.8-10.8)
[2022-07-15 17:28] LABS: NEUTROPHILS # (AUTO) 0.1 10^3/uL (1.5-6.6); PLT - PLATELET COUNT 15 10^3/uL (130-450)
[2022-07-15 17:29] LABS: SLIDE REVIEW? Indicated
--- NOTE | 2022-07-15 17:31 | PROVIDER PROGRESS NOTE ---
Subjective - Prog Note Date Prog Note Date: 07/15/22 Prog Note Time: 17:21 - Subjective Subjective: Patient reports pain all over. He cannot be specific. In the EMR, he is described as having a diffuse undifferentiated joint pain. He feels disgruntled that we would like him to pinpoint where the pain is in the severity. He just wishes us to accept his word for it. He said he is having a hard time finding the words to describe it. He is already on MS Contin 30 mg p.o. twice daily, and oxycodone 5 mg every 4 hours as needed for pain. Past medical history : 1. alcoholic liver disease with cirrhosis and esophageal varices. Drinking up until November 2016 when he was first diagnosed with leukemia and anemia. A liver biopsy done January 25, 2017 showed the cirrhosis and he was not felt to be an aloe stem transplant candidate because of that. 2. 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 Followed by [facility] starting in November 2016 until the summer 2017. He was put on disability after his illness. This resulted in a insurance change. And as such he had to change his care to the [facility]. He is now followed by Paulina Damon. Last treatment was with vincristine and dexamethasone of a DO MP maintenance program in June 2017. Prior to that he received therapy with [facility] with GC BLOCK, mid talk syndrome, intrathecal methotrexate, hyperCVAD. 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 3. October 2017 gallbladder necrosis with foci of gas in the aortic wall and bilateral iliac arteries. He was found to have Clostridium septicum on blood cultures. Diagnosed with septic shock and endocarditis. Transferred to [facility]. 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 He received a ertapenem from December 2017 until the first week of June 2020. Antibiotics were changed to oral amoxicillin 1000 p.o. every 8 hours and he has continued that until now. He is followed by [facility] group infectious disease, Sonny Power MD. I did speak to the hospitalist on-call for Dr. Gurmeet carmona today. The hospitalist said that other than adding vancomycin, he does not have much to offer to the case. If we feel strongly that the patient needs to be transferred we can always contact [place]. And he encouraged to please contact Dr. Power on Sunday morning when office hours are available. Social history. Drinking two 5 L containers of wine a week until October 2016. Smoked for 15 years, 1 pack/day then quit. Started smoking again 10 or 11 years after his first marriage ended in divorce. He may have been a few recreational substances been the age of [age] but never did IV drugs. With his first he had 2 children. With his second they were together for 14 years and then they got in the fall 2016. Current Medications - Current Medications Current Medications: Active Medications Acetaminophen (Acetaminophen 325 Mg Tablet) 650 mg PO Q4HR PRN PRN Reason: Pain 1 to 4, or Fever Last Admin: 07/15/22 14:49 Dose: 650 mg Amlodipine Besylate (Amlodipine 5 Mg Tablet) 10 mg PO DAILY [facility] Last Admin: 07/15/22 08:47 Dose: 10 mg Carvedilol (Carvedilol 3.125 Mg Tablet) 6.25 mg PO BID [facility] Last Admin: 07/15/22 08:47 Dose: 6.25 mg Cholecalciferol (Cholecalciferol 25 Mcg Tablet) 25 mcg PO DAILY [facility] Last Admin: 07/15/22 08:46 Dose: 25 mcg Folic Acid (Folic Acid 1 Mg Tablet) 1 mg PO DAILY [facility] Sodium Chloride (Normal Saline 0.9%) 1,000 mls @ 75 mls/hr IV .[id number] [facility] Last Admin: 07/15/22 14:40 Dose: 75 mls/hr Piperacillin Sod/Tazobactam (Sod 4.5 gm/ Sodium Chloride) 100 mls @ 25 mls/hr IV Q8H [facility] Last Infusion: 07/15/22 17:15 Dose: Infused Lamotrigine (Lamotrigine 100 Mg Tablet) 100 mg PO BID [facility] Last Admin: 07/15/22 08:47 Dose: 100 mg Lorazepam (Lorazepam 0.5 Mg Tablet) 0.5 mg PO Q6H PRN PRN Reason: Anxiety Magnesium Oxide (Magnesium Oxide 400 Mg Tablet) 400 mg PO DAILY [facility] Last Admin: 07/15/22 08:48 Dose: 400 mg Methocarbamol (Methocarbamol 500 Mg Tablet) 500 mg PO TID PRN PRN Reason: Spasms Last Admin: 07/15/22 16:01 Dose: 500 mg Morphine Sulfate (Morphine Sulfate Er 30 Mg Tablet) 30 mg PO BID [facility] Last Admin: 07/15/22 10:02 Dose: 30 mg Ondansetron HCl (Ondansetron Odt 4 Mg Tablet) 4 mg TL Q6H PRN PRN Reason: Nausea / Vomiting Last Admin: 07/15/22 01:49 Dose: 4 mg Ondansetron HCl (Ondansetron 4 Mg/2 Ml Vial) 4 mg IVP Q6HR PRN PRN Reason: Nausea / Vomiting Oxycodone HCl (Oxycodone 5 Mg Tablet) 5 mg PO Q4H PRN PRN Reason: MODERATE PAIN Last Admin: 07/15/22 16:01 Dose: 5 mg Pantoprazole Sodium (Pantoprazole 40 Mg Tablet) 40 mg PO DAILY [facility] Last Admin: 07/15/22 08:47 Dose: 40 mg Phytonadione (Vit K1 ) [Vitamin K] 100 Mcg Tablet 1 each PO DAILY [facility] Sodium Chloride (Sodium Chloride Flush 0.9% 10 Ml Syringe) 10 ml IVP PRN PRN PRN Reason: NEEDED PER PROVIDER ORDERS Sodium Chloride (Sodium Chloride Flush 0.9% 10 Ml Syringe) 10 ml IVP 0100,0900,1700 [facility] Last Admin: 07/15/22 16:02 Dose: 10 ml Ursodiol (Ursodiol 250 Mg Tablet) 500 mg PO TID [facility] Last Admin: 07/15/22 13:08 Dose: 500 mg Vancomycin HCl (Vancomycin: Pharmacy To Dose) 1 each MC ONCE PRN PRN Reason: PER PHARMACY oxyCODONE [Roxicodone] 5 mg PO TID PRN 10/18/17 ursodioL [Juju 250] 500 mg PO TID 10/18/17 Carvedilol [Coreg] 6.25 mg PO BID 06/18/18 amLODIPine [Norvasc] 10 mg PO DAILY 07/31/19 Morphine Sulfate ER [Ms Contin] 30 mg PO BID 06/12/20 Phytonadione (Vit K1) [Vitamin K] 100 mcg PO DAILY 06/12/20 lamoTRIgine [Subvenite] 100 mg PO BID 06/12/20 methocarbamoL [Methocarbamol] 500 mg PO TID PRN 06/12/20 Amoxicillin 1,000 mg PO Q8H 07/15/22 Cholecalciferol (Vitamin D3) [Vitamin D3] 1,000 unit PO DAILY 07/15/22 Folic Acid 1 mg PO DAILY 07/15/22 Magnesium Oxide [Magnesium] 500 mg PO DAILY 07/15/22 Prochlorperazine Maleate 10 mg PO DAILY PRN 07/15/22 Tadalafil [Cialis] 5 mg PO DAILY 07/15/22 Objective - Vital Signs/Intake & Output Reviewed Vital Signs: Yes Vital Signs: Vital Signs x48h Temp Pulse Resp BP Pulse Ox 07/15/22 16:00 37.6 C 84 20 108/59 L 94 07/15/22 14:45 39.4 C H 89 18 113/58 L 93 07/15/22 14:39 39.4 C H 89 18 113/58 L 93 07/15/22 14:15 37.7 C 85 18 104/59 L 93 Intake & Output: Intake & Output 07/12/22 07/13/22 07/14/22 07/15/22 23:59 23:59 23:59 23:59 Intake Total 1100 2915 Balance 1100 2915 - Objective General Appearance: positive: Alert, Other (Fatigued appearing middle-aged male) Eyes Bilateral: positive: PERRL, EOMI ENT: positive: No signs of dehydration Neck: positive: No JVD. negative: Stiff neck (Spiking a Temp. He Had a Fever of 39 or More between 4:30 in the Morning and 6:30 in the Morning. Started Having Another Fever at 2:30 in the Afternoon until about 3 in the Afternoon.Both seem to be associated with platelet infusion. But no rigors, no other reaction) Respiratory: positive: No respiratory distress. negative: Wheezes, Rales, Rhonchi Cardiovascular: positive: Regular rate & rhythm Abdomen: positive: Non-tender, No organomegaly, Nml bowel sounds, No distention Skin: positive: No rash, Warm, Dry Extremities: positive: Full ROM, No pedal edema Neurologic/Psychiatric: positive: Oriented x3, CN's nml (2-12), Motor nml - Lab Results Fish Bones: 07/15/22 17:12 07/15/22 05:30 Other Labs: Lab Results x24hrs 07/15/22 07/15/2223 Range/Units 05:30 05:30 22:30 WBC 0.7 L* (4.8-10.8) x10^3/uL RBC 3.28 L (4.70-6.10) 10^6/uL Hgb 9.9 L (14.0-18.0) g/dL Hct 31.6 L (42.0-52.0) % MCV 96.3 H (80.0-94.0) fL MCH 30.2 (27.0-31.0) pg MCHC 31.3 L (32.0-36.0) g/dL RDW 15.4 H (12.0-15.0) % Plt Count 17 L* (130-450) 10^3/uL MPV 11.5 H (7.4-11.4) fL Neut # (Auto) Not Reportable Lymph # (Auto) Not Reportable Kerr # (Auto) Not Reportable Eos # (Auto) Not Reportable Baso # (Auto) Not Reportable Absolute Nucleated RBC Not Reportable Total Counted 50 Band Neuts % (Manual) 0 (0 - 10) % Reactive Lymphs % (Man) % Abnorm Lymph % (Manual) 0 % Metamyelocytes % ( - 0) % Nucleated RBC % Not Reportable Neutrophils # (Manual) 0.2 L* (1.5-6.6) 10^3/uL Lymphocytes # (Manual) 0.2 L (1.5-3.5) 10^3/uL Monocytes # (Manual) 0.3 (0.0-1.0) 10^3/uL Eosinophils # (Manual) 0.0 (0-0.7) 10^3/uL Basophils # (Manual) 0.0 (0-0.1) 10^3/uL Nucleated RBCs % Differential Comment MANUAL DIFFERENTIAL Platelet Estimate DECREASED (<130,000) (NORMAL) Platelet Morphology (NORMAL) RBC Morph Micro Appear NORMAL APPEARANCE (NORMAL) Sodium 134 L (135-145) mmol/L Potassium 4.0 (3.5-5.0) mmol/L Chloride 99 L (101-111) mmol/L Carbon Dioxide 25 (21-32) mmol/L Anion Gap 10.0 (6-13) BUN 24 H (6-20) mg/dL Creatinine 1.4 H (0.6-1.2) mg/dL Estimated GFR (MDRD) 51 L (>89) Glucose 150 H (70-100) mg/dL Estimat Average Glucose (70-100) mg/dL Hemoglobin A1c % (4.27-6.07) % Lactic Acid (0.5-2.2) mmol/L Calcium 8.2 L (8.5-10.3) mg/dL Total Bilirubin (0.2-1.0) mg/dL AST (10-42) IU/L ALT (10-60) IU/L Alkaline Phosphatase (42-121) IU/L Total Protein (6.7-8.2) g/dL Albumin (3.2-5.5) g/dL Globulin (2.1-4.2) g/dL Albumin/Globulin Ratio (1.0-2.2) Lipase (22-51) U/L Urine Color Urine Clarity (CLEAR) Urine pH (5.0-7.5) PH Ur Specific Elwin (1.002-1.030) Urine Protein (NEGATIVE) mg/dL Urine Glucose (UA) (NEGATIVE) mg/dL Urine Ketones (NEGATIVE) mg/dL Urine Occult Blood (NEGATIVE) Urine Nitrite (NEGATIVE) Urine Bilirubin (NEGATIVE) Urine Urobilinogen (NORMAL) E.U./dL Ur Leukocyte Esterase (NEGATIVE) Urine RBC (0-5) /HPF Urine WBC (0-3) /HPF Ur Squamous Epith Cells (<= Few) Amorphous Sediment /LPF Urine Bacteria (None Seen) /HPF Ur Microscopic Review Urine Culture Comments Nasal Adenovirus (PCR) Nasal B. parapertussis DNA (PCR) Nasal Coronavir 229E PCR Nasal Coronavir HKU1 PCR Nasal Coronavir NL63 PCR Nasal Coronavir OC43 PCR Nasal Enterovir/Rhinovir PCR Nasal Influenza B PCR Nasal Influenza A PCR Nasal Parainfluen 1 PCR Nasal Parainfluen 2 PCR Nasal Parainfluen 3 PCR Nasal Parainfluen 4 PCR Nasal RSV (PCR) Nasal B.pertussis DNA PCR Nasal C.pneumoniae (PCR) Juan Jose Human Metapneumo PCR Nasal M.pneumoniae (PCR) Nasal SARS-CoV-2 (PCR) Blood Type O POSITIVE 07/14/22 07/14/22 07/14/22 Range/Units 21:00 21:00 21:00 WBC 0.7 L* (4.8-10.8) x10^3/uL RBC 3.40 L (4.70-6.10) 10^6/uL Hgb 10.5 L (14.0-18.0) g/dL Hct 31.9 L (42.0-52.0) % MCV 93.8 (80.0-94.0) fL MCH 30.9 (27.0-31.0) pg MCHC 32.9 (32.0-36.0) g/dL RDW 15.1 H (12.0-15.0) % Plt Count 11 L* (130-450) 10^3/uL MPV 12.8 H (7.4-11.4) fL Neut # (Auto) Not Reportable Lymph # (Auto) Not Reportable Kerr # (Auto) Not Reportable Eos # (Auto) Not Reportable Baso # (Auto) Not Reportable Absolute Nucleated RBC Not Reportable Total Counted 100 Band Neuts % (Manual) 3 (0 - 10) % Reactive Lymphs % (Man) 30 % Abnorm Lymph % (Manual) 0 % Metamyelocytes % 1 H ( - 0) % Nucleated RBC % Not Reportable Neutrophils # (Manual) 0.1 L* (1.5-6.6) 10^3/uL Lymphocytes # (Manual) 0.3 L (1.5-3.5) 10^3/uL Monocytes # (Manual) 0.3 (0.0-1.0) 10^3/uL Eosinophils # (Manual) 0.0 (0-0.7) 10^3/uL Basophils # (Manual) 0.0 (0-0.1) 10^3/uL Nucleated RBCs 2 % Differential Comment MANUAL DIFFERENTIAL Platelet Estimate DECREASED (<130,000) (NORMAL) Platelet Morphology NORMAL APPEARANCE (NORMAL) RBC Morph Micro Appear 1+ POLYCHROMASIA (NORMAL) Sodium 130 L (135-145) mmol/L Potassium 4.2 (3.5-5.0) mmol/L Chloride 97 L (101-111) mmol/L Carbon Dioxide 23 (21-32) mmol/L Anion Gap 10.0 (6-13) BUN 24 H (6-20) mg/dL Creatinine 1.5 H (0.6-1.2) mg/dL Estimated GFR (MDRD) 47 L (>89) Glucose 171 H (70-100) mg/dL Estimat Average Glucose (70-100) mg/dL Hemoglobin A1c % (4.27-6.07) % Lactic Acid 1.4 (0.5-2.2) mmol/L Calcium 8.3 L (8.5-10.3) mg/dL Total Bilirubin 1.3 H (0.2-1.0) mg/dL AST 34 (10-42) IU/L ALT 37 (10-60) IU/L Alkaline Phosphatase 125 H (42-121) IU/L Total Protein 5.6 L (6.7-8.2) g/dL Albumin 3.4 (3.2-5.5) g/dL Globulin 2.2 (2.1-4.2) g/dL Albumin/Globulin Ratio 1.5 (1.0-2.2) Lipase 27 (22-51) U/L Urine Color Urine Clarity (CLEAR) Urine pH (5.0-7.5) PH Ur Specific Elwin (1.002-1.030) Urine Protein (NEGATIVE) mg/dL Urine Glucose (UA) (NEGATIVE) mg/dL Urine Ketones (NEGATIVE) mg/dL Urine Occult Blood (NEGATIVE) Urine Nitrite (NEGATIVE) Urine Bilirubin (NEGATIVE) Urine Urobilinogen (NORMAL) E.U./dL Ur Leukocyte Esterase (NEGATIVE) Urine RBC (0-5) /HPF Urine WBC (0-3) /HPF Ur Squamous Epith Cells (<= Few) Amorphous Sediment /LPF Urine Bacteria (None Seen) /HPF Ur Microscopic Review Urine Culture Comments Nasal Adenovirus (PCR) Nasal B. parapertussis DNA (PCR) Nasal Coronavir 229E PCR Nasal Coronavir HKU1 PCR Nasal Coronavir NL63 PCR Nasal Coronavir OC43 PCR Nasal Enterovir/Rhinovir PCR Nasal Influenza B PCR Nasal Influenza A PCR Nasal Parainfluen 1 PCR Nasal Parainfluen 2 PCR Nasal Parainfluen 3 PCR Nasal Parainfluen 4 PCR Nasal RSV (PCR) Nasal B.pertussis DNA PCR Nasal C.pneumoniae (PCR) Juan Jose Human Metapneumo PCR Nasal M.pneumoniae (PCR) Nasal SARS-CoV-2 (PCR) Blood Type 07/14/22 07/14/22 07/14/22 Range/Units 20:55 20:45 20:45 WBC (4.8-10.8) x10^3/uL RBC (4.70-6.10) 10^6/uL Hgb (14.0-18.0) g/dL Hct (42.0-52.0) % MCV (80.0-94.0) fL MCH (27.0-31.0) pg MCHC (32.0-36.0) g/dL RDW (12.0-15.0) % Plt Count (130-450) 10^3/uL MPV (7.4-11.4) fL Neut # (Auto) Lymph # (Auto) Kerr # (Auto) Eos # (Auto) Baso # (Auto) Absolute Nucleated RBC Total Counted Band Neuts % (Manual) (0 - 10) % Reactive Lymphs % (Man) % Abnorm Lymph % (Manual) % Metamyelocytes % ( - 0) % Nucleated RBC % Neutrophils # (Manual) (1.5-6.6) 10^3/uL Lymphocytes # (Manual) (1.5-3.5) 10^3/uL Monocytes # (Manual) (0.0-1.0) 10^3/uL Eosinophils # (Manual) (0-0.7) 10^3/uL Basophils # (Manual) (0-0.1) 10^3/uL Nucleated RBCs % Differential Comment Platelet Estimate (NORMAL) Platelet Morphology (NORMAL) RBC Morph Micro Appear (NORMAL) Sodium (135-145) mmol/L Potassium (3.5-5.0) mmol/L Chloride (101-111) mmol/L Carbon Dioxide (21-32) mmol/L Anion Gap (6-13) BUN (6-20) mg/dL Creatinine (0.6-1.2) mg/dL Estimated GFR (MDRD) (>89) Glucose (70-100) mg/dL Estimat Average Glucose 85 (70-100) mg/dL Hemoglobin A1c % 4.6 (4.27-6.07) % Lactic Acid (0.5-2.2) mmol/L Calcium (8.5-10.3) mg/dL Total Bilirubin (0.2-1.0) mg/dL AST (10-42) IU/L ALT (10-60) IU/L Alkaline Phosphatase (42-121) IU/L Total Protein (6.7-8.2) g/dL Albumin (3.2-5.5) g/dL Globulin (2.1-4.2) g/dL Albumin/Globulin Ratio (1.0-2.2) Lipase (22-51) U/L Urine Color YELLOW Urine Clarity HAZY (CLEAR) Urine pH 6.0 (5.0-7.5) PH Ur Specific Elwin 1.015 (1.002-1.030) Urine Protein 30 H (NEGATIVE) mg/dL Urine Glucose (UA) NEGATIVE (NEGATIVE) mg/dL Urine Ketones NEGATIVE (NEGATIVE) mg/dL Urine Occult Blood TRACE-INTA (NEGATIVE) Urine Nitrite NEGATIVE (NEGATIVE) Urine Bilirubin NEGATIVE (NEGATIVE) Urine Urobilinogen 0.2 (NORMAL) (NORMAL) E.U./dL Ur Leukocyte Esterase NEGATIVE (NEGATIVE) Urine RBC 0-5 (0-5) /HPF Urine WBC 0-3 (0-3) /HPF Ur Squamous Epith Cells NONE SEEN (<= Few) Amorphous Sediment Few /LPF Urine Bacteria Rare (None Seen) /HPF Ur Microscopic Review INDICATED Urine Culture Comments NOT INDICATED Nasal Adenovirus (PCR) NOT DETECTED Nasal B. parapertussis DNA (PCR) NOT DETECTED Nasal Coronavir 229E PCR NOT DETECTED Nasal Coronavir HKU1 PCR NOT DETECTED Nasal Coronavir NL63 PCR NOT DETECTED Nasal Coronavir OC43 PCR NOT DETECTED Nasal Enterovir/Rhinovir PCR NOT DETECTED Nasal Influenza B PCR NOT DETECTED Nasal Influenza A PCR NOT DETECTED Nasal Parainfluen 1 PCR NOT DETECTED Nasal Parainfluen 2 PCR NOT DETECTED Nasal Parainfluen 3 PCR NOT DETECTED Nasal Parainfluen 4 PCR NOT DETECTED Nasal RSV (PCR) NOT DETECTED Nasal B.pertussis DNA PCR NOT DETECTED Nasal C.pneumoniae (PCR) NOT DETECTED Juan Jose Human Metapneumo PCR NOT DETECTED Nasal M.pneumoniae (PCR) NOT DETECTED Nasal SARS-CoV-2 (PCR) NOT DETECTED Blood Type ABX Reporting Has patient been on IV antibiotics over the past 48 hours?: Yes Assessment/Plan - Problem List (1) Neutropenic fever Impression: Unusual case. 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 That resulted in permanent antibiotic usage from December 2017 till now. He is followed carefully by his oncologist at the [facility]. And about every 6 months to every year by his infectious disease attending at [facility] the [facility]. Unfortunately the hospitalist on-call today was not really helpful. He suggested adding vancomycin which I will do so. But he says that he has no access to the chart. He was driving in the car. If he really had questions we should call the ID office on Sunday morning. The patient now presents with fever. My first thought is that of a reinfected stent or aorta or endocarditis. Blood cultures have been done but will be pending for the next 24 to 48 hours. Urinalysis is negative. Chest x-ray is negative. CT of the abdomen does not indicate anything other than the stents. No vegetations, etc. Plan: Continue Zosyn. Add vancomycin. Adjust antibiotics on the basis of culture (2) Pancytopenia Impression: Of many years duration. These platelets are the lowest they have been in a very long time however. He does not require transfusion. He is usually transfused for his platelets when he is 15 or below. With the fever the transfusion threshold is even lower. He does have quite a bit of antibodies and as such transfusing and platelets is difficult. At this point I cannot tell of the fever he has is from infection or because reaction to the platelets. He does not have any rigors or any other transfusion reaction. With no active signs of bleeding, I will hold off on transfusion. I will talk to oncology again tomorrow.
[2022-07-15] MEDS: LORazepam 0.5 MG TABLET PO PRN (17:54)
[2022-07-15 18:03] LABS: DIFFERENTIAL COMMENT MANUAL=AUTO DIFF; PLATELET ESTIMATE, MANUAL DECREASED (<130,000) (NORMAL); PLATELET MORPHOLOGY NORMAL APPEARANCE (NORMAL)
[2022-07-15] MEDS ORDERED: VANCOMYCIN INJ 2 GM in SODIUM CHLORIDE 0.9% 500 ML IV ONE (19:00)
[2022-07-16] MEDS: oxyCODONE 5 MG TABLET PO PRN ×4 (00:59→22:17)
[2022-07-16] MEDS: methocarbamoL 500 MG TABLET PO PRN ×2 (00:59→23:31)
[2022-07-16] MEDS: LORazepam 0.5 MG TABLET PO PRN ×2 (01:00→23:31)
[2022-07-16] MEDS: SODIUM CHLORIDE FLUSH 0.9% 10 ML SYRINGE IVP SCH ×3 (03:56→18:25)
[2022-07-16] MEDS: PIPERACILLIN/TAZOBACTAM 4.5 GM in SODIUM CHLORIDE 0.9% MINIBAG 100 ML IV SCH ×3 (03:56→18:16)
[2022-07-16] MEDS: ACETAMINOPHEN 325 MG TABLET PO PRN ×5 (05:49→23:31)
[2022-07-16] MEDS ORDERED: VANCOMYCIN INJ 1.5 GM in SODIUM CHLORIDE 0.9% 500 ML IV SCH (07:00)
[2022-07-16] MEDS: SODIUM CHLORIDE 0.9% 1,000 ML IV SCH ×2 (08:07→22:00)
[2022-07-16] MEDS: VANCOMYCIN INJ 1 GM, VANCOMYCIN INJ 500 MG in SODIUM CHLORIDE 0.9% 500 ML IV SCH ×2 (08:11→20:41)
[2022-07-16] MEDS: carvediloL 3.125 MG TABLET PO SCH ×2 (08:37→20:42)
[2022-07-16] MEDS: MAGNESIUM OXIDE 400 MG TABLET PO SCH (08:38)
[2022-07-16] MEDS: FOLIC ACID 1 MG TABLET PO SCH (08:38)
[2022-07-16] MEDS: PANTOPRAZOLE 40 MG TABLET PO SCH (08:38)
[2022-07-16] MEDS: lamoTRIgine 100 MG TABLET PO SCH ×2 (08:38→20:42)
[2022-07-16] MEDS: amLODIPine 5 MG TABLET PO SCH (08:39)
[2022-07-16] MEDS: MORPHINE SULFATE ER 30 MG TABLET PO SCH ×2 (08:39→20:42)
[2022-07-16] MEDS: CHOLECALCIFEROL 25 MCG TABLET PO SCH (08:39)
[2022-07-16] MEDS ORDERED: PHYTONADIONE 100 MCG PO SCH (09:00)
[2022-07-16] MEDS ORDERED: CHOLECALCIFEROL 25 MCG TABLET PO SCH (09:00)
[2022-07-16] MEDS: PHYTONADIONE 100 MCG PO SCH (13:26)
--- NOTE | 2022-07-16 13:59 | PHARMACY PROGRESS NOTE ---
- Therapy Status Vancomycin regimen day #: 2 Therapy status: Awaiting steady state Basis for treatment: Empirical Treatment indication: neutropenic fever, history of endocarditis/aortitis Trough goal: 15-20 Concurrent antibiotics: zosyn - COLLINS Risk Risk level for Acute Kidney Injury: High Acute Kidney Injury risk factors: Piperacillin/Tozobactam, Wt >100kg or BMI >40, Goal trough >15 - Monitoring and Recommendation Clinical response to treatment: I&O Previous 24 hours 07/14/22 07/15/22 07/16/22 23:59 23:59 23:59 Intake Total 1100 4641.667 1223.333 Balance 1100 4641.667 1223.333 Lab Results 07/15/22 07/14/22 05:30 21:00 BUN 24 H 24 H Creatinine 1.4 H 1.5 H Estimated GFR (MDRD) 51 L 47 L Cultures 07/14/22 22:20 Blood - Left Hand Blood Culture - Preliminary NO GROWTH AFTER 1 DAY 07/14/22 22:18 Blood - Right Arm Blood Culture - Preliminary NO GROWTH AFTER 1 DAY Monitoring plan: Daily serum creatinine Next trough due prior to maintenance dose #: 5 Next trough due (date/time): 07/18/22 @0730 Areas for additional monitoring: IV to PO when appropriate, Therapy de- escalation based on culture results, Acute Kidney Injury Pharmacy recommendation: Continue current regime
--- NOTE | 2022-07-16 18:12 | PROVIDER PROGRESS NOTE ---
Subjective - Prog Note Date Prog Note Date: 07/16/22 Prog Note Time: 18:09 - Subjective Pt reports feeling: No change Subjective: He is very unhappy because he wants to get oxycodone at least 3 times a day. I shared with him that I have ordered oxycodone 5 mg every 4 hours as needed so he could technically get oxycodone up to 6 times a day. He wanted to know why he was not getting it 6 times a day. He then instructed me and the nurse that he wanted to be woken up in the middle the night to be able to get the 5 mg of oxycodone. He also wanted an extra sleeper in addition to the Ativan every 6 hours as needed. He denies any fever, chills, cough, shortness of breath. He is ambulating by himself to go to the bathroom and getting back in bed. Appetite is stable. Current Medications - Current Medications Current Medications: Active Medications Acetaminophen (Acetaminophen 325 Mg Tablet) 650 mg PO Q4HR PRN PRN Reason: Pain 1 to 4, or Fever Last Admin: 07/16/22 14:50 Dose: 650 mg Amlodipine Besylate (Amlodipine 5 Mg Tablet) 10 mg PO DAILY [facility] Last Admin: 07/16/22 08:39 Dose: Not Given Carvedilol (Carvedilol 3.125 Mg Tablet) 6.25 mg PO BID [facility] Last Admin: 07/16/22 08:37 Dose: 6.25 mg Cholecalciferol (Cholecalciferol 25 Mcg Tablet) 25 mcg PO DAILY [facility] Last Admin: 07/16/22 08:39 Dose: 25 mcg Folic Acid (Folic Acid 1 Mg Tablet) 1 mg PO DAILY [facility] Last Admin: 07/16/22 08:38 Dose: 1 mg Sodium Chloride (Normal Saline 0.9%) 1,000 mls @ 75 mls/hr IV .[id number] [facility] Last Admin: 07/16/22 08:07 Dose: 75 mls/hr Vancomycin HCl 1 gm/Vancomycin HCl 500 mg/ Sodium Chloride 500 mls @ 250 mls/hr IV Q12H [facility] Last Infusion: 07/16/22 10:17 Dose: Infused Piperacillin Sod/Tazobactam (Sod 4.5 gm/ Sodium Chloride) 100 mls @ 200 mls/hr IV Q6HR [facility] Last Infusion: 07/16/22 14:45 Dose: Infused Lamotrigine (Lamotrigine 100 Mg Tablet) 100 mg PO BID [facility] Last Admin: 07/16/22 08:38 Dose: 100 mg Lorazepam (Lorazepam 0.5 Mg Tablet) 0.5 mg PO Q6H PRN PRN Reason: Anxiety Last Admin: 07/16/22 01:00 Dose: 0.5 mg Magnesium Oxide (Magnesium Oxide 400 Mg Tablet) 400 mg PO DAILY [facility] Last Admin: 07/16/22 08:38 Dose: 400 mg Methocarbamol (Methocarbamol 500 Mg Tablet) 500 mg PO TID PRN PRN Reason: Spasms Last Admin: 07/16/22 00:59 Dose: 500 mg Morphine Sulfate (Morphine Sulfate Er 30 Mg Tablet) 30 mg PO BID [facility] Last Admin: 07/16/22 08:39 Dose: 30 mg Ondansetron HCl (Ondansetron Odt 4 Mg Tablet) 4 mg TL Q6H PRN PRN Reason: Nausea / Vomiting Last Admin: 07/15/22 01:49 Dose: 4 mg Ondansetron HCl (Ondansetron 4 Mg/2 Ml Vial) 4 mg IVP Q6HR PRN PRN Reason: Nausea / Vomiting Oxycodone HCl (Oxycodone 5 Mg Tablet) 5 mg PO Q4H PRN PRN Reason: MODERATE PAIN Last Admin: 07/16/22 17:57 Dose: 5 mg Pantoprazole Sodium (Pantoprazole 40 Mg Tablet) 40 mg PO DAILY [facility] Last Admin: 07/16/22 08:38 Dose: 40 mg Phytonadione (Vit K1 ) [Vitamin K] 100 Mcg Tablet 1 each PO DAILY [facility] Last Admin: 07/16/22 13:26 Dose: 1 each Sodium Chloride (Sodium Chloride Flush 0.9% 10 Ml Syringe) 10 ml IVP PRN PRN PRN Reason: NEEDED PER PROVIDER ORDERS Sodium Chloride (Sodium Chloride Flush 0.9% 10 Ml Syringe) 10 ml IVP 0100,0900,1700 [facility] Last Admin: 07/16/22 08:19 Dose: Not Given Ursodiol (Ursodiol 250 Mg Tablet) 500 mg PO TID [facility] Last Admin: 07/16/22 13:26 Dose: 500 mg oxyCODONE [Roxicodone] 5 mg PO TID PRN 10/18/17 ursodioL [Juju 250] 500 mg PO TID 10/18/17 Carvedilol [Coreg] 6.25 mg PO BID 06/18/18 amLODIPine [Norvasc] 10 mg PO DAILY 07/31/19 Morphine Sulfate ER [Ms Contin] 30 mg PO BID 06/12/20 Phytonadione (Vit K1) [Vitamin K] 100 mcg PO DAILY 06/12/20 lamoTRIgine [Subvenite] 100 mg PO BID 06/12/20 methocarbamoL [Methocarbamol] 500 mg PO TID PRN 06/12/20 Amoxicillin 1,000 mg PO Q8H 07/15/22 Cholecalciferol (Vitamin D3) [Vitamin D3] 1,000 unit PO DAILY 07/15/22 Folic Acid 1 mg PO DAILY 07/15/22 Magnesium Oxide [Magnesium] 500 mg PO DAILY 07/15/22 Prochlorperazine Maleate 10 mg PO DAILY PRN 07/15/22 Tadalafil [Cialis] 5 mg PO DAILY 07/15/22 Objective - Vital Signs/Intake & Output Reviewed Vital Signs: Yes Vital Signs: Vital Signs x48h Temp 07/16/22 13:04 37.9 C Intake & Output: Intake & Output 07/13/22 07/14/22 07/15/22 07/16/22 23:59 23:59 23:59 23:59 Intake Total 1100 4641.667 2123.333 Balance 1100 4641.667 2123.333 - Objective General Appearance: positive: Alert, Other (Moderately overweight disheveled white male. Looks fatigued. Speech is lucid, fast and pressured, no shortness of breath with this. Able to gesticulate with his arms up and down, uses hands for punctuation without any tachypnea or respiratory distress) Eyes Bilateral: positive: PERRL Neck: positive: No JVD, Stiff neck Respiratory: positive: No respiratory distress. negative: Wheezes, Rales, Rhonchi Cardiovascular: positive: Regular rate & rhythm Abdomen: positive: Non-tender, No organomegaly, Nml bowel sounds, No distention, Other (Large pannus) Skin: positive: Warm, Dry Extremities: positive: Full ROM, No pedal edema Neurologic/Psychiatric: positive: Oriented x3, CN's nml (2-12), Motor nml - Lab Results Fish Bones: 07/15/22 17:12 07/15/22 05:30 ABX Reporting Has patient been on IV antibiotics over the past 48 hours?: Yes Assessment/Plan - Problem List (1) Neutropenic fever Impression: Unusual case. 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 That resulted in permanent antibiotic usage from December 2017 till now. He is followed carefully by his oncologist at the [facility]. And about every 6 months to every year by his infectious disease attending at [facility] at the [facility]. Unfortunately the hospitalist on-call 07/15 was not really helpful. He suggested adding vancomycin which I will do so. But he says that he has no access to the chart. He was driving in the car. If he really had questions we should call the ID office on Sunday morning. The patient has had fever up until midnight last night. Some of his fevers coincided with platelets. So is the fever from the platelets or the fever from infection? Differential includes reinfected stent or aorta or endocarditis. Blood cultures are negative at 24 hours. Urinalysis is negative. Chest x-ray is negative. CT of the abdomen does not indicate anything other than the stents. No vegetations, etc. Plan: Continue Zosyn day 3 Added vancomycin Day #2. Today he has had no fever off of platelets. I have deferred transfusing for that reason. I will call infectious disease again tomorrow. And also speak to his oncologist. (2) Pancytopenia Impression: Of many years duration. These platelets are the lowest they have been in a very long time however. He does not require transfusion. He is usually transfused for his platelets when he is 15 or below. With the fever the transfusion threshold is even lower. He does have quite a bit of antibodies and as such transfusing and platelets is difficult. At this point I cannot tell of the fever he has is from infection or because reaction to the platelets. He does not have any rigors or any other transfusion reaction. With no active signs of bleeding, I will hold off on transfusion. (3) Undifferentiated joint pain I declined having him woken up every 4 hours to give him his pain medicines. 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 I told him that the nurses will assess his pain while he is awake. His response is to say that he will set the alarm to wake himself up so we can get his oxycodone every 4 hours. I will continue Ativan every 6 hours as needed for anxiety. He goes on to state that doctors are being conned. That [facility] laws are too stringent and that we should be liberally giving more pain medicines to patients like him who ask for it.
[2022-07-17] MEDS: PIPERACILLIN/TAZOBACTAM 4.5 GM in SODIUM CHLORIDE 0.9% MINIBAG 100 ML IV SCH ×4 (00:15→20:32)
[2022-07-17] MEDS: SODIUM CHLORIDE FLUSH 0.9% 10 ML SYRINGE IVP SCH ×3 (01:18→17:56)
[2022-07-17] MEDS: oxyCODONE 5 MG TABLET PO PRN ×3 (02:20→13:40)
[2022-07-17] MEDS: ACETAMINOPHEN 325 MG TABLET PO PRN ×4 (03:59→21:31)
[2022-07-17] MEDS: PANTOPRAZOLE 40 MG TABLET PO SCH (08:02)
[2022-07-17] MEDS: LORazepam 0.5 MG TABLET PO PRN ×2 (08:02→13:40)
[2022-07-17] MEDS: CHOLECALCIFEROL 25 MCG TABLET PO SCH (08:03)
[2022-07-17] MEDS: carvediloL 3.125 MG TABLET PO SCH ×2 (08:03→21:32)
[2022-07-17] MEDS: lamoTRIgine 100 MG TABLET PO SCH ×2 (08:03→21:32)
[2022-07-17] MEDS: MORPHINE SULFATE ER 30 MG TABLET PO SCH ×2 (08:03→21:32)
[2022-07-17] MEDS: FOLIC ACID 1 MG TABLET PO SCH (08:03)
[2022-07-17] MEDS: MAGNESIUM OXIDE 400 MG TABLET PO SCH (08:04)
[2022-07-17] MEDS: VANCOMYCIN INJ 1 GM, VANCOMYCIN INJ 500 MG in SODIUM CHLORIDE 0.9% 500 ML IV SCH (08:04)
[2022-07-17] MEDS: amLODIPine 5 MG TABLET PO SCH (08:04)
[2022-07-17] MEDS: PHYTONADIONE 100 MCG PO SCH (08:05)
[2022-07-17 08:09] LABS: HCT - HEMATOCRIT 25.6 % (42.0-52.0); HGB - HEMOGLOBIN 8.1 g/dL (14.0-18.0); LYMPHOCYTES % (AUTO) 55.3 %; MEAN CORPUSCULAR HEMOGLOBIN 30.2 pg (27.0-31.0); MEAN CORPUSCULAR HGB CONC 31.6 g/dL (32.0-36.0); MEAN CORPUSCULAR VOLUME 95.5 fL (80.0-94.0); MONOCYTES % (AUTO) 23.4 %; NEUTROPHILS % (AUTO) 14.9 %; RED BLOOD COUNT 2.68 10^6/uL (4.70-6.10); RED CELL DISTRIBUTION WIDTH 15.7 % (12.0-15.0)
[2022-07-17 08:19] LABS: CALCIUM 7.2 mg/dL (8.5-10.3); CREATININE 1.6 mg/dL (0.6-1.2); POTASSIUM 4.1 mmol/L (3.5-5.0)
[2022-07-17 08:21] LABS: PLT - PLATELET COUNT 8 10^3/uL (130-450); WHITE BLOOD COUNT 0.5 x10^3/uL (4.8-10.8)
[2022-07-17 08:22] LABS: ABNORMAL LYMPHS % (MANUAL) 0 %
[2022-07-17 08:47] LABS: BAND NEUTROPHILS % (MANUAL) 16 %; LYMPHOCYTES # (MANUAL) 0.2 10^3/uL (1.5-3.5); LYMPHOCYTES % (MANUAL) 24 %; MONOCYTES # (MANUAL) 0.2 10^3/uL (0.0-1.0); NEUTROPHILS # (MANUAL) 0.1 10^3/uL (1.5-6.6); NUCLEATED RBC (MANUAL) 1 %; REACTIVE LYMPHS % (MANUAL) 20 %
[2022-07-17 08:49] LABS: DIFFERENTIAL COMMENT MANUAL DIFFERENTIAL
[2022-07-17] MEDS: methocarbamoL 500 MG TABLET PO PRN (09:33)
--- NOTE | 2022-07-17 11:53 | PROVIDER PROGRESS NOTE ---
Subjective - Prog Note Date Prog Note Date: 07/17/22 Prog Note Time: 11:51 - Subjective Subjective: no change in undifferentiated all over or joint pain. Unfortunately still having fever even before I transfused platelets. NO cough, sob, chest pain. no new rash. NO diarrhea, no urgency. Current Medications - Current Medications Current Medications: Active Medications Acetaminophen (Acetaminophen 325 Mg Tablet) 650 mg PO Q4HR PRN PRN Reason: Pain 1 to 4, or Fever Last Admin: 07/17/22 08:02 Dose: 650 mg Amlodipine Besylate (Amlodipine 5 Mg Tablet) 10 mg PO DAILY [facility] Last Admin: 07/17/22 08:04 Dose: 10 mg Carvedilol (Carvedilol 3.125 Mg Tablet) 6.25 mg PO BID [facility] Last Admin: 07/17/22 08:03 Dose: 6.25 mg Cholecalciferol (Cholecalciferol 25 Mcg Tablet) 25 mcg PO DAILY [facility] Last Admin: 07/17/22 08:03 Dose: 25 mcg Folic Acid (Folic Acid 1 Mg Tablet) 1 mg PO DAILY [facility] Last Admin: 07/17/22 08:03 Dose: 1 mg Sodium Chloride (Normal Saline 0.9%) 1,000 mls @ 75 mls/hr IV .[id number] [facility] Last Admin: 07/16/22 22:00 Dose: 75 mls/hr Piperacillin Sod/Tazobactam (Sod 4.5 gm/ Sodium Chloride) 100 mls @ 200 mls/hr IV Q6HR [facility] Last Infusion: 07/17/22 06:46 Dose: Infused Vancomycin HCl 1 gm/Vancomycin HCl 500 mg/ Sodium Chloride 500 mls @ 250 mls/hr IV Q24H [facility] Lamotrigine (Lamotrigine 100 Mg Tablet) 100 mg PO BID [facility] Last Admin: 07/17/22 08:03 Dose: 100 mg Lorazepam (Lorazepam 0.5 Mg Tablet) 0.5 mg PO Q6H PRN PRN Reason: Anxiety Last Admin: 07/17/22 08:02 Dose: 0.5 mg Magnesium Oxide (Magnesium Oxide 400 Mg Tablet) 400 mg PO DAILY [facility] Last Admin: 07/17/22 08:04 Dose: 400 mg Methocarbamol (Methocarbamol 500 Mg Tablet) 500 mg PO TID PRN PRN Reason: Spasms Last Admin: 07/17/22 09:33 Dose: 500 mg Morphine Sulfate (Morphine Sulfate Er 30 Mg Tablet) 30 mg PO BID [facility] Last Admin: 07/17/22 08:03 Dose: 30 mg Ondansetron HCl (Ondansetron Odt 4 Mg Tablet) 4 mg TL Q6H PRN PRN Reason: Nausea / Vomiting Last Admin: 07/15/22 01:49 Dose: 4 mg Ondansetron HCl (Ondansetron 4 Mg/2 Ml Vial) 4 mg IVP Q6HR PRN PRN Reason: Nausea / Vomiting Oxycodone HCl (Oxycodone 5 Mg Tablet) 5 mg PO Q4H PRN PRN Reason: MODERATE PAIN Last Admin: 07/17/22 09:33 Dose: 5 mg Pantoprazole Sodium (Pantoprazole 40 Mg Tablet) 40 mg PO DAILY [facility] Last Admin: 07/17/22 08:02 Dose: 40 mg Phytonadione (Vit K1 ) [Vitamin K] 100 Mcg Tablet 1 each PO DAILY [facility] Last Admin: 07/17/22 08:05 Dose: 1 each Sodium Chloride (Sodium Chloride Flush 0.9% 10 Ml Syringe) 10 ml IVP PRN PRN PRN Reason: NEEDED PER PROVIDER ORDERS Sodium Chloride (Sodium Chloride Flush 0.9% 10 Ml Syringe) 10 ml IVP 0100,0900,1700 [facility] Last Admin: 07/17/22 01:18 Dose: 10 ml Ursodiol (Ursodiol 250 Mg Tablet) 500 mg PO TID [facility] Last Admin: 07/17/22 06:16 Dose: 500 mg oxyCODONE [Roxicodone] 5 mg PO TID PRN 10/18/17 ursodioL [Juju 250] 500 mg PO TID 10/18/17 Carvedilol [Coreg] 6.25 mg PO BID 06/18/18 amLODIPine [Norvasc] 10 mg PO DAILY 07/31/19 Morphine Sulfate ER [Ms Contin] 30 mg PO BID 06/12/20 Phytonadione (Vit K1) [Vitamin K] 100 mcg PO DAILY 06/12/20 lamoTRIgine [Subvenite] 100 mg PO BID 06/12/20 methocarbamoL [Methocarbamol] 500 mg PO TID PRN 06/12/20 Amoxicillin 1,000 mg PO Q8H 07/15/22 Cholecalciferol (Vitamin D3) [Vitamin D3] 1,000 unit PO DAILY 07/15/22 Folic Acid 1 mg PO DAILY 07/15/22 Magnesium Oxide [Magnesium] 500 mg PO DAILY 07/15/22 Prochlorperazine Maleate 10 mg PO DAILY [facility] 07/15/22 Tadalafil [Cialis] 5 mg PO DAILY 07/15/22 Objective - Vital Signs/Intake & Output Vital Signs: Vital Signs x48h Temp Pulse Resp BP Pulse Ox 07/17/22 08:00 38.6 C H 80 18 105/60 94 Intake & Output: Intake & Output 07/14/22 07/15/22 07/16/22 07/17/22 23:59 23:59 23:59 23:59 Intake Total 1100 4641.667 4123.333 440 Balance 1100 4641.667 4123.333 440 - Objective General Appearance: positive: Alert, Other (I am seeing him later in the afternoon. This is after I have made many phone calls to get him transferred. He seems sleepier, keeps on licking his lips because his lips are dry and his mouth feels dry.) Eyes Bilateral: positive: PERRL, EOMI ENT: positive: Dry mucous membranes Neck: positive: No JVD. negative: Stiff neck Respiratory: positive: No respiratory distress. negative: Wheezes, Rales, Rhonchi Cardiovascular: positive: Regular rate & rhythm, Systolic murmur Abdomen: positive: Non-tender, No organomegaly, Nml bowel sounds, No distention, Other (Protuberant overweight pannus) Skin: positive: Warm, Dry Extremities: positive: Full ROM, Pedal edema (Ankles and distal shins, 1+. It is not tight, there is no venous stasis, there is no open ulcers or wounds) Neurologic/Psychiatric: positive: Oriented x3, CN's nml (2-12), Motor nml (Walking in the hallways, Using a mask) - Lab Results Fish Bones: 07/17/22 08:00 07/17/22 08:00 Other Labs: Lab Results x24hrs 07/17/22 07/17/22 Range/Units 08:00 08:00 WBC 0.5 L* (4.8-10.8) x10^3/uL RBC 2.68 L (4.70-6.10) 10^6/uL Hgb 8.1 L (14.0-18.0) g/dL Hct 25.6 L (42.0-52.0) % MCV 95.5 H (80.0-94.0) fL MCH 30.2 (27.0-31.0) pg MCHC 31.6 L (32.0-36.0) g/dL RDW 15.7 H (12.0-15.0) % Plt Count 8 L* (130-450) 10^3/uL Neut # (Auto) Not Reportable Lymph # (Auto) Not Reportable Boyd # (Auto) Not Reportable Eos # (Auto) Not Reportable Baso # (Auto) Not Reportable Absolute Nucleated RBC Not Reportable Total Counted 50 Band Neuts % (Manual) 16 H (0 - 10) % Reactive Lymphs % (Man) 20 % Abnorm Lymph % (Manual) 0 % Nucleated RBC % Not Reportable Neutrophils # (Manual) 0.1 L* (1.5-6.6) 10^3/uL Lymphocytes # (Manual) 0.2 L (1.5-3.5) 10^3/uL Monocytes # (Manual) 0.2 (0.0-1.0) 10^3/uL Eosinophils # (Manual) 0.0 (0-0.7) 10^3/uL Basophils # (Manual) 0.0 (0-0.1) 10^3/uL Nucleated RBCs 1 % Differential Comment MANUAL DIFFERENTIAL RBC Morph Micro Appear 1+ STOMATOCYTES (NORMAL) Sodium 131 L (135-145) mmol/L Potassium 4.1 (3.5-5.0) mmol/L Chloride 103 (101-111) mmol/L Carbon Dioxide 23 (21-32) mmol/L Anion Gap 5.0 L (6-13) BUN 20 (6-20) mg/dL Creatinine 1.6 H (0.6-1.2) mg/dL Estimated GFR (MDRD) 44 L (>89) Glucose 128 H (70-100) mg/dL Calcium 7.2 L (8.5-10.3) mg/dL ABX Reporting Has patient been on IV antibiotics over the past 48 hours?: Yes Assessment/Plan - Problem List (1) Neutropenic fever Impression: Impression: Unusual case. 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 That resulted in permanent antibiotic usage from December 2017 till now. He is followed carefully by his oncologist at the [facility]. And, about every 6 months to every year, by his infectious disease attending at [facility] at the [facility]. I was able to get a hold of the on-call infectious disease person July 15. But he is a hospitalist who is on-call infectious disease. He said that he really did not know much about the patient and did not have much to offer. He was driving in his car and recommend that I just call infectious disease today. He did recommend that I add Zosyn. I was able to speak to infectious disease today. Dr. Power says that he knows the patient. Unfortunately, he has been unable to get records from for over a year. He is asked repeatedly. He really wanted to know what the specific bacteria was that he was treating for this length of time. The patient was on ertapenem from [id number]. Switch to oral amoxicillin June 2020 until now. Amoxicillin by itself can cause neutropenia. With review of the last oncology note, his oncologist did state that the patient was getting get a bone marrow biopsy if his pancytopenia continue to be present or worsen. After speaking to Dr. Power, and the [facility] oncologist on-call here at our [facility] (Dr. Thorpe) they both recommended the patient be transferred to higher level of care. He may need a bone marrow biopsy, better visualization of his aorta, and at least figuring out what the bacteria was the cause and to be on antibiotics from [address] Power does not recommend me changing the antibiotics. I called [facility]. But in the first minute speaking to the transfer center coordinator, we both realize that this patient is a [facility] patient and I need to call [facility]. As such I placed a call to Dye, Makenna lactation coordinator, to see if we can start the process of transferring this patient. She said that I need to call [facility]. If [facility] declines the patient, and they did decline due to the staffing and bed availability, then I can call . But Makenna is now wondering if this patient needs to be transferred. Makenna states that she has done outpatient oncology in the past and her experience these patients are stable and he may not need to be transferred. Maybe he could be followed up by an outpatient followup. She will talk to her physician advisor. In the meantime, I have called Isaura at the transfer center. She has taken the patient's information and medical history. She asked me to call her back when I speak to the [facility] physician advisor. I was not able to speak to the physician advisor because Makenna said that she will call directly. received a phone call from Makenna. I was then put in contact with the bone marrow attending. He feels that the patient is not a candidate for transfer to his unit because its been more than 2 years s kristie he has been seen at . Isaura then put me in contact with David Beckford. Dr. Beckford is the hospitalist on today. Dr. Beckford feels that this patient is a candidate for transfer to . However he has to run it past his coordinating physician for the transfer center. Isaura will call me back. On these phone calls, I have spent 60 minutes coordinating care for this patient. Between midnight of July 2 and 7 AM he did not have a fever. He does need platelet transfusion. But he spiked a temp at 8 AM, before I transfused platelets. Blood cultures have been negative at 48 hours. Urinalysis is negative. Chest x-ray is negative. CT of the abdomen does not indicate colitis, nephritis, and stents are in place. Creatinine has slightly bumped up. Before I started him on vancomycin he was 1.5. Today he is 1.6. He is on Zosyn and there is an interaction between Zosyn and vancomycin. Plan: Continue Zosyn day 4 Added vancomycin Day #3. Today he has had fever without platelet transfusion. [facility] transfer center coordinator says that they will call me once the ophthalmic medical technologist has approved the bed situation. Dr. David Beckford, hospitalist on-call today, accepts the patient but needs approval from the ophthalmic medical technologist first. I described all of this to the patient. The patient is satisfied with this. He feels that [facility] saved his life the first time around in hopes they can figure out what is wrong with him now (2) Pancytopenia Impression: Of many years duration. However, his platelets are the lowest they have been in a very long time. Pancytopenia possibly due to amoxicillin. Once you stop amox, it can take up to 2 weeks to recover. He does not require transfusion today.After discussion with oncology, their goal is to transfuse for platelets less than 20 if bleeding. If not bleeding, transfuse for less than 10. As such I am to be transfusing this patient for platelets less than 10,000. Dr. Thorpe does not feel I have to take his fever into account as to whether or not to transfusse. He does have quite a bit of antibodies and as such transfusing and platelets is difficult. At this point I cannot tell of the fever he has is from infection or because reaction to the platelets. He does not have any rigors or any other transfusion reaction. Plan: transfuse a pheresis pack, irradiated, platelets. With Hgb > 8, no PRBC transfusion (3) Undifferentiated joint pain 4/ He requested and I declined having him woken up every 4 hours to give him his pain medicines. 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 I told him that the nurses will assess his pain while he is awake. His response is to say that he will set the alarm to wake himself up so we can get his oxycodone every 4 hours. I will continue Ativan every 6 hours as needed for anxiety. He goes on to state that doctors are being conned. That [facility] laws are too stringent and that we should be liberally giving more pain medicines to patients like him who ask for it. Between direct patient care, and multiple conversations with multiple specialist, 75 minutes of care was provided to the patient as of this dictation. Anticipate more time being devoted as I speak to transfer center
[2022-07-17] MEDS: SODIUM CHLORIDE 0.9% 1,000 ML IV SCH (15:50)
[2022-07-17] MEDS ORDERED: SODIUM CHLORIDE 0.9% 500 ML IV ONE (18:24)
[2022-07-18] MEDS: SODIUM CHLORIDE 0.9% 1,000 ML IV SCH ×2 (02:27→18:40)
[2022-07-18] MEDS: SODIUM CHLORIDE FLUSH 0.9% 10 ML SYRINGE IVP SCH ×3 (03:49→17:28)
[2022-07-18] MEDS: PIPERACILLIN/TAZOBACTAM 4.5 GM in SODIUM CHLORIDE 0.9% MINIBAG 100 ML IV SCH ×4 (03:53→17:28)
[2022-07-18] MEDS: ACETAMINOPHEN 325 MG TABLET PO PRN ×2 (04:05→16:40)
[2022-07-18 05:47] LABS: HGB - HEMOGLOBIN 7.6 g/dL (14.0-18.0); MEAN CORPUSCULAR HEMOGLOBIN 30.2 pg (27.0-31.0); MEAN CORPUSCULAR HGB CONC 31.7 g/dL (32.0-36.0); MEAN CORPUSCULAR VOLUME 95.2 fL (80.0-94.0); RED BLOOD COUNT 2.52 10^6/uL (4.70-6.10); RED CELL DISTRIBUTION WIDTH 15.6 % (12.0-15.0)
[2022-07-18 05:58] LABS: CALCIUM 7.3 mg/dL (8.5-10.3); CREATININE 1.6 mg/dL (0.6-1.2); PLT - PLATELET COUNT 7 10^3/uL (130-450); WHITE BLOOD COUNT 0.5 x10^3/uL (4.8-10.8)
[2022-07-18 06:10] LABS: ABNORMAL LYMPHS % (MANUAL) 3 %; BAND NEUTROPHILS % (MANUAL) 2 %; LYMPHOCYTES # (MANUAL) 0.4 10^3/uL (1.5-3.5); LYMPHOCYTES % (MANUAL) 71 %; MONOCYTES # (MANUAL) 0.1 10^3/uL (0.0-1.0); MYELOCYTES % (MANUAL) 1 %; NEUTROPHILS # (MANUAL) 0.1 10^3/uL (1.5-6.6)
[2022-07-18 06:12] LABS: DIFFERENTIAL COMMENT MANUAL DIFFERENTIAL; PLATELET ESTIMATE, MANUAL DECREASED (<130,000) (NORMAL); PLATELET MORPHOLOGY NORMAL APPEARANCE (NORMAL); WBC MORPHOLOGY (MULTIPLE) NORMAL APPEARANCE (NORMAL)
[2022-07-18] MEDS: oxyCODONE 5 MG TABLET PO PRN ×2 (06:56→16:40)
[2022-07-18] MEDS: LORazepam 0.5 MG TABLET PO PRN ×2 (06:56→16:39)
[2022-07-18] MEDS: methocarbamoL 500 MG TABLET PO PRN ×3 (06:56→16:40)
[2022-07-18 07:42] LABS: VANCOMYCIN,TROUGH 15.1 ug/mL (10.0-20.0)
[2022-07-18] MEDS ORDERED: VANCOMYCIN INJ 1 GM, VANCOMYCIN INJ 500 MG in SODIUM CHLORIDE 0.9% 500 ML IV SCH (08:00)
[2022-07-18] MEDS: carvediloL 3.125 MG TABLET PO SCH (09:30)
[2022-07-18] MEDS: amLODIPine 5 MG TABLET PO SCH (09:33)
[2022-07-18] MEDS: MAGNESIUM OXIDE 400 MG TABLET PO SCH (09:34)
[2022-07-18] MEDS: CHOLECALCIFEROL 25 MCG TABLET PO SCH (09:34)
[2022-07-18] MEDS: lamoTRIgine 100 MG TABLET PO SCH (09:34)
[2022-07-18] MEDS: PANTOPRAZOLE 40 MG TABLET PO SCH (09:34)
[2022-07-18] MEDS: FOLIC ACID 1 MG TABLET PO SCH (09:35)
[2022-07-18] MEDS: PHYTONADIONE 100 MCG PO SCH (09:35)
[2022-07-18] MEDS: MORPHINE SULFATE ER 30 MG TABLET PO SCH (09:38)
--- NOTE | 2022-07-18 16:15 | PROVIDER PROGRESS NOTE ---
Assessment/Plan - Problem List (1) Neutropenic fever Assessment/Plan: Unusual case. 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 That resulted in permanent antibiotic usage from December 2017 till now. He is followed carefully by his oncologist at the [facility]. And, about every 6 months to every year, by his infectious disease attending at [facility] at the [facility]. We were ble to get a hold of the on-call infectious disease person July 15. But he is a hospitalist who is on-call infectious disease. He said that he really did not know much about the patient and did not have much to offer. He was tin tong in his car and recommend that I just call infectious disease today. He did recommend that I add Zosyn. In speaking with Dr. Power, who says that he knows the patient. Unfortunately, he has been unable to get records from for over a year. He is asked repeatedly. He really wanted to know what the specific bacteria was that he was treating for this length of time. The patient was on ertapenem from [id number]. Switch to oral amoxicillin June 2020 until now. Amoxicillin by itself can cause neutropenia. With review of the last oncology note, his oncologist did state that the patient was getting get a bone marrow biopsy if his pancytopenia continue to be present or worsen. After speaking to Dr. Power, and the [facility] oncologist on-call here at our [facility] clinic (Dr. Thorpe) they both recommended the patient be transferred to higher level of care. He may need a bone marrow biopsy, better visualization of his aorta, and at least figuring out what the bacteria was the cause and to be on antibiotics from [address] Power does not recommend me changing the antibiotics. Per the last Hospitalist: I called [facility]. But in the first minute speaking to the transfer center coordinator, we both realize that this patient is a [place] patient and I need to call [place]. As such I placed a call to [place], Makenna release coordinator, to see if we can start the process of transferring this patient. She said that I need to call [facility]. If [facility] declines the patient, and they did decline due to the staffing and bed availability, then I can call . But Makenna is now wondering if this patient needs to be transferred. Makenna states that she has done outpatient oncology in the past and her experience these patients are stable and he may not need to be transferred. Maybe he could be followed up by an outpatient followup. She will talk to her physician advisor. In the meantime, I have called Isaura at the transfer center. She has taken the patient's information and medical history. She asked me to call her back when I speak to the [place] physician advisor. I was not able to speak to the physician advisor because Makenna said that she will call directly. received a phone call from Makenna. I was then put in contact with the bone marrow attending. He feels that the patient is not a candidate for transfer to his unit because its been more than 2 years since he has been seen at . Isaura then put me in contact with David Beckford. Dr. Beckford is the hospitalist on today. Dr. Beckford feels that this patient is a candidate for transfer to . However he has to run it past his coordinating physician for the transfer center. Isaura will call me back. On these phone calls, I have spent 60 minutes coordinating care for this patient. Between midnight of July 16 and 7 AM he did not have a fever. He does need platelet transfusion. But he spiked a temp at 8 AM, before I transfused yoel telets. Blood cultures have been negative at 48 hours. Urinalysis is negative. Chest x-ray is negative. CT of the abdomen does not indicate colitis, nephritis, and stents are in place. Creatinine has slightly bumped up. Before I started him on vancomycin he was 1.5. Today he is 1.6. He is on Zosyn and there is an interaction between Zosyn and vancomycin. Plan: Continue Zosyn day 4 Added vancomycin Day #3. Today he has had fever without platelet transfusion. [facility] transfer center coordinator says that they will call once the medical service technician has approved the bed situation. Dr. David Beckford, hospitalist on-call today, accepts the patient but needs approval from the medical service technician first. I described all of this to the patient. The patient is satisfied with this. He feels that [facility] saved his life the first time around in hopes they can figure out what is wrong with him now (2) Pancytopenia Impression: Of many years duration from chemo vs fropm myelodysplastic syndrome. However, his platelets are the lowest they have been in a very long time. Pancytopenia possibly due to amoxicillin. Once you stop amox, it can take up to 2 weeks to recover. He does not require transfusion today.After discussion with oncology, their goal is to transfuse for platelets less than 20 if bleeding. If not bleeding, transfuse for less than 10. As such I am to be transfusing this p atient for platelets less than 10,000. Dr. Thorpe does not feel I have to take his fever into account as to whether or not to transfusse. He does have quite a bit of antibodies and as such transfusing and platelets is difficult. At this point I cannot tell of the fever he has is from infection or because reaction to the platelets. He does not have any rigors or any other transfusion reaction. Plan: transfuse a plt pheresis pack, irradiated, platelets. With Hgb > 8, no PRBC transfusion (3) Joint pain 07/16 He requested and I declined having him woken up every 4 hours to give him his pain medicines. He feels that because he is asleep in the body trimmer, he misses a 5 mg dose, and would like a 10 mg dose to catch up from the dose he missed. I told him that the nurses will assess his pain while he is awake. His response is to say that he will set the alarm to wake himself up so we can get his oxycodone every 4 hours. I will continue Ativan every 6 hours as needed for anxiety. He goes on to state that doctors are being conned. That [place] state laws a re too stringent and that we should be liberally giving more pain medicines to patients like him who ask for it. (4) Alcoholic cirrhosis with hyperbilirubinemia -continue home medications: Ursodiol -pt denies current ETOH use (5) Weakness He is able to get up to go to the bathroom. He is weak. This is somewhat expected with his current condition and pancytopenia Plan: He first needs transfer for higher level of care for aggressive PT and OT to start (6) CKD All labs were reviewed. Creat on adm 1.5; baseline 1.2 Plan: Continue gentlr IVF Avoid nephrotoxins (7) seizure disorder -continue home medications: Lamictal (8) BPH -He has tried several meds for this and has a long-awaited Urology appt on 07/18/22 (9) HTN -continue home medications:Amlodipine, Coreg (10) GERD -continue home medications: PPI (11) Status post aortic aneurysm repair -previously on amoxicillin oral prophylaxis indefinitely, but not in chart now. - Current Meds Current Meds: Current Medications Generic Name Dose Route Start Last Admin Trade Name Freq PRN Reason Stop Dose Admin Acetaminophen 650 mg 07/14/22 22:48 07/18/22 04:05 Acetaminophen 325 Mg Tablet PO 650 mg Q4HR PRN Administration Pain 1 to 4, or Fever Amlodipine Besylate 10 mg 07/16/22 08:29 07/18/22 09:33 Amlodipine 5 Mg Tablet PO 10 mg DAILY HAYDEN Administration Carvedilol 6.25 mg 07/16/22 08:30 07/18/22 09:30 Carvedilol 3.125 Mg Tablet PO 6.25 mg BID HAYDEN Administration Cholecalciferol 25 mcg 07/15/22 09:00 07/18/22 09:34 Cholecalciferol 25 Mcg Tablet PO 25 mcg DAILY HAYDEN Administration Folic Acid 1 mg 07/16/22 09:00 07/18/22 09:35 Folic Acid 1 Mg Tablet PO 1 mg DAILY HAYDEN Administration Sodium Chloride 1,000 mls @ 75 mls/hr 07/14/22 23:00 07/18/22 02:27 Normal Saline 0.9% IV 75 mls/hr .[id number] HAYDEN Administration Vancomycin HCl 1 gm/ 500 mls @ 250 mls/hr 07/18/22 08:00 07/18/22 11:40 Vancomycin HCl 500 mg/ Sodium IV Infused Chloride Q24H HAYDEN Infusion Piperacillin Sod/Tazobactam 100 mls @ 200 mls/hr 07/18/22 11:00 07/18/22 12:08 Sod 4.5 gm/ Sodium Chloride IV Infused Q6H HAYDEN Infusion Lamotrigine 100 mg 07/15/22 09:00 07/18/22 09:34 Lamotrigine 100 Mg Tablet PO 100 mg BID HAYDEN Administration Lorazepam 0.5 mg 07/15/22 16:29 07/18/22 06:56 Lorazepam 0.5 Mg Tablet PO 0.5 mg Q6H PRN Administration Anxiety Magnesium Oxide 400 mg 07/15/22 09:00 07/18/22 09:34 Magnesium Oxide 400 Mg Tablet PO 400 mg DAILY HAYDEN Administration Methocarbamol 500 mg 07/14/22 22:42 07/18/22 06:56 Methocarbamol 500 Mg Tablet PO 500 mg TID PRN Administration Spasms Morphine Sulfate 30 mg 07/15/22 10:00 07/18/22 09:38 Morphine Sulfate Er 30 Mg Tablet PO 30 mg BID HAYDEN Administration Ondansetron HCl 4 mg 07/14/22 22:42 07/15/22 01:49 Ondansetron Odt 4 Mg Tablet TL 4 mg Q6H PRN Administration Nausea / Vomiting Oxycodone HCl 5 mg 07/15/22 11:04 07/18/22 06:56 Oxycodone 5 Mg Tablet PO 5 mg Q4H PRN Administration MODERATE PAIN Pantoprazole Sodium 40 mg 07/15/22 09:00 07/18/22 09:34 Pantoprazole 40 Mg Tablet PO 40 mg DAILY HAYDEN Administration Phytonadione (Vit K1 1 each 07/16/22 13:00 07/18/22 09:35 ) [Vitamin K] 100 PO 1 each Mcg Tablet DAILY HAYDEN Administration Sodium Chloride 10 ml 07/15/22 01:00 07/18/22 09:39 Sodium Chloride Flush 0.9% 10 Ml Syringe IVP Not Given 0100,0900,1700 [facility] Ursodiol 500 mg 07/15/22 06:00 07/18/22 14:16 Ursodiol 250 Mg Tablet PO 500 mg TID HAYDEN Administration - Lab Result Fish Bone Diagrams: 07/18/22 05:18 07/18/22 05:18 - Additional Planning My Orders: My Active Orders 07/18/22 12:27 Transfuse Platelet Pheresis Pk [RC] .ONCE 07/18/22 12:40 BLOOD TYPE Stat PLATELETPHERESIS LEUKO REDUCED Stat Subjective - Subjective Patient Reports: Other (He is upset and frustrated, asked why he is not getting enough water, I told him no water restriction ordered, he is jumping around with questions from topic to topic and does not let me answer. He then said "that's enough" and didn't want to continue a discussion.) Objective Vital Signs: Vital Signs - 24 hr 07/17/22 07/17/2223 20:30 22:20 22:34 Temperature 38.3 C H 37.2 C 37.2 C Heart Rate [ 92 92 Brachial] Respiratory 20 16 Rate Blood Pressure 133/64 H 133/64 H [Right Brachial artery] O2 Saturation 93 93 07/17/22 07/17/22 07/18/22 22:39 22:40 03:58 Temperature 37.8 C 37.8 C 38.8 C H Heart Rate [ 88 88 95 Brachial] Respiratory 20 20 20 Rate Blood Pressure 114/65 114/65 127/73 [Right Brachial artery] O2 Saturation 94 94 92 07/18/22 08:00 Temperature 36.9 C Heart Rate [ 83 Brachial] Respiratory 18 Rate Blood Pressure 118/68 [Right Brachial artery] O2 Saturation 95 Oxygen O2 Source Room air I&O (Last 24 Hrs): Intake and Output Totals x24h 07/16/22 07/17/22 07/18/22 23:59 23:59 23:59 Intake Total 4123.333 3228 1696.25 Balance 4123.333 3228 1696.25 General: Alert, Oriented x3 HEENT: Mucous membr. moist/pink, Other (Exophthalmous) Neuro: Alert, Non Focal Cardiovascular: Regular rate, No murmurs Respiratory: No respiratory distress, Breath sounds nml Abdomen: Soft, Other (Obese, distended) Extremities: No clubbing, No edema - Results Results: Laboratory Results WBC 0.5 x10^3/uL (4.8-10.8) L* 07/18/22 05:18 RBC 2.52 10^6/uL (4.70-6.10) L 07/18/22 05:18 Hgb 7.6 g/dL (14.0-18.0) L 07/18/22 05:18 Hct 24.0 % (42.0-52.0) L 07/18/22 05:18 MCV 95.2 fL (80.0-94.0) H 07/18/22 05:18 MCH 30.2 pg (27.0-31.0) 07/18/22 05:18 MCHC 31.7 g/dL (32.0-36.0) L 07/18/22 05:18 RDW 15.6 % (12.0-15.0) H 07/18/22 05:18 Plt Count 7 10^3/uL (130-450) L* 07/18/22 05:18 MPV TNP 07/18/22 05:18 Neut # (Auto) Not Reportable 07/18/22 05:18 Lymph # (Auto) Not Reportable 07/18/22 05:18 [place] # (Auto) Not Reportable 07/18/22 05:18 Eos # (Auto) Not Reportable 07/18/22 05:18 Baso # (Auto) Not Reportable 07/18/22 05:18 Absolute Nucleated RBC Not Reportable 07/18/22 05:18 Total Counted 100 07/18/22 05:18 Band Neuts % (Manual) 2 % (0-10) 07/18/22 05:18 Reactive Lymphs % (Man) 20 % 07/17/22 08:00 Abnorm Lymph % (Manual) 3 % 07/18/22 05:18 Metamyelocytes % 1 % (-0) H 07/14/22 21:00 Myelocytes % 1 % (-0) H 07/18/22 05:18 Nucleated RBC % Not Reportable 07/18/22 05:18 Neutrophils # (Manual) 0.1 10^3/uL (1.5-6.6) L* 07/18/22 05:18 Lymphocytes # (Manual) 0.4 10^3/uL (1.5-3.5) L 07/18/22 05:18 Monocytes # (Manual) 0.1 10^3/uL (0.0-1.0) 07/18/22 05:18 Eosinophils # (Manual) 0.0 10^3/uL (0-0.7) 07/18/22 05:18 Basophils # (Manual) 0.0 10^3/uL (0-0.1) 07/18/22 05:18 Nucleated RBCs 1 % 07/17/22 08:00 Differential Comment MANUAL DIFFERENTIAL 07/18/22 05:18 Manual Slide Review Indicated 07/15/22 17:12 WBC Morphology NORMAL APPEARANCE (NORMAL) 07/18/22 05:18 Platelet Estimate DECREASED (<130,000) (NORMAL) 07/18/22 05:18 Platelet Morphology NORMAL APPEARANCE (NORMAL) 07/18/22 05:18 RBC Morph Micro Appear 1+ ANISOCYTOSIS (NORMAL) 1+ MICROCYTOSIS (NORMAL) 1+ STOMATOCYTES (NORMAL) 07/18/22 05:18 RBC Morph Micro Appear 1+ ANISOCYTOSIS (NORMAL) 1+ MICROCYTOSIS (NORMAL) 1+ STOMATOCYTES (NORMAL) 07/18/22 05:18 RBC Morph Micro Appear 1+ ANISOCYTOSIS (NORMAL) 1+ MICROCYTOSIS (NORMAL) 1+ STOMATOCYTES (NORMAL) 07/18/22 05:18 Sodium 133 mmol/L (135-145) L 07/18/22 05:18 Potassium 4.0 mmol/L (3.5-5.0) 07/18/22 05:18 Chloride 104 mmol/L (101-111) 07/18/22 05:18 Carbon Dioxide 22 mmol/L (21-32) 07/18/22 05:18 Anion Gap 7.0 (6-13) 07/18/22 05:18 BUN 17 mg/dL (6-20) 07/18/22 05:18 Creatinine 1.6 mg/dL (0.6-1.2) H 07/18/22 05:18 Estimated GFR (MDRD) 44 (>89) L 07/18/22 05:18 Glucose 124 mg/dL (70-100) H 07/18/22 05:18 Estimat Average Glucose 85 mg/dL (70-100) 07/14/22 20:55 Hemoglobin A1c % 4.6 % (4.27-6.07) 07/14/22 20:55 Lactic Acid 1.4 mmol/L (0.5-2.2) 07/14/22 21:00 Calcium 7.3 mg/dL (8.5-10.3) L 07/18/22 05:18 Total Bilirubin 1.3 mg/dL (0.2-1.0) H 07/14/22 21:00 AST 34 IU/L (10-42) 07/14/22 21:00 ALT 37 IU/L (10-60) 07/14/22 21:00 Alkaline Phosphatase 125 IU/L (42-121) H 07/14/22 21:00 Total Protein 5.6 g/dL (6.7-8.2) L 07/14/22 21:00 Albumin 3.4 g/dL (3.2-5.5) 07/14/22 21:00 Globulin 2.2 g/dL (2.1-4.2) 07/14/22 21:00 Albumin/Globulin Ratio 1.5 (1.0-2.2) 07/14/22 21:00 Lipase 27 U/L (22-51) 07/14/22 21:00 Urine Color YELLOW 07/14/22 20:45 Urine Clarity HAZY (CLEAR) 07/14/22 20:45 Urine pH 6.0 PH (5.0-7.5) 07/14/22 20:45 Ur Specific [place] 1.015 (1.002-1.030) 07/14/22 20:45 Urine Protein 30 mg/dL (NEGATIVE) H 07/14/22 20:45 Urine Glucose (UA) NEGATIVE mg/dL (NEGATIVE) 07/14/22 20:45 Urine Ketones NEGATIVE mg/dL (NEGATIVE) 07/14/22 20:45 Urine Occult Blood TRACE-INTA (NEGATIVE) 07/14/22 20:45 Urine Nitrite NEGATIVE (NEGATIVE) 07/14/22 20:45 Urine Bilirubin NEGATIVE (NEGATIVE) 07/14/22 20:45 Urine Urobilinogen 0.2 (NORMAL) E.U./dL (NORMAL) 07/14/22 20:45 Ur Leukocyte Esterase NEGATIVE (NEGATIVE) 07/14/22 20:45 Urine RBC 0-5 /HPF (0-5) 07/14/22 20:45 Urine WBC 0-3 /HPF (0-3) 07/14/22 20:45 Ur Squamous Epith Cells NONE SEEN (<= Few) 07/14/22 20:45 Amorphous Sediment Few /LPF 07/14/22 20:45 Urine Bacteria Rare /HPF (None Seen) 07/14/22 20:45 Ur Microscopic Review INDICATED 07/14/22 20:45 Urine Culture Comments NOT INDICATED 07/14/22 20:45 Nasal Adenovirus (PCR) NOT DETECTED 07/14/22 20:45 Nasal B. parapertussis DNA (PCR) NOT DETECTED 07/14/22 20:45 Nasal Coronavir 229E PCR NOT DETECTED 07/14/22 20:45 Nasal Coronavir HKU1 PCR NOT DETECTED 07/14/22 20:45 Nasal Coronavir NL63 PCR NOT DETECTED 07/14/22 20:45 Nasal Coronavir OC43 PCR NOT DETECTED 07/14/22 20:45 Nasal Enterovir/Rhinovir PCR NOT DETECTED 07/14/22 20:45 Nasal Influenza B PCR NOT DETECTED 07/14/22 20:45 Nasal Influenza A PCR NOT DETECTED 07/14/22 20:45 Nasal Parainfluen 1 PCR NOT DETECTED 07/14/22 20:45 Nasal Parainfluen 2 PCR NOT DETECTED 07/14/22 20:45 Nasal Parainfluen 3 PCR NOT DETECTED 07/14/22 20:45 Nasal Parainfluen 4 PCR NOT DETECTED 07/14/22 20:45 Nasal RSV (PCR) NOT DETECTED 07/14/22 20:45 Nasal B.pertussis DNA PCR NOT DETECTED 07/14/22 20:45 Nasal C.pneumoniae (PCR) NOT DETECTED 07/14/22 20:45 Juan Jose Human Metapneumo PCR NOT DETECTED 07/14/22 20:45 Nasal M.pneumoniae (PCR) NOT DETECTED 07/14/22 20:45 Nasal SARS-CoV-2 (PCR) NOT DETECTED 07/14/22 20:45 Last Dose Date UNK 07/18/22 07:27 Last Dose Time K 07/18/22 07:27 Vancomycin Trough 15.1 ug/mL (10.0-20.0) 07/18/22 07:27 Blood Type O POSITIVE 07/18/22 12:40 - Procedures Procedures: Procedures TRANSFUSE NONAUT RED BLOOD CELLS IN PERIPH VEIN, PERC (11/25/16)
[2022-07-18 18:39] VITALS: BP 103/53
--- NOTE | 2022-07-19 07:56 | Discharge Plan ---
Discharge Plan Problem Reviewed?: Yes Disposition: 02 Transfer Acute Care Hosp Condition: Stable No Smoking: If you smoke, Please STOP! Call for help.
--- NOTE | 2022-07-19 07:57 | DISCHARGE SUMMARY ---
Discharge Summary Admit Date: 07/14/22 Discharge Date: 07/18/22 Discharging Provider: Dr Shakila Lopez Primary Care Provider: Dr Adair Glover Code Status: Attempt Resuscitation Condition at Discharge: Stable Discharge Disposition: 02 Transfer Acute Care Hosp Discharge Facility Name: [facility] History of Present Illness: 62 yo M with PMH of blastic plasmacytoid dendritic cell leukemia, diagnosed in November 2016 in remission x 5 years, Pancytopenia, alcoholic liver cirrhosis with hyperbilirubinemia, Chronic arthralgia of undifferentiated pain, Aortic aneurysm s/p repair with stent infection, CKD stage III, Seizure D/O, BPH, HTN, and GERD presented to the ER via EMS for c/o 5 day h/o Fever. Pt has been working on his boat. He bruises easily, but has noticed increased bruising. He has been picking up heavy items on his boat and has had subsequent abdo muscle pain, no N/V/BM change. He started to have fevers about 5 days ago, with Tm 104.6F. He also c/o weakness, malaise. Pt has BPH and has frequent urination, including nocturia q 45 min. He has tried several meds for this and has a long-awaited Urology appt on 07/18/22. No SOB/CP/Cough. Pt has required platelet transfusions for low p latelets many times in the past and he feels that his symptoms are similar to when he has had low platelets. Pt is Disabled. Pt says that he no longer drinks ETOH. EMS reported T 103.1F. In the ER, WBC 0.7, ANC 0.1, Plt 11, Hgb 10.5, CR 1.5, Glc 171, BC pending. CT Abdo: ordered/pending. ER Provider D/W pt's Bale Sewer who recommends admit, A/Bs, irradiated leukoreduced platelet transfusion. Pt was given IVF, Zosyn in the ER. Irradiated leukoreduced platelet transfusion ordered; pending. - HOSPITAL COURSE Hospital Course: (1) Neutropenic fever This gentleman has had pancytopenia since treatment for his previous leukemia -summer 2017. 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 That resulted in permanent antibiotic usage from December 2017 till now. He is followed carefully by his oncologist at the [facility]. And, about every 6 months to every year, by his infectious disease attending at [facility] at the [facility]. We were able to get a hold of the on-call infectious disease doctor July 15. He did recommend adding Zosyn. Then, we spoke with Dr. Power, who said that he knows the patient. Unfortunately, he has been unable to get records from for over a year. He asked repeatedly. He really wanted to know what the specific bacteria was that he was treating for this length of time. The patient was on ertapenem from [id number]. Switch to oral amoxicillin June 2020 until now. Amoxicillin by itself can cause neutropenia. With review of the last oncology note, his oncologist did state that the patient was getting get a bone marrow biopsy if his pancytopenia continue to be present or worsen. After speaking to Dr. Power, and the [facility] oncologist on-call here at our [facility] (Dr. Thorpe) they both recommended the patient be transferred to higher level of care. He may need a bone marrow biopsy, better visualization of his aorta, and at least figuring out what the bacteria was the cause and to be on antibiotics from [address] Power did not recommend changing the antibiotics. He spiked fevers and needed transfused platelets. Blood cultures were negative at 48 hours. Urinalysis was negative. Chest x-ray was negative. CT of the abdomen did not indicate colitis, nephritis, and stents were in place. Creatinine slightly bumped up,before starting him on vancomycin, creat was 1.5>> 1.6. He was on Zosyn and vancomycin. We then called [facility]. But this patient is a [facility] patient and we needed to first call [facility]. As such, we placed a call to [facility], marketing support coordinator, to see if we can start the process of transferring this patient. She said that we needed to call [facility]. If [facility] declined the patient, (and they did decline due to the staffing and bed availability), then I could call . But Makenna at [facility] was wondering if this patient needed the transfer. (Makenna states that she has done outpatient oncology in the past and her experience these patients were stable and he may not need to be transferred. Maybe he could be followed up by an outpatient followup). She talked to her physician advisor. In the meantime, we contacted transfer center but we were asked to call her back after speaking to the [facility] physician advisor. This Hospitalist was not able to speak to the physician advisor because Makenna ([facility]) said that she would call directly. received a phone call from Makenna. This Hospitalist was then put in contact with the Bone Marrow attending. He felt that the patient was not a candidate for transfer to his unit because its been more than 2 years since the pt was seen at . Transfer Cnt then contacted Dr David Beckford, the hospitalist that day. Dr. Beckford did feel that this patient was a candidate for transfer to . However he had to run it past his coordinating physician for the transfer center. ( Time spent: 60 minutes coordinating care by phone for this patient). The patient was satisfied with this. He felt that [facility] saved his life the first time around in hopes they can figure out what is wrong with him now. On 07/18/22, he was accepted in transfer and a bed was available at [facility]. (2) Pancytopenia Of many years duration from chemo vs fropm myelodysplastic syndrome. However, his platelets are the lowest they have been in a very long time. Pancytopenia possibly due to amoxicillin. Once you stop amox, it can take up to 2 weeks to recover. He does not require transfusion today.After discussion with oncology, their goal is to transfuse for platelets less than 20 if bleeding. If not bleeding, transfuse for less than 10. As such I am to be transfusing this patient for platelets less than 10,000. Dr. Thorpe does not feel I have to take his fever into account as to whether or not to transfusse. He does have quite a bit of antibodies and as such transfusing and platelets is difficult. At this point I cannot tell of the fever he has is from infection or because reaction to the platelets. He does not have any rigors or any other transfusion reaction. Plan: transfuse a plt pheresis pack, irradiated, platelets. With Hgb > 8, no PRBC transfusion (3) Joint pain He requested to be awoken up every 4 hours to give him his pain medicines. The nurses were ordered to assess his pain while he is awake and treat him then. We did continue Ativan every 6 hours as needed for anxiety. (4) Alcoholic cirrhosis With hyperbilirubinemia. He denied current ETOH use. We continued home medications: Ursodiol (5) Weakness He was able to get up to go to the bathroom, but is weak. This was somewhat expected with his current condition and pancytopenia. He first needed transfer for higher level of care, before aggressive PT and OT was to start (6) CKD Creat on adm 1.5; baseline 1.2, he was on gentle IVF (7) seizure disorder Continued home medications: Lamictal (8) BPH He has tried several meds for this and has a long-awaited Urology appt on 07/18/22 (9) HTN Continued home medications: Amlodipine, Coreg (10) GERD Continued home medications: PPI (11) Status post aortic aneurysm repair Previously on amoxicillin oral prophylaxis indefinitely, but not in chart now. - ALLERGIES Allergies/Adverse Reactions: Allergies Allergy/AdvReac Type Severity Reaction Status Date / Time No Known Drug Allergies Allergy Verified 03/07/22 13:13 - MEDICATIONS Home Medications: Ambulatory Orders Medication Instructions Recorded Confirmed oxyCODONE [Roxicodone] 5 mg PO TID PRN 10/18/17 07/15/22 ursodioL [Juju 250] 500 mg PO TID 10/18/17 07/15/22 Carvedilol [Coreg] 6.25 mg PO BID 06/18/18 07/15/22 amLODIPine [Norvasc] 10 mg PO DAILY 07/31/19 07/15/22 Morphine Sulfate ER [Ms Contin] 30 mg PO BID 06/12/20 07/15/22 Phytonadione (Vit K1) [Vitamin K] 100 mcg PO DAILY 06/12/20 07/15/22 lamoTRIgine [Subvenite] 100 mg PO BID 06/12/20 07/15/22 methocarbamoL [Methocarbamol] 500 mg PO TID PRN 06/12/20 07/15/22 Amoxicillin 1,000 mg PO Q8H 07/15/22 07/15/22 Cholecalciferol (Vitamin D3) 1,000 unit PO DAILY 07/15/22 07/15/22 [Vitamin D3] Folic Acid 1 mg PO DAILY 07/15/22 07/15/22 Magnesium Oxide [Magnesium] 500 mg PO DAILY 07/15/22 07/15/22 Prochlorperazine Maleate 10 mg PO DAILY PRN 07/15/22 07/15/22 Tadalafil [Cialis] 5 mg PO DAILY 07/15/22 07/15/22 - PHYSICAL EXAM AT DISCHARGE General Appearance: positive: No acute distress, Alert Eyes Bilateral: positive: Normal inspection, EOMI ENT: positive: ENT inspection nml, No signs of dehydration Neck: positive: Nml inspection, No JVD Respiratory: positive: No respiratory distress, Breath sounds nml Cardiovascular: positive: Regular rate & rhythm, No murmur Abdomen: positive: Non-tender, Other (Distended, obese) Skin: positive: Warm, Dry Extremities: positive: Non-tender, No pedal edema Neurologic/Psychiatric: positive: Oriented x3, Other (Jumps from topic to topic, is upset and frustrated.) - LABS Result Diagrams: 07/18/22 05:18 07/18/22 05:18 - TIME SPENT Time Spent in Discharge (Minutes): 60
== END 2022-07-18 21:00 | disposition short-term general hospital (02) | DRG 809 ==
LOC: EDBD → EDUNIT# → ED 20:13 → MS2 22:48 → MS3 07-18 20:26
PROVIDERS: ADMIT Internal Medicine; ATTEND Internal Medicine
PROC: 30233R1 Transfusion of Nonautologous Platelets into Peripheral Vein, Percutaneous Approach (ICD-10-PCS; principal; 2022-07-15)
DX: D70.9 Neutropenia, unspecified (principal); C95.01 Acute leukemia of unspecified cell type, in remission; R50.81 Fever presenting with conditions classified elsewhere; Z20.822 Contact with and (suspected) exposure to COVID-19; D61.810 Antineoplastic chemotherapy induced pancytopenia; K70.30 Alcoholic cirrhosis of liver without ascites; N40.1 Benign prostatic hyperplasia with lower urinary tract symptoms; R35.0 Frequency of micturition; R10.9 Unspecified abdominal pain; I12.9 Hypertensive chronic kidney disease with stage 1 through stage 4 chronic kidney disease, or unspecified chronic kidney disease; N18.30 Chronic kidney disease, stage 3 unspecified; R53.1 Weakness; M25.50 Pain in unspecified joint; G40.909 Epilepsy, unspecified, not intractable, without status epilepticus; K21.9 Gastro-esophageal reflux disease without esophagitis; Z98.890 Other specified postprocedural states; D69.6 Thrombocytopenia, unspecified; Z87.891 Personal history of nicotine dependence; F41.9 Anxiety disorder, unspecified
CPT/HCPCS: 36415; 36430; 71045; 74176; 80048; 80053; 80202; 81001; 83036; 83605; 83690; 85025; 86900; 86901; 87040; 87633; 99285; A9270; J3370; P9037; Q0162; 81003; 87086